=== PATIENT | female | born 1955 | race Caucasian/White ===

== ENCOUNTER → 2017-09-20 13:38 | Outpatient (CLI) | payer MEDICARE, SELFPAY ==
--- NOTE | 2017-09-20 13:09 | CDU_ITS ---
Reason For Study: TIA Rt. Velocities/BP Lt. Velocities/BP Prox CCA 88.5/16.4 cm/sec. Prox CCA 123.0/27.5 cm/sec. Mid CCA 94.4/24.0 cm/sec. Mid CCA 108.0/24.4 cm/sec. Dist CCA 80.3/19.9 cm/sec. Dist CCA 75.0/11.7 cm/sec. Prox ICA 76.2/25.2 cm/sec. Prox ICA 59.2/24.0 cm/sec. Mid ICA 94.4/36.9 cm/sec. Mid ICA 83.0/30.6 cm/sec. Dist ICA 77.1/29.0 cm/sec. Dist ICA 78.1/26.4 cm/sec. Rt. ICA/CCA = 1.0. Lt. ICA/CCA = .77. Prox ECA 97.0/16.3 cm/sec. Prox ECA 86.2/14.1 cm/sec. Rt. Vert. 53.9/15.8 cm/sec. Lt. Vert. 51.6/14.7 cm/sec. Right Extracranial There is intimal thickening but no significant atherosclerotic plaque noted in the right common carotid artery. There is intimal thickening but no significant atherosclerotic plaque noted in the right internal carotid artery. There is intimal thickening but no significant atherosclerotic plaque noted in the right external carotid artery. Antegrade flow is noted in the right vertebral artery. Left Extracranial There is intimal thickening but no significant atherosclerotic plaque noted in the left common carotid artery. There is intimal thickening but no significant atherosclerotic plaque noted in the left internal carotid artery. There is no significant atherosclerotic plaque noted in the left external carotid artery. Antegrade flow is noted in the left vertebral artery. Procedure Carotid Duplex [id number]. Exam performed in department. Interpretation Summary Mild (<50%) stenosis right extracranial internal carotid. Mild (<50%) stenosis left extracranial internal carotid. Flow within the vertebral arteries is antegrade bilaterally. Ordering Physician: Dieter Montes Referring Physician: Dieter Montes Performed By: Romy Duffy RVT
--- NOTE | 2017-09-20 14:00 | STEWCON_ITS ---
Reason For Study: DYSPNEA/SOB Stress Results Protocol: Dobutamine Maximum Predicted HR: 158 bpm Target HR: 134 bpm% Maximum Predicted HR: 88 % DurationHeart Rate Stage (mm:ss) (bpm) BPCom ment BASELINE 61 113/69 STAGE 1 3:00 87 129/6710 MCG STAGE 2 3:00 11 3 136/4320 MCG STAGE 3 3:16 13 9 136/9730 MCG RECOVERY 95 141/75 Stress Duration: 9:16 mm:ss Maximum Stress HR: 139 bpm Baseline Echocardiogram Findings The estimated ejection fraction is 65 %. Stress Echo Wall motion Data Resting WMIntermediate WMStress WM Resting Wall Motion Wall Motion Stress No regional wall motion No regional wall motion abnormalities noted. abnormalities noted. EKG Data Normal intervals are noted. The patient was titrated from 10 mcg to a maximun of 30 mcg of dobutamine during the stress. The maximum heart rate attained was 136 beats per minute. This was 86% of maximum predicted heart rate. At peak infusion, upsloping ST changes only were noted, which did not meet the criteria for ischemia. No clinical angina was noted. No arrhythmias noted. Interpretation Summary The estimated ejection fraction is 65 %. The patient was titrated from 10 mcg to a maximun of 30 mcg of dobutamine during the stress. Normal adequate dobutamine echocardiogram. Negative for ischemia by EKG and echocardiographic criteria. No anginal symptoms noted. No arrhythmias noted. Appropriate blood pressure response to dobutamine. Final LVEF of 75%. Test terminated due to the attainment of target heart rate. RVSP baseline was 40 mmHg, and increased to 46 mm Hg at peak infusion. No complications. Ordering Physician: Dieter Montes Referring Physician: Dieter Montes Performed By: Shilpi Gomez RDCS
== END ==
PROVIDERS: Family Provider Internal Medicine; PCP Internal Medicine; Visit Provider Internal Medicine Cardiovascular Disease
DX: I80.00 Phlebitis and thrombophlebitis of superficial vessels of unspecified lower extremity (principal); I27.20 Pulmonary hypertension, unspecified; R06.00 Dyspnea, unspecified; R07.9 Chest pain, unspecified; Z86.73 Personal history of transient ischemic attack (TIA), and cerebral infarction without residual deficits
CPT/HCPCS: 93017; 93350; 93880; J7030; A4216

== ENCOUNTER → 2017-10-18 11:02 | Outpatient (CLI) | payer MEDICARE, SELFPAY ==
[2017-10-18 13:13] LABS: M R Staph aureus DNA By PCR Negative (Negative); Probe Check PASS; Specimen Processing Control PASS
== END ==
PROVIDERS: Family Provider Internal Medicine; PCP Internal Medicine; Visit Provider Ophthalmology
DX: Z22.321 Carrier or suspected carrier of Methicillin susceptible Staphylococcus aureus (principal)
CPT/HCPCS: 87641

== ENCOUNTER 2017-10-30 13:30 | Outpatient (RCR) | payer MEDICARE, SELFPAY ==
--- NOTE | 2017-09-25 10:58 | HP.PTEVAL ---
Patient's Visit Information ETIENNE BERMUDEZ is a 62 year old F referred to Physical Therapy by MD ESTEFANI Maldonado with a diagnosis of CERVICAL DDD. Date of Evaluation: 09/25/17 Physical Therapist: Camilo Lopes PT, - Visit Plan Frequency: 2x /Week Duration: 4 Weeks Plan: modalities ,cervical ROM/postural ex',s,manual therapy STM ,cervical traction - Subjective Subjective: This 62 y/o female presents to physical therapy with cervical DDD. Patient has nhad cervical pain more than 25 years. Patient located cervical spine symptoms symtrical. Patient pain is decribed as ache and crepitus.Symptoms worse with lifting arms ,turning ,flexion,cold. Pain affects sleeping but has sleep apnea. Symptoms better with MEDS. Patient c/o MARIEE ,denies diziness ,nausea. Patient has no had prior treatment. Patient seen Pain managment, Patient seen facilities project manager-pulmonary HTN. SOCIAL: seperated. VOVATION: disablity - Pain Left Neck Pain Intensity (Out of 10): 3 Pain Intensity Range: 10 - Objective POSTURE: mild foward posture ,foward head. NEURO: denies parathesia/tingling,C5-6-7 1/. PALAPTION: tender UT/LEVATOR/PARASPINALS. CERVICAL ROM: flexion min loss,extension min loss,lateral flexion min loss,rotation mod loss,retraction min loss. BUE: AROM WFL. MMT: 4/5 grosssly - Special Tests C/S Radiculapathy - Left Upper limb tension test: Negative C/S Radiculapathy - Right Upper limb tension test: Negative C/S Radiculapathy - Left Spurlings: Negative C/S Radiculapathy - Right Spurlings: Negative C/S Radiculapathy - Left Cervical distraction: Negative C/S Radiculapathy - Right Cervical distraction: Negative C/S Radiculapathy - Left Relief test: Negative C/S Radiculapathy - Right Relief test: Negative Vertebral Artery Test: Negative Cervical Sitting: Protrusion - Mechanical Response: No effect Cervical Sitting: Protrusion - Symptoms During Testing: No effect Cervical Sitting: Protrusion - Symptoms After Testing: No effect Cervical Sitting: Retraction - Mechanical Response: No effect Cervical Sitting: Retraction - Symptoms During Testing: No effect Cervical Sitting: Retraction - Symptoms After Testing: No effect Cervical Sitting: Retraction-Extension - Mechanical Response: No effect Cerv Sitting: Retraction-Extension - Symptoms During Testing: No effect Cerv Sitting: Retraction-Extension - Symptoms After Testing: No effect - Goals Goal 1:: Independant with HEP Goal Time Frame: 4-6 Weeks Goal 2:: Independant with posture for ADL'S Goal Time Frame: 4-6 Weeks Goal 3:: Decrease cervical pain by 50% or greater to improve function. Goal Time Frame: 4-6 Weeks Goal 4:: Patient improve cervical ROM for function of recovery Goal Time Frame: 4-6 Weeks Goal 5:: Patient be able to perform ADLS' and job demands with min limiations Goal Time Frame: 4-6 Weeks - Rehabilitation Potential Physical Therapy Diagnosis: This patient has cervical pain with loss ROM ,strength which impairs function. and ADL'S Patient had x-rays showed DDD Rehabilitation Potential: Fair - Anticipated Interventions Patient/Client Instruction: Educate patient on: Condition, Plan of Care For the Purpose of:: To decrease pain, To increase ROM, To increase tolerance to activity/condition/position, To improve performance and independence with ADL's, To improve ability of physical actions for home/community/work/leisure, To improve health of tissue, To decrease soft tissue restriction, To increase flexibility/ROM, To assume or resume ADL's, To improve ability to perform tasks related to life management Therapeutic Exercise to Include: Strength training, Postural training, Flexibilty training Comment: cervical For the Purpose of:: To decrease pain, To increase ROM, To improve muscle performance and motor function, To improve ability to perform ADL's, To increase tolerance to activity/condition/position, To improve ability of physical actions for home/community/work/leisure, To improve health of tissue, To decrease soft tissue restriction, To increase flexibility/ROM, To prevent re-injury, To improve ability to perform tasks related to life management Manual Therapy Techniques to Include: Soft tissue mobilization Comment: cervical traction For the Purpose of:: To decrease pain, To increase ROM, To improve nutrient delivery to tissue, To increase oxygenation perfusion, To improve health of tissue, To decrease soft tissue restriction, To increase flexibility/ROM IF ES: Yes Cryotherapy (ice pack, ice massage): Yes Thermo therapy (hot pack): Yes Ultrasound (thermal/non thermal): Yes For the Purpose of:: To decrease pain, To increase ROM, To improve nutrient delivery to tissue, To increase oxygenation perfusion, To improve health of tissue, To decrease soft tissue restriction Thank you for the opportunity to evaluate your patient. For Medicare and Medicare HMO plans, please review the plan of care and approve it. It will need to be FAXED BACK to us at [phone] for Medicare purposes. Please let me know if there are questions or concerns regarding this plan of care. Physician Signature: Date:
--- NOTE | 2017-10-30 13:58 | HP.PTDCSUM ---
HP - PT D/C Summary It has been my pleasure to treat ETIENNE BERMUDEZ under orders from Rasheed Perry MD, for the diagnosis of CERVICAL DDD for a total of 7 visit(s). Discharge Date: 10/30/17 Please see the following information for a summary of their discharge status. 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 PT didnt help alot,exercise didnt. Possible planning for injections - Pain Left Neck Pain Intensity (Out of 10): 2 - Overall Improvement % Improvement: 25 - Objective Objective/Function: POSTURE: mild foward posture. PALAPTION: tender UT/levator. MMT: 4/5 grossly. CERVICAL ROM: flexion/extension/rotation/lateral flexion min loss - Goals Goal 1:: Independant with HEP Goal Progress: Progressing Goal 2:: Independant with posture for ADL'S Goal Progress: Progressing Goal 3:: Decrease cervical pain by 50% or greater to improve function. Goal Progress: Progressing Goal 4:: Patient improve cervical ROM for function of recovery Goal Progress: Progressing Goal 5:: Patient be able to perform ADLS' and job demands with min limiations Goal Progress: Progressing - Plan Plan: D/C to HEP and HW - D/C Information Discharge Comments: HEP AND RTD If there are questions or concerns regarding this patient's physical therapy, please feel free to call me at [phone]. Thank you for the referral of this patient. Sincerely, Camilo Lopes, PT,
== END 2017-10-30 19:00 | disposition home or self-care (01) ==
LOC: PT 13:30
PROVIDERS: Family Provider Internal Medicine; PCP Internal Medicine; Visit Provider Anesthesiology Pain Medicine
DX: M50.30 Other cervical disc degeneration, unspecified cervical region (principal); M47.812 Spondylosis without myelopathy or radiculopathy, cervical region
CPT/HCPCS: 97035; 97110; 97140; 97162; 97530

== ENCOUNTER → 2018-02-13 08:59 | Outpatient (CLI) | payer MEDICARE, SELFPAY | PROVIDERS: Family Provider Internal Medicine; PCP Internal Medicine; Visit Provider Internal Medicine Critical Care Medicine | DX: R00.2 Palpitations (principal); R06.00 Dyspnea, unspecified | CPT/HCPCS: 93225; 93226 ==

== ENCOUNTER → 2018-02-14 09:03 | Outpatient (CLI) | payer MEDICARE, SELFPAY ==
[2018-02-14 09:34] VITALS: PULSE 67; PULSE 87; PULSE 90; PULSE 93; PULSE 94; O2SAT 90; O2SAT 91; O2SAT 93; O2SAT 95; O2SAT 96; O2SAT 97; O2SAT 98
--- NOTE | 2018-02-14 13:48 | WT_ITS ---
PSN 6 Minute Walk Test - 6 Minute Walk Test 6 Minute Walk Test: 6 Minute Walk Test PSN:6-Minute Walk Test Start: 02/14/18 09: 33 Freq: Status: Active Protocol: RESP.6MINW Document 02/14/18 09:34 EW (Rec: 02/14/18 09:41 EW [id number]) 6 Minute Walk Test Date Performed 02/14/18 Time Performed 09:00 Height 5 ft 2 in Weight: 276 lb Weight in Pounds 276.[address]: Carlita Cortes Assistive device used: None Pre-test Oxygen Delivery Method Room Air Pulse Ox (%) 97 Pulse Rate (60-100 beats/min) 67 Dyspnea Hernando Scale (0-10) 1 Exertion Hernando Scale (6-20) 8 1st minute Oxygen Delivery Method Room Air Pulse Ox (%) 96 Pulse Rate (60-100 beats/min) 87 2nd minute Oxygen Delivery Method Room Air Pulse Ox (%) 91 Pulse Rate (60-100 beats/min) 90 3rd minute Oxygen Delivery Method Room Air Pulse Ox (%) 90 Pulse Rate (60-100 beats/min) 93 Number of Rests Taken 1 Reported Symptoms Increased Work of Breathing 4th minute Oxygen Delivery Method Room Air Pulse Ox (%) 95 Pulse Rate (60-100 beats/min) 94 Reported Symptoms Increased Work of Breathing 5th minute Oxygen Delivery Method Room Air Pulse Ox (%) 93 Pulse Rate (60-100 beats/min) 90 6th minute Oxygen Delivery Method Room Air Pulse Ox (%) 91 Pulse Rate (60-100 beats/min) 94 Post-test Oxygen Delivery Method Room Air Pulse Ox (%) 98 Pulse Rate (60-100 beats/min) 67 Dyspnea Hernando Scale (0-10) 5 Exertion Hernando Scale (6-20) 16 Full Laps Walked 13 Partial Lap, Number of Tiles Walked 0 Total Distance Walked (ft) 767 - Interpretation Interpretation: The patient ambulated 767 feet over the course of 6 minutes beginning on room air without assistive devices or breaks. Pretesting oxygen saturation was noted to be 97% on room air. With ambulation, the rae oxygen saturation was 90%. This represents a significant exertional oxygen desaturation. In addition , there was evidence of impaired walk distance. - Recommendations Recommendations: There is no indication for the use of supplemental oxygen at this time. However , close interval follow-up is recommended given the degree of oxygen desaturation noted during this study.
== END ==
PROVIDERS: Family Provider Internal Medicine; PCP Internal Medicine; Visit Provider Nurse Practitioner Acute Care
DX: J44.9 Chronic obstructive pulmonary disease, unspecified (principal)
CPT/HCPCS: 94618

== ENCOUNTER 2018-02-14 09:39 | Emergency (ER) | payer MEDICARE, SELFPAY ==
[2018-02-14 09:40] VITALS: BP 158/104; PULSE 60; RESP 12; TEMP 36.6; O2SAT 98; BMI 50.6
--- NOTE | 2018-02-14 09:44 | EKG12_ITS ---
Test Reason : CP Blood Pressure : / mmHG Vent. Rate : 061 BPM Atrial Rate : 061 BPM P-R Int : 140 ms QRS Dur : 084 ms QT Int : 442 ms P-R-T Axes : 064 -11 056 degrees QTc Int : 444 ms Normal sinus rhythm Normal ECG Confirmed by MYRNA MIRANDA, JAMIE ([id number]), publication editor JUANY ROMO ([id number]) on 02/16/2018 1:39:16 PM Referred By: ALEJANDRA Confirmed By:JAMIE NORRIS MD
[2018-02-14 09:46] VITALS: O2SAT 99
--- NOTE | 2018-02-14 09:46 | RAD_ITS ---
STUDY: X-RAY CHEST REASON FOR EXAM: Female, 62 years old. Chest pain. TECHNIQUE: Single AP portable view of the chest. COMPARISON: Comparison is made with prior study dated July 17, 2017. FINDINGS: EKG electrodes are seen. The lungs are clear and expanded. Scattered calcified granulomas. There is no demonstrated pleural abnormality. Normal size heart. Normal mediastinum and juve. Normal visualized pulmonary arteries. Normal visualized aortic arch and descending thoracic aorta. There are degenerative changes of the visualized thoracic spine. Normal visualized ribs, clavicles, and shoulders. There is no demonstrated abnormality of the visualized soft tissue structures of the upper abdomen. RAD/Chest 1 View (Portable) IMPRESSION: Normal x-ray examination of the chest. Electronically Signed: Fish Woods MD at 10:12 EDT Tel [phone], Service support ,
[2018-02-14 10:04] LABS: Absolute Lymphocyte Count 1.95 X10^3/ul (0.83-4.51); Basophil# 0.04 X10^3/uL; Basophil% 0.3 % (0-1); Eosinophil# 0.25 X10^3/uL; Eosinophils% 1.9 % (0-5); Hematocrit 43.3 % (37-47); Hemoglobin 14.5 g/dl (12.0-15.0); Lymphocyte # 1.95 X10^3/ul (4.0); Lymphocyte % 14.6 % (19-41); Mean Corp Hgb Conc 33.5 g/gl (32-36); Mean Corpuscular Hgb 33.8 pg (27.0-32.0); Mean Corpuscular Volume 100.9 fL (81-99); Mean Platelet Vol. 8.9 fl (6.2-12.0); Monocyte# 1.08 X10^3/uL; Monocyte% 8.1 % (0-10); Neutrophil # 10.03 X10^3/uL (2.7-7.7); Platelet Count 280 K/mm3 (150-450); RBC Distribution Width SD 50.7 fl (35.1-43.9); Red Blood Count 4.29 M/mm3 (4.2-5.4); White Blood Count 13.4 K/mm3 (4.4-11.0)
[2018-02-14 10:15] VITALS: BP 129/68; PULSE 61; RESP 16; O2SAT 99
[2018-02-14 10:16] LABS: Anion Gap 7 (5-15); BUN 27 mg/dL (7-18); BUN/Creat Ratio 26.7 RATIO (10-20); Calcium,Total 9.2 mg/dL (8.5-10.1); Chloride 104 mmol/L (98-107); Creatinine, Serum 1.01 mg/dL (0.55-1.02); EST Glomerular Filtration Rate 59 mL/min (>60); Est Glom Filt Rate - Afr Amer 71 mL/min (>60); Estimated Creatinine Clearance 45.68 ml/min; Glucose 102 mg/dL (74-106); POSITIVE COUNT NO; POSITIVE DIFFERENTIAL NO; POSITIVE MORPHOLOGY NO; Potassium 4.2 mmol/L (3.5-5.1); Sodium Level 140 mmol/L (136-145)
--- NOTE | 2018-02-14 10:26 | CT_ITS ---
STUDY: CTA CHEST REASON FOR EXAM: Female, 62 years old. Chest pain. RADIATION DOSAGE (If Supplied By Facility): CTDIvol = ( 15.02 ) mGy, DLP = ( 651.29 ) mGycm TECHNIQUE: The examination was performed with the intravenous administration of 100ML ml of Isovue 370 contrast material. Post-processing of the angiographic images was performed, with multiplanar reformation and 3D reconstruction. Individualized dose optimization techniques were used for this CT. COMPARISON: Comparison is made with prior radiograph done earlier in the day. FINDINGS: Normal enhancement of the main pulmonary artery and right and left pulmonary arteries. Normal enhancement of the bilateral peripheral pulmonary arteries. There is no demonstrated pulmonary embolism. Normal thoracic aorta and visualized great vessels. There is no demonstrated aortic dissection. Normal heart and pericardium. Normal mediastinum. Normal hilar regions. Normal visualized trachea and bronchi. The lungs are well expanded. Normal pulmonary parenchyma. Normal pleura. Normal chest wall structures. There are degenerative changes of thoracic spine. There is a 1.5 cm hypodense nodule in the left adrenal gland suggestive of a small adrenal adenoma. Small hiatal hernia. CT/CTA Chest W/WO Contrast IMPRESSION: Findings suggestive by 1.5 cm left adrenal adenoma. Small hiatal hernia. There is no evidence of pulmonary embolism. Electronically Signed: Fish Woods MD at 11:06 EDT Tel [phone], Service support ,
--- NOTE | 2018-02-14 10:29 | NURSING ---
NO LW OR POA
[2018-02-14 11:25] VITALS: BP 149/72; PULSE 55; RESP 18; O2SAT 99
--- NOTE | 2018-02-14 11:28 | ED.VISSUMM ---
- ER Visit Summary Date of Service: 02/14/18 Chief Complaint: Chest pain History of Present Illness: The patient is a 62 F who states that last night at approximately 2000 hours she developed a sharp knifelike pain in her right anterior midaxillary line chest underneath her breast. She states that time the pain seemed to travel up towards her right eye. She states that it is been constant since 8:00 last night. Today she presented up to the hospital to do a pulmonary test where she needed to walk for 6 minutes. She completed it and told him about the pain and they took her to the cardiology office and then she was brought here to the emergency room. Patient states that this pain is different than the pain she experienced on Monday which was left-sided and achy that came on while she was cleaning. But it went away. She states she just turned in the Holter monitor. She had a dobutamine stress test that was negative in August 2017. Patient has a history of COPD, pulmonary hypertension, obstructive sleep apnea, fibromyalgia, hypertension, TIA, and GERD. She does not take aspirin. Smoking history. Physical Examination: Afebrile vital signs are stable Gen: Well-nourished well-developed obese Head: Normocephalic atraumatic Eyes: Perrl EOMI ENT: TMs clear no rhinorrhea moist mucous membranes raspy voice Neck: Supple no lymphadenopathy no JVD nontender CVS: Regular rate rhythm no murmurs normal S1-S2 Respiratory: No distress clear to auscultation bilaterally chest nontender Abdomen: Soft nontender nondistended normal bowel sounds no masses Back: Nontender Extremity: Nontender no edema Skin: Normal color no rash Neuro: alert orientated ?3 CN II-XII intact normal strength sensation reflexes gait cerebellar Psych: Normal affect normal mood Test Results: EKG showed a normal sinus rhythm at a rate of 31 that does appear unchanged from prior which is dated 2014. CBC BMP were negative. Delta troponin negative. Chest x-ray negative. CTA negative. Emergency Department Course and Treatment: Patient's been observed on the monitor. I spoke with Dr. Montes who is comfortable with a 2 hour delta troponin. If this is negative she may follow-up in the office. Impression: 1. Chest pain This note was generated with [employer] dictation software. It may contain incorrect words, spelling, and punctuation that were not noted in review of the chart prior to signing ED Disposition - Plan for ED Patient: Disposition: Home or Assisted Living Chief Complaint: Chest Pain Instructions: ED Chest Pain NonCardiac Referrals: Refugio Dowd MD [Primary Care Provider] - Keep Vamsi appointment Jagdish Alonso MD [STAFF PHYSICIAN] - Keep Vamsi appointment Dieter Montes MD [STAFF PHYSICIAN] - Keep Vamsi appointment
[2018-02-14 12:01] VITALS: BP 156/98; PULSE 58; RESP 18; O2SAT 99
[2018-02-14 12:29] VITALS: BP 132/71; PULSE 54; RESP 18; O2SAT 99
== END 2018-02-14 12:29 | disposition home or self-care (01) ==
PROVIDERS: Emergency Provider Emergency Medicine; Family Provider Internal Medicine; PCP Internal Medicine
DX: R07.9 Chest pain, unspecified (principal); J44.9 Chronic obstructive pulmonary disease, unspecified; I27.20 Pulmonary hypertension, unspecified; G47.33 Obstructive sleep apnea (adult) (pediatric); M79.7 Fibromyalgia; I10 Essential (primary) hypertension; K21.9 Gastro-esophageal reflux disease without esophagitis; F17.200 Nicotine dependence, unspecified, uncomplicated; E66.9 Obesity, unspecified; Z68.43 Body mass index [BMI] 50.0-59.9, adult; Z79.899 Other long term (current) drug therapy; Z86.73 Personal history of transient ischemic attack (TIA), and cerebral infarction without residual deficits
CPT/HCPCS: 36415; 71045; 71275; 80048; 84484; 85025; 93005; 94618; 99284; Q9967; A4216

== ENCOUNTER → 2018-02-23 06:41 | Outpatient (CLI) | payer MEDICARE, SELFPAY ==
--- NOTE | 2018-02-23 15:29 | PFTCOMP_ITS ---
COMPLETE PULMONARY FUNCTION TEST INTERPRETATION Brief HPI: Patient is a 62 year old female, currently under the care of Carlita Cortes, who presents to [facility] for complete pulmonary function tests secondary to diagnosis of COPD. Respiratory therapist reports good effort and reproducible results. Interpretation: Forced expiration spirometry shows a moderate large airways obstructive ventilatory defect with an FEV1 of 60% predicted. There is no significant bronchodilator response by ATS criteria. Spirograms are of good quality and plateau slowly, indicating slowly emptying areas of the lungs. The respiratory flow volume loop shows decreased expiratory flow rates at all lung volumes consistent with airway obstruction. Lung volumes by body plethysmography show a normal total lung capacity at 4.58 L , 102% predicted. All other lung volumes are within normal limits. Diffusion capacity by carbon monoxide is decreased at 40% predicted. The airway resistance is normal. No previous pulmonary function tests were available for review. Impression: Irreversible moderate large airways obstructive ventilatory defect with a symmetric reduction diffusing capacity, consistent with patient's diagnosis of COPD.
== END ==
PROVIDERS: Family Provider Internal Medicine; PCP Internal Medicine; Visit Provider Nurse Practitioner Acute Care
DX: J44.9 Chronic obstructive pulmonary disease, unspecified (principal)
CPT/HCPCS: 94060; 94726; 94729

== ENCOUNTER → 2018-02-27 14:22 | Outpatient (CLI) | payer MEDICARE, SELFPAY ==
[2018-02-27 16:01] LABS: T4 Free Direct 0.95 ng/dL (0.76-1.46); Thyroid Stim Hormone (TSH) 0.55 uIU/mL (0.358-3.74)
== END ==
PROVIDERS: Family Provider Internal Medicine; PCP Internal Medicine; Visit Provider Internal Medicine
DX: E03.9 Hypothyroidism, unspecified (principal)
CPT/HCPCS: 36415; 84439; 84443

== ENCOUNTER 2018-03-07 06:28 | Day surgery (SDC) | payer MEDICARE, SELFPAY ==
[2018-03-01 15:46] LABS: Absolute Lymphocyte Count 1.79 X10^3/ul (0.83-4.51); Absolute Neutrophil Count 5.5 X10^3/uL (2.0-7.7); Basophil# 0.05 X10^3/uL; Basophil% 0.6 % (0-1); Eosinophils% 2.4 % (0-5); Hematocrit 44.1 % (37-47); Hemoglobin 14.7 g/dl (12.0-15.0); Lymphocyte # 1.79 X10^3/ul (4.0); Lymphocyte % 21.9 % (19-41); Mean Corp Hgb Conc 33.3 g/gl (32-36); Mean Corpuscular Hgb 33.6 pg (27.0-32.0); Mean Corpuscular Volume 100.7 fL (81-99); Monocyte# 0.59 X10^3/uL; Monocyte% 7.2 % (0-10); Neutrophil # 5.54 X10^3/uL (2.7-7.7); Neutrophil % 67.7 % (47-70); Platelet Count 240 K/mm3 (150-450); RBC Distribution Width CV 13.9 % (11.6-14.6); RBC Distribution Width SD 50.5 fl (35.1-43.9); Red Blood Count 4.38 M/mm3 (4.2-5.4); White Blood Count 8.2 K/mm3 (4.4-11.0)
[2018-03-01 15:48] LABS: Prothrombin Time (Protime)PT. 12.8 SECONDS (11.7-14.9)
[2018-03-01 15:49] LABS: POSITIVE COUNT NO; POSITIVE DIFFERENTIAL NO; POSITIVE MORPHOLOGY NO
[2018-03-01 16:08] LABS: Anion Gap 7 (5-15); BUN 13 mg/dL (7-18); BUN/Creat Ratio 15.7 RATIO (10-20); Calcium,Total 9.4 mg/dL (8.5-10.1); Chloride 107 mmol/L (98-107); Creatinine, Serum 0.83 mg/dL (0.55-1.02); EST Glomerular Filtration Rate 74 mL/min (>60); Est Glom Filt Rate - Afr Amer 90 mL/min (>60); Glucose 122 mg/dL (74-106); Potassium 4.2 mmol/L (3.5-5.1); Sodium Level 143 mmol/L (136-145)
[2018-03-06 08:31] VITALS: BMI 50.1
--- NOTE | 2018-03-07 08:30 | CL.D_ITS ---
Patient Name: ETIENNE BERMUDEZ Study Date: 03/07/2018 Performing: Dieter Montes MD Ht: 61.81 inches 157 cm : 1955 Wt: 273.37 lbs 124 kg Age: 62 Gender: female BSA: 2.18 PROCEDURE(S) PERFORMED [id number]/LHC/COR/LV CLINICAL PROFILE AND INDICATIONS Indications: ACS > 24 hrs, New Onset Angina <= 2 months, Suspected CAD Heart Failure: None Stress/Imaging Stress Echocardiogram: Yes Result: NegativeStress Echocardiogram: Negative Angina Classification Anginal Classification w/in 2 Weeks: CCS III CAD Presentations: Unstable angina. Comorbidities/Risk Factors: Current/Recent Smoker (< 1year) Hypertension Dyslipidemia Chronic Lung Disease CONCLUSIONS Non obstructive coronary arteries Normal LV size, wall motion,and systolic function Right heart pressures - moderately elevated The patient has pulmonary hypertension which is moderate. RECOMMENDATIONS Management as per referring Event Coordinator Marketing And Sales D/c plavix, cont pulmonary meds and pulmonary rehab. DESCRIPTION OF PROCEDURE The patient arrived to the procedure lab. The risks and benefits of the procedure as well as a full d escription of our services here and current unavailability of surgical backup were fully explained to the patient and/or their significant other prior to the catheterization. The Timeout was completed, verifying the correct patient and procedure. The patient's procedural site was prepped and draped in the usual fashion. Local anesthetic was given subcutaneously to right groin region with Lidocaine 2%. Using a modified Seldinger technique, arterial access was obtained via the right femoral artery, a 4 Fr sheath was inserted Venous access was obtained via the right femoral vein, a 7Fr sheath was insert ed. A 7Fr thermal dilution catheter was inserted and right heart pressures were recorded, it was then advanced to PA position for cardiac outputs. Thermal dilution cardiac outputs were then recorded. Th ermal dilution cardiac outputs were then recorded. O2 saturations were then obtained. Simultaneous pr essures were then recorded. Left Ventriculography was performed in BARRETT projection using a 4 Fr. [place] catheter. LV to AO pullback pressures were then recorded. The Thermal dilution catheter was then r emoved. Left Coronary Artery selective angiography was performed in multiple views using a 4 Fr. JL5 catheter. Right Coronary Artery selective angiography was then performed in multiple views using a 4 Fr. 3DRC catheter.The arterial sheath was pulled and manual compression applied until hemostasis is a chieved. CORONARY ANGIOGRAPHY DOMINANCE: Right Dominant LEFT HEART ASSESSMENT Left Ventricular Ejection Fraction: by LV Gram 65 % Normal LV wall motion Normal Left Ventricular systolic function Normal Left Ventricular End Diastolic Pressure RIGHT HEART ASSESSMENT Thermal CO: 7.67 Thermal CI: 3.52 Ty CO: 7.63 Ty CI: 3.5 PW: 14 PA: 49/20 31 RV: 53/0 13 RA: 10 PVR: 177 SVR: 668 Right Heart pressures - elevated Pulmonary Hypertension Moderate LEFT MAIN: Angiographically normal LEFT ANTERIOR DECENDING ARTERY: Angiographically normal CIRCUMFLEX ARTERY: Angiographically normal RIGHT CORONARY ARTERY: PROX RCA: 30 % Stenosis COMPLICATIONS No Complications PROCEDURE MEDICATIONS Versed 1 mg IV Oxygen: 2 L/min via nasal cannula Oxygen: 0 L/min via nasal cannula Oxygen: 2 L/min via nasal cannula SUMMARY OF HEMODYNAMIC DATA Time AIR REST ECG 07:16:50 RA (10) SV 08:03:54 RV 53/0, 13 08:04:05 RV 50/3, 13 08:04:11 PW (14) PV 08:04:36 PA 49/20 (31) PA 08:04:49 LV 114/-4, 13 08:09:00 LV 114/-4, 13 08:09:07 LV 114/-6, 12 08:09:30 PW / (15) 08:09:30 LV 116/-2, 16 08:09:54 RV 55/3, 12 08:09:54 LVp 119/-6, 16 08:11:12 AOp 117/52 (78) 08:11:17 AO 95/56 (74) SA 08:12:59 Type SV CO (l/m) CI (l/m/ HR Time AIR REST Thermal 147.50 7.67 3.52 52 07:16:50 Ty 146.70 7.63 3.50 52 07:16:50 Label % O2 Pres/Loc Time AIR REST PA 60 PA 08:16:42 AO 79 PV 08:16:47 Signed By Dieter Montes MD On 03/07/2018 08:30:07 Dieter Montes MD
[2018-03-07 09:26] LABS: Blood Gas Specimen Type VEN; VBG BASE EXCESS -1 mmol/L (-1.0-3.5); VBG Bicarbonate 24 mmol/L (22-26); VBG Oxygen Content 25 mmol/L (23-33); VBG PO2 31 mmHg (25-40); VBG SO2 59 % (50-70); VBG pH 7.38 (7.32-7.42)
[2018-03-07 09:26] LABS: Base Excess -2 mmol/L (-2 to +2); Bicarbonate 23.1 mmol/L (22-26); Blood Gas Specimen Type ART; PO2 45 mmHG (75-100); SO2 79 % (95-99); Total Carbon Dioxide 24 mmol/L; pCO2 39.5 mmHg (35-45); pH 7.37 (7.35-7.45)
[2018-03-07 09:26] LABS: Blood Gas Specimen Type VEN; VBG BASE EXCESS -1 mmol/L (-1.0-3.5); VBG Bicarbonate 25 mmol/L (22-26); VBG Oxygen Content 26 mmol/L (23-33); VBG PO2 32 mmHg (25-40); VBG SO2 61 % (50-70); VBG pCO2 41.9 mmHg (41-51); VBG pH 7.38 (7.32-7.42)
== END 2018-03-07 12:48 | disposition home or self-care (01) ==
LOC: CLSP 06:31
PROVIDERS: Family Provider Internal Medicine; PCP Internal Medicine; Visit Provider Internal Medicine Cardiovascular Disease
DX: I27.20 Pulmonary hypertension, unspecified (principal); R07.9 Chest pain, unspecified; R06.00 Dyspnea, unspecified; E03.9 Hypothyroidism, unspecified; E66.01 Morbid (severe) obesity due to excess calories; R73.03 Prediabetes; M79.7 Fibromyalgia; J44.9 Chronic obstructive pulmonary disease, unspecified; I10 Essential (primary) hypertension; G47.33 Obstructive sleep apnea (adult) (pediatric); F17.210 Nicotine dependence, cigarettes, uncomplicated; Z68.43 Body mass index [BMI] 50.0-59.9, adult; Z86.73 Personal history of transient ischemic attack (TIA), and cerebral infarction without residual deficits; Z79.82 Long term (current) use of aspirin; Z79.899 Other long term (current) drug therapy
CPT/HCPCS: 36415; 80048; 82803; 85025; 85610; 93460; 99152; 99153; J7040; C1751; C1769; C1894; Q9967

== ENCOUNTER 2018-04-07 19:24 | Observation (INO) | payer MEDICARE, SELFPAY ==
[2018-04-07 19:25] VITALS: BP 190/126; PULSE 91; RESP 28; TEMP 36.7; O2SAT 99; BMI 51.0
[2018-04-07] MEDS: Morphine 4 MG/ML Syringe IV ×2 (20:03→20:51)
[2018-04-07] MEDS: Ondansetron 4 MG/2 ML Vial IV (20:04)
[2018-04-07 20:27] LABS: White Blood Cells 0 SEEN /hpf (0-5)
[2018-04-07 20:39] LABS: Absolute Lymphocyte Count 1.05 X10^3/ul (0.83-4.51); Absolute Neutrophil Count 11.8 X10^3/uL (2.0-7.7); Basophil# 0.03 X10^3/uL; Basophil% 0.2 % (0-1); Eosinophils% 0.7 % (0-5); Hematocrit 43.3 % (37-47); Hemoglobin 14.7 g/dl (12.0-15.0); Lymphocyte # 1.05 X10^3/ul (4.0); Lymphocyte % 7.6 % (19-41); Mean Corp Hgb Conc 33.9 g/gl (32-36); Mean Corpuscular Volume 100.2 fL (81-99); Mean Platelet Vol. 9.8 fl (6.2-12.0); Monocyte# 0.75 X10^3/uL; Monocyte% 5.4 % (0-10); Neutrophil # 11.82 X10^3/uL (2.7-7.7); Neutrophil % 85.9 % (47-70); Platelet Count 272 K/mm3 (150-450); RBC Distribution Width CV 13.4 % (11.6-14.6); RBC Distribution Width SD 48.5 fl (35.1-43.9); Red Blood Count 4.32 M/mm3 (4.2-5.4); White Blood Count 13.8 K/mm3 (4.4-11.0)
[2018-04-07 20:40] LABS: POSITIVE COUNT NO; POSITIVE DIFFERENTIAL NO; POSITIVE MORPHOLOGY NO
[2018-04-07 20:40] LABS: Color, Urine Yellow (Yellow); Glucose, Dipstick Normal (Normal); Ketone-Dipstick Negative (Negative); Leukocyte Esterase-Dipstick 25 /ul (Negative); Nitrite-Dipstick Negative (Negative); Occult Blood-Urine 10 /ul (Negative); Protein-Dipstick 15 mg/dl (Negative); Specific Gravity, Urine 1.015 (1.002-1.030); Urine Bilirubin Dipstick Negative (Negative); Urine Clarity Clear (Clear); Urine Urobilinogen Normal (Normal); Urine pH 6.5 (5.0 - 8.0)
[2018-04-07 20:54] LABS: Anion Gap 9 (5-15); BUN 16 mg/dL (7-18); BUN/Creat Ratio 18.8 RATIO (10-20); Chloride 103 mmol/L (98-107); Creatinine, Serum 0.85 mg/dL (0.55-1.02); EST Glomerular Filtration Rate 72 mL/min (>60); Est Glom Filt Rate - Afr Amer 87 mL/min (>60); Estimated Creatinine Clearance 54.27 ml/min; Glucose 137 mg/dL (74-106); Potassium 4.8 mmol/L (3.5-5.1); Sodium Level 136 mmol/L (136-145)
[2018-04-07] MEDS: LORazepam 2 MG/ML Syringe 1 MG IV (20:54)
[2018-04-07 21:07] LABS: Bacteria RARE /hpf (None Seen); Mucous, Urine RARE /hpf (<or=2+); Red Blood Cells-Urine 5-10 SEEN /hpf (0-5); Squamous Epithelial Cells - UA 0-5 SEEN /hpf (5-10)
--- NOTE | 2018-04-07 21:59 | ED.VISSUMM ---
- ER Visit Summary Date of Service: 04/07/18 Chief Complaint: Back pain History of Present Illness: The patient is a 62 F who presents with severe right sided back pain. She can planes of severe pain in the right lower back which radiates around the right groin. She reports fecal incontinence although notes that she has had this previously this is not new. She denies urinary retention. She denies abdominal pain. She denies numbness tingling weakness or radiation to legs. She has had prior back pain although this seems different. She reports nausea without vomiting. No fevers or chills. Physical Examination: Blood pressure 190/126 vitals otherwise notable for respiratory rate of 28 Moist mucous membranes Heart regular rate and rhythm Lungs are clear Abdomen soft nontender nondistended Right CVA tenderness Straight leg raise negative Normal strength and sensation of the lower extremities with 5 out of 5 dorsiflexion, plantarflexion, extensor hallucis longus Test Results: Labs are notable for white blood cell count 13.8. Glucose 137. Urinalysis shows 5-10 RBCs rare bacteria 25 leukocyte esterase but no WBCs and no nitrites. CT the abdomen and pelvis shows a 2.9 mm calculus in the mid left ureter. Emergency Department Course and Treatment: Patient was very uncomfortable at the time of initial examination. She was leaning over the side of the bed repetitively shifting position. Given report flank pain radiating to the groin this raised concern for ureterolithiasis. Workup as above does show ureteral calculus however it is actually on the left. This is certainly unusual. However I did look at the left side. She also has hematuria. I discussed this with the patient. I do not see an alternative explanation of her symptoms. She is much more comfortable after treatment with IV fluids and morphine. She was initially very anxious when we attempted to take her CAT scan so she was also given Ativan once unable to lay flat to tolerate this. At this time she does feel better and is comfortable plan for discharge. She was given a home pack of [place] and a prescription for the same. She was referred to urology. Patient understands to return for worsening symptoms. She is instructed on specific signs and symptoms to monitor for and she was discharged home. Treatment Plan: [] Disposition: Discharge Impression: Ureterolithiasis This note was generated with [employer] dictation software. It may contain incorrect words, spelling, and punctuation that were not noted in review of the chart prior to signing ED Disposition - Plan for ED Patient: Chief Complaint: Back Referrals: Refugio Dowd MD [Primary Care Provider] -
--- NOTE | 2018-04-07 22:03 | ED.DEP ---
ED Disposition - Plan for ED Patient: Chief Complaint: Back Instructions: ED Stone Renal W Colic Prescriptions: Hydrocodone Bitart/Apap 5-325 [[place] 5MG-325MG] 1 tab PO Q6H PRN PRN 2 Days #8 PRN Reason: Pain Referrals: Refugio Dowd MD [Primary Care Provider] - Ignacio Pickens MD [STAFF PHYSICIAN] -
[2018-04-07] MEDS: HYDROcodone Bitartrate/Apap 5/325 Tablet PO (22:12)
--- NOTE | 2018-04-07 22:23 | ED.RN ---
PULSE OX ON R.A. 78-80% OXYGEN O22LNC APPLIED. PULSE OX INCREASED TO 83% DR. CHOPRA INFORMED OF SAME. CHARGE NURSE INCREASED OXYGEN TO 4LNC AND PULSE OX INCREASED TO 96%, THIS NURSE DECREASED OXYGEN TO 2L AND PULSE OX AT 95% WILL CONTINUE TO OBSERVE.
[2018-04-07 22:26] VITALS: BP 154/68; PULSE 76; RESP 16; O2SAT 80
--- NOTE | 2018-04-07 22:46 | ED.RN ---
OXYGEN WAS TURNED OF PULSE OX 96% O22LNC. WILL CHECK TO SEE IF PT DESATURATES AND WILL REAPPLY OXYGEN IF NECESSARY.
--- NOTE | 2018-04-07 22:54 | EKG12_ITS ---
Test Reason : ARRYHTHMIA Blood Pressure : / mmHG Vent. Rate : 074 BPM Atrial Rate : 074 BPM P-R Int : 144 ms QRS Dur : 084 ms QT Int : 414 ms P-R-T Axes : 048 -26 030 degrees QTc Int : 459 ms Normal sinus rhythm Normal ECG Confirmed by MYRNA MIRANDA, JAMIE ([id number]), image editor JUANY ROMO ([id number]) on 04/10/2018 1:10:05 PM Referred By: KEYSHA Confirmed By:JAMIE NORRIS MD
--- NOTE | 2018-04-07 22:54 | ED.RN ---
PULSE OX DESATURATED TO 83-85% DR. CHOPRA INFORMED OF SAME. OXYGEN REAPPLIED AT 2LNC AND PT UP TO BATHROOM WITH PORTABLE OXYGEN.
--- NOTE | 2018-04-07 23:00 | RAD_ITS ---
RAD/Chest 1 View IMPRESSION: No acute cardiopulmonary abnormalities. Electronically Signed: Hiwot Kerr MD at 23:46 EDT Tel Direct: [phone], Service support ,
[2018-04-07 23:01] VITALS: O2SAT 96
--- NOTE | 2018-04-07 23:44 | PCM.HP.STD ---
Problem List (1) Acute respiratory failure Status: Acute (2) Hypothyroidism Status: Chronic (3) Dermatitis Status: Chronic (4) Tobacco abuse Status: Chronic (5) Dyspnea Status: Acute (6) TIA (transient ischemic attack) Status: Chronic (7) Fibromyalgia Status: Chronic (8) Depression Status: Chronic (9) GERD (gastroesophageal reflux disease) Status: Chronic (10) Chronic low back pain Status: Chronic (11) Chronic obstructive pulmonary disease with acute exacerbation Status: Acute (12) Oral candidiasis Status: Chronic History of Present Illness Date of Admission: 04/07/18 Chief Complaint: Acute respiratory failure The patient is a 62 year old female w/ h/o HENRRY, hypothyroid, TIA, pulmonary HTN, and morbid obesity admitted for acute respiratory failure. She had sudden onset of severe right sided back pain. Pain is in the lower right abdominal and also right flank pain. Pain is constant and does not radiate. No associated dysuria or burning sensation. No fever or chill. Nothing made the pain better or worse. Pain is associated with nausea. She was given Ativan during the course of workup and she became hypoxic. She is not able to be wean off oxygen while sleeping. She has h/o HENRRY. Past Medical History Past Medical History (Chronic Problems): Chronic Problems (Last Reviewed 04/08/18 @ 04:39 by Kvng Villalpando MD) History of left heart catheterization (Chronic 03/07/18) per Dr. Montes @ [facility]: coronaries normal except 30% stenosis in RCA, EF 65%, moderate elevation in right heart pressures Hypothyroidism (Chronic) Dermatitis (Chronic) Tobacco abuse (Chronic) TIA (transient ischemic attack) (Chronic) Pulmonary hypertension (Chronic) PASP 46 mmHg Hearing loss (Chronic) Morbid obesity (Chronic) Conjunctivitis (Chronic) Monilial rash (Chronic) COPD (chronic obstructive pulmonary disease) (Chronic) Diverticulosis (Chronic) Physical deconditioning (Chronic) HENRRY (obstructive sleep apnea) (Chronic) Hiatal hernia (Chronic) Fibromyalgia (Chronic) Depression (Chronic) GERD (gastroesophageal reflux disease) (Chronic) Chronic low back pain (Chronic) Oral candidiasis (Chronic) Abnormal results of pulmonary function studies (Chronic) 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) Anxiety and depression (Chronic) Abdominal pain (Chronic) Medical History: Medical History (Last Reviewed 04/08/18 @ 04:39 by Kvng Villalpando MD) Hypothyroidism (Chronic) E03.9 Tobacco abuse (Chronic) Z72.0 Dyspnea (Acute) R06.00 Chest pain (Acute) R07.9 TIA (transient ischemic attack) (Chronic) G45.9 Pulmonary hypertension (Chronic) I27.20 PASP 46 mmHg MRSA (methicillin resistant staph aureus) culture positive (Resolved) Z22.322 Hearing loss (Chronic) H91.90 Ankle pain (Resolved) M25.579 Achilles tendinitis (Resolved) M76.60 Methicillin susceptible Staphylococcus aureus infection as the cause of diseases classified elsewhere (Resolved) B95.61 Morbid obesity (Chronic) E66.01 Conjunctivitis (Chronic) H10.9 Monilial rash (Chronic) B37.2 COPD (chronic obstructive pulmonary disease) (Chronic) J44.9 Diverticulosis (Chronic) K57.90 Physical deconditioning (Chronic) R53.81 HENRRY (obstructive sleep apnea) (Chronic) G47.33 Hiatal hernia (Chronic) K44.9 Fibromyalgia (Chronic) M79.7 Depression (Chronic) F32.9 GERD (gastroesophageal reflux disease) (Chronic) K21.9 Chronic low back pain (Chronic) M54.5, G89.29 Chronic obstructive pulmonary disease with acute exacerbation (Acute) J44.1 Oral candidiasis (Chronic) B37.0 Abnormal results of pulmonary function studies (Chronic) R94.2 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) J38.1 Anxiety and depression (Chronic) F41.8 Abdominal pain (Chronic) R10.9 Allergies fluconazole [From Diflucan] Allergy (Verified 03/01/18 11:20) Anaphylaxis nickel [Nickel] Allergy (Verified 03/01/18 11:20) Rash perfume Adverse Reaction (Unknown, Verified 03/01/18 11:20) unknown adhesive tape Adverse Reaction (Verified 03/01/18 11:20) Rash deodorant Adverse Reaction (Unknown, Uncoded 02/27/18 18:46) unknown tape Adverse Reaction (Unknown, Uncoded 02/27/18 18:46) unknown Home Medications: Ambulatory Orders Medication Instructions Recorded Vit C/E/Zn/Coppr/Lutein/Zeaxan 1 ea PO BID 03/16/17 [Preservision Areds 2 Softgel] [place]-3 Fatty Acids/Fish Oil [Fish 1 ea PO DAILY 04/28/17 Oil 1,000 mg Capsule] diclofenac sodium 50 mg 50 mg PO BID PRN #60 tab 01/11/18 tablet,delayed release gabapentin 600 mg tablet 600 mg PO BID #60 tab 01/11/18 levothyroxine 150 mcg tablet 150 mcg PO DAILY #90 tab 01/11/18 acetaminophen 500 mg tablet 1,000 mg PO TID PRN #60 tab 02/06/18 albuterol sulfate HFA 90 1 puff INHALATION Q6H #18 g 02/13/18 mcg/actuation aerosol inhaler tizanidine 4 mg PO TID PRN PRN 02/13/18 Budesonide Inhaler 180 mcg 1 puff INHALATION DAILY 02/14/18 [Pulmicort Inhaler 180 mcg] Calcium Carbonate [Calcium] 500 mg PO DAILY 02/14/18 Cholecalciferol (Vitamin D3) 2,000 unit PO DAILY 02/14/18 [Vitamin D3] bupropion HCl SR 150 mg tablet,12 150 mg PO BID #90 tab 02/27/18 hr sustained-release aspirin 81 mg tablet,delayed 81 mg PO QDAY #30 tab 03/01/18 release budesonide 0.25 mg/2 mL suspension 0.25 mg INHALATION BID #60 ea 03/19/18 for nebulization fluticasone 50 mcg/actuation nasal 2 spray INTRANASAL QDAY #15.8 g 03/19/18 spray,suspension ipratropium-albuterol 0.5 mg-3 3 ml INHALATION 4X/DAY #180 vial 03/19/18 mg(2.5 mg base)/3 mL nebulization soln betamethasone dipropionate 0.05 % 1 applic TOPICAL BID PRN #45 g 03/23/18 topical cream Surgical History: Surgical History (Last Reviewed 04/08/18 @ 04:39 by Kvng Villalpando MD) History of left heart catheterization (Chronic) Onset Date: 03/07/[address] Montes @ 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 Smoking Status: Current every day smoker Tobacco Use: Non-smoker Alcohol: None Drugs: None Review of Systems Constitutional: Denies: Chills, Fever, Weight Change HEENT: Denies: Head Aches, Sinus Congestion, Sinus Drainage Cardiovascular: Denies: Chest Pain, Palpitations Respiratory: Denies: Cough, Shortness of breath at rest, Sputum production Gastrointestinal: Denies: Abdominal Pain, Nausea, Vomiting Genitourinary: Denies: Dysuria Musculoskeletal: Denies: Joint Pain, Joint Tenderness Skin: Denies: Rash, Wounds Neurological: Denies: Numbness, Tingling, Focal weakness Psychiatric: Denies: Anxiety, Depression, Homicidal Ideations, Suicidal Ideations Hematologic/ Lymphatic: Denies: Easy Bruising, Easy Bleeding VTE Information - Inpt Only VTE Present on Admission: No VTE Mechan Device Prophylaxis: SCD's VTE Pharm Prophylaxis ordered?: Yes Patient Problems: Active and Suspected Problems (Last Reviewed 04/08/18 @ 04:39 by Kvng Villalpando MD) Acute respiratory failure (Acute) - Physical Exam General: Alert, Oriented x3, Cooperative HEENT: Atraumatic, PERRLA, EOMI, Normocephalic Neck: Supple, No JVD, Negative Carotid Bruits Lungs: Clear to auscultation, Normal air movement Cardiovascular: Regular rate, No murmurs Abdomen: Bowel Sounds Present, Soft, Non Tender Extremities: No edema, Capillary Refill Less than 3 Seconds Skin: No rashes, No breakdown Musculoskeletal: No Tenderness to Palpation of Joints or Extremities Neurological: Cranial nerves II-XII grossly intact Psych/Mental Status: Normal Affect, Appropriate Vital Signs Temp Pulse Resp BP Pulse Ox 98.1 F 76 16 154/68 H 96 04/07/18 19:25 04/07/18 22:26 04/07/18 22:26 04/07/18 22:26 04/07/18 23:01 Oxygen Flow Rate (L/min) 2 Oxygen Delivery Method Nasal Cannula Weight: 126.5 kg Body Mass Index (BMI) 51.0 Laboratory Tests Past 24 Hrs 0904/07/18 04/07/18 19:54 19:54 20:20 WBC 13.8 H RBC 4.32 Hgb 14.7 Hct 43.3 MCV 100.2 H MCH 34.0 H MCHC 33.9 RDW 13.4 RDW Differential 48.5 H Plt Count 272 MPV 9.8 Immature Gran % (Auto) 0.200 Neut % (Auto) 85.9 H Lymph % (Auto) 7.6 L [place] % (Auto) 5.4 Eos % (Auto) 0.7 Baso % (Auto) 0.2 Absolute Neuts (auto) 11.8 H Absolute Lymphs (auto) 1.05 Total Counted Not Reportable Sodium 136 Potassium 4.8 Chloride 103 Carbon Dioxide 24.0 Anion Gap 9 BUN 16 Creatinine 0.85 Estim Creat Clear Calc 54.27 Est GFR (MDRD) Af Amer 87 Est GFR (MDRD) Non-Af 72 BUN/Creatinine Ratio 18.8 Glucose 137 H Calcium 9.0 Urine Color Yellow Urine Clarity Clear Urine pH 6.5 Ur Specific [place] 1.015 Urine Protein 15 H Urine Glucose (UA) Normal Urine Ketones Negative Urine Occult Blood 10 H Urine Nitrite Negative Urine Bilirubin Negative Urine Urobilinogen Normal Ur Leukocyte Esterase 25 H Urine RBC 5-10 SEEN Urine WBC 0 SEEN Ur Squamous Epith Cells 0-5 SEEN Urine Bacteria RARE Urine Mucus RARE Assessment/Plan All Active Problems (Last Reviewed 04/08/18 @ 04:39 by Kvng Villalpando MD) Acute respiratory failure (Acute) Nummular eczematous dermatitis (Acute) Dyspnea (Acute) Chest pain (Acute) Thrombophlebitis leg superficial (Acute) Edema of left lower extremity (Acute) Status post trigger finger release (Resolved) History of tonsillectomy (Resolved) Status post surgical manipulation of ankle joint (Resolved) History of carpal tunnel release (Resolved) History of D&C (Resolved) History of tubal ligation (Resolved) History of hysterectomy (Resolved) MRSA (methicillin resistant staph aureus) culture positive (Resolved) Ankle pain (Resolved) Achilles tendinitis (Resolved) Methicillin susceptible Staphylococcus aureus infection as the cause of diseases classified elsewhere (Resolved) Chronic obstructive pulmonary disease with acute exacerbation (Acute) 62 year old female w/ h/o HENRRY, hypothyroid, TIA, pulmonary HTN, and morbid obesity admitted for acute respiratory failure. 1) Acute respiratory failure: Probably secondary to both HENRRY and ativan. Chest xray unremarkable. Will repeat xray in AM. ABG disclosed no e/o CO2 retention. 2) Left renal calculus: Probably will pass on its own. Probably referred pain. Urology outpt. 3) HENRRY: BIPAP. Monitor. 4) Prophylaxis: SCD / Lovenox.
[2018-04-07 23:50] VITALS: BP 132/79; PULSE 76; RESP 16; O2SAT 96
[2018-04-08] VITALS (16 sets, daily range): BP systolic 116–151; BP diastolic 65–88; PULSE 66–99; RESP 12–18; TEMP 37.1–37.3; O2SAT 85–99; BMI 50.5
--- NOTE | 2018-04-08 01:31 | NURSING ---
Locked up pts 4 [place] pills in drawer. Given to her by ED with assumption that she'd be d/c. Pt sent to [facility] for Observation following episode of desatting from pain med
--- NOTE | 2018-04-08 01:45 | CPS ---
Home settings per pt
[2018-04-08] MEDS: Acetaminophen 500 MG Tablet 1000 MG PO (02:02)
[2018-04-08 02:11] LABS: Allen Test POS; Base Excess 1 mmol/L (-2 to +2); Bicarbonate 26.8 mmol/L (22-26); Blood Gas Specimen Type ART; EPAP 16; FI02 35; IPAP 25; PO2 101 mmHG (75-100); RR 12; SITE L Radial; SO2 97 % (95-99); Time Given 155; Total Carbon Dioxide 28 mmol/L; pCO2 48.6 mmHg (35-45); pH 7.35 (7.35-7.45)
--- NOTE | 2018-04-08 02:35 | CPS ---
HOME BILEVEL SETTINGS VERIFIED IN SLEEP LAB CHART. BILEVEL 25/20
--- NOTE | 2018-04-08 03:43 | NURSING ---
Pts leads off, sitting on edge of bed. Wants bipap off. States machine is too loud for her to sleep. Removed and applied O2 at 2l nc. Replaced leads.
[2018-04-08] MEDS: traMADol 50 MG Tablet PO ×2 (06:07→13:07)
[2018-04-08] MEDS: Levothyroxine 150 MCG Tablet PO (06:08)
[2018-04-08 06:40] LABS: Absolute Neutrophil Count 7.5 X10^3/uL (2.0-7.7); Basophil# 0.03 X10^3/uL; Basophil% 0.3 % (0-1); Eosinophil# 0.27 X10^3/uL; Eosinophils% 2.5 % (0-5); Hemoglobin 13.9 g/dl (12.0-15.0); Lymphocyte % 18.7 % (19-41); Mean Corp Hgb Conc 33.1 g/gl (32-36); Mean Corpuscular Hgb 33.7 pg (27.0-32.0); Mean Corpuscular Volume 101.7 fL (81-99); Mean Platelet Vol. 9.3 fl (6.2-12.0); Monocyte# 0.93 X10^3/uL; Monocyte% 8.7 % (0-10); Neutrophil # 7.45 X10^3/uL (2.7-7.7); Neutrophil % 69.6 % (47-70); Platelet Count 259 K/mm3 (150-450); RBC Distribution Width CV 13.3 % (11.6-14.6); Red Blood Count 4.13 M/mm3 (4.2-5.4); White Blood Count 10.7 K/mm3 (4.4-11.0)
[2018-04-08 06:44] LABS: Anion Gap 9 (5-15); BUN 10 mg/dL (7-18); BUN/Creat Ratio 13.5 RATIO (10-20); Calcium,Total 8.8 mg/dL (8.5-10.1); Chloride 107 mmol/L (98-107); Creatinine, Serum 0.74 mg/dL (0.55-1.02); EST Glomerular Filtration Rate 84 mL/min (>60); Est Glom Filt Rate - Afr Amer 102 mL/min (>60); Estimated Creatinine Clearance 62.34 ml/min; Glucose 131 mg/dL (74-106); Potassium 4.1 mmol/L (3.5-5.1); Sodium Level 141 mmol/L (136-145)
[2018-04-08 06:56] LABS: POSITIVE COUNT NO; POSITIVE DIFFERENTIAL NO; POSITIVE MORPHOLOGY NO
[2018-04-08] MEDS: Budesonide Respules 0.5 MG/2 ML AMPUL.NEB. 0.25 MG INHALATION (07:22)
[2018-04-08] MEDS: Ipratropium/Albuterol Sulfate 3 ML AMPUL.NEB INHALATION ×3 (07:22→14:09)
--- NOTE | 2018-04-08 08:43 | PCM.PN.HOSP ---
Patient Problems: Active and Suspected Problems (Last Reviewed 04/08/18 @ 04:39 by Kvng Villalpando MD) Acute respiratory failure (Acute) Right hip pain (Acute) Ureteral calculus, left (Acute) Subjective: Breathing well, but still on oxygen. Has right hip pain, which she says is sciatica. Has been up and ambulating w/o difficulty. Vitals/I&O's: Vital Signs Temp Pulse Resp BP Pulse Ox 37.1 C 76 18 151/88 H 94 04/08/18 06:01 04/08/18 07:22 04/08/18 07:22 04/08/18 06:01 04/08/18 07:22 Oxygen Flow Rate (L/min) 2 Oxygen Delivery Method Nasal Cannula Weight: 125.248 kg Body Mass Index (BMI) 50.5 Intake and Output for Last 24 Hours 04/06/18 04/07/18 04/08/18 23:59 23:59 23:59 Intake Total 300 / 300 Balance 300 / 300 General: Alert, No apparent distress HEENT: Atraumatic, Normocephalic Neck: No Nodes, Thyroid Normal Size and Texture Lungs: Clear to auscultation, Normal air movement, No rhonchi, No wheeze Cardiovascular: Regular rate, Regular Rhythm, Normal S1, Normal S2, No murmurs Abdomen: Bowel Sounds Present, Soft, Non Tender, Non-Distended, No Hepato-splenomegaly Extremities: No edema, No Calf Tenderness Psych/Mental Status: Normal Affect, Appropriate Laboratory Results 04/08/18 02:05: Specimen Type ART, Sample Site L Radial, pH 7.35, Bicarbonate Actual 26.8 H, POC Total CO2 28, Base Excess 1, O2 Saturation 97, O2 % 35, ABG pCO2 48.6 H, ABG pO2 101 H, William Test POS, Respiration Rate 12, O2 Delivery Device Bi / C PAP, EPAP 16, IPAP 25, Blood Gas Notified Whom MO MIRANDA, Blood Gas Notified Time 155 04/08/18 05:50: WBC 10.7, RBC 4.13 L, Hgb 13.9, Hct 42.0, MCV 101.7 H, MCH 33.7 H, MCHC 33.1, RDW 13.3, RDW Differential 49.0 H, Plt Count 259, MPV 9.3, Immature Gran % (Auto) 0.200, Neut % (Auto) 69.6, Lymph % (Auto) 18.7 L, [place] % (Auto) 8.7, Eos % (Auto) 2.5, Baso % (Auto) 0.3, Absolute Neuts (auto) 7.5, Absolute Lymphs (auto) 2.00, Total Counted Not Reportable 04/08/18 05:50: Sodium 141, Potassium 4.1, Chloride 107, Carbon Dioxide 25.0, Anion Gap 9, BUN 10, Creatinine 0.74, Estim Creat Clear Calc 62.34, Est GFR (MDRD) Af Amer 102, Est GFR (MDRD) Non-Af 84, BUN/Creatinine Ratio 13.5, Glucose 131 H, Calcium 8.8 Current Medications Acetaminophen (Tylenol) 1,000 mg PO TID PRN PRN PRN Reason: PAIN Last Admin: 04/08/18 02:02 Dose: 1,000 mg Albuterol/Ipratropium (Duoneb) 3 ml INHALATION 4X/DAY [facility], [facility] Last Admin: 04/08/18 07:22 Dose: 3 ml [facility] Budesonide (Pulmicort Aerosol) 0.25 mg INHALATION BID [facility], [facility]1983 Last Admin: 04/08/18 07:22 Dose: 0.25 mg Bupropion HCl (Wellbutrin Sr (150mg Tablets)) 150 mg PO DAILY [facility]1983 Stop: 04/10/18 10:01 Bupropion HCl (Wellbutrin Sr (150mg Tablets)) 150 mg PO BID [facility] Calcium Carbonate (Os-Willem 500) [facility] Cholecalciferol (Vitamin D) 2,000 unit PO DAILY [facility]1983 Clobetasol Propionate (Temovate Cream (Bkc)) 1 applic TOPICAL BID PRN PRN PRN Reason: rash Diclofenac Sodium (Voltaren) 50 mg PO BID PRN PRN PRN Reason: pain Enoxaparin Sodium (Lovenox) 40 mg SC DAILY [facility] Gabapentin ([facility]urontin) [facility] Levothyroxine Sodium (Synthroid) 150 mcg PO DAILY@0600 [facility]1983 Last Admin: 04/08/18 06:08 Dose: 150 mcg Magnesium Hydroxide (Milk Of Magnesia) 30 ml PO DAILY PRN PRN PRN Reason: Constipation Odlhj-[id number] Ethyl Esters (Lovaza) 1 gm PO DAILY RAFY Sodium Chloride () 5 - 30 ml IV UD PRN PRN Reason: SALINE FLUSH Tizanidine HCl (Zanaflex) 4 mg PO TID PRN PRN PRN Reason: MUSCLE SPASM Tramadol HCl (Ultram) 50 mg PO Q6H PRN PRN PRN Reason: MODERATE PAIN (4-5/10) Last Admin: 04/08/18 06:07 Dose: 50 mg Medical Necessity - Tobacco Use Smoking Status: Current every day smoker Tobacco Use: Non-smoker Assessment/Plan All Active Problems (Last Reviewed 04/08/18 @ 04:39 by Kvng Villalpando MD) Acute respiratory failure (Acute) Right hip pain (Acute) Ureteral calculus, left (Acute) Nummular eczematous dermatitis (Acute) Status post trigger finger release (Resolved) History of tonsillectomy (Resolved) Status post surgical manipulation of ankle joint (Resolved) History of carpal tunnel release (Resolved) History of D&C (Resolved) History of tubal ligation (Resolved) History of hysterectomy (Resolved) MRSA (methicillin resistant staph aureus) culture positive (Resolved) Ankle pain (Resolved) Achilles tendinitis (Resolved) Methicillin susceptible Staphylococcus aureus infection as the cause of diseases classified elsewhere (Resolved) Chronic obstructive pulmonary disease with acute exacerbation (Acute) 1. Acute hypoxic respiratory failure s/p ativan complicated by COPD and HENRRY check ambulatory pulse ox. 2. Right hip pain. appears more superior than the hip check hip xray 3. Left ureteral stone asymptomatic 2.9mm and ought to pass spontaneously Anticipate dc pending xray and ambulatory pulse ox. Code Visit OBSV E&M: 79991 Subsequent observation care L2
[2018-04-08] MEDS: buPROPion (SR) 150 MG Tablet.SA PO (10:59)
[2018-04-08] MEDS: Enoxaparin 40 MG/0.4 ML Syringe SC (10:59)
[2018-04-08] MEDS: Calcium (Elemental) 500 MG Tablet PO (10:59)
[2018-04-08] MEDS: Aspirin E.C. 81 MG Tablet PO (10:59)
[2018-04-08] MEDS: Gabapentin 600 MG Tablet PO ×2 (10:59→18:26)
[2018-04-08] MEDS: Omega-3 Acid Ethyl Esters 1 GM Capsule PO (10:59)
[2018-04-08 14:48] LABS: D-Dimer Quantitative (DVT/PE) 0.39 FEU/ug/m (0.27-0.49)
--- NOTE | 2018-04-08 15:08 | PCM.DC ---
- Discharge Diagnoses Current Active Problems: Current Active and Chronic Problems (Last Reviewed 04/08/18 @ 04:39 by Kvng Villalpando MD) Ureteral calculus, left (Acute) Right hip pain (Acute) Acute respiratory failure (Acute) You will use the following diet at home:: Cardiac Your food should be the consistency of: Regular Your liquids should be the consistency of: Regular/Thin Discharge Activity: Return to Normal Activity Call your doctor if your incision/area has: Continuous Slow Oozing Call your doctor if you observe: Fever of 101 or Higher, Shortness of breath Instructions: ED Stone Renal W Colic Allergies/Adverse Reactions: Allergies fluconazole [From Diflucan] Allergy (Verified 03/01/18 11:20) Anaphylaxis nickel [Nickel] Allergy (Verified 03/01/18 11:20) Rash perfume Adverse Reaction (Unknown, Verified 03/01/18 11:20) unknown adhesive tape Adverse Reaction (Verified 03/01/18 11:20) Rash deodorant Adverse Reaction (Unknown, Uncoded 02/27/18 18:46) unknown tape Adverse Reaction (Unknown, Uncoded 02/27/18 18:46) unknown Medications to take at Discharge Vit C/E/Zn/Coppr/Lutein/Zeaxan [Preservision Areds 2 Softgel] 1 ea PO BID 03/16/17 [place]-3 Fatty Acids/Fish Oil [Fish Oil 1,000 mg Capsule] 1 ea PO DAILY 04/28/17 diclofenac sodium 50 mg tablet,delayed release 50 mg PO BID PRN #60 tab 01/11/18 gabapentin 600 mg tablet 600 mg PO BID #60 tab 01/11/18 levothyroxine 150 mcg tablet 150 mcg PO DAILY #90 tab 01/11/18 acetaminophen 500 mg tablet 1,000 mg PO TID PRN #60 tab 02/06/18 albuterol sulfate HFA 90 mcg/actuation aerosol inhaler 1 puff INHALATION Q6H #18 g 02/13/18 tizanidine 4 mg PO TID PRN PRN 02/13/18 Budesonide Inhaler 180 mcg [Pulmicort Inhaler 180 mcg] 1 puff INHALATION DAILY 02/14/18 Calcium Carbonate [Calcium] 500 mg PO DAILY 02/14/18 Cholecalciferol (Vitamin D3) [Vitamin D3] 2,000 unit PO DAILY 02/14/18 bupropion HCl SR 150 mg tablet,12 hr sustained-release 150 mg PO BID #90 tab 02/27/18 aspirin 81 mg tablet,delayed release 81 mg PO QDAY #30 tab 03/01/18 budesonide 0.25 mg/2 mL suspension for nebulization 0.25 mg INHALATION BID #60 ea 03/19/18 fluticasone 50 mcg/actuation nasal spray,suspension 2 spray INTRANASAL QDAY #15.8 g 03/19/18 ipratropium-albuterol 0.5 mg-3 mg(2.5 mg base)/3 mL nebulization soln 3 ml INHALATION 4X/DAY #180 vial 03/19/18 betamethasone dipropionate 0.05 % topical cream 1 applic TOPICAL BID PRN #45 g 03/23/18 Primary Care Physician: Ignacio Pickens MD [STAFF PHYSICIAN] - Refugio Dowd MD [Primary Care Provider] - Within 2 Weeks Test Results: Test results from this visit will be discussed in further detail at your follow-up appointment, if applicable. Please Follow Up With: Carlita Cortes NP-C When: 05/14/18 Proposed Discharge Date: 04/08/18
--- NOTE | 2018-04-08 15:13 | PCM.DC.SUM ---
Discharge Date and Diagnosis - Problem List Patient Problems: Active and Suspected Problems (Last Reviewed 04/08/18 @ 04:39 by Kvng Villalpando MD) Ureteral calculus, left (Acute) Right hip pain (Acute) Acute respiratory failure (Acute) Date of Admission: 04/07/18 Date of Discharge: 04/08/18 - Primary Discharge Diagnosis Active and Suspected Problems (Last Reviewed 04/08/18 @ 04:39 by Kvng Villalpando MD) Ureteral calculus, left (Acute) Right hip pain (Acute) Acute respiratory failure (Acute) - Secondary Discharge Diagnosis Chronic Problems (Last Reviewed 04/08/18 @ 04:39 by Kvng Villalpando MD) History of left heart catheterization (Chronic 03/07/18) per Dr. Montes @ [facility]: coronaries normal except 30% stenosis in RCA, EF 65%, moderate elevation in right heart pressures Hypothyroidism (Chronic) Dermatitis (Chronic) Tobacco abuse (Chronic) TIA (transient ischemic attack) (Chronic) Thrombophlebitis leg superficial (Chronic) Left great saphenous vein Edema of left lower extremity (Chronic) Pulmonary hypertension (Chronic) PASP 46 mmHg Hearing loss (Chronic) Morbid obesity (Chronic) Conjunctivitis (Chronic) Monilial rash (Chronic) COPD (chronic obstructive pulmonary disease) (Chronic) Diverticulosis (Chronic) Physical deconditioning (Chronic) HENRRY (obstructive sleep apnea) (Chronic) Hiatal hernia (Chronic) Fibromyalgia (Chronic) Depression (Chronic) GERD (gastroesophageal reflux disease) (Chronic) Chronic low back pain (Chronic) Oral candidiasis (Chronic) Abnormal results of pulmonary function studies (Chronic) 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 Atherosclerosis. Degenerative changes. Colonic diverticulosis. Electronically Signed: Carlita Haley MD at 21:38 EDT Tel , Service support , Chest X-Ray 04/07/18 23:00 IMPRESSION: No acute cardiopulmonary abnormalities. Electronically Signed: Hiwot Kerr MD at 23:46 EDT Tel Direct: [phone], Service support , Hip/Pelvis X-Ray 04/08/18 07:56 IMPRESSION: Normal x-ray examination of the pelvis and hip. Electronically Signed: Odin Claudia, at 13:18 EDT Tel , Service support , Operations: None Procedures: None Summary of Care Provided: The patient is a 62 year old F presents with right hip pain. Patient had a CT abdomen pelvis showed a 2.9 cm calculus on the left. Patient received Ativan for unclear reasons and then afterwards patient was hypoxic in the 70s. Patient continued to be hypoxic and then was brought into the hospital because of the hypoxia. Chest x-ray was negative, d-dimer was negative. She has numerous medical etiologies for her hypoxia, including surgery sleep apnea and pulmonary hypertension. Patient was hypoxic on room air at rest [] 86%. Patient will require oxygen to keep her sats greater than 90%. Patient will be discharged with oxygen at 3-4 L/min. Discharge Diet: Low fat/ Low Cholesterol Discharge Activity: Return to Normal Activity Call your doctor if your incision/area has: Continuous Slow Oozing Call your doctor if you observe: Fever of 101 or Higher, Shortness of breath Home Medications: Medications to take at Discharge Vit C/E/Zn/Coppr/Lutein/Zeaxan [Preservision Areds 2 Softgel] 1 ea PO BID 03/16/17 [place]-3 Fatty Acids/Fish Oil [Fish Oil 1,000 mg Capsule] 1 ea PO DAILY 04/28/17 diclofenac sodium 50 mg tablet,delayed release 50 mg PO BID PRN #60 tab 01/11/18 gabapentin 600 mg tablet 600 mg PO BID #60 tab 01/11/18 levothyroxine 150 mcg tablet 150 mcg PO DAILY #90 tab 01/11/18 acetaminophen 500 mg tablet 1,000 mg PO TID PRN #60 tab 02/06/18 albuterol sulfate HFA 90 mcg/actuation aerosol inhaler 1 puff INHALATION Q6H #18 g 02/13/18 tizanidine 4 mg PO TID PRN PRN 02/13/18 Budesonide Inhaler 180 mcg [Pulmicort Inhaler 180 mcg] 1 puff INHALATION DAILY 02/14/18 Calcium Carbonate [Calcium] 500 mg PO DAILY 02/14/18 Cholecalciferol (Vitamin D3) [Vitamin D3] 2,000 unit PO DAILY 02/14/18 bupropion HCl SR 150 mg tablet,12 hr sustained-release 150 mg PO BID #90 tab 02/27/18 aspirin 81 mg tablet,delayed release 81 mg PO QDAY #30 tab 03/01/18 budesonide 0.25 mg/2 mL suspension for nebulization 0.25 mg INHALATION BID #60 ea 03/19/18 fluticasone 50 mcg/actuation nasal spray,suspension 2 spray INTRANASAL QDAY #15.8 g 03/19/18 ipratropium-albuterol 0.5 mg-3 mg(2.5 mg base)/3 mL nebulization soln 3 ml INHALATION 4X/DAY #180 vial 03/19/18 betamethasone dipropionate 0.05 % topical cream 1 applic TOPICAL BID PRN #45 g 03/23/18 Primary Care Physician: Refugio Dowd MD [Primary Care Provider] - Within 2 Weeks Ignacio Pickens MD [STAFF PHYSICIAN] - Please Follow Up With: Carlita Cortes NP-C When: 05/14/18 Patient Instructions: ED Stone Renal W Colic Disposition: Home Minutes spent on discharge:: 28 Patient Condition:: Good Medical Necessity - Tobacco Use Smoking Status: Current every day smoker Tobacco Use: Non-smoker Meaningful Use Info Meaningful Use Diagnoses (Choose all that apply): None applicable Code Visit OBSV E&M: 56978 Observation care discharge
--- NOTE | 2018-04-09 10:30 | CASEMGMT ---
Call placed to [facility] to verify they have all necessary documents for oxygen that was setup Monday evening. [facility] states they need [id number] report still. Copy of Discharge Summary faxed to [facility] that states patient needs home oxygen and includes liter amount needed. [facility] states this is an acceptable form of [id number] documentation. No further documents needed at this time. Setup for oxygen was completed prior to discharge.
== END 2018-04-08 18:38 | disposition home or self-care (01) ==
LOC: ED 22:07 → MS3 23:55
PROVIDERS: Admitting Provider Internal Medicine; Emergency Provider Emergency Medicine; Family Provider Internal Medicine; PCP Internal Medicine
DX: N20.1 Calculus of ureter (principal); M25.551 Pain in right hip; J96.01 Acute respiratory failure with hypoxia; G47.33 Obstructive sleep apnea (adult) (pediatric); J44.9 Chronic obstructive pulmonary disease, unspecified; E03.9 Hypothyroidism, unspecified; M79.7 Fibromyalgia; K21.9 Gastro-esophageal reflux disease without esophagitis; E66.01 Morbid (severe) obesity due to excess calories; Z86.14 Personal history of Methicillin resistant Staphylococcus aureus infection; Z79.899 Other long term (current) drug therapy; Z79.82 Long term (current) use of aspirin; Z86.73 Personal history of transient ischemic attack (TIA), and cerebral infarction without residual deficits; Z79.51 Long term (current) use of inhaled steroids; Z68.43 Body mass index [BMI] 50.0-59.9, adult; Z71.3 Dietary counseling and surveillance; I27.20 Pulmonary hypertension, unspecified; F17.210 Nicotine dependence, cigarettes, uncomplicated
CPT/HCPCS: 36415; 36600; 71045; 73502; 74176; 80048; 81001; 82803; 85025; 85379; 93005; 94002; 94640; 96372; 96374; 96375; 96376; 97802; 99218; 99284; 99406; A4216; G0378; J2405

== ENCOUNTER → 2018-04-23 12:01 | Outpatient (CLI) | payer MEDICARE, SELFPAY ==
[2018-04-23 14:15] LABS: Hemoglobin A1c 6.6 % (4.2-6.3)
== END ==
PROVIDERS: Family Provider Internal Medicine; PCP Internal Medicine; Visit Provider Internal Medicine
DX: R73.9 Hyperglycemia, unspecified (principal)
CPT/HCPCS: 36415; 83036

== ENCOUNTER → 2018-05-08 09:25 | Outpatient (CLI) | payer MEDICARE, SELFPAY ==
--- NOTE | 2018-05-08 09:27 | MRI_ITS ---
STUDY: MRI LUMBAR SPINE WITHOUT CONTRAST REASON FOR EXAM: Female, 62 years old. Radiculopathy, right hip pain, low back pain. TECHNIQUE: Standardized fat and water weighted pulse sequences were obtained in the sagittal and axial planes. COMPARISON: 01/28/2013. FINDINGS: T12-L1: Normal endplates. Disc dehydration. There is a mild, noncompressive spondylotic bar. Normal bilateral facet joints. Normal central canal and bilateral lateral recesses. Normal bilateral intervertebral neural foramina. Normal lumbar lordosis. There is no substantial scoliosis. Normal conus medullaris that terminates at the T12-L1 level. L1-2: Normal endplates. Disc dehydration. Normal bilateral facet joints. Normal central canal and bilateral lateral recesses. Normal bilateral intervertebral neural foramina. L2-3: Normal endplates. Disc dehydration. Normal bilateral facet joints. Normal central canal and bilateral lateral recesses. Normal bilateral intervertebral neural foramina. L3-4: Normal endplates. Disc dehydration. Normal bilateral facet joints. Normal central canal and bilateral lateral recesses. Normal bilateral intervertebral neural foramina. L4-5: Normal endplates. Disc dehydration. There is moderate facet hypertrophy. Normal central canal and bilateral lateral recesses. Normal bilateral intervertebral neural foramina. L5-S1: Normal endplates. Disc dehydration. Mild facet hypertrophy. Normal central canal and bilateral lateral recesses. Normal bilateral intervertebral neural foramina. Normal visualized sacral ala. Normal visualized paraspinous soft tissue structures. MRI/Spine Lumbar (Routine) IMPRESSION: 1. No compressive disc disease, canal or foraminal stenosis. 2. Mild degenerative disc changes. Electronically Signed: Glenys Grace MD at 23:20 EDT Tel , Service support ,
== END ==
PROVIDERS: Family Provider Internal Medicine; PCP Internal Medicine; Referring Provider Internal Medicine; Visit Provider Internal Medicine
DX: M54.5 Low back pain (principal); G89.29 Other chronic pain; R15.9 Full incontinence of feces
CPT/HCPCS: 72148

== ENCOUNTER 2018-08-02 08:39 | Emergency (ER) | payer MEDICARE, SELFPAY ==
[2018-07-17 13:38] VITALS: BMI 50.5
[2018-08-02 08:40] VITALS: BP 205/88; PULSE 87; RESP 18; TEMP 36.9; O2SAT 94; BMI 50.5
--- NOTE | 2018-08-02 08:57 | EKG12_ITS ---
Test Reason : ABNL PAIN Blood Pressure : / mmHG Vent. Rate : 070 BPM Atrial Rate : 070 BPM P-R Int : 138 ms QRS Dur : 078 ms QT Int : 394 ms P-R-T Axes : 075 -19 040 degrees QTc Int : 425 ms Normal sinus rhythm Nonspecific ST and T wave abnormality Abnormal ECG Confirmed by JAYRO MIRANDA, MICHELLE ([id number]), advertising editor JUANY ROMO ([id number]) on 08/07/2018 10:58:42 AM Referred By: HERI Confirmed By:MICHELLE DIAL MD
--- NOTE | 2018-08-02 08:58 | CT_ITS ---
STUDY: CT ABDOMEN AND PELVIS WITHOUT CONTRAST REASON FOR EXAM: Female, 63 years old. Right flank pain and right groin pain. 8 day history of vomiting. RADIATION DOSAGE (If Supplied By Facility): CTDIvol = ( 14.8 ) mGy, DLP = ( 774.99 ) mGycm TECHNIQUE: Transaxial images were obtained from the dome of the diaphragm to the symphysis pubis without oral contrast, and without intravenous contrast. Sagittal and coronal images were reconstructed. Individualized dose optimization techniques were used for this CT. COMPARISON: Comparison is made with prior study dated April 07, 2018. FINDINGS: The visualized lung bases are unremarkable. Coronary artery calcification. Normal liver. Normal gallbladder and extrahepatic biliary system. Normal spleen. Normal pancreas. Normal bilateral adrenal glands. Normal right kidney. Normal left kidney. There is a small hiatal hernia. Normal small intestine. There are multiple colonic diverticula consistent with diverticulosis. The appendix is visualized and appears normal. There is scattered atherosclerotic calcification of the abdominal aorta, without a demonstrated aneurysm. Normal inferior vena cava. Normal retroperitoneum. Normal urinary bladder. There is absence of the uterus consistent with a prior hysterectomy. Calcified phleboliths are seen in the pelvis. Calcified phleboliths are seen in the left gonadal vein. There is a small umbilical hernia containing fat. There are mild degenerative changes of the visualized lumbar spine. CT/Abdomen/Pelvis without Cont IMPRESSION: Sigmoid diverticula. No acute abnormality is seen. Electronically Signed: Fish Woods MD at 10:50 EST Tel [phone], Service support ,
[2018-08-02 09:27] LABS: Absolute Lymphocyte Count 1.65 X10^3/ul (0.83-4.51); Absolute Neutrophil Count 7.8 X10^3/uL (2.0-7.7); Basophil# 0.03 X10^3/uL; Basophil% 0.3 % (0-1); Eosinophil# 0.11 X10^3/uL; Eosinophils% 1.1 % (0-5); Hematocrit 46.3 % (37-47); Hemoglobin 15.5 g/dl (12.0-15.0); Lymphocyte # 1.65 X10^3/ul (4.0); Lymphocyte % 16.2 % (19-41); Mean Corp Hgb Conc 33.5 g/gl (32-36); Mean Corpuscular Hgb 33.1 pg (27.0-32.0); Mean Corpuscular Volume 98.9 fL (81-99); Mean Platelet Vol. 9.8 fl (6.2-12.0); Monocyte# 0.58 X10^3/uL; Monocyte% 5.7 % (0-10); Neutrophil # 7.77 X10^3/uL (2.7-7.7); Neutrophil % 76.5 % (47-70); Platelet Count 330 K/mm3 (150-450); RBC Distribution Width CV 12.9 % (11.6-14.6); RBC Distribution Width SD 46.3 fl (35.1-43.9); Red Blood Count 4.68 M/mm3 (4.2-5.4); White Blood Count 10.2 K/mm3 (4.4-11.0)
[2018-08-02 09:28] LABS: POSITIVE COUNT NO; POSITIVE DIFFERENTIAL NO; POSITIVE MORPHOLOGY NO
[2018-08-02 09:50] LABS: AST(SGOT) 23 U/L (15-37); Alanine Aminotransfer ALT/SGPT 27 U/L (13-56); Albumin, Serum 3.8 g/dL (3.2-5.0); Alkaline Phosphatase 110 U/L (45-117); Anion Gap 8 (5-15); BUN 10 mg/dL (7-18); BUN/Creat Ratio 12.5 RATIO (10-20); Calcium,Total 9.1 mg/dL (8.5-10.1); Chloride 103 mmol/L (98-107); EST Glomerular Filtration Rate 77 mL/min (>60); Est Glom Filt Rate - Afr Amer 93 mL/min (>60); Estimated Creatinine Clearance 56.93 ml/min; Globulin 3.7 g/dL (2.2-4.2); Glucose 163 mg/dL (74-106); Lipase 89 U/L (73-393); Potassium 4.3 mmol/L (3.5-5.1); Protein, Total 7.5 g/dL (6.4-8.2); Sodium Level 136 mmol/L (136-145)
[2018-08-02] MEDS: 0.9% Normal Saline 1,000 ML 1000 ML IV (10:03)
[2018-08-02] MEDS: Ondansetron 4 MG/2 ML Vial IV (10:03)
[2018-08-02] MEDS: HYDROmorphone 1 MG/ML Syringe IV (10:03)
[2018-08-02 11:12] LABS: Color, Urine Yellow (Yellow); Glucose, Dipstick Normal (Normal); Ketone-Dipstick Negative (Negative); Leukocyte Esterase-Dipstick Negative /ul (Negative); Nitrite-Dipstick Negative (Negative); Occult Blood-Urine Negative /ul (Negative); Protein-Dipstick Negative (Negative); Specific Gravity, Urine 1.015 (1.002-1.030); Urine Bilirubin Dipstick Negative (Negative); Urine Clarity Sl. Cloudy (Clear); Urine Urobilinogen Normal (Normal); Urine pH 6.5 (5.0 - 8.0)
[2018-08-02 11:17] LABS: Bacteria 1+ /hpf (None Seen); Red Blood Cells-Urine 0-5 SEEN /hpf (0-5); Squamous Epithelial Cells - UA 0-5 SEEN /hpf (5-10); White Blood Cells 0-5 SEEN /hpf (0-5)
[2018-08-02 11:18] LABS: Mucous, Urine RARE /hpf (<or=2+)
--- NOTE | 2018-08-02 11:38 | ED.VISSUMM ---
- ER Visit Summary Date of Service: 08/02/18 Chief Complaint: Abdominal pain History of Present Illness: The patient is a 63 F with right side abdominal pain for 2 days. The pain starts in her right groin and radiates around to her right lower back. Patient felt like something broke in there. She denies any trauma. She has associated nausea, vomiting and she feels a hot sensation when she urinates. No other urinary symptoms or NEUROPHYSIOLOGY TECH symptoms. No weakness or numbness. No history of hip surgery. She does have upcoming back injection scheduled. Physical Examination: Afebrile vital signs unremarkable except for a blood pressure of 205/88. Heart regular rate and rhythm. Lungs clear. Abdomen soft and nontender. Back is nontender. Extremities show good range of motion. Negative logroll. Neurovascular intact distally. Skin appears normal. Test Results: EKG shows sinus rhythm at a rate of 70. Nonspecific ST and T wave changes were noted. No sign of acute ischemia or infarction pattern. White count normal. Hemoglobin 15.5. CMP and lipase unremarkable. Urinalysis unremarkable. Troponin normal. CT abdomen shows diverticuli but no sign of diverticulitis. She has chronic and postoperative changes. Nothing acute. Nothing to explain her pain. Emergency Department Course and Treatment: Patient received fluids, Zofran, Dilaudid while awaiting results. Repeat blood pressure as documented. Patient able to ambulate with a cane. Her workup was unremarkable. Nothing to explain her right inguinal pain. No sign of hernia. No sign of kidney stone or urinary infection. No NEUROPHYSIOLOGY TECH symptoms or complaints. No abnormal orthopedic findings. GI workup unremarkable. Patient has follow-up with her doctor on Monday. She was prescribed Motrin and Zofran. Return for any new or worsening issues. Treatment Plan: As above Disposition: Discharge Impression: 1. Right inguinal pain This note was generated with [employer] dictation software. It may contain incorrect words, spelling, and punctuation that were not noted in review of the chart prior to signing ED Disposition - Plan for ED Patient: Chief Complaint: Other, Pain/Inj Referrals: Refugio Dowd MD [Primary Care Provider] -
--- NOTE | 2018-08-02 11:43 | ED.DCSUM_ITS ---
- ER Visit Summary Date of Service: 08/02/18 Chief Complaint: Abdominal pain History of Present Illness: The patient is a 63 F with right side abdominal pain for 2 days. The pain starts in her right groin and radiates around to her right lower back. Patient felt like something broke in there. She denies any trauma. She has associated nausea, vomiting and she feels a hot sensation when she urinates. No other urinary symptoms or ADULT MINISTRIES DIRECTOR symptoms. No weakness or numbness. No history of hip surgery. She does have upcoming back injection scheduled. Physical Examination: Afebrile vital signs unremarkable except for a blood pressure of 205/88. Heart regular rate and rhythm. Lungs clear. Abdomen soft and nontender. Back is nontender. Extremities show good range of motion. Negative logroll. Neurovascular intact distally. Skin appears normal. Test Results: EKG shows sinus rhythm at a rate of 70. Nonspecific ST and T wave changes were noted. No sign of acute ischemia or infarction pattern. White count normal. Hemoglobin 15.5. CMP and lipase unremarkable. Urinalysis unremarkable. Troponin normal. CT abdomen shows diverticuli but no sign of diverticulitis. She has chronic and postoperative changes. Nothing acute. Nothing to explain her pain. Emergency Department Course and Treatment: Patient received fluids, Zofran, Dilaudid while awaiting results. Repeat blood pressure as documented. Patient able to ambulate with a cane. Her workup was unremarkable. Nothing to explain her right inguinal pain. No sign of hernia. No sign of kidney stone or urinary infection. No ADULT MINISTRIES DIRECTOR symptoms or complaints. No abnormal orthopedic findings. GI workup unremarkable. Patient has follow-up with her doctor on Monday. She was prescribed Motrin and Zofran. Return for any new or worsening issues. Treatment Plan: As above Disposition: Discharge Impression: 1. Right inguinal pain This note was generated with [employer] dictation software. It may contain incorrect words, spelling, and punctuation that were not noted in review of the chart prior to signing ED Disposition - Plan for ED Patient: Chief Complaint: Other, Pain/Inj Referrals: Refugio Dowd MD [Primary Care Provider] -
--- NOTE | 2018-08-02 11:43 | ED.DEP ---
ED Disposition - Plan for ED Patient: Chief Complaint: Other, Pain/Inj Instructions: ED Abdominal Pain Unkn Cause Prescriptions: Ondansetron [Zofran Odt] 4 mg PO Q8H PRN PRN #10 tab PRN Reason: Nausea Ibuprofen [Motrin] 800 mg PO TID PRN PRN #20 tab PRN Reason: Pain Referrals: Refugio Dowd MD [Primary Care Provider] -
[2018-08-02 11:45] VITALS: BP 115/57; PULSE 68; RESP 16; O2SAT 96
== END 2018-08-02 12:05 | disposition home or self-care (01) ==
PROVIDERS: Emergency Provider Emergency Medicine; Family Provider Internal Medicine; PCP Internal Medicine
DX: R10.31 Right lower quadrant pain (principal); R11.2 Nausea with vomiting, unspecified; I25.10 Atherosclerotic heart disease of native coronary artery without angina pectoris; I10 Essential (primary) hypertension; E11.9 Type 2 diabetes mellitus without complications; J44.9 Chronic obstructive pulmonary disease, unspecified; Z79.82 Long term (current) use of aspirin; Z79.84 Long term (current) use of oral hypoglycemic drugs; Z79.899 Other long term (current) drug therapy; Z86.73 Personal history of transient ischemic attack (TIA), and cerebral infarction without residual deficits; Z72.0 Tobacco use
CPT/HCPCS: 74176; 80053; 81001; 83690; 84484; 85025; 93005; 96361; 96374; 96375; 99285; J7030; A4216; J2405

== ENCOUNTER 2018-08-06 10:03 | Day surgery (SDC) | payer MEDICARE, SELFPAY ==
[2018-07-17 13:38] VITALS: BMI 50.5
--- NOTE | 2018-08-06 07:00 | RAD_ITS ---
PROCEDURE: Right L3-S1 lumbar facet joint block. DATE OF EXAMINATION: August 06, 2018. INDICATION: Female, 63 years old. Chronic low back pain. FLUOROSCOPY TIME (if supplied): (0:19) minutes/seconds. 4 images were obtained. Intraoperative imaging was provided for right L3-S1 facet joint block. The spinal needles are in the appropriate position. RAD/L/S Spine Min 4 Views IMPRESSION: Intraoperative imaging provided for right L3-S1 facet joint block. Electronically Signed: Fish Woods MD at 12:43 EST Tel [phone], Service support ,
[2018-08-06 10:31] VITALS: BP 138/70; PULSE 63; RESP 16; TEMP 36.6; O2SAT 97; BMI 51.2
[2018-08-06 10:46] LABS: Bedside Glucose 118 mg/dL (70-110)
--- NOTE | 2018-08-06 11:02 | PCM.OPRPT ---
Problem List (1) Degeneration of lumbar or lumbosacral intervertebral disc Status: Chronic (2) 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 myelopathy or radiculopathy Status: Chronic Report of Operation Date of Procedure: 08/06/18 Pre-Operative Diagnosis: Lumbosacral spondylosis, lumbosacral degenerative disc disease, lumbar facet arthropathy Post-Operative Diagnosis: Lumbosacral spondylosis, lumbosacral degenerative disc disease, lumbar facet arthropathy Surgery/Procedure Performed:: Right-sided lumbar facet steroid injection L3, L4, L5, S1 Description of Surgical Findings:: PROCEDURE: Right-sided lumbar facet steroid injection L3, L4, L5, S1 PREOPERATIVE DIAGNOSIS: Lumbosacral spondylosis, lumbosacral degenerative disc disease, and lumbar facet arthropathy POSTOPERATIVE DIAGNOSIS: Lumbosacral spondylosis, lumbosacral degenerative disc disease, and lumbar facet arthropathy ANESTHESIA: MAC COMPLICATIONS: None BLOOD LOSS: Minimal PROCEDURE IN DETAIL: History and physical today was reviewed. Risks and benefits of the procedure were explained. The patient understood, agreed to our procedure, and informed consent was obtained. IV inserted per routine protocol. The patient was taken to the operating room, placed in a prone position with a pillow positioned underneath the abdomen. The right side of his lower back was prepped and draped in a sterile fashion using iodine x3. Under fluoroscopy guidance, on AP view, L3 through S1 vertebral bodies were visualized. Skin and subcutaneous tissues were anesthetized with approximately 5 mL of 1% lidocaine using a 25-gauge regular needle. Under direct visualization with fluoroscopy at approximately 25-degree angle, starting on the right L3, ending on the right S1, passing through the L4-L5 using a 22-gauge 3 1/2-inch spinal needle, the needle was advanced via the skin. The tip of the needle was maneuvered and directed towards the superior and medial gutter of the transverse process at the vicinity of the medial branch. Once the tip of the needle was in contact with the bone, the needle pulled approximately 2 mm off the bone. After negative aspiration of blood with CSF and confirmation of AP as well as oblique view, a total of 8 mL of preservative-free 0.25% Marcaine with 80 mg of Depo-Medrol was injection in divided doses between those 4 levels. The needles were then removed intact. The patient experienced no signs or symptoms intrathecal, intravascular injection. The patient experienced no paraesthesia. The procedure was completed without any apparent difficult, any complication. The patient appeared to tolerate well. ASSESSMENT AND PLAN: This is a 63-year-old Female with Lumbosacral spondylosis, lumbosacral degenerative disc disease, and lumbar facet arthropathy, status post right-sided lumbar facet steroid injection L3 through S1. The patient will continue her current medications. The patient will follow in approximately 2 weeks for possible repeat of the procedure if indicated.
[2018-08-06] MEDS: Bupivacaine 0.25% 30 ML Vial (11:11)
[2018-08-06] MEDS: MethylPREDNISolone Acetate 80 MG/ML Vial (11:11)
[2018-08-06 11:19] VITALS: BP 109/44; BP 138/70; PULSE 60; RESP 16; TEMP 36.3; O2SAT 96
--- NOTE | 2018-08-06 11:23 | OP.PCM_ITS ---
Problem List (1) Degeneration of lumbar or lumbosacral intervertebral disc Status: Chronic (2) 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 myelopathy or radiculopathy Status: Chronic Report of Operation Date of Procedure: 08/06/18 Pre-Operative Diagnosis: Lumbosacral spondylosis, lumbosacral degenerative disc disease, lumbar facet arthropathy Post-Operative Diagnosis: Lumbosacral spondylosis, lumbosacral degenerative disc disease, lumbar facet arthropathy Surgery/Procedure Performed:: Right-sided lumbar facet steroid injection L3, L4, L5, S1 Description of Surgical Findings:: PROCEDURE: Right-sided lumbar facet steroid injection L3, L4, L5, S1 PREOPERATIVE DIAGNOSIS: Lumbosacral spondylosis, lumbosacral degenerative disc disease, and lumbar facet arthropathy POSTOPERATIVE DIAGNOSIS: Lumbosacral spondylosis, lumbosacral degenerative disc disease, and lumbar facet arthropathy ANESTHESIA: MAC COMPLICATIONS: None BLOOD LOSS: Minimal PROCEDURE IN DETAIL: History and physical today was reviewed. Risks and benefits of the procedure were explained. The patient understood, agreed to our procedure, and informed consent was obtained. IV inserted per routine protocol. The patient was taken to the operating room, placed in a prone position with a pillow positioned underneath the abdomen. The right side of his lower back was prepped and draped in a sterile fashion using iodine x3. Under fluoroscopy guidance, on AP view, L3 through S1 vertebral bodies were visualized. Skin and subcutaneous tissues were anesthetized with approximately 5 mL of 1% lidocaine using a 25-gauge regular needle. Under direct visualization with fluoroscopy at approximately 25-degree angle, starting on the right L3, ending on the right S1, passing throu gh the L4-L5 using a 22-gauge 3 1/2-inch spinal needle, the needle was advanced via the skin. The tip of the needle was maneuvered and directed towards the superior and medial gutter of the transverse process at the vicinity of the medial branch. Once the tip of the needle was in contact with the bone, the needle pulled approximately 2 mm off the bone. After negative aspiration of blood with CSF and confirmation of AP as well as oblique view, a total of 8 mL of preservative-free 0.25% Marcaine with 80 mg of Depo- Medrol was injection in divided doses between those 4 levels. The needles were then removed intact. The patient experienced no signs or symptoms intrathecal, intravascular injection. The patient experienced no paraesthesia. The procedure was completed without any apparent difficult, any complication. The patient appeared to tolerate well. ASSESSMENT AND PLAN: This is a 63-year-old Female with Lumbosacral spondylosis, lumbosacral degenerative disc disease, and lumbar facet arthropathy, status post right-sided lumbar facet steroid injection L3 through S1. The patient will continue her current medications. The patient will follow in approximately 2 weeks for possible repeat of the procedure if indicated.
[2018-08-06 11:25] VITALS: BP 108/60; BP 138/70; PULSE 60; RESP 16; O2SAT 95
[2018-08-06 11:30] VITALS: BP 128/72; BP 138/70; PULSE 58; RESP 16; O2SAT 97
[2018-08-06 11:35] VITALS: BP 129/75; BP 138/70; PULSE 58; RESP 16; TEMP 36.5; O2SAT 95
[2018-08-06 12:00] VITALS: BP 138/70
== END 2018-08-06 12:00 | disposition home or self-care (01) ==
LOC: SDC 10:05 → AC 10:07
PROVIDERS: Family Provider Internal Medicine; PCP Internal Medicine; Referring Provider Anesthesiology Pain Medicine; Visit Provider Anesthesiology Pain Medicine
PROC: 3E0T3BZ Introduction of Anesthetic Agent into Peripheral Nerves and Plexi, Percutaneous Approach (ICD-10-PCS; CPT 64493; principal; 2018-08-06 11:05)
DX: M47.817 Spondylosis without myelopathy or radiculopathy, lumbosacral region (principal); M51.37 Other intervertebral disc degeneration, lumbosacral region; M46.86 Other specified inflammatory spondylopathies, lumbar region; G47.33 Obstructive sleep apnea (adult) (pediatric); J44.9 Chronic obstructive pulmonary disease, unspecified; M19.90 Unspecified osteoarthritis, unspecified site; M79.7 Fibromyalgia; M06.9 Rheumatoid arthritis, unspecified; E03.9 Hypothyroidism, unspecified; F32.9 Major depressive disorder, single episode, unspecified; F41.9 Anxiety disorder, unspecified; E55.9 Vitamin D deficiency, unspecified; I27.20 Pulmonary hypertension, unspecified; E11.42 Type 2 diabetes mellitus with diabetic polyneuropathy; F17.210 Nicotine dependence, cigarettes, uncomplicated; Z79.84 Long term (current) use of oral hypoglycemic drugs; Z79.891 Long term (current) use of opiate analgesic; Z79.82 Long term (current) use of aspirin; Z79.899 Other long term (current) drug therapy; Z86.73 Personal history of transient ischemic attack (TIA), and cerebral infarction without residual deficits
CPT/HCPCS: 01922; 64493; 64494; 64495; 64483; 72110; 82962; J7120

== ENCOUNTER → 2018-10-10 11:31 | Outpatient (CLI) | payer MEDICARE, SELFPAY ==
[2018-10-10 11:09] VITALS: BMI 51.2
[2018-10-10 12:26] LABS: AST(SGOT) 11 U/L (15-37); Alanine Aminotransfer ALT/SGPT 21 U/L (13-56); Albumin, Serum 3.6 g/dL (3.2-5.0); Alkaline Phosphatase 116 U/L (45-117); Bilirubin, Direct 0.12 mg/dL (0.00-0.30); Cholesterol 185 mg/dL (200); Globulin 3.7 g/dL (2.2-4.2); High Density Lipoprotein 57 mg/dL; Protein, Total 7.3 g/dL (6.4-8.2); Triglycerides 164 mg/dL; Very Low Density Lipoprotein 33 mg/dL (5-40)
[2018-10-10 12:30] LABS: Hemoglobin A1c 6.6 % (4.2-6.3)
[2018-10-10 13:07] LABS: Creatinine, Urine (random) < 13.00 mg/dL (NO RANGE EST.); Microalbumin,Random Urine < 5.0 mg/L (NO RANGE EST.)
== END ==
PROVIDERS: Nurse Practitioner Family; Family Provider Internal Medicine; PCP Internal Medicine; Visit Provider Nurse Practitioner Family
DX: E11.9 Type 2 diabetes mellitus without complications (principal); G45.9 Transient cerebral ischemic attack, unspecified; R07.9 Chest pain, unspecified; R06.00 Dyspnea, unspecified
CPT/HCPCS: 36415; 80061; 80076; 82043; 82570; 83036

== ENCOUNTER 2018-12-11 13:00 | Outpatient (RCR) | payer MEDICARE, SELFPAY ==
[2018-10-16 13:13] VITALS: BMI 51.2
[2018-12-11 16:00] LABS: Anion Gap 7 (5-15); BUN 15 mg/dL (7-18); BUN/Creat Ratio 17.9 RATIO (10-20); Calcium,Total 9.5 mg/dL (8.5-10.1); Chloride 106 mmol/L (98-107); Creatinine, Serum 0.84 mg/dL (0.55-1.02); EST Glomerular Filtration Rate 73 mL/min (>60); Est Glom Filt Rate - Afr Amer 88 mL/min (>60); Estimated Creatinine Clearance 54.22 ml/min; Glucose 100 mg/dL (74-106); Potassium 4.4 mmol/L (3.5-5.1); Sodium Level 143 mmol/L (136-145)
== END 2018-12-11 23:59 | disposition home or self-care (01) ==
LOC: DC 13:00
PROVIDERS: Family Provider Internal Medicine; PCP Internal Medicine; Referring Provider Nurse Practitioner Family; Visit Provider Nurse Practitioner Family
DX: Z71.3 Dietary counseling and surveillance (principal); E11.9 Type 2 diabetes mellitus without complications
CPT/HCPCS: 36415; 80048; 97802; G0108

== ENCOUNTER 2019-01-05 16:32 | Emergency (ER) | payer MEDICARE, SELFPAY ==
[2018-10-16 13:13] VITALS: BMI 51.2
[2019-01-05 16:32] VITALS: BP 159/82; PULSE 71; RESP 16; TEMP 36.8; O2SAT 98; BMI 50.8
--- NOTE | 2019-01-05 17:07 | ED.VISSUMM ---
- ER Visit Summary Date of Service: 01/05/19 Chief Complaint: Facial pain History of Present Illness: The patient is a 63 F who states that for the past couple days she has had a pain in her only remaining left mandibular molar. She states that she was supposed to see an oral surgeon to have a pulled but did not. She states now she is having left-sided facial pain and she notes pain to palpation along the mandible down onto her neck as well as in the maxillary area in her ear. She states that she rubs the skin in front of her left ear it feels better. She denies any rashes. No fevers. Physical Examination: Afebrile vital signs stable Gen: Well-nourished well-developed Head: Normocephalic atraumatic Eyes: Perrl EOMI ENT: TMs clear no rhinorrhea moist mucous membranes widespread dental decay. Dental tenderness on the only remaining left lower molar. There is no significant gumline swelling. The tooth itself is severely decayed and partially present. I appreciate no rash on the face. Floor the mouth is soft. Neck: Supple no lymphadenopathy no JVD nontender CVS: Regular rate rhythm no murmurs normal S1-S2 Respiratory: No distress clear to auscultation bilaterally chest nontender Abdomen: Soft nontender nondistended normal bowel sounds no masses Back: Nontender Extremity: Nontender no edema Skin: Normal color no rash Neuro: alert orientated ?3 CN II-XII intact normal strength sensation reflexes gait cerebellar Psych: Normal affect normal mood Emergency Department Course and Treatment: Patient was started on penicillin and a few [place]. She was advised to monitor for rashes. She is advised of other possibilities of the pain if dentistry does not feel the tooth is the source. Impression: 1. Odontalgia 2. Left facial pain This note was generated with [employer] dictation software. It may contain incorrect words, spelling, and punctuation that were not noted in review of the chart prior to signing ED Disposition - Plan for ED Patient: Disposition: Home or Assisted Living Instructions: ED Abscess Tooth Prescriptions: Hydrocodone Bitart/Apap 5-325 [[place] 5MG-325MG] 1 tab PO Q6H PRN PRN 3 Days #12 tab PRN Reason: Pain Penicillin Vk [Pen-Vee K 250MG] 500 mg PO 4X/DAY #40 tab Referrals: Refugio Dowd MD [Primary Care Provider] - As Needed Additional Instructions: Monitor for rashes swelling or redness Call dentist on Monday.
--- NOTE | 2019-01-05 17:12 | ED.DCSUM_ITS ---
- ER Visit Summary Date of Service: 01/05/19 Chief Complaint: Facial pain History of Present Illness: The patient is a 63 F who states that for the past couple days she has had a pain in her only remaining left mandibular molar. She states that she was supposed to see an oral surgeon to have a pulled but did not. She states now she is having left-sided facial pain and she notes pain to palpation along the mandible down onto her neck as well as in the maxillary area in her ear. She states that she rubs the skin in front of her left ear it feels better. She denies any rashes. No fevers. Physical Examination: Afebrile vital signs stable Gen: Well-nourished well-developed Head: Normocephalic atraumatic Eyes: Perrl EOMI ENT: TMs clear no rhinorrhea moist mucous membranes widespread dental decay. Dental tenderness on the only remaining left lower molar. There is no signifi cant gumline swelling. The tooth itself is severely decayed and partially present. I appreciate no rash on the face. Floor the mouth is soft. Neck: Supple no lymphadenopathy no JVD nontender CVS: Regular rate rhythm no murmurs normal S1-S2 Respiratory: No distress clear to auscultation bilaterally chest nontender Abdomen: Soft nontender nondistended normal bowel sounds no masses Back: Nontender Extremity: Nontender no edema Skin: Normal color no rash Neuro: alert orientated ?3 CN II-XII intact normal strength sensation reflexes gait cerebellar Psych: Normal affect normal mood Emergency Department Course and Treatment: Patient was started on penicillin and a few Kempton. She was advised to monitor for rashes. She is advised of other possibilities of the pain if dentistry does not feel the tooth is the source. Impression: 1. Odontalgia 2. Left facial pain This note was generated with [employer] dictation software. It may contain incorrect words, spelling, and punctuation that were not noted in review of the chart prior to signing ED Disposition - Plan for ED Patient: Disposition: Home or Assisted Living Instructions: ED Abscess Tooth Prescriptions: Hydrocodone Bitart/Apap 5-325 [Kempton 5MG-325MG] 1 tab PO Q6H PRN PRN 3 Days #12 tab PRN Reason: Pain Penicillin Vk [Pen-Vee K 250MG] 500 mg PO 4X/DAY #40 tab Referrals: Refugio Dowd MD [Primary Care Provider] - As Needed Additional Instructions: Monitor for rashes swelling or redness Call dentist on Monday.
[2019-01-05 17:26] VITALS: BP 148/67
== END 2019-01-05 17:27 | disposition home or self-care (01) ==
PROVIDERS: Emergency Provider Emergency Medicine; Family Provider Internal Medicine; PCP Internal Medicine
DX: K02.9 Dental caries, unspecified (principal); E11.9 Type 2 diabetes mellitus without complications; J44.9 Chronic obstructive pulmonary disease, unspecified; E66.9 Obesity, unspecified; Z68.43 Body mass index [BMI] 50.0-59.9, adult; Z79.84 Long term (current) use of oral hypoglycemic drugs; Z79.899 Other long term (current) drug therapy; Z86.73 Personal history of transient ischemic attack (TIA), and cerebral infarction without residual deficits; Z72.0 Tobacco use
CPT/HCPCS: 99282

== ENCOUNTER 2019-02-04 21:14 | Emergency (ER) | payer MEDICARE, SELFPAY ==
[2019-02-04 21:17] VITALS: BP 167/79; PULSE 80; RESP 20; TEMP 36.8; O2SAT 97; BMI 50.3
--- NOTE | 2019-02-04 21:17 | ED.RN ---
CALLED FOR EKG PER RN REQUEST, PULLED OLD EKGS FOR
--- NOTE | 2019-02-04 21:21 | EKG12_ITS ---
Test Reason : CP Blood Pressure : / mmHG Vent. Rate : 085 BPM Atrial Rate : 085 BPM P-R Int : 148 ms QRS Dur : 082 ms QT Int : 390 ms P-R-T Axes : 070 -29 073 degrees QTc Int : 464 ms Normal sinus rhythm Nonspecific ST abnormality Abnormal ECG Confirmed by MYRNA MIRANDA, JAMIE ([id number]), grain blender HAYLIE CRAIG ([id number]) on 02/05/2019 1:47:41 PM Referred By: DEJA Confirmed By:JAMIE NORRIS MD
--- NOTE | 2019-02-04 21:21 | CT_ITS ---
STUDY: CTA CHEST REASON FOR EXAM: Female, 63 years old. Shortness of of breath RADIATION DOSAGE (If Supplied By Facility): CTDIvol = ( 36.1 ) mGy, DLP = ( 810.23 ) mGycm TECHNIQUE: The examination was performed with the intravenous administration of 100 IV Isovue 370. Post-processing of the angiographic images was performed, with multiplanar reformation and 3D reconstruction. Individualized dose optimization techniques were used for this CT. COMPARISON: CT angiogram chest February 14, 2018, chest x-ray February 04, 2019 FINDINGS: Normal enhancement of the main pulmonary artery and right and left pulmonary arteries. Normal enhancement of the bilateral peripheral pulmonary arteries. There is no demonstrated pulmonary embolism. Normal thoracic aorta and visualized great vessels. There is no demonstrated aortic dissection. Normal heart and pericardium. Normal mediastinum. Normal hilar regions. Normal visualized trachea and bronchi. There are areas of emphysematous change and air trapping. There is a small focus of groundglass opacity within the right lung base which was not seen on prior study. There is a minimal focus of ground glass opacity in the lingula. Normal pleura. Normal chest wall structures. There are degenerative changes of thoracic spine. The liver is enlarged especially the left hepatic lobe. There is a stable mildly thickened nodular appearance of the left adrenal gland measuring up to 1.[address]/CTA Chest W/WO Contrast IMPRESSION: No evidence of pulmonary embolism. Small focus of groundglass opacity which on the AP view appears focal on the coronal view appears more linear suggesting probable platelike atelectasis cannot exclude a small focus of developing infiltrate. Overall there is a pattern of scattered emphysematous blebs and probable chronic obstructive pulmonary disease. Hepatomegaly. Electronically Signed: Ainsley Betancourt MD at 23:03 EDT Tel , Service support ,
[2019-02-04 21:22] VITALS: O2SAT 97
--- NOTE | 2019-02-04 21:25 | RAD_ITS ---
STUDY: X-RAY CHEST REASON FOR EXAM: Female, 63 years old. Chest pain TECHNIQUE: Single AP portable view of the chest. COMPARISON: 04/07/2018 FINDINGS: There is slightly greater linear density within the right middle lobe and lingula. There is no demonstrated pleural abnormality. There is borderline cardiomegaly. Normal mediastinum and juve. Normal visualized pulmonary arteries. There is atherosclerotic calcification of the aortic arch with tortuosity. There are diffuse degenerative changes of the visualized thoracic spine. Normal visualized ribs, clavicles, and shoulders. There is no demonstrated abnormality of the visualized soft tissue structures of the upper abdomen. RAD/Chest 1 View (Portable) IMPRESSION: Middle lobe and lingular atelectasis. Otherwise stable chest. Electronically Signed: Ainsley Betancourt MD at 22:00 EDT Tel , Service support ,
[2019-02-04 21:27] VITALS: PULSE 77; RESP 19
[2019-02-04] MEDS: Ipratropium/Albuterol Sulfate 3 ML AMPUL.NEB INHALATION (21:27)
--- NOTE | 2019-02-04 21:31 | US_ITS ---
STUDY: VENOUS DOPPLER ULTRASOUND - LEFT LOWER EXTREMITY REASON FOR EXAM: Female, 63 years old. Tight feeling posterior calf TECHNIQUE: Ultrasound evaluation of the deep vein system to include hernandes-scale imaging and compression was performed. Hernandes-scale imaging and Doppler sonographic evaluation, including duplex spectral analysis and qualitative color flow sonography, was performed. COMPARISON: None. FINDINGS: Common Femoral Vein: Normal compression, spontaneity and augmentation. Normal color Doppler. Common Femoral Vein/Greater Saphenous Junction: Normal compression, Normal color Doppler. Femoral Proximal: Normal compression, Normal color Doppler. Femoral Middle: Normal compression, spontaneity and augmentation. Normal color Doppler. Femoral Distal: Normal compression, Normal color Doppler. Popliteal Vein: Normal compression, spontaneity and augmentation. Normal color Doppler. Posterior Tibial Vein: Normal compression, . Normal color Doppler. Peroneal Vein: Normal compression, . Normal color Doppler. US/Venous Duplex Imag/Limited/Uni IMPRESSION: Normal venous Doppler ultrasound of the lower extremity. Electronically Signed: Ainsley Betancourt MD at 22:54 EDT Tel , Service support ,
[2019-02-04 21:33] LABS: Absolute Lymphocyte Count 2.57 X10^3/ul (0.83-4.51); Absolute Neutrophil Count 8.3 X10^3/uL (2.0-7.7); Basophil# 0.04 X10^3/uL; Basophil% 0.3 % (0-1); Eosinophil# 0.24 X10^3/uL; Hematocrit 43.8 % (37-47); Hemoglobin 14.9 g/dl (12.0-15.0); Lymphocyte # 2.57 X10^3/ul (4.0); Lymphocyte % 21.2 % (19-41); Mean Corpuscular Hgb 33.5 pg (27.0-32.0); Mean Corpuscular Volume 98.4 fL (81-99); Mean Platelet Vol. 9.4 fl (6.2-12.0); Monocyte# 0.99 X10^3/uL; Monocyte% 8.2 % (0-10); Neutrophil # 8.27 X10^3/uL (2.7-7.7); Neutrophil % 68.1 % (47-70); Platelet Count 271 K/mm3 (150-450); RBC Distribution Width CV 13.5 % (11.6-14.6); RBC Distribution Width SD 48.2 fl (35.1-43.9); Red Blood Count 4.45 M/mm3 (4.2-5.4); White Blood Count 12.1 K/mm3 (4.4-11.0)
[2019-02-04 21:36] LABS: POSITIVE COUNT NO; POSITIVE DIFFERENTIAL NO; POSITIVE MORPHOLOGY NO
[2019-02-04] MEDS: Aspirin 81 MG TAB.CHEW 324 MG PO (21:40)
[2019-02-04 21:43] LABS: Prothrombin Time (Protime)PT. 13.1 SECONDS (11.7-14.9)
[2019-02-04 21:48] LABS: Anion Gap 5 (5-15); BUN 14 mg/dL (7-18); BUN/Creat Ratio 15.2 RATIO (10-20); Calcium,Total 9.9 mg/dL (8.5-10.1); Chloride 107 mmol/L (98-107); Creatinine, Serum 0.92 mg/dL (0.55-1.02); EST Glomerular Filtration Rate 65 mL/min (>60); Est Glom Filt Rate - Afr Amer 79 mL/min (>60); Glucose 104 mg/dL (74-106); Potassium 3.7 mmol/L (3.5-5.1); Sodium Level 138 mmol/L (136-145)
[2019-02-04] MEDS: 0.9% Normal Saline 1,000 ML 150 ML IV (22:00)
[2019-02-04] MEDS: LORazepam 2 MG/ML Syringe 1 MG IV (22:20)
[2019-02-04 22:51] VITALS: BP 107/53; PULSE 63; RESP 18; O2SAT 100
--- NOTE | 2019-02-04 23:18 | ED.VIS.GEN ---
History of Present Illness Chief Complaint: Chest Pain Informant: Patient Onset: Today Context: Gradual Onset Timing: Intermittent Current Severity: Moderate Maximum Severity: Moderate Narrative: Patient presents to the emergency department chest pain and dyspnea. Patient does have a history of COPD but is on home oxygen. She states that cough for the past 3 days. Today, she began have some pain in her central chest that went to her right arm and she also noted some pain in her left leg. She denies any history of pulmonary embolus. The patient did have a heart catheterization less than one year ago which was unremarkable for acute coronary disease. She states that she has no problems with her heart. She does feel mildly short of breath, but states this is constant for her. She denies any fevers or chills. Prior similar symptoms: Yes Recent Illness/Hospitalization: No Past Medical History - Allergies and Home Meds Allergies/Adverse Reactions: Allergies fluconazole [From Diflucan] Allergy (Verified 02/04/19 21:22) Anaphylaxis nickel [Nickel] Allergy (Verified 02/04/19 21:22) Rash perfume Adverse Reaction (Unknown, Verified 02/04/19 21:22) unknown deodorant Adverse Reaction (Unknown, Uncoded 02/04/19 21:22) unknown Primary Care Physician: Refugio Dowd MD [Primary Care Provider] - Prior records reviewed: Yes Surgical History: no surgical history Smoking Status: Current every day smoker Alcohol: None Drugs: None Review of Systems General: Denies: Chills, Fever, Sweats Eyes: Denies: Visual changes - bilaterally, Diplopia ENT: Reports: -. Denies: Rhinorrhea, Sore throat Cardiovascular: Reports: Chest pain. Denies: Palpitations Respiratory: Reports: Dyspnea. Denies: Cough, Dyspnea on exertion Gastrointestinal: Denies: Abdominal pain, Nausea, Vomiting, Diarrhea, Melena, Hematochezia Genitourinary: Denies: Dysuria, Hematuria, Frequency Musculoskeletal: Denies: Back pain, Extremity Pain Skin: Denies: Rash, Wounds Neurological: Denies: Headache, Weakness, Numbness Psych: Denies: Depression Endocrine: Denies: Polyuria Hematologic: Denies: Easy bruising Physical Exam Vital Signs/Narrative: Vital Signs Temp Pulse Resp BP Pulse Ox 02/04/19 22:51 63 18 107/53 L 100 02/04/19 21:27 77 19 H 02/04/19 21:22 97 02/04/19 21:17 98.3 F 80 20 H 167/79 H 97 Inital Vital Signs reviewed: Yes General: Well nourished, Well developed, No Acute Distress Head: Normocephalic, Atraumatic Eyes: Perrl, EOMI ENT: Moist mucous membranes, No rhinorrhea Neck: Supple, Nontender Cardiovascular: Regular rate, Regular rhythm, No murmurs Respiratory: No distress, Chest nontender, Wheezing Abdomen: Soft, Nontender, Nondistended, Normal bowel sounds Back: Nontender, Normal Inspection Extremities: Nontender, No edema Skin: Normal color, No rash Neurological: Alert, Oriented x3, Cranial nerves II-XII grossly intact, Normal Strength, Normal Sensation Psychological: Normal affect, Normal Mood Diagnostic/Tx/Re-eval Chest X-Ray - ED: 1 View, Normal, Heart, Lungs, Chronic Changes Clinical Impression(s) from Imaging Studies Chest CTA 02/04/19 21:21 IMPRESSION: No evidence of pulmonary embolism. Small focus of groundglass opacity which on the AP view appears focal on the coronal view appears more linear suggesting probable platelike atelectasis cannot exclude a small focus of developing infiltrate. Overall there is a pattern of scattered emphysematous blebs and probable chronic obstructive pulmonary disease. Hepatomegaly. Electronically Signed: Ainsley Betancourt MD at 23:03 EDT Tel , Service support , Chest X-Ray 02/04/19 21:25 IMPRESSION: Middle lobe and lingular atelectasis. Otherwise stable chest. Electronically Signed: Ainsley Betancourt MD at 22:00 EDT Tel , Service support , Venous Duplex 02/04/19 21:31 IMPRESSION: Normal venous Doppler ultrasound of the lower extremity. Electronically Signed: Ainsley Betancourt MD at 22:54 EDT Tel , Service support , Abnormal Lab Results 02/04/19 02/04/19 02/04/19 21:18 21:18 21:18 WBC 12.1 H RBC 4.45 Hgb 14.9 Hct 43.8 MCV 98.4 MCH 33.5 H MCHC 34.0 RDW 13.5 RDW Differential 48.2 H Plt Count 271 MPV 9.4 Immature Gran % (Auto) 0.200 Neut % (Auto) 68.1 Lymph % (Auto) 21.2 Carlton % (Auto) 8.2 Eos % (Auto) 2.0 Baso % (Auto) 0.3 Absolute Neuts (auto) 8.3 H Absolute Lymphs (auto) 2.57 Total Counted Not Reportable PT 13.1 INR 1.0 Sodium 138 Potassium 3.7 Chloride 107 Carbon Dioxide 26.0 Anion Gap 5 BUN 14 Creatinine 0.92 Estim Creat Clear Calc 49.50 Est GFR (MDRD) Af Amer 79 Est GFR (MDRD) Non-Af 65 BUN/Creatinine Ratio 15.2 Glucose 104 Calcium 9.9 Troponin I < 0.015 - Rhythm Strip Rhythm Strip: Sinus Rhythm Ectopy: None - EKG Initial EKG Interpretation: Sinus Rhythm, No Acute Injury Pattern Prior: Unchanged - Medical Decision Making The patient's chest pain does seem atypical. EKG was obtained which was unchanged from prior. There is no acute ischemia. Patient was given aspirin, Solu-Medrol, and a breathing treatment. She did have improvement of aeration and improvement of her pain. She is complaining of pain in her left calf and dyspnea. I did want to rule out PE and DVT. Ultrasound of the lower extremity was obtained. There is no evidence of DVT. CT of the chest shows no pulmonary embolus, pneumonia, but does demonstrate some atelectasis. At this point, as the patient has had a recent negative heart catheterization, negative CT of her chest, negative ultrasound of her leg, and unremarkable work-up I do feel that she is safe for outpatient follow-up. She will be started on prednisone. She will be on a short course of anti-inflammatories. She will be discharged home. ED Disposition - Plan for ED Patient: Diagnosis: Dyspnea Instructions: CHEST PAIN, NonCardiac Prescriptions: Prednisone [Deltasone] 60 mg PO DAILY #15 tab Prescription Printed Naproxen [Naprosyn] 500 mg PO BID #14 tab Prescription Printed Referrals: Refugio Dowd MD [Primary Care Provider] -
[2019-02-04 23:30] VITALS: BP 107/53; PULSE 62; RESP 22; O2SAT 97
== END 2019-02-04 23:31 | disposition home or self-care (01) ==
LOC: ED 21:44
PROVIDERS: Emergency Provider Emergency Medicine; Family Provider Internal Medicine; PCP Internal Medicine
DX: R06.00 Dyspnea, unspecified (principal); R07.89 Other chest pain; M79.662 Pain in left lower leg; J44.9 Chronic obstructive pulmonary disease, unspecified; F17.200 Nicotine dependence, unspecified, uncomplicated; Z99.81 Dependence on supplemental oxygen; Z79.82 Long term (current) use of aspirin; Z79.899 Other long term (current) drug therapy
CPT/HCPCS: 71045; 71275; 80048; 84484; 85025; 85610; 93005; 93971; 94640; 96361; 96374; 99285; J7030; Q9967; A4216

== ENCOUNTER → 2019-03-05 12:41 | Outpatient (CLI) | payer MEDICARE, SELFPAY ==
[2019-03-01 15:10] VITALS: BMI 50.3
--- NOTE | 2019-03-05 15:50 | PFTCOMP_ITS ---
COMPLETE PULMONARY FUNCTION TEST INTERPRETATION Brief HPI: Patient is a 63 year old female, currently under the care of myself, who presents to [facility] [place] for complete pulmonary function tests secondary to diagnosis of dyspnea. Respiratory therapist reports good effort and reproducible results. Interpretation: Forced expiration spirometry shows a moderate large airways obstructive ventilatory defect with an FEV1 of 66% predicted. There is no significant bronchodilator response by strict ATS criteria. Spirograms are of good quality and plateau slowly, indicating slowly emptying areas of the lungs. The respiratory flow volume loop shows decreased expiratory flow rates at all lung volumes consistent with airway obstruction. Lung volumes by body plethysmography show a normal total lung capacity at 4.53 L, 101% predicted. All other lung volumes are within normal limits. Diffusion capacity by carbon monoxide is decreased at 37% predicted. The airway resistance is normal. Compared to previous pulmonary function tests from 02/23/2018, there has been no significant change. Impression: Irreversible moderate large airways obstructive ventilatory defect with a reduction in diffusing capacity consistent with patient's diagnosis of COPD.
== END ==
PROVIDERS: Family Provider Internal Medicine; PCP Internal Medicine; Referring Provider Internal Medicine Critical Care Medicine; Visit Provider Internal Medicine Critical Care Medicine
DX: J44.9 Chronic obstructive pulmonary disease, unspecified (principal)
CPT/HCPCS: 94060; 94726; 94729

== ENCOUNTER → 2019-03-19 10:49 | Outpatient (CLI) | payer MEDICARE, SELFPAY ==
[2019-03-01 15:10] VITALS: BMI 50.3
[2019-03-19 11:00] VITALS: PULSE 103; PULSE 107; PULSE 62; PULSE 65; PULSE 72; PULSE 87; PULSE 91; PULSE 98; O2SAT 88; O2SAT 89; O2SAT 91; O2SAT 92; O2SAT 93; O2SAT 95; O2SAT 96
--- NOTE | 2019-03-19 14:34 | PCM.PSN.6M ---
PSN 6 Minute Walk Test - 6 Minute Walk Test 6 Minute Walk Test: 6 Minute Walk Test PSN:6-Minute Walk Test Start: 03/19/19 11:42 Freq: Status: Active Protocol: [id number].6MINW Document 03/19/19 11:00 BULL (Rec: 03/19/19 11:46 JLA [id number]) 6 Minute Walk Test Date Performed 03/19/19 Time Performed 11:00 Height 5 ft 2 in Weight: 124.738 kg Weight in Pounds 275.[address]: Jagdish Alonso Assistive device used: None Pre-test Oxygen Delivery Method Room Air Pulse Ox (%) 92 Pulse Rate (60-100 beats/min) 62 Dyspnea Hernando Scale (0-10) 0 Exertion Hernando Scale (6-20) 6 1st minute Oxygen Delivery Method Room Air Pulse Ox (%) 91 Pulse Rate (60-100 beats/min) 91 2nd minute Oxygen Delivery Method Room Air Pulse Ox (%) 88 Pulse Rate (60-100 beats/min) 103 H 3rd minute Oxygen Flow Rate (L/min) (L/min) 2 Oxygen Delivery Method Nasal Cannula Pulse Ox (%) 95 Pulse Rate (60-100 beats/min) 72 4th minute Oxygen Flow Rate (L/min) (L/min) 2 Oxygen Delivery Method Nasal Cannula Pulse Ox (%) 96 Pulse Rate (60-100 beats/min) 87 5th minute Oxygen Flow Rate (L/min) (L/min) 2 Oxygen Delivery Method Nasal Cannula Pulse Ox (%) 93 Pulse Rate (60-100 beats/min) 98 6th minute Oxygen Flow Rate (L/min) (L/min) 2 Oxygen Delivery Method Nasal Cannula Pulse Ox (%) 89 Pulse Rate (60-100 beats/min) 107 H Dyspnea Hernando Scale (0-10) 4 Exertion Hernando Scale (6-20) 16 Post-test Oxygen Flow Rate (L/min) (L/min) 2 Oxygen Delivery Method Nasal Cannula Pulse Ox (%) 96 Pulse Rate (60-100 beats/min) 65 Full Laps Walked 16 Partial Lap, Number of Tiles Walked 0 Total Distance Walked (ft) 944 - Interpretation Interpretation: The patient was noted to be 92% on room air. The patient did desaturate to 88% in the second minute. Patient was placed on 2 L nasal cannula with improvement to 95%. The patient was then able to complete ambulation. In total, patient traveled 944 feet over the course of 6 minutes with no assistive devices or breaks. These veins are consistent with a respiratory limitation exercise tolerance. - Recommendations Recommendations: The patient requires no supplemental oxygen at rest, but should be using 2 L nasal cannula with any exertion.
== END ==
PROVIDERS: Family Provider Internal Medicine; PCP Internal Medicine; Referring Provider Internal Medicine Critical Care Medicine; Visit Provider Internal Medicine Critical Care Medicine
DX: J44.9 Chronic obstructive pulmonary disease, unspecified (principal)
CPT/HCPCS: 94618

== ENCOUNTER → 2019-04-02 10:41 | Outpatient (CLI) | payer MEDICARE, SELFPAY ==
[2019-03-01 15:10] VITALS: BMI 50.3
[2019-04-02 12:40] LABS: Erythrocyte Sedimentation Rate 16 mm/hr (0-30)
[2019-04-02 12:47] LABS: Hemoglobin A1c 6.4 % (4.2-6.3)
[2019-04-02 12:53] LABS: Ferritin 33 ng/mL (8-252); Iron 90 ug/dL (50-170); Iron Binding Capacity,Total 398 ug/dL (250-450); PERCENT IRON SATURATION 22.6 % (15.0-55.0); Rheumatoid Factor < 10.0 IU/mL (<15); T3 Uptake 36 % (30-39); T4 Free Direct 1.26 ng/dL (0.76-1.46); T4 Total, Thyroxin 11.4 ug/dL (4.8-13.9); T7 / Free Thyroxin Index 4.1 (1.4-4.5); Thyroid Stim Hormone (TSH) 0.53 uIU/mL (0.358-3.74)
[2019-04-02 13:42] LABS: HIV - WCH Non-Reactive (Nonreactive); Hepatitis C Antibody Non-Reactive (Nonreactive); Vitamin B12 457 pg/mL (211-911)
[2019-04-03 20:08] LABS: Albumin 3.7 g/dL (2.9-4.4); Alpha-1-Globulins 0.2 g/dL (0.0-0.4); Alpha-2-Globulins 0.8 g/dL (0.4-1.0); Gamma Globulin 0.6 g/dL (0.4-1.8); Immunoglobulin A 89 mg/dL (87-352); Immunoglobulin G 620 mg/dL (700-1600); Immunoglobulin M 33 mg/dL (26-217); PROEL- TOTAL PROTEIN 6.4 g/dL (6.0-8.5); RNP Ab 0.8 AI (0.0-0.9); Smith Ab <0.2 AI (0.0-0.9)
[2019-04-04 13:05] LABS: IMMUNOFIXATION RESULT,S Comment: (.)
[2019-04-04 13:11] LABS: ANTINUCLEAR ANTIBODIES DIRECT Negative (Negative)
== END ==
PROVIDERS: Family Provider Internal Medicine; PCP Internal Medicine; Referring Provider Psychiatry & Neurology Neurology; Visit Provider Psychiatry & Neurology Neurology
DX: G25.81 Restless legs syndrome (principal); G62.9 Polyneuropathy, unspecified; R53.83 Other fatigue; R73.9 Hyperglycemia, unspecified
CPT/HCPCS: 36415; 82607; 82728; 82746; 82784; 83036; 83540; 83550; 84165; 84436; 84439; 84443; 84479; 85652; 86038; 86235; 86334; 86431; 86703; 86803

== ENCOUNTER → 2019-05-31 11:01 | Outpatient (CLI) | payer MEDICARE, SELFPAY ==
[2019-05-31 10:34] VITALS: BMI 48.1
[2019-05-31 13:15] LABS: ALB/GLOB Ratio 1.2 RATIO (0.9-2.4); AST(SGOT) 10 U/L (15-37); Alanine Aminotransfer ALT/SGPT 24 U/L (13-56); Alkaline Phosphatase 113 U/L (45-117); Anion Gap 10 (5-15); BUN 17 mg/dL (7-18); BUN/Creat Ratio 18.3 RATIO (10-20); Calcium,Total 9.4 mg/dL (8.5-10.1); Chloride 104 mmol/L (98-107); Creatinine, Serum 0.93 mg/dL (0.55-1.02); EST Glomerular Filtration Rate 65 mL/min (>60); Est Glom Filt Rate - Afr Amer 78 mL/min (>60); Globulin 3.3 g/dL (2.2-4.2); Glucose 147 mg/dL (74-106); Potassium 4.1 mmol/L (3.5-5.1); Protein, Total 7.3 g/dL (6.4-8.2); Sodium Level 139 mmol/L (136-145)
== END ==
PROVIDERS: Family Provider Internal Medicine; PCP Internal Medicine; Visit Provider Internal Medicine
DX: I10 Essential (primary) hypertension (principal)
CPT/HCPCS: 36415; 80053

== ENCOUNTER → 2019-06-04 21:23 | Outpatient (CLI) | payer MEDICARE, SELFPAY ==
[2019-03-01 15:10] VITALS: BMI 50.3
[2019-06-04 11:26] VITALS: BMI 48.6
== END ==
PROVIDERS: Family Provider Internal Medicine; PCP Internal Medicine; Referring Provider Psychiatry & Neurology Neurology; Visit Provider Psychiatry & Neurology Neurology
DX: G47.33 Obstructive sleep apnea (adult) (pediatric) (principal)
CPT/HCPCS: 95811

== ENCOUNTER 2019-07-05 13:32 | Observation (INO) | payer MEDICARE, SELFPAY ==
[2019-06-14 10:35] VITALS: BMI 48.6
[2019-07-05 13:33] VITALS: BP 158/70; PULSE 70; RESP 18; TEMP 36.6; O2SAT 95; BMI 49.4
[2019-07-05] MEDS: Ondansetron 4 MG/2 ML Vial IV (14:35)
[2019-07-05] MEDS: Morphine 4 MG/ML Syringe IV (14:35)
[2019-07-05 14:46] LABS: Absolute Lymphocyte Count 1.48 X10^3/uL (0.83-4.51); Absolute Neutrophil Count 6.3 X10^3/uL (2.0-7.7); Basophil# 0.05 X10^3/uL; Basophil% 0.6 % (0-1); Eosinophil# 0.25 X10^3/uL; Eosinophils% 2.9 % (0-5); Hematocrit 41.3 % (37-47); Hemoglobin 13.8 g/dL (12.0-15.0); Lymphocyte # 1.48 X10^3/ul (4.0); Lymphocyte % 17.1 % (19-41); Mean Corp Hgb Conc 33.4 g/dL (32-36); Mean Corpuscular Hgb 33.6 pg (27.0-32.0); Mean Corpuscular Volume 100.5 fL (81-99); Mean Platelet Vol. 8.9 fl (6.2-12.0); Monocyte# 0.56 X10^3/uL; Monocyte% 6.5 % (0-10); NRBC Flagged by Analyzer 0 % (0-5); Neutrophil # 6.31 X10^3/uL (2.7-7.7); Neutrophil % 72.7 % (47-70); Platelet Count 256 K/mm3 (150-450); RBC Distribution Width CV 13.4 % (11.6-14.6); RBC Distribution Width SD 49.6 fl (35.1-43.9); Red Blood Count 4.11 M/mm3 (4.2-5.4); White Blood Count 8.7 K/mm3 (4.4-11.0)
[2019-07-05 14:56] LABS: Anion Gap 5 (5-15); BUN 16 mg/dL (7-18); BUN/Creat Ratio 18.3 RATIO (10-20); Calcium,Total 9.7 mg/dL (8.5-10.1); Chloride 108 mmol/L (98-107); Creatinine, Serum 0.88 mg/dL (0.55-1.02); EST Glomerular Filtration Rate 69 mL/min (>60); Est Glom Filt Rate - Afr Amer 84 mL/min (>60); Estimated Creatinine Clearance 51.08 ml/min; Glucose 111 mg/dL (74-106); Potassium 4.2 mmol/L (3.5-5.1); Sodium Level 141 mmol/L (136-145)
--- NOTE | 2019-07-05 15:35 | HP.PCM_ITS ---
History of Present Illness Date of Admission: 07/05/19 Chief Complaint: back pain and RLE pain The patient is a 64 year old F with a PMH as listed includes osteoarthritis and degenerative disc disease.. She was admitted with a complaint of low back pain which radiated around to the front and down of her left lower extremity. Patient states that she has a history of peripheral neuropathy in her PCP sent her to a neurologist who requested for nerve conduction studies. She states that she had the nerve conduction studies, patient states she has been experiencing lower back pain which radiates around the front of her left lower extremity and downwards. SHe denies any numbness or tingling and denies any u rinary or fecal incontinence. She has been able to undertake her usual activities of daily living though she states pain gets worse when she bends backwards or moves around. Review of stems otherwise negative. In the ED, vitals were significant for blood pressure of 158/70. Chemistry was unremarkable and CBC essentially unremarkable. She had lumbar spine MRI in the ED which was normal. She has been admitted to be managed for intractable pain likely due to osteoarthritis. [] Past Medical History Past Medical History (Chronic Problems): Chronic Problems (Last Reviewed 05/31/19 @ 10:33 by Charleen Montez) Degeneration of lumbar or lumbosacral intervertebral disc (Chronic) 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 myelopathy or radiculopathy (Chronic) Stage 3 severe COPD by GOLD classification (Chronic) Type 2 diabetes mellitus (Chronic) Hypertension (Chronic) History of left heart catheterization (Chronic 03/07/18) per Dr. Montes @ [facility]: coronaries normal except 30% stenosis in RCA, EF 65%, moderate elevation in right heart pressures Hypothyroidism (Chronic) Dermatitis (Chronic) Tobacco abuse (Chronic) Dyspnea (Chronic) TIA (transient ischemic attack) (Chronic) Thrombophlebitis leg superficial (Chronic) Left great saphenous vein Edema of left lower extremity (Chronic) Pulmonary hypertension (Chronic) PASP 46 mmHg Hearing loss (Chronic) Morbid obesity (Chronic) Conjunctivitis (Chronic) Monilial rash (Chronic) COPD (chronic obstructive pulmonary disease) (Chronic) Diverticulosis (Chronic) Physical deconditioning (Chronic) HENRRY (obstructive sleep apnea) (Chronic) Hiatal hernia (Chronic) Fibromyalgia (Chronic) Depression (Chronic) GERD (gastroesophageal reflux disease) (Chronic) Chronic low back pain (Chronic) Oral candidiasis (Chronic) Abnormal results of pulmonary function studies (Chronic) 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) Anxiety and depression (Chronic) Abdominal pain (Chronic) Medical History: Medical History (Last Reviewed 05/31/19 @ 10:33 by Charleen Montez) Hypertension (Chronic) I10 Ureteral calculus, left (Acute) N20.1 Right hip pain (Acute) M25.551 Acute respiratory failure (Acute) J96.00 Nummular eczematous dermatitis (Acute) L30.0 Hypothyroidism (Chronic) E03.9 Dermatitis (Chronic) L30.9 Tobacco abuse (Chronic) Z72.0 Dyspnea (Chronic) R06.00 Chest pain (Inactive) R07.9 TIA (transient ischemic attack) (Chronic) G45.9 Thrombophlebitis leg superficial (Chronic) I80.00 Left great saphenous vein Edema of left lower extremity (Chronic) R60.0 Pulmonary hypertension (Chronic) I27.20 PASP 46 mmHg History of hysterectomy (Resolved) Z98.890, Z90.710 MRSA (methicillin resistant staph aureus) culture positive (Resolved) Z22.322 Hearing loss (Chronic) H91.90 Ankle pain (Resolved) M25.579 Achilles tendinitis (Resolved) M76.60 Methicillin susceptible Staphylococcus aureus infection as the cause of diseases classified elsewhere (Resolved) B95.61 Morbid obesity (Chronic) E66.01 Conjunctivitis (Chronic) H10.9 Monilial rash (Chronic) B37.2 COPD (chronic obstructive pulmonary disease) (Chronic) J44.9 Diverticulosis (Chronic) K57.90 Physical deconditioning (Chronic) R53.81 HENRRY (obstructive sleep apnea) (Chronic) G47.33 Hiatal hernia (Chronic) K44.9 Fibromyalgia (Chronic) M79.7 Depression (Chronic) F32.9 GERD (gastroesophageal reflux disease) (Chronic) K21.9 Chronic low back pain (Chronic) M54.5, G89.29 Chronic obstructive pulmonary disease with acute exacerbation (Acute) J44.1 Oral candidiasis (Chronic) B37.0 Abnormal results of pulmonary function studies (Chronic) R94.2 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) J38.1 Anxiety and depression (Chronic) F41.8 Abdominal pain (Chronic) R10.9 Allergies fluconazole [From Diflucan] Allergy (Verified 07/05/19 13:35) Anaphylaxis nickel [Nickel] Allergy (Verified 07/05/19 13:35) Rash perfume Adverse Reaction (Unknown, Verified 07/05/19 13:35) unknown deodorant Adverse Reaction (Unknown, Uncoded 07/05/19 13:35) unknown Home Medications: Ambulatory Orders Medication Instructions Recorded Vit C/E/Zn/Coppr/Lutein/Zeaxan 1 cap PO BID 03/16/17 [Preservision Areds 2 Softgel] [place]-3 Fatty Acids/Fish Oil [Fish 1 ea PO DAILY 04/28/17 Oil 1,000 mg Capsule] Calcium Carbonate [Calcium] 500 mg PO DAILY 02/14/18 acetaminophen 500 mg tablet 1,000 mg PO TID PRN #60 tab 06/26/18 lisinopril 2.5 mg tablet 2.5 mg PO DAILY #90 tab 10/16/18 levothyroxine 150 mcg tablet 150 mcg PO DAILY #90 tab 11/22/18 metformin ER 500 mg 500 mg PO QPM #90 tab 12/18/18 tablet,extended release 24 hr pantoprazole 40 mg tablet,delayed 40 mg PO DAILY #90 tab 02/19/19 release tiotropium bromide 2.5 2 puff INHALATION DAILY #4 g 03/04/19 mcg/actuation mist for inhalation gabapentin 600 mg tablet 600 mg PO BID #60 tab 04/18/19 duloxetine 30 mg capsule,delayed 30 mg PO BID #180 cap 05/08/19 release diclofenac sodium 50 mg 50 mg PO BID PRN #60 tab 05/31/19 tablet,delayed release guaifenesin ER 1,200 mg tablet, 1,200 mg PO BID #60 tab 05/31/19 extended release 12 hr ropinirole 1 mg tablet 1 mg PO QHS 05/31/19 B-complex with vitamin C capsule 1 cap PO DAILY 06/14/19 lactobacillus combination no.8 3 3,000 mmu cells PO DAILY 06/14/19 billion cell capsule montelukast 10 mg tablet 10 mg PO QPM #30 tab 06/14/19 psyllium husk 0.4 gram capsule 0.4 g PO DAILY 06/14/19 Aspirin [Low Dose Aspirin EC] 81 mg PO DAILY 07/05/19 Budesonide/Formoterol 160/4.5 2 puff INHALATION BID 07/05/19 [Symbicort 160/4.5 Mcg Inhaler (SP)] Cholecalciferol (Vitamin D3) 2,000 unit PO DAILY 07/05/19 [Vitamin D3] Fluticasone 0.05% [Flonase Nasal 2 spray INTRANASAL DAILY 07/05/19 [place]] Surgical History: Surgical History (Last Reviewed 05/31/19 @ 10:33 by Charleen Montez) History of left heart catheterization (Chronic) Onset Date: 03/07/[address] 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 Lives: Alone Smoking Status: Current every day smoker Tobacco Use: Cigarettes Alcohol: Occasional Drugs: None - *Family History Maternal Family History: Family History (Last Reviewed 05/31/19 @ 10:33 by Charleen Montez) Mother Cancer Father Diabetes Alcoholism Brother Cancer Review of Systems Constitutional: Denies: Chills, Fever, Malaise, Weakness, Weight Change Eyes: Denies: Blurred vision HEENT: Denies: Head Aches, Sinus Congestion, Sinus Drainage Cardiovascular: Denies: Chest Pain, Palpitations Respiratory: Denies: Cough, Shortness of breath at rest, Sputum production Gastrointestinal: Denies: Abdominal Pain, Nausea, Vomiting Genitourinary: Denies: Dysuria Musculoskeletal: Reports: Muscle pain. Denies: Foot Pain, Hand Pain, Joint Pain, Joint Tenderness, Neck Pain, Shoulder Pain Skin: Denies: Rash, Wounds Neurological: Denies: Numbness, Tingling, Focal weakness Psychiatric: Denies: Anxiety, Depression, Homicidal Ideations, Suicidal Ideations Hematologic/ Lymphatic: Denies: Easy Bruising, Easy Bleeding VTE Information - Inpt Only VTE Present on Admission: No VTE Pharm Prophylaxis ordered?: Yes - Physical Exam Vitals/I&O's: Vital Signs Temp Pulse Resp BP Pulse Ox 97.9 F 70 18 158/70 H 95 07/05/19 13:33 07/05/19 13:33 07/05/19 13:33 07/05/19 13:33 07/05/19 13:33 Oxygen Delivery Method Room Air Weight: 270 lb 0.01 oz Body Mass Index (BMI) 49.4 General: Alert, Oriented x3, Cooperative, No apparent distress HEENT: Atraumatic, PERRLA, EOMI, Normocephalic Oral: Moist Mucosa Neck: Supple, No JVD, Negative Carotid Bruits Lungs: Clear to auscultation, Normal air movement, No rhonchi, No wheeze Cardiovascular: Regular rate, Regular Rhythm, Normal S1, Normal S2, No murmurs Abdomen: Bowel Sounds Present, Soft, Non Tender, Non-Distended, No Hepato- splenomegaly Extremities: No clubbing, No cyanosis, No edema, Capillary Refill Less than 3 Se conds Skin: No rashes, No breakdown Musculoskeletal: - - minimal tenderness on palpation of lower back. Lymphatic: No Cervical, Supraclavicular, or Inguinal Adenopathy Neurological: Cranial nerves II-XII grossly intact, Neuro grossly intact, Motor Exam 5/5 strength throughout, - - gait not assessed Psych/Mental Status: Normal Affect, Appropriate, Alert and oriented to time, place, person, mood and affect Laboratory Results 07/05/19 14:39: WBC 8.7, RBC 4.11 L, Hgb 13.8, Hct 41.3, MCV 100.5 H, MCH 33.6 H , MCHC 33.4, RDW Std Deviation 49.6 H, RDW Coeff of Rafi 13.4, Plt Count 256, MPV 8.9, Immature Gran % (Auto) 0.200, Neut % (Auto) 72.7 H, Lymph % (Auto) 17.1 L, [place] % (Auto) 6.5, Eos % (Auto) 2.9, Baso % (Auto) 0.6, Absolute Neuts (auto) 6.3, Absolute Lymphs (auto) 1.48, Nucleated RBC % 0 07/05/19 14:39: Sodium 141, Potassium 4.2, Chloride 108 H, Carbon Dioxide 28.0, Anion Gap 5, BUN 16, Creatinine 0.88, Estim Creat Clear Calc 51.08, Est GFR (MDRD) Af Amer 84, Est GFR (MDRD) Non-Af 69, BUN/Creatinine Ratio 18.3, Glucose 111 H, Calcium 9.7 Diagnostic Data Lumbar Spine MRI 07/05/19 15:44 IMPRESSION: Normal unenhanced MR examination of the lumbar spine. Electronically Signed: Jimmy Gonzales MD at 17:05 EST , Service support , Assessment/Plan All Active Problems (Last Reviewed 05/31/19 @ 10:33 by Charleen Montez) Acute suppur left otitis media w/spontan rupture of tympanic membrane (Acute) Ureteral calculus, left (Acute) Right hip pain (Acute) Acute respiratory failure (Acute) Nummular eczematous dermatitis (Acute) Status post trigger finger release (Resolved) History of tonsillectomy (Resolved) Status post surgical manipulation of ankle joint (Resolved) History of carpal tunnel release (Resolved) History of D&C (Resolved) History of tubal ligation (Resolved) History of hysterectomy (Resolved) MRSA (methicillin resistant staph aureus) culture positive (Resolved) Ankle pain (Resolved) Achilles tendinitis (Resolved) Methicillin susceptible Staphylococcus aureus infection as the cause of diseases classified elsewhere (Resolved) Chronic obstructive pulmonary disease with acute exacerbation (Acute) 64 y/o female admitted with a complaint of lower back pain 1. Lower back pain likely due to osteoarthritis and DJD * admit to Med surg * fall precautions * area where she says she had needles inserted during EMG by her neurologist Dr Araujo doesnt look infected nor is it tender to palpation * tylenol and oxycodone prn for pain * consult PT/OT * 2. History of peripheral neuropathy: * Has had EMG studies done on outpatient basis. * Will request records. Currently asymptomatic. * If symptoms present and persists, to consider neurology consult. On gabapentin. 3. CAD: On aspirin and lisinopril 4. Hypothyroidism: On Synthroid. 5. Hypertension on lisinopril. 6. Type 2 diabetes mellitus: On metformin. Insulin sliding scale. Checks AC at bedtime. 7. Anxiety and depression: On duloxetine 8.DVT prophylaxis: Lovenox Code Visit OBSV E&M: [id number] Initial observation care L2
--- NOTE | 2019-07-05 15:44 | MRI_ITS ---
STUDY: MRI LUMBAR SPINE WITHOUT CONTRAST REASON FOR EXAM: Female, 64 years old. Low back pain TECHNIQUE: Standardized fat and water weighted pulse sequences were obtained in the sagittal and axial planes. COMPARISON: MRI lumbar spine May 08, 2018 FINDINGS: T12-L1: Normal endplates. Normal disc height, hydration and morphology. Normal bilateral facet joints. Normal central canal and bilateral lateral recesses. Normal bilateral intervertebral neural foramina. Normal lumbar lordosis. There is no substantial scoliosis. Normal conus medullaris that terminates at the L1 level. L1-2: Normal endplates. Normal disc height, hydration and morphology. Normal bilateral facet joints. Normal central canal and bilateral lateral recesses. Normal bilateral intervertebral neural foramina. L2-3: Normal endplates. Normal disc height, hydration and morphology. Normal bilateral facet joints. Normal central canal and bilateral lateral recesses. Normal bilateral intervertebral neural foramina. L3-4: Normal endplates. Normal disc height, hydration and morphology. Normal bilateral facet joints. Normal central canal and bilateral lateral recesses. Normal bilateral intervertebral neural foramina. L4-5: Normal endplates. Normal disc height, hydration and morphology. Vertebral bilateral facet joints. Normal central canal and bilateral lateral recesses. Normal bilateral intervertebral neural foramina. L5-S1: Normal endplates. Normal disc height, hydration and morphology. Normal bilateral facet joints. Normal central canal and bilateral lateral recesses. Normal bilateral intervertebral neural foramina. Normal visualized sacral ala. Normal visualized paraspinous soft tissue structures. MRI/Spine Lumbar (Routine) IMPRESSION: Normal unenhanced MR examination of the lumbar spine. Electronically Signed: Jimmy Gonzales MD at 17:05 EST , Service support ,
--- NOTE | 2019-07-05 15:47 | ED.VISSUMM ---
- ER Visit Summary Date of Service: 07/05/19 Chief Complaint: [Left leg pain] History of Present Illness: The patient is a 64 F [presents to the emergency department pain in her left leg for about a week. Patient states that she had pain to the right leg for several months and was seeing who is a neurologist out of [place]. Patient had what sounds like EMG studies. Patient states eventually the pain in her right leg resolved but now she has pain in her left leg to start about a week ago. Patient complains of severe burning type pain in her low back on the left side as well. She denies weakness in any extremity. She denies any change in bowel bladder function. She denies paresthesias. Patient states this morning she could not get out of bed because of the pain. Patient has history of degenerative disc disease as well as osteoarthritis and rheumatoid arthritis. Patient is not in pain management currently.] Patient states the pain is very positional and oftentimes in order for her to bend over she actually has to pick her left leg up off the ground and bend it. Physical Examination: [HEENT-PERRLA, EOMI. Cranial nerves II through XII grossly intact. TMs clear. Mucous membranes moist. No adenopathy. Cardiovascular-regular rate and rhythm without murmur or ectopy Lungs-clear to auscultation, chest wall stable without crepitus or subcu emphysema Abdomen-normoactive bowel sounds, soft, nontender, no rebound or rigidity, no peritoneal signs. Back exam-patient has tenderness palpation over the left lumbar paraspinal musculature that seems to reproduce her pain. She has negative straight leg raises. Deep tendon reflexes are plus 2 out of 4 bilaterally at the patella and Achilles. Patient has normal 5 extension bilaterally. Extremities-intact ?4, normal range of motion, normal pulses, atraumatic] Test Results: [CBC with differential was unremarkable. Chemistries unremarkable.] Emergency Department Course and Treatment: [She was medicated morphine and Zofran and she continues to complain of pain.] Treatment Plan: [Admit for further work-up and evaluation. Patient case was discussed with hospitalist who asked that I order an MRI of the patient's back which was ordered. Patient also would be premedicated with Ativan given that she is claustrophobic.] Disposition: [Admit] Impression: [Intractable back and left leg pain Lumbar radiculopathy] This note was generated with Plain Vanilla dictation software. It may contain incorrect words, spelling, and punctuation that were not noted in review of the chart prior to signing ED Disposition - Plan for ED Patient: Referrals: Refugio Dowd MD [Primary Care Provider] -
[2019-07-05] MEDS: LORazepam 2 MG/ML Syringe 1 MG IV (16:10)
[2019-07-05 19:16] VITALS: BMI 47.2
[2019-07-05 19:20] VITALS: BMI 47.3
[2019-07-05 19:25] VITALS: BP 130/62; PULSE 64; RESP 18; TEMP 36.8; O2SAT 93
[2019-07-05] MEDS: DULoxetine Hcl 30 MG Capsule PO (21:13)
[2019-07-05] MEDS: guaiFENesin 1,200 MG Tablet 1200 MG PO (21:13)
[2019-07-05] MEDS: Montelukast 10 MG Tablet PO (21:13)
[2019-07-05] MEDS: Gabapentin 600 MG Tablet PO (21:13)
[2019-07-05] MEDS: oxyCODONE 5 MG Tablet PO (21:13)
[2019-07-05] MEDS: Acetaminophen 500 MG Tablet 1000 MG PO (21:14)
[2019-07-05] MEDS: metFORMIN (XR) 500 MG Tablet PO (21:16)
[2019-07-05 21:30] LABS: Bedside Glucose 114 mg/dL (70-110)
[2019-07-05 22:05] VITALS: PULSE 64; RESP 12; RESP 14; O2SAT 94
[2019-07-06 00:48] VITALS: PULSE 67; RESP 12; RESP 16; O2SAT 95
[2019-07-06 02:13] VITALS: BP 122/60; PULSE 64; RESP 16; TEMP 37.1; O2SAT 94
[2019-07-06 04:03] VITALS: PULSE 71; RESP 12; RESP 16; O2SAT 92
[2019-07-06] MEDS: Levothyroxine 150 MCG Tablet PO (06:24)
[2019-07-06 06:55] LABS: Bedside Glucose 137 mg/dL (70-110)
[2019-07-06 07:36] VITALS: BP 122/69; PULSE 60; RESP 18; TEMP 36.6; O2SAT 92
[2019-07-06] MEDS: DULoxetine Hcl 30 MG Capsule PO (07:44)
[2019-07-06] MEDS: Gabapentin 600 MG Tablet PO (07:44)
[2019-07-06] MEDS: Psyllium 1 PACKET PO (07:44)
[2019-07-06] MEDS: Aspirin E.C. 81 MG Tablet PO (07:44)
[2019-07-06] MEDS: Calcium (Elemental) 500 MG Tablet PO (07:44)
[2019-07-06] MEDS: Enoxaparin 40 MG/0.4 ML Syringe SC (07:44)
[2019-07-06] MEDS: Pantoprazole Sodium 40 MG Tablet PO (07:44)
[2019-07-06] MEDS: Multivitamin (Healthy Eyes) Capsule 1 CAP PO (07:44)
[2019-07-06] MEDS: guaiFENesin 1,200 MG Tablet 1200 MG PO (07:45)
[2019-07-06] MEDS: Lisinopril 2.5 MG Tablet PO (07:50)
[2019-07-06] MEDS: Fluticasone 0.05% 1 SPRAY NASAL.SRY 2 SPRAY NASAL (07:50)
--- NOTE | 2019-07-06 07:52 | PCM.PN.HOSP ---
Vitals/I&O's: Vital Signs Temp Pulse Resp BP Pulse Ox 97.8 F 60 18 122/69 H 92 07/06/19 07:36 07/06/19 07:36 07/06/19 07:36 07/06/19 07:36 07/06/19 07:36 Oxygen Delivery Method Room Air Weight: 117.299 kg Body Mass Index (BMI) 47.2 Intake and Output for Last 24 Hours 07/04/19 07/05/19 07/06/19 23:59 23:59 23:59 Intake Total 1440 / 1440 Balance 1440 / 1440 Laboratory Results 07/05/19 14:39: WBC 8.7, RBC 4.11 L, Hgb 13.8, Hct 41.3, MCV 100.5 H, MCH 33.6 H, MCHC 33.4, RDW Std Deviation 49.6 H, RDW Coeff of Rafi 13.4, Plt Count 256, MPV 8.9, Immature Gran % (Auto) 0.200, Neut % (Auto) 72.7 H, Lymph % (Auto) 17.1 L, [place] % (Auto) 6.5, Eos % (Auto) 2.9, Baso % (Auto) 0.6, Absolute Neuts (auto) 6.3, Absolute Lymphs (auto) 1.48, Nucleated RBC % 0 07/05/19 14:39: Sodium 141, Potassium 4.2, Chloride 108 H, Carbon Dioxide 28.0, Anion Gap 5, BUN 16, Creatinine 0.88, Estim Creat Clear Calc 51.08, Est GFR (MDRD) Af Amer 84, Est GFR (MDRD) Non-Af 69, BUN/Creatinine Ratio 18.3, Glucose 111 H, Calcium 9.7 07/05/19 21:20: POC Glucose 114 H 07/06/19 06:50: POC Glucose 137 H Current Medications Acetaminophen (Tylenol) 1,000 mg PO TID PRN PRN Reason: Pain Score 1-10/10 Last Admin: 07/05/19 21:14 Dose: 1,000 mg Documented by: [facility]) [facility] Admin: 07/06/19 07:44 Dose: 81 mg Documented by: Calcium Carbonate (Os-Willem 500) [facility] Last Admin: 07/06/19 07:44 Dose: 500 mg Documented by: Dextrose (D50w Syringe) 0 gm IV X1 PRN; Protocol PRN Reason: Hypoglycemia Diclofenac Sodium (Voltaren) 50 mg PO BID PRN PRN Reason: pain Duloxetine HCl (Cymbalta) 30 mg PO BID [facility] Last Admin: 07/06/19 07:44 Dose: 30 mg Documented by: Enoxaparin Sodium (Lovenox) 40 mg SC DAILY [facility] Last Admin: 07/06/19 07:44 Dose: 40 mg Documented by: Fluticasone Propionate (Flonase Nasal [place]) 2 spray NASAL DAILY [facility] Last Admin: 07/06/19 07:50 Dose: 2 spray Documented by: Gabapentin (Neurontin) 600 mg PO BID [facility] Last Admin: 07/06/19 07:44 Dose: 600 mg Documented by: Glucagon () 1 mg IM .X1 PRN PRN Reason: Hypoglycemia Guaifenesin (Mucinex) 1,200 mg PO BID [facility] Last Admin: 07/06/19 07:45 Dose: 1,200 mg Documented by: Insulin Human Lispro (Humalog Kwikpen (Bkc)) 0 unit [facility]; Protocol Last Admin: 07/06/19 07:21 Dose: Not Given Documented by: Levothyroxine Sodium (Synthroid) 150 mcg PO DAILY@0600 [facility] Last Admin: 07/06/19 06:24 Dose: 150 mcg Documented by: Lisinopril (Zestril) 2.5 mg PO DAILY [facility] Last Admin: 07/06/19 07:50 Dose: 2.5 mg Documented by: Metformin HCl (Glucophage Xr) 500 mg PO QPM [facility] Last Admin: 07/05/19 21:16 Dose: 500 mg Documented by: Montelukast Sodium (Singulair) 10 mg PO QPM [facility] Last Admin: 07/05/19 21:13 Dose: 10 mg Documented by: Multivitamins/Minerals (Healthy Eyes) [facility] Last Admin: 07/06/19 07:44 Dose: 1 capsule Documented by: Ondansetron HCl (Zofran) 4 mg IV Q8H PRN PRN PRN Reason: NAUSEA/VOMITING Oxycodone HCl (Oxyir) 5 mg PO Q4H PRN PRN PRN Reason: Pain Score 4-5/10 Last Admin: 07/05/19 21:13 Dose: 5 mg Documented by: Pantoprazole Sodium (Protonix) 40 mg PO DAILY [facility] Last Admin: 07/06/19 07:44 Dose: 40 mg Documented by: Psyllium Hydrophilic Mucilloid (Metamucil) 1 packet PO DAILYCM [facility] Last Admin: 07/06/19 07:44 Dose: 1 packet Documented by: Ropinirole HCl (Requip) 1 mg PO QHS [facility] Last Admin: 07/05/19 21:13 Dose: 1 mg Documented by: Sodium Chloride () 10 - 40 ml IV UD PRN PRN Reason: SALINE FLUSH STROKE Vital Signs/Narrative: Vital Signs Temp Pulse Resp BP Pulse Ox 07/06/19 07:36 97.8 F 60 18 122/69 H 92 07/06/19 04:03 71 16 92 Medical Necessity - Tobacco Use Smoking Status: Current every day smoker Tobacco Use: Cigarettes Assessment/Plan All Active Problems (Last Reviewed 05/31/19 @ 10:33 by Charleen Montez) Acute suppur left otitis media w/spontan rupture of tympanic membrane (Acute) Ureteral calculus, left (Acute) Right hip pain (Acute) Acute respiratory failure (Acute) Nummular eczematous dermatitis (Acute) Status post trigger finger release (Resolved) History of tonsillectomy (Resolved) Status post surgical manipulation of ankle joint (Resolved) History of carpal tunnel release (Resolved) History of D&C (Resolved) History of tubal ligation (Resolved) History of hysterectomy (Resolved) MRSA (methicillin resistant staph aureus) culture positive (Resolved) Ankle pain (Resolved) Achilles tendinitis (Resolved) Methicillin susceptible Staphylococcus aureus infection as the cause of diseases classified elsewhere (Resolved) Chronic obstructive pulmonary disease with acute exacerbation (Acute) 64-year-old female presented with low back pain Low back pain secondary to degenerative joint disease History of peripheral neuropathy CAD Hypothyroidism Hypertension Diabetes mellitus type 2 Depression with anxiety
--- NOTE | 2019-07-06 07:57 | NURSING ---
am meds given at this time per pt request as she takes at home
[2019-07-06 08:13] LABS: Absolute Lymphocyte Count 1.38 X10^3/uL (0.83-4.51); Absolute Neutrophil Count 4.4 X10^3/uL (2.0-7.7); Basophil# 0.05 X10^3/uL; Basophil% 0.7 % (0-1); Eosinophil# 0.45 X10^3/uL; Eosinophils% 6.5 % (0-5); Hematocrit 40.9 % (37-47); Hemoglobin 13.4 g/dL (12.0-15.0); Lymphocyte # 1.38 X10^3/ul (4.0); Lymphocyte % 19.9 % (19-41); Mean Corp Hgb Conc 32.8 g/dL (32-36); Mean Corpuscular Hgb 33.3 pg (27.0-32.0); Mean Corpuscular Volume 101.7 fL (81-99); Mean Platelet Vol. 9.1 fl (6.2-12.0); Monocyte# 0.66 X10^3/uL; Monocyte% 9.5 % (0-10); NRBC Flagged by Analyzer 0 % (0-5); Neutrophil # 4.38 X10^3/uL (2.7-7.7); Neutrophil % 63.1 % (47-70); Platelet Count 239 K/mm3 (150-450); RBC Distribution Width CV 13.7 % (11.6-14.6); RBC Distribution Width SD 51.2 fl (35.1-43.9); Red Blood Count 4.02 M/mm3 (4.2-5.4); White Blood Count 6.9 K/mm3 (4.4-11.0)
[2019-07-06 08:42] LABS: Anion Gap 3 (5-15); BUN 15 mg/dL (7-18); BUN/Creat Ratio 17.7 RATIO (10-20); Calcium,Total 8.8 mg/dL (8.5-10.1); Chloride 104 mmol/L (98-107); Creatinine, Serum 0.85 mg/dL (0.55-1.02); EST Glomerular Filtration Rate 72 mL/min (>60); Est Glom Filt Rate - Afr Amer 87 mL/min (>60); Estimated Creatinine Clearance 52.88 ml/min; Glucose 131 mg/dL (74-106); Potassium 4.3 mmol/L (3.5-5.1); Sodium Level 136 mmol/L (136-145)
--- NOTE | 2019-07-06 10:10 | DCINST_ITS ---
You will use the following diet at home:: Calorie/Carbohydrate Controlled (specify 1200, 1400, etc) - 1800 Your food should be the consistency of: Regular Discharge Activity: May not drive while taking narcotic pain medications. Allergies/Adverse Reactions: Allergies fluconazole [From Diflucan] Allergy (Verified 07/05/19 13:35) Anaphylaxis nickel [Nickel] Allergy (Verified 07/05/19 13:35) Rash perfume Allergy (Verified 07/05/19 15:48) Rash deodorant Allergy (Uncoded 07/05/19 15:48) Rash Medications to take at Discharge Vit C/E/Zn/Coppr/Lutein/Zeaxan [Preservision Areds 2 Softgel] 1 cap PO BID 03/16/17 [place]-3 Fatty Acids/Fish Oil [Fish Oil 1,000 mg Capsule] 1 ea PO DAILY 04/28/17 Calcium Carbonate [Calcium] 500 mg PO DAILY 02/14/18 acetaminophen 500 mg tablet 1,000 mg PO TID PRN #60 tab 06/26/18 lisinopril 2.5 mg tablet 2.5 mg PO DAILY #90 tab 10/16/18 levothyroxine 150 mcg tablet 150 mcg PO DAILY #90 tab 11/22/18 metformin ER 500 mg tablet,extended release 24 hr 500 mg PO QPM #90 tab 12/18/18 pantoprazole 40 mg tablet,delayed release 40 mg PO DAILY #90 tab 02/19/19 tiotropium bromide 2.5 mcg/actuation mist for inhalation 2 puff INHALATION DAILY #4 g 03/04/19 gabapentin 600 mg tablet 600 mg PO BID #60 tab 04/18/19 duloxetine 30 mg capsule,delayed release 30 mg PO BID #180 cap 05/08/19 diclofenac sodium 50 mg tablet,delayed release 50 mg PO BID PRN #60 tab 05/31/19 guaifenesin ER 1,200 mg tablet, extended release 12 hr 1,200 mg PO BID #60 tab 05/31/19 ropinirole 1 mg tablet 1 mg PO QHS 05/31/19 B-complex with vitamin C capsule 1 cap PO DAILY 06/14/19 lactobacillus combination no.8 3 billion cell capsule 3,000 mmu cells PO DAILY 06/14/19 montelukast 10 mg tablet 10 mg PO QPM #30 tab 06/14/19 psyllium husk 0.4 gram capsule 0.4 g PO DAILY 06/14/19 Aspirin [Low Dose Aspirin EC] 81 mg PO DAILY 07/05/19 Budesonide/Formoterol 160/4.5 [Symbicort 160/4.5 Mcg Inhaler (SP)] 2 puff INHALATION BID 07/05/19 Cholecalciferol (Vitamin D3) [Vitamin D3] 2,000 unit PO DAILY 07/05/19 Fluticasone 0.05% [Flonase Nasal [place]] 2 spray INTRANASAL DAILY 07/05/19 Oxycodone [Oxyir] 5 mg PO Q4H PRN PRN 3 Days #12 tablet 07/06/19 The following prescriptions were given: Oxycodone [Oxyir] 5 mg PO Q4H PRN PRN 3 Days #12 tablet PRN Reason: Pain Score 4-5/10 Transmission Status: Sent to [facility] Primary Care Physician: Refugio Dowd MD [Primary Care Provider] - Please follow up with your Primary Care Physician in: in 5- 7 days Test Results: Test results from this visit will be discussed in further detail at your follow- up appointment, if applicable. Proposed Discharge Date: 07/06/19
--- NOTE | 2019-07-06 10:16 | PCM.DC.SUM ---
Discharge Date and Diagnosis - Problem List Patient Problems: Active and Suspected Problems (Last Updated 07/06/19 @ 10:11 by Jeyson Lyon MD) Acute back pain (Acute) Date of Admission: 07/05/19 Date of Discharge: 07/06/19 - Primary Discharge Diagnosis Active and Suspected Problems (Last Updated 07/06/19 @ 10:11 by Jeyson Lyon MD) Acute back pain (Acute) - Secondary Discharge Diagnosis Chronic Problems (Last Updated 07/06/19 @ 10:11 by Jeyson Lyon MD) Degeneration of lumbar or lumbosacral intervertebral disc (Chronic) 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 myelopathy or radiculopathy (Chronic) Stage 3 severe COPD by GOLD classification (Chronic) Type 2 diabetes mellitus (Chronic) Hypertension (Chronic) Right hip pain (Chronic) Nummular eczematous dermatitis (Chronic) History of left heart catheterization (Chronic 03/07/18) per Dr. Montes @ [facility]: coronaries normal except 30% stenosis in RCA, EF 65%, moderate elevation in right heart pressures Hypothyroidism (Chronic) Dermatitis (Chronic) Tobacco abuse (Chronic) Dyspnea (Chronic) TIA (transient ischemic attack) (Chronic) Thrombophlebitis leg superficial (Chronic) Left great saphenous vein Edema of left lower extremity (Chronic) Pulmonary hypertension (Chronic) PASP 46 mmHg Hearing loss (Chronic) Morbid obesity (Chronic) Conjunctivitis (Chronic) Monilial rash (Chronic) COPD (chronic obstructive pulmonary disease) (Chronic) Diverticulosis (Chronic) Physical deconditioning (Chronic) HENRRY (obstructive sleep apnea) (Chronic) Hiatal hernia (Chronic) Fibromyalgia (Chronic) Depression (Chronic) GERD (gastroesophageal reflux disease) (Chronic) Chronic low back pain (Chronic) Chronic obstructive pulmonary disease with acute exacerbation (Chronic) Oral candidiasis (Chronic) Abnormal results of pulmonary function studies (Chronic) 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) Anxiety and depression (Chronic) Abdominal pain (Chronic) Hospital Course and Treatment Imaging Results: Clinical Impression(s) from Imaging Studies Lumbar Spine MRI 07/05/19 15:44 IMPRESSION: Normal unenhanced MR examination of the lumbar spine. Electronically Signed: Jimmy Gonzales MD at 17:05 EST , Service support , Operations: None Summary of Care Provided: 64-year-old female presented with low back pain 1. Acute low back pain secondary to degenerative joint disease patient was admitted to regular nursing floor for symptomatic management. Symptoms did improve was discharged a day after his admission Request 2. History of peripheral neuropathy 3. Hypothyroidism 4. Coronary artery disease 5. Essential hypertension 6. Diabetes mellitus type 2 7. Depression with anxiety Patient Problems: Active and Suspected Problems (Last Updated 07/06/19 @ 10:11 by Jeyson Lyon MD) Acute back pain (Acute) - Physical Exam Vitals/I&O's: Vital Signs Temp Pulse Resp BP Pulse Ox 97.8 F 60 18 122/69 H 92 07/06/19 07:36 07/06/19 07:36 07/06/19 07:36 07/06/19 07:36 07/06/19 07:36 Oxygen Delivery Method Room Air Weight: 117.299 kg Body Mass Index (BMI) 47.2 Intake and Output for Last 24 Hours 07/04/19 07/05/19 07/06/19 23:59 23:59 23:59 Intake Total 1440 / 1440 Balance 1440 / 1440 General: Alert HEENT: Atraumatic Neck: No JVD Lungs: Diminished Neurological: Neuro grossly intact Psych/Mental Status: Normal Affect Laboratory Results 07/05/19 14:39: WBC 8.7, RBC 4.11 L, Hgb 13.8, Hct 41.3, MCV 100.5 H, MCH 33.6 H, MCHC 33.4, RDW Std Deviation 49.6 H, RDW Coeff of Rafi 13.4, Plt Count 256, MPV 8.9, Immature Gran % (Auto) 0.200, Neut % (Auto) 72.7 H, Lymph % (Auto) 17.1 L, [place] % (Auto) 6.5, Eos % (Auto) 2.9, Baso % (Auto) 0.6, Absolute Neuts (auto) 6.3, Absolute Lymphs (auto) 1.48, Nucleated RBC % 0 07/05/19 14:39: Sodium 141, Potassium 4.2, Chloride 108 H, Carbon Dioxide 28.0, Anion Gap 5, BUN 16, Creatinine 0.88, Estim Creat Clear Calc 51.08, Est GFR (MDRD) Af Amer 84, Est GFR (MDRD) Non-Af 69, BUN/Creatinine Ratio 18.3, Glucose 111 H, Calcium 9.7 07/05/19 21:20: POC Glucose 114 H 07/06/19 06:50: POC Glucose 137 H 07/06/19 07:40: WBC 6.9, RBC 4.02 L, Hgb 13.4, Hct 40.9, MCV 101.7 H, MCH 33.3 H, MCHC 32.8, RDW Std Deviation 51.2 H, RDW Coeff of Rafi 13.7, Plt Count 239, MPV 9.1, Immature Gran % (Auto) 0.300, Neut % (Auto) 63.1, Lymph % (Auto) 19.9, [place] % (Auto) 9.5, Eos % (Auto) 6.5 H, Baso % (Auto) 0.7, Absolute Neuts (auto) 4.4, Absolute Lymphs (auto) 1.38, Nucleated RBC % 0 07/06/19 07:40: Sodium 136, Potassium 4.3, Chloride 104, Carbon Dioxide 29.0, Anion Gap 3 L, BUN 15, Creatinine 0.85, Estim Creat Clear Calc 52.88, Est GFR (MDRD) Af Amer 87, Est GFR (MDRD) Non-Af 72, BUN/Creatinine Ratio 17.7, Glucose 131 H, Calcium 8.8 Current Medications Acetaminophen (Tylenol) 1,000 mg PO TID PRN PRN Reason: Pain Score 1-10/10 Last Admin: 07/05/19 21:14 Dose: 1,000 mg Documented by: [facility] Last Admin: 07/06/19 07:44 Dose: 81 mg Documented by: Calcium Carbonate (Os-Willem 500) [facility] Last Admin: 07/06/19 07:44 Dose: 500 mg Documented by: Dextrose (D50w Syringe) 0 gm IV X1 PRN; Protocol PRN Reason: Hypoglycemia Diclofenac Sodium (Voltaren) 50 mg PO BID PRN PRN Reason: pain Duloxetine HCl (Cymbalta) 30 mg PO BID [facility] Last Admin: 07/06/19 07:44 Dose: 30 mg Documented by: Enoxaparin Sodium (Lovenox) 40 mg SC DAILY [facility] Last Admin: 07/06/19 07:44 Dose: 40 mg Documented by: Fluticasone Propionate (Flonase Nasal [place]) 2 spray NASAL DAILY [facility] Last Admin: 07/06/19 07:50 Dose: 2 spray Documented by: Gabapentin (Neurontin) 600 mg PO BID [facility] Last Admin: 07/06/19 07:44 Dose: 600 mg Documented by: Glucagon () 1 mg IM .X1 PRN PRN Reason: Hypoglycemia Guaifenesin (Mucinex) 1,200 mg PO BID [facility] Last Admin: 07/06/19 07:45 Dose: 1,200 mg Documented by: Insulin Human Lispro (Humalog Kwikpen (Bkc)) 0 unit SC [facility]; Protocol Last Admin: 07/06/19 07:21 Dose: Not Given Documented by: Levothyroxine Sodium (Synthroid) 150 mcg PO DAILY@0600 [facility] Last Admin: 07/06/19 06:24 Dose: 150 mcg Documented by: Lisinopril (Zestril) 2.5 mg PO DAILY [facility] Last Admin: 07/06/19 07:50 Dose: 2.5 mg Documented by: Metformin HCl (Glucophage Xr) 500 mg PO QPM [facility] Last Admin: 07/05/19 21:16 Dose: 500 mg Documented by: Montelukast Sodium (Singulair) 10 mg PO QPM [facility] Last Admin: 07/05/19 21:13 Dose: 10 mg Documented by: Multivitamins/Minerals (Healthy Eyes) [facility] Last Admin: 07/06/19 07:44 Dose: 1 capsule Documented by: Ondansetron HCl (Zofran) 4 mg IV Q8H PRN PRN PRN Reason: NAUSEA/VOMITING Oxycodone HCl (Oxyir) 5 mg PO Q4H PRN PRN PRN Reason: Pain Score 4-5/10 Last Admin: 07/05/19 21:13 Dose: 5 mg Documented by: Pantoprazole Sodium (Protonix) 40 mg PO DAILY [facility] Last Admin: 07/06/19 07:44 Dose: 40 mg Documented by: Psyllium Hydrophilic Mucilloid (Metamucil) [facility] packet [facility] Last Admin: 07/06/19 07:44 Dose: 1 packet Documented by: Ropinirole HCl (Requip) 1 mg PO QHS [facility] Last Admin: 07/05/19 21:13 Dose: 1 mg Documented by: Sodium Chloride () 10 - 40 ml IV UD PRN PRN Reason: SALINE FLUSH Discharge Diet: 1800 Calorie Control Diet Discharge Activity: May not drive while taking narcotic pain medications. Home Medications: Medications to take at Discharge Vit C/E/Zn/Coppr/Lutein/Zeaxan [Preservision Areds 2 Softgel] 1 cap PO BID 03/16/17 [place]-3 Fatty Acids/Fish Oil [Fish Oil 1,000 mg Capsule] 1 ea PO DAILY 04/28/17 Calcium Carbonate [Calcium] 500 mg PO DAILY 02/14/18 acetaminophen 500 mg tablet 1,000 mg PO TID PRN #60 tab 06/26/18 lisinopril 2.5 mg tablet 2.5 mg PO DAILY #90 tab 10/16/18 levothyroxine 150 mcg tablet 150 mcg PO DAILY #90 tab 11/22/18 metformin ER 500 mg tablet,extended release 24 hr 500 mg PO QPM #90 tab 12/18/18 pantoprazole 40 mg tablet,delayed release 40 mg PO DAILY #90 tab 02/19/19 tiotropium bromide 2.5 mcg/actuation mist for inhalation 2 puff INHALATION DAILY #4 g 03/04/19 gabapentin 600 mg tablet 600 mg PO BID #60 tab 04/18/19 duloxetine 30 mg capsule,delayed release 30 mg PO BID #180 cap 05/08/19 diclofenac sodium 50 mg tablet,delayed release 50 mg PO BID PRN #60 tab 05/31/19 guaifenesin ER 1,200 mg tablet, extended release 12 hr 1,200 mg PO BID #60 tab 05/31/19 ropinirole 1 mg tablet 1 mg PO QHS 05/31/19 B-complex with vitamin C capsule 1 cap PO DAILY 06/14/19 lactobacillus combination no.8 3 billion cell capsule 3,000 mmu cells PO DAILY 06/14/19 montelukast 10 mg tablet 10 mg PO QPM #30 tab 06/14/19 psyllium husk 0.4 gram capsule 0.4 g PO DAILY 06/14/19 Aspirin [Low Dose Aspirin EC] 81 mg PO DAILY 07/05/19 Budesonide/Formoterol 160/4.5 [Symbicort 160/4.5 Mcg Inhaler (SP)] 2 puff INHALATION BID 07/05/19 Cholecalciferol (Vitamin D3) [Vitamin D3] 2,000 unit PO DAILY 07/05/19 Fluticasone 0.05% [Flonase Nasal Coolin] 2 spray INTRANASAL DAILY 07/05/19 Oxycodone [Oxyir] 5 mg PO Q4H PRN PRN 3 Days #12 tab 07/06/19 Following Prescrptions Were Given to Patient: Oxycodone [Oxyir] 5 mg PO Q4H PRN PRN 3 Days #12 tab PRN Reason: Pain Score 4-5/10 Transmission Status: Received by [facility] #30 Primary Care Physician: Refugio Dowd MD [Primary Care Provider] - Please follow up with your Primary Care Physician in: in 5- 7 days Disposition: Home Minutes spent on discharge:: 35 Patient Condition:: Stable Medical Necessity - Tobacco Use Smoking Status: Current every day smoker Tobacco Use: Cigarettes Meaningful Use Info Meaningful Use Diagnoses (Choose all that apply): None applicable Code Visit OBSV E&M: 05799 Observation care discharge
== END 2019-07-06 11:51 | disposition home or self-care (01) ==
LOC: ED 14:52 → MS3 17:14
PROVIDERS: Admitting Provider Student in an Organized Health Care Education/Training Program; Emergency Provider Emergency Medicine; Family Provider Internal Medicine; PCP Internal Medicine; Visit Provider Internal Medicine
DX: M47.817 Spondylosis without myelopathy or radiculopathy, lumbosacral region (principal); M19.90 Unspecified osteoarthritis, unspecified site; E11.42 Type 2 diabetes mellitus with diabetic polyneuropathy; J44.9 Chronic obstructive pulmonary disease, unspecified; E03.9 Hypothyroidism, unspecified; I10 Essential (primary) hypertension; G47.33 Obstructive sleep apnea (adult) (pediatric); E66.01 Morbid (severe) obesity due to excess calories; F41.9 Anxiety disorder, unspecified; F32.9 Major depressive disorder, single episode, unspecified; G89.29 Other chronic pain; K21.9 Gastro-esophageal reflux disease without esophagitis; M79.7 Fibromyalgia; I27.20 Pulmonary hypertension, unspecified; F17.210 Nicotine dependence, cigarettes, uncomplicated; Z68.42 Body mass index [BMI] 45.0-49.9, adult; Z71.3 Dietary counseling and surveillance; Z79.899 Other long term (current) drug therapy; Z79.82 Long term (current) use of aspirin; Z79.84 Long term (current) use of oral hypoglycemic drugs; Z79.51 Long term (current) use of inhaled steroids; M06.9 Rheumatoid arthritis, unspecified
CPT/HCPCS: 36415; 72148; 80048; 82962; 85025; 94002; 94003; 96372; 96374; 96375; 99218; 99284; G0378; J2405

== ENCOUNTER 2019-07-15 11:41 | Emergency (ER) | payer MEDICARE, SELFPAY ==
[2019-07-15 11:43] VITALS: BP 99/77; PULSE 57; PULSE 90; RESP 19; RESP 20; TEMP 35.7; O2SAT 96; O2SAT 99; BMI 49.1
--- NOTE | 2019-07-15 11:47 | EKG12_ITS ---
Test Reason : SOB Blood Pressure : / mmHG Vent. Rate : 079 BPM Atrial Rate : 079 BPM P-R Int : 156 ms QRS Dur : 086 ms QT Int : 402 ms P-R-T Axes : 074 003 103 degrees QTc Int : 460 ms Sinus rhythm with marked sinus arrhythmia Nonspecific ST and T wave abnormality Abnormal ECG Confirmed by JAYRO MIRANDA, MICHELLE ([id number]), acquisition editor ZHANNA DICKERSON ([id number]) on 07/17/2019 11:58:06 AM Referred By: JESUS Confirmed By:MICHELLE DIAL MD
[2019-07-15 11:51] VITALS: O2SAT 96
[2019-07-15] MEDS: Ipratropium/Albuterol Sulfate 3 ML AMPUL.NEB INHALATION (11:59)
[2019-07-15 12:00] VITALS: PULSE 89; RESP 20
[2019-07-15 12:01] LABS: Absolute Lymphocyte Count 3.26 X10^3/uL (0.83-4.51); Absolute Neutrophil Count 5.9 X10^3/uL (2.0-7.7); Basophil# 0.04 X10^3/uL; Basophil% 0.4 % (0-1); Eosinophil# 0.18 X10^3/uL; Eosinophils% 1.8 % (0-5); Hematocrit 42.4 % (37-47); Hemoglobin 14.2 g/dL (12.0-15.0); Lymphocyte # 3.26 X10^3/ul (4.0); Lymphocyte % 32.4 % (19-41); Mean Corp Hgb Conc 33.5 g/dL (32-36); Mean Corpuscular Volume 101.4 fL (81-99); Mean Platelet Vol. 9.2 fl (6.2-12.0); Monocyte# 0.62 X10^3/uL; Monocyte% 6.2 % (0-10); NRBC Flagged by Analyzer 0 % (0-5); Neutrophil # 5.91 X10^3/uL (2.7-7.7); Neutrophil % 58.7 % (47-70); Platelet Count 278 K/mm3 (150-450); RBC Distribution Width CV 13.5 % (11.6-14.6); RBC Distribution Width SD 51.2 fl (35.1-43.9); Red Blood Count 4.18 M/mm3 (4.2-5.4); White Blood Count 10.1 K/mm3 (4.4-11.0)
[2019-07-15 12:18] LABS: Anion Gap 5 (5-15); BUN 24 mg/dL (7-18); BUN/Creat Ratio 20.9 RATIO (10-20); Calcium,Total 9.3 mg/dL (8.5-10.1); Chloride 105 mmol/L (98-107); Creatinine, Serum 1.15 mg/dL (0.55-1.02); EST Glomerular Filtration Rate 51 mL/min (>60); Est Glom Filt Rate - Afr Amer 61 mL/min (>60); Estimated Creatinine Clearance 39.09 ml/min; Glucose 179 mg/dL (74-106); Potassium 3.7 mmol/L (3.5-5.1); Sodium Level 135 mmol/L (136-145)
--- NOTE | 2019-07-15 12:40 | RAD_ITS ---
STUDY: X-RAY CHEST REASON FOR EXAM: Female, 64 years old. Shortness of breath. Sore throat. TECHNIQUE: PA and lateral views of the chest. COMPARISON: Comparison is made with prior study dated February 04, 2019. FINDINGS: EKG electrodes are seen. Increased markings are seen in the lingular segment of the left upper lobe as well as in the left lung base. This may represent either atelectasis and/or early infiltrate. Follow-up is recommended. There is no demonstrated pleural abnormality. Normal size heart. Normal mediastinum and juve. Normal visualized pulmonary arteries. Normal visualized aortic arch and descending thoracic aorta. There are degenerative changes of the visualized thoracic spine. Normal visualized ribs, clavicles, and shoulders. There is no demonstrated abnormality of the visualized soft tissue structures of the upper abdomen. RAD/Chest PA and Lateral IMPRESSION: Mild increased linear markings at the left lung base as described. Electronically Signed: [place], at 13:19 EST , Service support ,
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
[2019-07-15 14:39] VITALS: BP 122/70
== END 2019-07-15 14:40 | disposition home or self-care (01) ==
PROVIDERS: Emergency Medicine; Emergency Provider Emergency Medicine; Family Provider Internal Medicine; PCP Internal Medicine
DX: Z77.098 Contact with and (suspected) exposure to other hazardous, chiefly nonmedicinal, chemicals (principal); R06.02 Shortness of breath; J43.9 Emphysema, unspecified; I10 Essential (primary) hypertension; I27.20 Pulmonary hypertension, unspecified; E11.9 Type 2 diabetes mellitus without complications; E03.9 Hypothyroidism, unspecified; M79.7 Fibromyalgia; K21.9 Gastro-esophageal reflux disease without esophagitis; G47.33 Obstructive sleep apnea (adult) (pediatric); F32.9 Major depressive disorder, single episode, unspecified; F41.9 Anxiety disorder, unspecified; F17.200 Nicotine dependence, unspecified, uncomplicated; Z79.82 Long term (current) use of aspirin; Z79.84 Long term (current) use of oral hypoglycemic drugs; Z79.899 Other long term (current) drug therapy
CPT/HCPCS: 71046; 80048; 83880; 84484; 85025; 93005; 94640; 99285; A4216

== ENCOUNTER → 2019-07-29 10:04 | Outpatient (CLI) | payer MEDICARE, SELFPAY ==
[2019-07-29 08:01] VITALS: BMI 48.1
--- NOTE | 2019-07-29 10:11 | RAD_ITS ---
HISTORY: F/U on possible infiltrate, sob ADDITIONAL HISTORY: None provided. COMPARISON: 07/15/2019 TECHNIQUE: Frontal and lateral chest radiographs. Number of images including paperwork: 2 FINDINGS: LUNGS AND PLEURA: Minimal residual linear basilar opacities are noted, similar to previous and likely scarring. No focal consolidation or sizable pleural effusion. CARDIAC SILHOUETTE: Stable. MEDIASTINUM AND JUDY: Stable. UPPER ABDOMEN: Unremarkable. SKELETON AND SOFT TISSUES: No acute findings. Degenerative changes. OTHER DEVICES AND HARDWARE: None. RAD/Chest PA and Lateral IMPRESSION: No acute cardiopulmonary abnormality. at 0005 Reported and signed by: Bibi Dominguez MD Electronically Signed: Bibi Dominguez MD at 0:05 EST Tel , Service support ,
== END ==
PROVIDERS: Family Provider Internal Medicine; PCP Internal Medicine; Referring Provider Nurse Practitioner Acute Care; Visit Provider Nurse Practitioner Acute Care
DX: J44.9 Chronic obstructive pulmonary disease, unspecified (principal)
CPT/HCPCS: 71046

== ENCOUNTER 2019-08-04 15:53 | Emergency (ER) | payer MEDICARE, SELFPAY ==
[2019-07-29 08:01] VITALS: BMI 48.1
[2019-08-04 15:55] VITALS: BP 162/72; PULSE 79; RESP 16; TEMP 36.7; O2SAT 96; BMI 49.4
--- NOTE | 2019-08-04 16:28 | ED.DCSUM_ITS ---
- ER Visit Summary Date of Service: 08/04/19 Chief Complaint: Left lower paraspinal back pain History of Present Illness: The patient is a 64 F history of COPD, reflux, diabetes, chronic back pain, osteoarthritis and rheumatoid arthritis. Known degenerative disc disease and fibromyalgia. She is never had a back surgery. Patient states she has had paraspinal lower thoracic upper lumbar back pain now for some time. It is gradual. It is constant. She has hurt ever since she had a nerve conduction test done and needles placed in an area 2 months ago. She denies any falls or trauma. No bowel or bladder incontinence. She has had a spinal MRI showing degenerative disc disease and arthritis. She describes the pain is burning. She is on gabapentin without significant relief. Laceration on her left thenar eminence that she glued herself closed at home. Clinically is not bleeding. Is not gaping. There is no signs of infection. Her hand is neurovascularly intact. Physical Examination: Older female no acute distress vital signs are stable afebrile. H EENT exam unremarkable. Neck nontender. Lungs clear to auscultation. Heart regular rhythm no murmur. Abdomen obese but soft nontender normal bowel sounds no peritoneal signs. Patient moving all 4 extremities. Normal motor strength. Dorsi plantarflexion intact. 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 Back there is no spinal tenderness. No signs of trauma. No redness or warmth. No bruising. She does have tenderness to the paraspinal soft tissue left lateral to her proximal lumbar spine. Neurologically she is awake and alert with normal motor strength all 4 extremities. Test Results: None Emergency Department Course and Treatment: Explained the patient we did not do intravertebral or intrathecal injections in emergency department. She said that her diclofenac it is not helping with the pain and ibuprofens helped her more in the past. She wants to stop her diclofenac and she was a prescription for ibuprofen. She knows this, be limited due to her age and diabetes. I did look at old labs and she has normal kidney function. She also be placed on a muscle relaxant for para spinal muscle spasm. Treatment Plan: Ibuprofen and muscle relaxant. Follow-up with your doctor if not improving. Return if incontinence or weakness to her lower extremities. Disposition: Discharge Impression: Acute paraspinal lower back pain This note was generated with [employer] software. It may contain incorrect words, spelling, and punctuation that were not noted in review of the chart prior to signing ED Disposition - Plan for ED Patient: Referrals: Refugio Dowd MD [Primary Care Provider] -
--- NOTE | 2019-08-04 16:32 | ED.DEP ---
ED Disposition - Plan for ED Patient: Disposition: Home or Assisted Living Instructions: BACK PAIN (Acute or Chronic) Prescriptions: cycloBENZAPRine HCl [Flexeril] 10 mg PO TID PRN PRN #20 tab PRN Reason: Muscle Spasm Prescription Printed Ibuprofen 600 mg PO 4X/DAY #20 tab Prescription Printed Referrals: Refugio Dowd MD [Primary Care Provider] - 1 Week if not improving Additional Instructions: Stop your diclofenac. Follow-up with your doctor if not improving.
== END 2019-08-04 16:41 | disposition home or self-care (01) ==
PROVIDERS: Emergency Provider Emergency Medicine; Family Provider Internal Medicine; PCP Internal Medicine
DX: M54.5 Low back pain (principal); G89.29 Other chronic pain; J44.9 Chronic obstructive pulmonary disease, unspecified; E11.9 Type 2 diabetes mellitus without complications; M06.9 Rheumatoid arthritis, unspecified; M79.7 Fibromyalgia; Z72.0 Tobacco use; Z79.82 Long term (current) use of aspirin; Z79.84 Long term (current) use of oral hypoglycemic drugs; Z79.899 Other long term (current) drug therapy
CPT/HCPCS: 99282

== ENCOUNTER → 2019-08-19 20:04 | Outpatient (CLI) | payer MEDICARE, MEDICAID, SELFPAY ==
[2019-08-04 15:55] VITALS: BMI 49.4
== END ==
PROVIDERS: Family Provider Internal Medicine; PCP Internal Medicine; Referring Provider Psychiatry & Neurology Neurology; Visit Provider Psychiatry & Neurology Neurology
DX: G47.33 Obstructive sleep apnea (adult) (pediatric) (principal)
CPT/HCPCS: 95811

== ENCOUNTER 2019-09-29 19:36 | Emergency (ER) | payer MEDICARE, SELFPAY ==
[2019-09-19 16:06] VITALS: BMI 47.0
[2019-09-29 19:37] VITALS: BP 158/77; PULSE 76; RESP 15; TEMP 36.7; O2SAT 95; BMI 47.0
--- NOTE | 2019-09-29 20:00 | RAD_ITS ---
STUDY: X-RAY - RIGHT FOOT CLINICAL: Female, 64 years old. PAIN and amp; REDNESS OF RT 1ST DIGIT STARTED 3 DAYS AGO, NO KNOWN INJURY TECHNIQUE: 3 view(s) of the foot. COMPARISON: None. FINDINGS: There is a plantar aspect calcaneal spur. There is orthopedic hardware of the distal fibula and tibia. Normal visualized subtalar, talonavicular, calcaneocuboid, tarsal and tarsometatarsal articulations. Normal metatarsi. Normal metatarsophalangeal joint of the great toe. Normal tibial and fibular sesamoid bones. Normal interphalangeal joint of the great toe. Normal phalanges of the great toe. Normal second through fifth metatarsophalangeal joints. Normal interphalangeal joints and phalanges of the lesser toes. The soft tissue structures are unremarkable. RAD/Foot min 3 Views IMPRESSION: Plantar aspect calcaneal spur. The remaining osseous structures and articular surfaces of the right foot appear within normal limits. Soft tissues are unremarkable. Electronically Signed: Bret Acosta MD at 21:00 EST , Service support ,
--- NOTE | 2019-09-29 20:00 | RAD_ITS ---
STUDY: X-RAY CHEST REASON FOR EXAM: Female, 64 years old. COUGH, HX OF EMPHYSEMA TECHNIQUE: Cough COMPARISON: 07/29/2019 FINDINGS: There is stable mild bibasilar scarring. There is no demonstrated pleural abnormality. Normal size heart. Normal mediastinum and juve. Normal visualized pulmonary arteries. Normal visualized aortic arch and descending thoracic aorta. Normal visualized thoracic spine. Normal visualized ribs, clavicles, and shoulders. There is no demonstrated abnormality of the visualized soft tissue structures of the upper abdomen. RAD/Chest PA and Lateral IMPRESSION: Stable mild bibasilar scarring Electronically Signed: Ousmane Bell, at 21:14 EST Tel , Service support ,
[2019-09-29 20:13] LABS: Absolute Lymphocyte Count 3.21 X10^3/uL (0.83-4.51); Absolute Neutrophil Count 7.6 X10^3/uL (2.0-7.7); Basophil# 0.06 X10^3/uL; Basophil% 0.5 % (0-1); Eosinophil# 0.33 X10^3/uL; Eosinophils% 2.7 % (0-5); Hematocrit 42.7 % (37-47); Hemoglobin 14.3 g/dL (12.0-15.0); Lymphocyte # 3.21 X10^3/ul (4.0); Lymphocyte % 26.4 % (19-41); Mean Corp Hgb Conc 33.5 g/dL (32-36); Mean Corpuscular Hgb 33.8 pg (27.0-32.0); Mean Corpuscular Volume 100.9 fL (81-99); Mean Platelet Vol. 8.6 fl (6.2-12.0); Monocyte# 0.91 X10^3/uL; Monocyte% 7.5 % (0-10); NRBC Flagged by Analyzer 0 % (0-5); Neutrophil % 62.6 % (47-70); Platelet Count 271 K/mm3 (150-450); RBC Distribution Width CV 13.6 % (11.6-14.6); RBC Distribution Width SD 50.4 fl (35.1-43.9); Red Blood Count 4.23 M/mm3 (4.2-5.4); White Blood Count 12.2 K/mm3 (4.4-11.0)
[2019-09-29 20:20] LABS: Erythrocyte Sedimentation Rate 11 mm/hr (0-30)
[2019-09-29 20:35] LABS: Anion Gap 9 (5-15); BUN 12 mg/dL (7-18); BUN/Creat Ratio 14.7 RATIO (10-20); CRP < 2.90 mg/L (0.0-3.0); Calcium,Total 9.4 mg/dL (8.5-10.1); Chloride 105 mmol/L (98-107); Creatinine, Serum 0.82 mg/dL (0.55-1.02); EST Glomerular Filtration Rate 75 mL/min (>60); Est Glom Filt Rate - Afr Amer 91 mL/min (>60); Estimated Creatinine Clearance 54.82 ml/min; Glucose 110 mg/dL (74-106); Potassium 3.8 mmol/L (3.5-5.1); Sodium Level 140 mmol/L (136-145)
--- NOTE | 2019-09-29 21:38 | ED.DCSUM_ITS ---
- ER Visit Summary Date of Service: 09/29/19 Chief Complaint: Right great toe swollen History of Present Illness: The patient is a [address] Dowd. She reports that 3 days ago she had pain in her right great toe that lasted a few hours. She soaked her foot elevated and the pain resolved. However, she states that this morning the toe looked black. It now appears red to her. She denies any pain. She denies any constitutional symptoms. No fever, nausea, or vomiting. Patient reports she has been on doxycycline for 6 days for a sinus infection. She was on Augmentin prior to that. Physical Examination: Vitals: Stable. Afebrile. General: Well-nourished and well-developed. Head: Normocephalic atraumatic. Neck: Supple, no lymphadenopathy. No JVD. Nontender. Cardiovascular: Regular rate and rhythm. No murmurs. Respiratory: No respiratory distress. Clear to auscultation bilaterally. Abdominal: Soft, nontender, nondistended, normal bowel sounds. No guarding, rebound, or peritoneal signs. Back: Nontender. Extremities: The distal phalanx of her right great toe is swollen and discolored. It appears dark red. Not the typical color of cellulitis. It is not bruised at this point. It is not tender to palpation. She does have a 2+ dorsalis pedis pulse bilaterally. Skin: Normal color, no rash. Neurologic: Alert and oriented ?3. Cranial nerves II through XII are intact. Normal strength and sensation. Psych: Normal affect. Test Results: CBC shows a white count of 12.2. Chem-7 shows a glucose of 110. ESR is 11. CRP is less than 2.9. Clinical Impression(s) from Imaging Studies Chest X-Ray 09/29/19 20:00 IMPRESSION: Stable mild bibasilar scarring Electronically Signed: Ousmane Bell, at 21:14 EST Tel , Service support , Foot X-Ray 09/29/19 20:00 IMPRESSION: Plantar aspect calcaneal spur. The remaining osseous structures and articular surfaces of the right foot appear within normal limits. Soft tissues are unremarkable. Electronically Signed: Bret Acosta MD at 21:00 EST , Service support , Emergency Department Course and Treatment: Patient rested comfortably without complaint. Treatment Plan: Clinically this does not appear infected at this point. However, she was discussed with Dr. Melton will be discharged with instructions for a repeat evaluation in 2 days. Return to the emergency department for any worsening symptoms. Disposition: To home in improved and stable condition. Impression: 1. Right great toe swelling. This note was generated with [employer] dictation software. It may contain incorrect words, spelling, and punctuation that were not noted in review of the chart prior to signing ED Disposition - Plan for ED Patient: Disposition: Home or Assisted Living Instructions: CONTUSION, Foot Referrals: Rasheed Melton DPM [STAFF PHYSICIAN] - 2 Days
[2019-09-29 21:43] VITALS: RESP 18
== END 2019-09-29 21:44 | disposition home or self-care (01) ==
PROVIDERS: Emergency Provider Emergency Medicine; PCP Internal Medicine
DX: R22.41 Localized swelling, mass and lump, right lower limb (principal); E11.9 Type 2 diabetes mellitus without complications; J44.9 Chronic obstructive pulmonary disease, unspecified; M79.7 Fibromyalgia; Z79.82 Long term (current) use of aspirin; Z79.84 Long term (current) use of oral hypoglycemic drugs; Z72.0 Tobacco use; Z86.73 Personal history of transient ischemic attack (TIA), and cerebral infarction without residual deficits
CPT/HCPCS: 71046; 73630; 80048; 85025; 85652; 86140; 99283

== ENCOUNTER 2019-12-02 15:40 | Observation (INO) | payer MEDICARE, MEDICAID, SELFPAY ==
[2019-12-02] VITALS (10 sets, daily range): BP systolic 127–166; BP diastolic 60–81; PULSE 63–112; RESP 15–22; TEMP 36.3–37.1; O2SAT 96–98; BMI 48.9; BMI 49.0
--- NOTE | 2019-12-02 15:59 | EKG12_ITS ---
Test Reason : Blood Pressure : / mmHG Vent. Rate : 095 BPM Atrial Rate : 095 BPM P-R Int : 132 ms QRS Dur : 080 ms QT Int : 376 ms P-R-T Axes : -04 079 016 degrees QTc Int : 472 ms Sinus rhythm with marked sinus arrhythmia Nonspecific ST abnormality Abnormal ECG When compared with ECG of 15-JUL-2019 11:57, Questionable change in QRS axis Nonspecific T wave abnormality no longer evident in Lateral leads Confirmed by DANN CHAPMAN ([id number]), editor book JUANY ROMO ([id number]) on 12/16/2019 1:59:26 PM Referred By: KARLO Confirmed By:DANN CHAPMAN
--- NOTE | 2019-12-02 16:11 | CT_ITS ---
STUDY: CT BRAIN WITHOUT CONTRAST REASON FOR EXAM: Female, 64 years old. Dizziness and headache, chest pain and amp; SOB RADIATION DOSAGE (If Supplied By Facility): CTDIvol = ( 60.81 ) mGy, DLP = ( 1067.08 ) mGycm TECHNIQUE: Transaxial CT imaging of the brain was performed without administration of intravenous contrast material. Individualized dose optimization techniques were used for this CT. COMPARISON: Previous study of 09/16/2014 FINDINGS: Normal soft tissue structures. Normal calvarium. Normal size ventricles and extra-axial spaces for the patient''s age. Normal white matter tracts of the cerebral hemispheres. Normal basal ganglia and thalami. Normal brainstem. Normal cerebellum. There is no intracranial hemorrhage. There are no findings of an acute ischemic infarction. There is a polypoid filling defect of the left maxillary sinus. CT/Brain/Head without Contrast IMPRESSION: Polypoid filling defect of the left maxillary sinus consistent with a mucoid retention cyst. There is no evidence of intracranial hemorrhage, infarct, or mass effect midline shift. Findings are stable in the interval. Electronically Signed: Bret Acosta MD at 18:07 EDT , Service support ,
--- NOTE | 2019-12-02 16:11 | EKG12_ITS ---
Test Reason : Blood Pressure : / mmHG Vent. Rate : 090 BPM Atrial Rate : 090 BPM P-R Int : 140 ms QRS Dur : 088 ms QT Int : 378 ms P-R-T Axes : 066 -14 059 degrees QTc Int : 462 ms Sinus rhythm with marked sinus arrhythmia Otherwise normal ECG Confirmed by DANN CHAPMAN ([id number]), editorial writer HAYLIE CRAIG ([id number]) on 12/05/2019 3:07:06 PM Referred By: KARLO Confirmed By:DANN CHAPMAN
[2019-12-02 16:37] LABS: Absolute Lymphocyte Count 0.79 X10^3/uL (0.83-4.51); Absolute Neutrophil Count 9.3 X10^3/uL (2.0-7.7); Basophil# 0.03 X10^3/uL; Basophil% 0.3 % (0-1); Hematocrit 40.2 % (37-47); Hemoglobin 13.7 g/dL (12.0-15.0); Lymphocyte # 0.79 X10^3/ul (4.0); Lymphocyte % 7.5 % (19-41); Mean Corp Hgb Conc 34.1 g/dL (32-36); Mean Corpuscular Hgb 35.2 pg (27.0-32.0); Mean Corpuscular Volume 103.3 fL (81-99); Monocyte# 0.28 X10^3/uL; Monocyte% 2.7 % (0-10); NRBC Flagged by Analyzer 0 % (0-5); Neutrophil % 88.7 % (47-70); Platelet Count 257 K/mm3 (150-450); RBC Distribution Width CV 13.7 % (11.6-14.6); RBC Distribution Width SD 51.9 fl (35.1-43.9); Red Blood Count 3.89 M/mm3 (4.2-5.4); White Blood Count 10.5 K/mm3 (4.4-11.0)
[2019-12-02 16:48] LABS: Prothrombin Time (Protime)PT. 12.9 SECONDS (11.7-14.9)
[2019-12-02 16:55] LABS: Anion Gap 6 (5-15); BUN 21 mg/dL (7-18); BUN/Creat Ratio 20.8 RATIO (10-20); Calcium,Total 9.2 mg/dL (8.5-10.1); Chloride 109 mmol/L (98-107); Creatinine, Serum 1.01 mg/dL (0.55-1.02); EST Glomerular Filtration Rate 59 mL/min (>60); Est Glom Filt Rate - Afr Amer 71 mL/min (>60); Estimated Creatinine Clearance 44.51 ml/min; Glucose 295 mg/dL (74-106); Potassium 4.7 mmol/L (3.5-5.1); Sodium Level 139 mmol/L (136-145)
[2019-12-02] MEDS: MethylPREDNISolone 125 MG/2 ML Vial IV (16:57)
[2019-12-02] MEDS: Aspirin 81 MG TAB.CHEW 324 MG PO (16:57)
--- NOTE | 2019-12-02 17:30 | RAD_ITS ---
STUDY: X-RAY CHEST REASON FOR EXAM: Female, 64 years old. CHEST PAIN TECHNIQUE: Single AP portable view of the chest. COMPARISON: Prior study of September 29, 2019 FINDINGS: ekg monitor tech leads are present. There is minimal left basilar fibrosis. There is no demonstrated pleural abnormality. Normal size heart. Normal mediastinum and juve. Normal visualized pulmonary arteries. Normal visualized aortic arch and descending thoracic aorta. Normal visualized thoracic spine. Normal visualized ribs, clavicles, and shoulders. There is no demonstrated abnormality of the visualized soft tissue structures of the upper abdomen. RAD/Chest 1 View (Portable) IMPRESSION: Minimal left basilar fibrosis. No acute cardiopulmonary disease process is seen. Chest findings are stable in the interval. Electronically Signed: Bret Acosta MD at 18:19 EDT , Service support ,
[2019-12-02 17:42] LABS: BNP,B-Type NATRIURETIC PEPTIDE 99.3 pg/mL (0-100)
--- NOTE | 2019-12-02 18:19 | ED.VISSUMM ---
- ER Visit Summary Date of Service: 12/02/19 Chief Complaint: Shortness of breath History of Present Illness: The patient is a 64 F who presents with 1 week of shortness of breath. Symptoms have been getting worse. Her director hr communications prescribed antibiotics and steroids, and she is still doing worse. She has shortness of breath with any exertion. She feels dizzy at times from it, and 3 days ago, she fell and hit her head. She continues to have left frontal head pain. No other injuries. She denies fevers, but is having some chest pain going down into her left arm. She has a history of Physical Examination: Hypertensive. 97% on 2 L. Patient no acute distress. Alert and oriented. Lungs diminished. No edema. Skin appears normal. Test Results: EKG shows sinus rhythm at a rate of 90. No sign of acute ischemia or infarction pattern. Chest x-ray shows stable and chronic changes, atelectasis. CT brain stable. CBC shows lymphopenia but otherwise unremarkable. Metabolic panel shows elevated glucose. Troponin normal. BNP normal. COVID testing is pending. Emergency Department Course and Treatment: Patient was maintained in COVID precautions. She does have risk factors for disease, and I suspect she will be admitted. I spoke to the [facility] and they approved testing. Patient has a history of COPD. She is requiring more oxygen than normal. She is having more severe symptoms than usual. She was on steroids and antibiotics as an outpatient, and she continues to do worse. She is also having dizziness and chest pain. Because of her failed outpatient, and continued symptoms, I contacted the hospitalist. Treatment Plan: Patient was treated with nasal cannula oxygen, Solu-Medrol, and DuoNeb here. Disposition: Admission Impression: COPD Chest pain Closed head injury This note was generated with [employer] dictation software. It may contain incorrect words, spelling, and punctuation that were not noted in review of the chart prior to signing ED Disposition - Plan for ED Patient: Referrals: Refugio Dowd MD [Primary Care Provider] -
--- NOTE | 2019-12-02 18:46 | PCM.HP.STD ---
Problem List (1) Stage 3 severe COPD by GOLD classification Status: Chronic (2) Type 2 diabetes mellitus Status: Chronic (3) Hypertension Status: Chronic (4) Hypothyroidism Status: Chronic (5) Tobacco abuse Status: Chronic (6) TIA (transient ischemic attack) Status: Chronic (7) Pulmonary hypertension Status: Chronic Comment: PASP 46 mmHg (8) HENRRY (obstructive sleep apnea) Status: Chronic (9) GERD (gastroesophageal reflux disease) Status: Chronic (10) Anxiety and depression Status: Chronic History of Present Illness Date of Admission: 12/02/19 Chief Complaint: Shortness of breath. The patient is a 64 year old F with past medical history as mentioned above presented to the emergency room because of shortness of breath. Headedness started around 5 to 6 days ago with shortness of breath, with moderate exertion, progressive, aggravated by more activity, relieved with rest, associated with dry cough, needed to go up on her oxygen up to 3 L and she has been on 2 L only with activity and at night but in the last several days, she has been using oxygen all the time and she went up on it. She denied fever or chills. She denied sore throat, sinus nasal congestion. She mentioned that there is no one sick around her at home and she had no recent travel. She complained of intermittent chest pain which seemed to be pleuritic, comes on with coughing, radiates to the right arm and without other associated symptoms. This past Monday, she called her city wellness coordinator office who prescribed doxycycline and prednisone. She took both for 3 days with no improvement. In the emergency department, she was dyspneic and tachypneic, afebrile, heart rate has been around 100, blood pressure slightly elevated, pulse ox was 97% on 2 L. Routine blood work was unremarkable except for blood glucose of 295. Chest x-ray showed no acute infiltrate or consolidation. EKG revealed normal sinus rhythm without evidence of acute segment changes. Troponin was negative as well as BNP. Testing for COVID-19 was sent by the ER physician. She is being admitted for probable COPD exacerbation with hypoxia and low suspicion for COVID-19. Past Medical History Past Medical History (Chronic Problems): Chronic Problems (Last Updated 12/02/19 @ 18:[address] Leslie Lopez MD) Degeneration of lumbar or lumbosacral intervertebral disc (Chronic) 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 myelopathy or radiculopathy (Chronic) Stage 3 severe COPD by GOLD classification (Chronic) Type 2 diabetes mellitus (Chronic) Hypertension (Chronic) Ureteral calculus, left (Chronic) Nummular eczematous dermatitis (Chronic) Hypothyroidism (Chronic) Dermatitis (Chronic) Tobacco abuse (Chronic) TIA (transient ischemic attack) (Chronic) Thrombophlebitis leg superficial (Chronic) Left great saphenous vein Pulmonary hypertension (Chronic) PASP 46 mmHg Hearing loss (Chronic) Morbid obesity (Chronic) Diverticulosis (Chronic) HENRRY (obstructive sleep apnea) (Chronic) Hiatal hernia (Chronic) Fibromyalgia (Chronic) GERD (gastroesophageal reflux disease) (Chronic) Chronic low back pain (Chronic) Chronic obstructive pulmonary disease with acute exacerbation (Chronic) Oral candidiasis (Chronic) Abnormal results of pulmonary function studies (Chronic) 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 Leslie Lopez MD) Hypertension (Chronic) I10 Ureteral calculus, left (Chronic) N20.1 Nummular eczematous dermatitis (Chronic) L30.0 Hypothyroidism (Chronic) E03.9 Dermatitis (Chronic) L30.9 Tobacco abuse (Chronic) Z72.0 TIA (transient ischemic attack) (Chronic) G45.9 Thrombophlebitis leg superficial (Chronic) I80.00 Left great saphenous vein Pulmonary hypertension (Chronic) I27.20 PASP 46 mmHg Hearing loss (Chronic) H91.90 Morbid obesity (Chronic) E66.01 Diverticulosis (Chronic) K57.90 HENRRY (obstructive sleep apnea) (Chronic) G47.33 Hiatal hernia (Chronic) K44.9 Fibromyalgia (Chronic) M79.7 GERD (gastroesophageal reflux disease) (Chronic) K21.9 Chronic low back pain (Chronic) M54.5, G89.29 Chronic obstructive pulmonary disease with acute exacerbation (Chronic) J44.1 Oral candidiasis (Chronic) B37.0 Abnormal results of pulmonary function studies (Chronic) R94.2 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) J38.1 Anxiety and depression (Chronic) F41.8 MRSA (methicillin resistant staph aureus) culture positive (Inactive) Z22.322 Allergies fluconazole [From Diflucan] Allergy (Verified 12/02/19 15:42) Anaphylaxis nickel [Nickel] Allergy (Verified 12/02/19 15:42) Rash perfume Allergy (Verified 12/02/19 15:42) Rash deodorant Allergy (Uncoded 12/02/19 15:42) Rash Home Medications: Ambulatory Orders Medication Instructions Recorded Vit C/E/Zn/Coppr/Lutein/Zeaxan 1 cap PO BID 03/16/17 [Preservision Areds 2 Softgel] [place]-3 Fatty Acids/Fish Oil [Fish 1 ea PO DAILY 04/28/17 Oil 1,000 mg Capsule] Calcium Carbonate [Calcium] 500 mg PO DAILY 02/14/18 tiotropium bromide 2.5 2 puff INHALATION DAILY #4 g 03/04/19 mcg/actuation mist for inhalation duloxetine 30 mg capsule,delayed 30 mg PO BID #180 cap 05/08/19 release diclofenac sodium 50 mg 50 mg PO BID PRN #60 tab 05/31/19 tablet,delayed release B-complex with vitamin C 1 cap PO DAILY 06/14/19 Aspirin [Low Dose Aspirin EC] 81 mg PO DAILY 07/05/19 Cholecalciferol (Vitamin D3) 2,000 unit PO DAILY 07/05/19 [Vitamin D3] Fluticasone 0.05% [Flonase Nasal 2 spray INTRANASAL DAILY 07/05/19 Kersey] montelukast 10 mg tablet 10 mg PO QPM #90 tab 07/19/19 pantoprazole 40 mg tablet,delayed 40 mg PO DAILY #90 tab 07/19/19 release azelastine 0.15 % (205.5 mcg) 1 spray INTRANASAL BID #30 ml 07/29/19 nasal spray Ibuprofen 600 mg PO 4X/DAY #20 tab 08/04/19 levothyroxine 150 mcg tablet 150 mcg PO DAILY #90 tab 08/15/19 metformin 500 mg tablet,extended 500 mg PO QPM #90 tab 09/06/19 release 24 hr albuterol sulfate 90 mcg/actuation 2 puff INHALATION Q4H PRN #18 g 09/18/19 aerosol inhaler ropinirole 1 mg tablet 2 mg PO QHS tab 09/18/19 tizanidine 4 mg capsule 4 mg PO QHS 09/18/19 Albuterol Aerosols [Ventolin 2.5 mg INHALATION Q4HWA.RT 09/29/19 Aerosols] Gabapentin 600 mg PO BID 09/29/19 Lisinopril 2.5 mg PO DAILY 09/29/19 cetirizine 10 mg capsule 10 mg PO HS #30 cap 10/10/19 guaifenesin 1,200 mg tablet, 1,200 mg PO BID #60 tab 11/15/19 extended release 12 hr doxycycline hyclate 100 mg tablet 100 mg PO BID #20 tab 11/29/19 prednisone 10 mg tablet 10 mg PO QDAY #30 tab 11/29/19 Surgical History: Surgical History (Last Reviewed 12/02/19 @ 18:[address] Leslie Lopez MD) History of D&C (Inactive) Z98.890 History of hysterectomy (Inactive) Z98.890, Z90.710 History of tonsillectomy (Inactive) Z98.890, Z90.89 History of tubal ligation (Inactive) Z98.51 Status post surgical manipulation of ankle joint (Inactive) Z98.890 Surgical History: - - D&C, carpal tunnel release, tubal ligation, hysterectomy, heart catheterization Psychiatric History: No pertinent psych hx [employer] History: No pertinent [employer] history Lives: With Family Tobacco Use: Non-smoker Alcohol: None Drugs: None - *Family History Maternal Family History: Family History (Last Reviewed 09/18/19 @ 11:03 by GOLDIE Buck) Mother Cancer Father Diabetes Alcoholism Brother Cancer History Items: No pertinent history Paternal Family History: Family History (Last Reviewed 09/18/19 @ 11:03 by GOLDIE Buck) Mother Cancer Father Diabetes Alcoholism Brother Cancer History Items: No pertinent history Review of Systems Constitutional: Reports: Weakness. Denies: Anorexia, Chills, Fever Eyes: Denies: Blurred vision, Double vision, Drainage, Redness HEENT: Denies: Difficulty Hearing, Ear Pain, Eye Pain, Nasal Congestion, Sore Throat Cardiovascular: Reports: Chest Pain. Denies: Chest Pressure, Chest Tightness, Heaviness, Light Headedness, Orthopnea, Paroxysmal Noc. Dyspnea, Syncope Respiratory: Reports: Cough, Shortness of Breath, Shortness of breath at rest, Shortness of breath upon exertion. Denies: Sputum production, Wheezing Gastrointestinal: Denies: Abdominal Pain, Constipation, Diarrhea, Nausea, Vomiting Genitourinary: Denies: Dysuria, Frequency, Hematuria Musculoskeletal: Denies: Arm Pain, Back Pain, Foot Pain Skin: Denies: Dryness, Rash Neurological: Denies: Balance problems, Double vision, Change in Speech, Slurred speech, Confusion, Focal weakness, Headaches, Incoordination, Numbness Psychiatric: Reports: Depression. Denies: Anxiety Endocrine: Denies: Change in Body Habitus, Polydipsia, Polyuria VTE Information - Inpt Only VTE Present on Admission: No VTE Mechan Device Prophylaxis: None VTE Pharm Prophylaxis ordered?: Yes - Physical Exam Vitals/I&O's: Vital Signs Temp Pulse Resp BP Pulse Ox 98.7 F 70 19 H 144/61 H 97 12/02/19 16:57 12/02/19 18:00 12/02/19 18:00 12/02/19 18:00 12/02/19 18:00 Oxygen Flow Rate (L/min) 4 Oxygen Delivery Method Nasal Cannula Weight: 267 lb 13.786 oz Body Mass Index (BMI) 48.9 General: Alert, Oriented x3, Cooperative, - - Mildly short of breath. HEENT: Atraumatic, PERRLA, EOMI, Normocephalic Oral: Moist Mucosa, No Gingival or Mucosal Lesions/ Ulcerations Neck: Supple, No JVD, Negative Carotid Bruits, Trachea Midline, Thyroid Normal Size and Texture Lungs: Clear to auscultation, Normal air movement, No rhonchi, No wheeze, No rales, Diminished Cardiovascular: Regular rate, Regular Rhythm, Normal S1, Normal S2, PMI Normal, Tachycardic Abdomen: Bowel Sounds Present, Soft, Non Tender, Non-Distended, No Hepato-splenomegaly, Obese Extremities: No clubbing, No cyanosis, No edema Skin: No rashes, No breakdown Lymphatic: No Cervical, Supraclavicular, or Inguinal Adenopathy Neurological: Cranial nerves II-XII grossly intact, Motor Exam 5/5 strength throughout Psych/Mental Status: Normal Affect, Appropriate, Alert and oriented to time, place, person, mood and affect Laboratory Results 12/02/19 16:25: COVID-19 (IZABELA) Pending 12/02/19 16:30: WBC 10.5, RBC 3.89 L, Hgb 13.7, Hct 40.2, MCV 103.3 H, MCH 35.2 H, MCHC 34.1, RDW Std Deviation 51.9 H, RDW Coeff of Rafi 13.7, Plt Count 257, MPV 9.0, Immature Gran % (Auto) 0.800, Neut % (Auto) 88.7 H, Lymph % (Auto) 7.5 L, Carlton % (Auto) 2.7, Eos % (Auto) 0.0, Baso % (Auto) 0.3, Absolute Neuts (auto) 9.3 H, Absolute Lymphs (auto) 0.79 L, Nucleated RBC % 0 12/02/19 16:30: Sodium 139, Potassium 4.7, Chloride 109 H, Carbon Dioxide 24.0, Anion Gap 6, BUN 21 H, Creatinine 1.01, Estim Creat Clear Calc 44.51, Est GFR (MDRD) Af Amer 71, Est GFR (MDRD) Non-Af 59 L, BUN/Creatinine Ratio 20.8 H, Glucose 295 H, Calcium 9.2, Troponin I < 0.015 12/02/19 16:30: B-Natriuretic Peptide 99.3 12/02/19 16:30: PT 12.9, INR 1.0, APTT 25.0 Clinical Impression(s) from Imaging Studies Brain CT 12/02/19 16:11 IMPRESSION: Polypoid filling defect of the left maxillary sinus consistent with a mucoid retention cyst. There is no evidence of intracranial hemorrhage, infarct, or mass effect midline shift. Findings are stable in the interval. Electronically Signed: Bret Acosta MD at 18:07 EDT , Service support , Chest X-Ray 12/02/19 17:30 IMPRESSION: Minimal left basilar fibrosis. No acute cardiopulmonary disease process is seen. Chest findings are stable in the interval. Electronically Signed: Bret Acosta MD at 18:19 EDT , Service support , Assessment/Plan This is a 64 years old female patient presented to the emergency room because of progressively increasing shortness of breath with dry cough and she is being admitted for probable COPD exacerbation with hypoxia and testing for COVID-19 was sent from ER although she has no suspicion for it. #1 probable mild COPD exacerbation/hypoxia: Chest x-ray showed no acute findings. She has no leukocytosis. Denied recent travel or sick contacts. COVID 19 testing was sent from ER although she is a low risk patient. She does use oxygen at home mainly with exertion and at night but over the last few days, she has been using oxygen continuously. She received 1 dose of IV Solu-Medrol in the ED. Plan[facility], cardiac monitoring, DuoNeb every 6 hours, albuterol PRN, Mucinex twice daily, start IV Levaquin, sputum culture, incentive spirometer, respiratory panel for viruses, repeat CBC and BMP tomorrow morning, PT OT evaluation and treatment. I will avoid giving her more IV Solu-Medrol because of suspicion of COVID-19. #2 atypical pleuritic chest pain: Seemed to be pleuritic chest pain. EKG showed no acute segment changes. Troponin is negative. BNP is normal. Plan: Cardiac monitoring, serial cardiac enzymes, repeat EKG tomorrow morning. At this time, I do not think patient will need any further testing. #3 type 2 diabetes mellitus: ADA diet, Accu-Cheks, insulin sliding scale, continue home medications when home medications updated. #4 hypertension: Blood pressure stable, continue home medications when home medications updated, start IV allergy PRN. #5 stage III COPD/chronic respiratory failure: On home oxygen at 2 L only with activity and at night. Now, she is needing more oxygen continuously. Plan as above. #6 GERD: Continue PPI. #7 anxiety and depression: Continue home medications when home medication is updated. #8 obstructive sleep apnea: Not sure if she is on CPAP at home. #9 DVT prophylaxis: Subcu Lovenox. This note was generated with [employer] dictation software. It may contain incorrect words, spelling, and punctuation that were not noted in checking the note before signing. OBSV E&M: 55502 Initial observation care L3
--- NOTE | 2019-12-02 19:30 | NURSING ---
lab notified that pt 2nd troponin due @ 193
[2019-12-02] MEDS: Ipratropium/Albuterol Sulfate 3 ML AMPUL.NEB INHALATION (20:01)
--- NOTE | 2019-12-02 20:13 | NURSING ---
called lab 2nd notice for troponin draw due @ 193
[2019-12-02] MEDS: levoFLOXacin IV 750 MG/150 ML BAG 100 MG IV (20:45)
[2019-12-02] MEDS: guaiFENesin 1,200 MG Tablet 1200 MG PO (20:46)
[2019-12-02] MEDS: Insulin Lispro 100 UNIT/ML INSULN.PEN SC (20:48)
[2019-12-02 22:06] LABS: Bedside Glucose 225 mg/dL (70-110)
[2019-12-02] MEDS: metFORMIN (XR) 500 MG Tablet PO (23:16)
[2019-12-02] MEDS: Pramipexole Di-HCl 0.5 MG Tablet 1.5 MG PO (23:16)
[2019-12-02] MEDS: DULoxetine Hcl 30 MG Capsule PO (23:16)
[2019-12-02] MEDS: Gabapentin 600 MG Tablet PO (23:17)
[2019-12-03] VITALS (14 sets, daily range): BP systolic 122–150; BP diastolic 56–76; PULSE 57–84; RESP 16–22; TEMP 36.1–37.1; O2SAT 92–98
--- NOTE | 2019-12-03 05:55 | EKG12_ITS ---
Test Reason : AM EKG Blood Pressure : / mmHG Vent. Rate : 054 BPM Atrial Rate : 054 BPM P-R Int : 128 ms QRS Dur : 082 ms QT Int : 444 ms P-R-T Axes : 104 044 062 degrees QTc Int : 421 ms Sinus bradycardia Otherwise normal ECG When compared with ECG of 02-DEC-2019 16:00, MANUAL COMPARISON REQUIRED, DATA IS UNCONFIRMED Confirmed by DANN CHAPMAN ([id number]), editor managing director HAYLIE CRAIG ([id number]) on 12/05/2019 3:20:54 PM Referred By: ERA Confirmed By:DANN CHAPMAN
[2019-12-03] MEDS: Insulin Lispro 100 UNIT/ML INSULN.PEN SC ×2 (06:22→12:48)
[2019-12-03 06:36] LABS: Bedside Glucose 203 mg/dL (70-110)
[2019-12-03] MEDS: Ipratropium/Albuterol Sulfate 3 ML AMPUL.NEB INHALATION ×4 (06:58→19:55)
[2019-12-03 07:39] LABS: Absolute Lymphocyte Count 1.17 X10^3/uL (0.83-4.51); Basophil# 0.01 X10^3/uL; Basophil% 0.1 % (0-1); Hematocrit 41.6 % (37-47); Hemoglobin 13.8 g/dL (12.0-15.0); Lymphocyte # 1.17 X10^3/ul (4.0); Lymphocyte % 12.1 % (19-41); Mean Corp Hgb Conc 33.2 g/dL (32-36); Mean Corpuscular Volume 99.5 fL (81-99); Mean Platelet Vol. 9.2 fl (6.2-12.0); Monocyte# 0.43 X10^3/uL; Monocyte% 4.4 % (0-10); NRBC Flagged by Analyzer 0 % (0-5); Neutrophil # 8.03 X10^3/uL (2.7-7.7); Neutrophil % 82.8 % (47-70); Platelet Count 283 K/mm3 (150-450); RBC Distribution Width CV 13.2 % (11.6-14.6); RBC Distribution Width SD 48.6 fl (35.1-43.9); Red Blood Count 4.18 M/mm3 (4.2-5.4); White Blood Count 9.7 K/mm3 (4.4-11.0)
[2019-12-03 08:03] LABS: Anion Gap 6 (5-15); BUN 20 mg/dL (7-18); BUN/Creat Ratio 25.7 RATIO (10-20); Calcium,Total 9.4 mg/dL (8.5-10.1); Chloride 107 mmol/L (98-107); Creatinine, Serum 0.78 mg/dL (0.55-1.02); EST Glomerular Filtration Rate 79 mL/min (>60); Est Glom Filt Rate - Afr Amer 96 mL/min (>60); Estimated Creatinine Clearance 57.63 ml/min; Glucose 205 mg/dL (74-106); Potassium 4.5 mmol/L (3.5-5.1); Sodium Level 137 mmol/L (136-145)
[2019-12-03] MEDS: Aspirin E.C. 81 MG Tablet PO (09:05)
[2019-12-03] MEDS: levoFLOXacin IV 750 MG/150 ML BAG 100 MG IV (09:05)
[2019-12-03] MEDS: Montelukast 10 MG Tablet PO (09:06)
[2019-12-03] MEDS: Levothyroxine 150 MCG Tablet PO (09:06)
[2019-12-03] MEDS: Enoxaparin 40 MG/0.4 ML Syringe SC ×2 (09:06→20:50)
[2019-12-03] MEDS: Gabapentin 600 MG Tablet PO ×2 (09:06→20:50)
[2019-12-03] MEDS: guaiFENesin 1,200 MG Tablet 1200 MG PO ×2 (09:06→20:50)
[2019-12-03] MEDS: DULoxetine Hcl 30 MG Capsule PO ×2 (09:06→20:50)
[2019-12-03] MEDS: Pantoprazole Sodium 40 MG Tablet PO (09:06)
[2019-12-03] MEDS: Lisinopril 2.5 MG Tablet PO (09:06)
[2019-12-03] MEDS: 0.9% Saline Lock 10 ML Syringe IV (09:07)
--- NOTE | 2019-12-03 12:19 | CASEMGMT ---
RN CM Note- attempted x 2 to contact pt to review MIRELES form. Pt does not answer phone. Nurse took form in to pt room, and pt can contact CM if needed for further explanation. Radha CUMMINGSN RN ACM
[2019-12-03 13:01] LABS: Bedside Glucose 166 mg/dL (70-110)
--- NOTE | 2019-12-03 13:28 | PN_ITS ---
Reason for Visit: Shortness of breath and cough. Patient has history of COPD, asthma and uses oxygen on exertion at home. She also has BiPAP machine at home for stage III COPD. Vitals/I&O's: Vital Signs Temp Pulse Resp BP Pulse Ox 98.3 F 70 18 150/56 H 94 12/03/19 08:59 12/03/19 10:40 12/03/19 10:40 12/03/19 08:59 12/03/19 09:20 Oxygen Flow Rate (L/min) 3 Oxygen Delivery Method Room Air Weight: 267 lb 11.2 oz Body Mass Index (BMI) 48.9 Intake and Output for Last 24 Hours 12/01/19 12/02/19 12/03/19 23:59 23:59 23:59 Intake Total 565 / 565 1350 / 1350 Balance 565 / 565 1350 / 1350 General: Alert, Oriented x3, Cooperative HEENT: Atraumatic, PERRLA, EOMI, Normocephalic Neck: Supple, No JVD, Negative Carotid Bruits Lungs: Clear to auscultation, Diminished, Rhonchi Cardiovascular: Regular rate, Regular Rhythm, Normal S1, Normal S2, No murmurs Abdomen: Bowel Sounds Present, Soft, Non Tender, Non-Distended Extremities: No edema, Capillary Refill Less than 3 Seconds Skin: No rashes, No breakdown Musculoskeletal: No Tenderness to Palpation of Joints or Extremities, Arthritic Changes Neurological: Cranial nerves II-XII grossly intact Psych/Mental Status: Normal Affect, Appropriate Microbiology Past 72 Hours 12/02/19 20:12 Mucosa - Nasopharyngeal Respiratory Panel (PCR) - Final Laboratory Results 12/02/19 16:25: COVID-19 (IZABELA) Pending 12/02/19 16:30: WBC 10.5, RBC 3.89 L, Hgb 13.7, Hct 40.2, MCV 103.3 H, MCH 35.2 H, MCHC 34.1, RDW Std Deviation 51.9 H, RDW Coeff of Rafi 13.7, Plt Count 257, MPV 9.0, Immature Gran % (Auto) 0.800, Neut % (Auto) 88.7 H, Lymph % (Auto) 7.5 L, [place] % (Auto) 2.7, Eos % (Auto) 0.0, Baso % (Auto) 0.3, Absolute Neuts (auto) 9.3 H, Absolute Lymphs (auto) 0.79 L, Nucleated RBC % 0 12/02/19 16:30: Sodium 139, Potassium 4.7, Chloride 109 H, Carbon Dioxide 24.0, Anion Gap 6, BUN 21 H, Creatinine 1.01, Estim Creat Clear Calc 44.51, Est GFR (MDRD) Af Amer 71, Est GFR (MDRD) Non-Af 59 L, BUN/Creatinine Ratio 20.8 H, Glucose 295 H, Calcium 9.2, Troponin I < 0.015 12/02/19 16:30: B-Natriuretic Peptide 99.3 12/02/19 16:30: PT 12.9, INR 1.0, APTT 25.0 12/02/19 20:30: Troponin I < 0.015 12/02/19 20:43: POC Glucose 225 H 12/02/19 22:50: Troponin I < 0.015 12/03/19 06:21: POC Glucose 203 H 12/03/19 07:04: Sodium 137, Potassium 4.5, Chloride 107, Carbon Dioxide 24.0, Anion Gap 6, BUN 20 H, Creatinine 0.78, Estim Creat Clear Calc 57.63, Est GFR (MDRD) Af Amer 96, Est GFR (MDRD) Non-Af 79, BUN/Creatinine Ratio 25.7 H, Glucose 205 H, Calcium 9.4 12/03/19 07:04: WBC 9.7, RBC 4.18 L, Hgb 13.8, Hct 41.6, MCV 99.5 H, MCH 33.0 H, MCHC 33.2, RDW Std Deviation 48.6 H, RDW Coeff of Rafi 13.2, Plt Count 283, MPV 9.2, Immature Gran % (Auto) 0.600, Neut % (Auto) 82.8 H, Lymph % (Auto) 12.1 L, [place] % (Auto) 4.4, Eos % (Auto) 0.0, Baso % (Auto) 0.1, Absolute Neuts (auto) 8.0 H, Absolute Lymphs (auto) 1.17, Nucleated RBC % 0 12/03/19 12:46: POC Glucose 166 H Current Medications Acetaminophen (Tylenol) 650 mg PO Q6H PRN PRN PRN Reason: Pain Score 1-10/Temp > 100.7 F Albuterol Sulfate (Ventolin Aerosols) 2.5 mg INHALATION Q2H PRN PRN PRN Reason: Shortness of Breath/Wheezing Albuterol/Ipratropium (Duoneb) 3 ml INHALATION Q4HWA.RT [facility], [facility]1983 Last Admin: 12/03/19 10:39 Dose: 3 ml Documented by: Aspirin (Ecotrin) 81 mg PO DAILY [facility], [facility] Last Admin: 12/03/19 09:05 Dose: 81 mg Documented by: Dextrose (D50w Syringe) 0 gm IV X1 PRN; Protocol PRN Reason: Hypoglycemia Duloxetine HCl (Cymbalta) 30 mg PO BID [facility], [facility]1983 Last Admin: 12/03/19 09:06 Dose: 30 mg Documented by: Enoxaparin Sodium (Lovenox) 40 mg SC DAILY [facility], [facility]1983 Last Admin: 12/03/19 09:06 Dose: 40 mg Documented by: Gabapentin (Neurontin) 600 mg PO BID [facility], [facility] Last Admin: 12/03/19 09:06 Dose: 600 mg Documented by: Glucagon () 1 mg IM .X1 PRN PRN Reason: Hypoglycemia Guaifenesin (Mucinex) 1,200 mg PO BID [facility], [facility] Last Admin: 12/03/19 09:06 Dose: 1,200 mg Documented by: Hydralazine HCl (Apresoline Iv) 10 mg IV Q8H PRN PRN PRN Reason: for SBP>160 Levofloxacin (Levaquin Iv) 750 mg in 150 mls @ 100 mls/hr IV Q24 [facility], [facility] Last Infusion: 12/03/19 10:35 Dose: Infused Documented by: Sodium Chloride () 250 mls @ 15 mls/hr IV .[id number] PRN PRN Reason: Saline Flush Last Infusion: 12/03/19 10:35 Dose: 15 mls/hr Documented by: Insulin Human Lispro (Humalog Kwikpen (Bkc)) 0 unit SC ACHS [facility], [facility]; Protocol Last Admin: 12/03/19 12:48 Dose: 1 units Documented by: Levothyroxine Sodium (Synthroid) 150 mcg PO DAILY [facility] Last Admin: 12/03/19 09:06 Dose: 150 mcg Documented by: Lisinopril (Zestril) 2.5 mg PO DAILY [facility] Last Admin: 12/03/19 09:06 Dose: 2.5 mg Documented by: Metformin HCl (Glucophage Xr) 500 mg PO QHS [facility] Last Admin: 12/02/19 23:16 Dose: 500 mg Documented by: Montelukast Sodium (Singulair) 10 mg PO DAILY [facility] Last Admin: 12/03/19 09:06 Dose: 10 mg Documented by: Ondansetron HCl (Zofran) 4 mg IV Q8H PRN PRN PRN Reason: NAUSEA/VOMITING Pantoprazole Sodium (Protonix) 40 mg PO DAILY [facility] Last Admin: 12/03/19 09:06 Dose: 40 mg Documented by: Pramipexole Dihydrochloride (Mirapex) 1.5 mg PO QHS [facility], [facility] Last Admin: 12/02/19 23:16 Dose: 1.5 mg Documented by: Senna/Docusate Sodium (Senokot-S, Kecia-Colace) 2 tablet PO BID PRN PRN PRN Reason: Constipation Sodium Chloride () 10 - 40 ml IV UD PRN PRN Reason: SALINE FLUSH Last Admin: 12/03/19 09:07 Dose: 10 ml Documented by: STROKE Vital Signs/Narrative: Vital Signs Pulse Resp 12/03/19 10:40 70 18 Medical Necessity - Tobacco Use Smoking Status: Current every day smoker Tobacco Use: Non-smoker Assessment/Plan This is a 64 years old female patient presented to the emergency room because of progressively increasing shortness of breath with dry cough and she is being admitted for probable COPD exacerbation with hypoxia and testing for COVID-19 and admitted to [facility] floor. #1 probable mild COPD exacerbation/hypoxia with chronic hypoxic respiratory failure, on 2 to 3 L of oxygen on exertion at home: Chest x-ray showed no acute findings. She has no leukocytosis. On conservative management with bronchodilator, incentive spirometry bronchopulmonary hygiene. COVID-19 test pending. On Mucinex. IV Levaquin. Respiratory panel negative. 12/02: Patient does not have wheezing or respiratory distress. It seems even if patient has mild COPD exacerbation which is resolved now. #2 atypical pleuritic chest pain seems more pleuritic chest pain: EKG showed no acute segment changes. Troponin is negative. BNP is normal. #3 type 2 diabetes mellitus: ADA diet, Accu-Cheks, insulin sliding scale, continue home medications. #4 hypertension: Blood pressure stable, continue home medications when home medications updated, IV hydralazine PRN #5 stage III COPD/chronic respiratory failure: On home oxygen at 2 L only with activity and at night. Patient has BiPAP machine at home. Follows Dr. Alonso. #6 GERD: Continue PPI. #7 anxiety and depression: Continue home medications #8 obstructive sleep apnea: #9 DVT prophylaxis: Subcu Lovenox. Clinical Impression(s) from Imaging Studies Brain CT 12/02/19 16:11 IMPRESSION: Polypoid filling defect of the left maxillary sinus consistent with a mucoid retention cyst. There is no evidence of intracranial hemorrhage, infarct, or mass effect midline shift. Findings are stable in the interval. Chest X-Ray 12/02/19 17:30 IMPRESSION: Minimal left basilar fibrosis. No acute cardiopulmonary disease process is seen. Chest findings are stable in the interval. Microbiology Past 72 Hours 12/02/19 20:12 Mucosa - Nasopharyngeal Respiratory Panel (PCR) - Final Laboratory Results 12/02/19 16:25: COVID-19 (IZABELA) Pending 12/02/19 16:30: WBC 10.5, RBC 3.89 L, Hgb 13.7, Hct 40.2, MCV 103.3 H, MCH 35.2 H, MCHC 34.1, RDW Std Deviation 51.9 H, RDW Coeff of Rafi 13.7, Plt Count 257, MPV 9.0, Immature Gran % (Auto) 0.800, Neut % (Auto) 88.7 H, Lymph % (Auto) 7.5 L, [place] % (Auto) 2.7, Eos % (Auto) 0.0, Baso % (Auto) 0.3, Absolute Neuts (auto) 9.3 H, Absolute Lymphs (auto) 0.79 L, Nucleated RBC % 0 12/02/19 16:30: Sodium 139, Potassium 4.7, Chloride 109 H, Carbon Dioxide 24.0, Anion Gap 6, BUN 21 H, Creatinine 1.01, Estim Creat Clear Calc 44.51, Est GFR (MDRD) Af Amer 71, Est GFR (MDRD) Non-Af 59 L, BUN/Creatinine Ratio 20.8 H, Glucose 295 H, Calcium 9.2, Troponin I < 0.015 12/02/19 16:30: B-Natriuretic Peptide 99.3 12/02/19 16:30: PT 12.9, INR 1.0, APTT 25.0 12/02/19 20:30: Troponin I < 0.015 12/02/19 20:43: POC Glucose 225 H 12/02/19 22:50: Troponin I < 0.015 12/03/19 06:21: POC Glucose 203 H 12/03/19 07:04: Sodium 137, Potassium 4.5, Chloride 107, Carbon Dioxide 24.0, Anion Gap 6, BUN 20 H, Creatinine 0.78, Estim Creat Clear Calc 57.63, Est GFR (MDRD) Af Amer 96, Est GFR (MDRD) Non-Af 79, BUN/Creatinine Ratio 25.7 H, Glucose 205 H, Calcium 9.4 12/03/19 07:04: WBC 9.7, RBC 4.18 L, Hgb 13.8, Hct 41.6, MCV 99.5 H, MCH 33.0 H, MCHC 33.2, RDW Std Deviation 48.6 H, RDW Coeff of Rafi 13.2, Plt Count 283, MPV 9.2, Immature Gran % (Auto) 0.600, Neut % (Auto) 82.8 H, Lymph % (Auto) 12.1 L, [place] % (Auto) 4.4, Eos % (Auto) 0.0, Baso % (Auto) 0.1, Absolute Neuts (auto) 8.0 H, Absolute Lymphs (auto) 1.17, Nucleated RBC % 0 12/03/19 12:46: POC Glucose 166 H Inpatient E&M: 24693 Subs Hosp L2
[2019-12-03] MEDS: Acetaminophen 325 MG Tablet 650 MG PO (14:51)
[2019-12-03 17:17] LABS: Procalcitonin < 0.01 ng/mL (0.00-0.09)
[2019-12-03 17:30] LABS: Bedside Glucose 129 mg/dL (70-110)
[2019-12-03] MEDS: Pramipexole Di-HCl 0.5 MG Tablet 1.5 MG PO (20:49)
[2019-12-03] MEDS: metFORMIN (XR) 500 MG Tablet PO (20:50)
[2019-12-03 21:06] LABS: Bedside Glucose 142 mg/dL (70-110)
[2019-12-04] VITALS (9 sets, daily range): BP systolic 137–156; BP diastolic 76–83; PULSE 73–83; RESP 16–18; TEMP 36.4–37.7; O2SAT 92–96
[2019-12-04 06:08] LABS: Absolute Lymphocyte Count 2.02 X10^3/uL (0.83-4.51); Basophil# 0.09 X10^3/uL; Basophil% 0.5 % (0-1); Eosinophil# 0.38 X10^3/uL; Eosinophils% 2.2 % (0-5); Hematocrit 41.2 % (37-47); Hemoglobin 13.7 g/dL (12.0-15.0); Lymphocyte # 2.02 X10^3/ul (4.0); Lymphocyte % 11.5 % (19-41); Mean Corp Hgb Conc 33.3 g/dL (32-36); Mean Corpuscular Hgb 33.3 pg (27.0-32.0); Monocyte# 1.13 X10^3/uL; Monocyte% 6.4 % (0-10); NRBC Flagged by Analyzer 0 % (0-5); Neutrophil # 13.95 X10^3/uL (2.7-7.7); Platelet Count 277 K/mm3 (150-450); RBC Distribution Width CV 13.5 % (11.6-14.6); RBC Distribution Width SD 50.1 fl (35.1-43.9); Red Blood Count 4.12 M/mm3 (4.2-5.4); White Blood Count 17.6 K/mm3 (4.4-11.0)
[2019-12-04] MEDS: Insulin Lispro 100 UNIT/ML INSULN.PEN SC (06:15)
[2019-12-04 06:36] LABS: Bedside Glucose 163 mg/dL (70-110)
[2019-12-04 06:48] LABS: AST(SGOT) 9 U/L (15-37); Alanine Aminotransfer ALT/SGPT 24 U/L (13-56); Albumin, Serum 3.3 g/dL (3.2-5.0); Alkaline Phosphatase 102 U/L (45-117); Anion Gap 8 (5-15); BUN 22 mg/dL (7-18); BUN/Creat Ratio 25.8 RATIO (10-20); CRP < 2.90 mg/L (0.0-3.0); Chloride 103 mmol/L (98-107); Creatinine, Serum 0.85 mg/dL (0.55-1.02); EST Glomerular Filtration Rate 71 mL/min (>60); Est Glom Filt Rate - Afr Amer 86 mL/min (>60); Estimated Creatinine Clearance 52.88 ml/min; Ferritin 34 ng/mL (8-252); Globulin 3.2 g/dL (2.2-4.2); Glucose 151 mg/dL (74-106); LDH 207 U/L (84-246); Potassium 4.2 mmol/L (3.5-5.1); Protein, Total 6.5 g/dL (6.4-8.2); Sodium Level 136 mmol/L (136-145)
[2019-12-04 06:51] LABS: D-Dimer Quantitative (DVT/PE) 0.52 FEU/ug/m (0.27-0.49)
[2019-12-04] MEDS: Ipratropium/Albuterol Sulfate 3 ML AMPUL.NEB INHALATION ×2 (06:53→10:37)
[2019-12-04] MEDS: DULoxetine Hcl 30 MG Capsule PO (10:13)
[2019-12-04] MEDS: Montelukast 10 MG Tablet PO (10:13)
[2019-12-04] MEDS: guaiFENesin 1,200 MG Tablet 1200 MG PO (10:13)
[2019-12-04] MEDS: Lisinopril 2.5 MG Tablet PO (10:13)
[2019-12-04] MEDS: Gabapentin 600 MG Tablet PO (10:13)
[2019-12-04] MEDS: Levothyroxine 150 MCG Tablet PO (10:13)
[2019-12-04] MEDS: Pantoprazole Sodium 40 MG Tablet PO (10:13)
[2019-12-04] MEDS: Aspirin E.C. 81 MG Tablet PO (10:13)
--- NOTE | 2019-12-04 10:41 | CASEMGMT ---
DUANE FLORES NOTE: COVID results negative. Per Dr Chu, anticipate pt will discharge today. DUANE FLORES placed called to pt's room at this time. Pt denies having any discharge needs. She states she has Home Oxygen from [employer] @ 2 L/M w/exertion, has concentrator and portability. States she has a portable tank in her room her to go home on. She wears BIPAP @ HS @ home, w/no O2 bleed-in. She also has a nebulizer. Pt states her grandchildren live with her and are able to assist as needed. She denies need for HHC or other needs. She states prefers for pharmacy to be changed to [facility] if she would need to go home on any new meds. DUANE FLORES changed this in [employer] at this time. Liliana CUMMINGSN DUANE FLORES
--- NOTE | 2019-12-04 11:41 | PCM.DC ---
You will use the following diet at home:: Calorie/Carbohydrate Controlled (specify 1200, 1400, etc), Cardiac Discharge Activity: May Not Drive Call your doctor if you observe: Fever of 101 or Higher, Numbness or Tingling, Change in Color, Inability to urinate, Shortness of breath, Dizziness, Fainting spells, Swelling in the ankles, Chest pain, Prolonged hiccoughing, Increased palpitations (irregular heartbeat), Uncontrolled pain Additional Instructions: Advised not to go work because of high risk of getting COVID in view of COPD, asthma, chronic hypoxic respiratory failure. COVID-19 test is negative Allergies/Adverse Reactions: Allergies fluconazole [From Diflucan] Allergy (Verified 12/02/19 15:42) Anaphylaxis nickel [Nickel] Allergy (Verified 12/02/19 15:42) Rash perfume Allergy (Verified 12/02/19 15:42) Rash deodorant Allergy (Uncoded 12/02/19 15:42) Rash Medications to take at Discharge Vit C/E/Zn/Coppr/Lutein/Zeaxan [Preservision Areds 2 Softgel] 1 cap PO BID 03/16/17 tiotropium bromide 2.5 mcg/actuation mist for inhalation 2 puff INHALATION DAILY #4 g 03/04/19 duloxetine 30 mg capsule,delayed release 30 mg PO BID #180 cap 05/08/19 Aspirin [Low Dose Aspirin EC] 81 mg PO DAILY 07/05/19 montelukast 10 mg tablet 10 mg PO QPM #90 tab 07/19/19 pantoprazole 40 mg tablet,delayed release 40 mg PO DAILY #90 tab 07/19/19 levothyroxine 150 mcg tablet 150 mcg PO DAILY #90 tab 08/15/19 metformin 500 mg tablet,extended release 24 hr 500 mg PO QPM #90 tab 09/06/19 albuterol sulfate 90 mcg/actuation aerosol inhaler 2 puff INHALATION Q4H PRN #18 g 09/18/19 Gabapentin 600 mg PO BID 09/29/19 Lisinopril 2.5 mg PO DAILY 09/29/19 Cetirizine HCl [Zyrtec] 10 mg PO QHS 12/02/19 Ropinirole HCl 2 - 4 mg PO QHS 12/02/19 Azithromycin [Zithromax] 500 mg PO DAILY #3 tab 12/04/19 Guaifenesin [Mucinex] 1,200 mg PO BID #14 tab 12/04/19 Prednisone See Taper PO DAILY #30 tab 12/04/19 The following prescriptions were given: Guaifenesin [Mucinex] 1,200 mg PO BID #14 tab Transmission Status: Pending to [facility] Prednisone See Taper PO DAILY #30 tab Transmission Status: Pending to [facility] Azithromycin [Zithromax] 500 mg PO DAILY #3 tab Transmission Status: Pending to [facility] Primary Care Physician: Refugio Dowd MD [Primary Care Provider] - Please follow up with your Primary Care Physician in: in 2 weeks Test Results: Test results from this visit will be discussed in further detail at your follow-up appointment, if applicable. Please Follow Up With: Jagdish Alonso MD When: in 3-4 weeks
[2019-12-04] MEDS: levoFLOXacin 750 MG Tablet PO (11:42)
--- NOTE | 2019-12-04 11:43 | DS.PCM_ITS ---
Discharge Date and Diagnosis Date of Admission: 12/02/19 Date of Discharge: 12/04/19 - Secondary Discharge Diagnosis Chronic Problems (Last Updated 12/02/19 @ 18:[address] Leslie Lopez MD) Degeneration of lumbar or lumbosacral intervertebral disc (Chronic) 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 myelopathy or radiculopathy (Chronic) Stage 3 severe COPD by GOLD classification (Chronic) Type 2 diabetes mellitus (Chronic) Hypertension (Chronic) Ureteral calculus, left (Chronic) Nummular eczematous dermatitis (Chronic) Hypothyroidism (Chronic) Dermatitis (Chronic) Tobacco abuse (Chronic) TIA (transient ischemic attack) (Chronic) Thrombophlebitis leg superficial (Chronic) Left great saphenous vein Pulmonary hypertension (Chronic) PASP 46 mmHg Hearing loss (Chronic) Morbid obesity (Chronic) Diverticulosis (Chronic) HENRRY (obstructive sleep apnea) (Chronic) Hiatal hernia (Chronic) Fibromyalgia (Chronic) GERD (gastroesophageal reflux disease) (Chronic) Chronic low back pain (Chronic) Chronic obstructive pulmonary disease with acute exacerbation (Chronic) Oral candidiasis (Chronic) Abnormal results of pulmonary function studies (Chronic) 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 floor. #1. Mild COPD exacerbation/hypoxia with chronic hypoxic respiratory failure, on 2 to 3 L of oxygen on exertion at home: Chest x-ray showed no acute findings. She has no leukocytosis. On conservative management with bronchodilator, incentive spirometry bronchopulmonary hygiene. COVID-19 test pending. On Mucinex. IV Levaquin. Respiratory panel negative. 12/02: Patient does not have wheezing or respiratory distress. It seems even if patient has mild COPD exacerbation which is resolved now. 12/03: Hypoxia resolved. Patient pulse ox 93% on room air. COVID-19 PCR negative. Patient is discharged on tapering dose of prednisone, Mucinex and Zithromax 500 mg for 3 more days for COPD exacerbation. Follow-up with Dr. Alonso. Patient had Levaquin in the past. #2 atypical pleuritic chest pain seems more pleuritic chest pain: EKG showed no acute segment changes. Troponin is negative. BNP is normal. Pleuritic chest pain resolved. #3 type 2 diabetes mellitus: ADA diet, Accu-Cheks, insulin sliding scale, continue home medications. #4 hypertension: Blood pressure stable, continue home medications when home medications updated, IV hydralazine PRN #5 stage III COPD/chronic respiratory failure: On home oxygen at 2 L only with activity and at night. Patient has BiPAP machine at home. Follows Dr. Alonso. #6 GERD: Continue PPI. #7 anxiety and depression: Continue home medications #8 obstructive sleep apnea: #9 DVT prophylaxis: Subcu Lovenox. Discharge medication reconciliation done. Discharge follow-up instructions completed. Discharge process discussed with the patient and all questions were answered to patient's satisfaction. Total time spent, exact 35 minutes on discharge meds reconciliation, examination, coordination of care with nurses and ancillary staff, review of im aging and blood test and discussion with the patient on follow-up instructions Clinical Impression(s) from Imaging Studies Brain CT 12/02/19 16:11 IMPRESSION: Polypoid filling defect of the left maxillary sinus consistent with a mucoid retention cyst. There is no evidence of intracranial hemorrhage, infarct, or mass effect midline shift. Findings are stable in the interval. Chest X-Ray 12/02/19 17:30 IMPRESSION: Minimal left basilar fibrosis. No acute cardiopulmonary disease process is seen. Chest findings are stable in the interval. Subjective: No fever or chills. Dynamically stable. No hypoxia or tachypnea. Objective: General: Alert, Oriented x3, Cooperative HEENT: Atraumatic, PERRLA, EOMI, Normocephalic Neck: Supple, No JVD, Negative Carotid Bruits Lungs: Clear to auscultation, air entry bilaterally diminished in lung bases, mild expiratory rhonchi Cardiovascular: Regular rate, Regular Rhythm, Normal S1, Normal S2, No murmurs Abdomen: Bowel Sounds Present, Soft, Non Tender, Non-Distended Extremities: No edema, Capillary Refill Less than 3 Seconds Skin: No rashes, No breakdown Musculoskeletal: No Tenderness to Palpation of Joints or Extremities, Arthritic Changes Neurological: Cranial nerves II-XII grossly intact Psych/Mental Status: Normal Affect, Appropriate - Physical Exam Vitals/I&O's: Vital Signs Temp Pulse Resp BP Pulse Ox 99.9 F H 78 18 156/76 H 93 12/04/19 08:29 12/04/19 10:38 12/04/19 10:38 12/04/19 08:29 12/04/19 08:29 Oxygen Flow Rate (L/min) 3 Oxygen Delivery Method Room Air Weight: 267 lb 11.2 oz Body Mass Index (BMI) 48.9 Intake and Output for Last 24 Hours 12/02/19 12/03/19 12/04/19 23:59 23:59 23:59 Intake Total 565 / 565 2276.25 / 2276.25 Balance 565 / 565 2276.25 / 2276.25 Microbiology Past 72 Hours 12/03/19 17:15 Sputum, Expectorated/Coughed Gram Stain - Final 12/03/19 17:15 Sputum, Expectorated/Coughed Respiratory Culture - Preliminary Appears to be normal respiratory leon. Further studies to follow. 12/02/19 20:12 Mucosa - Nasopharyngeal Respiratory Panel (PCR) - Final Laboratory Results 12/02/19 16:25: COVID-19 (IZABELA) Not Detected 12/03/19 12:46: POC Glucose 166 H 12/03/19 15:38: Procalcitonin < 0.01 12/03/19 17:13: POC Glucose 129 H 12/03/19 20:46: POC Glucose 142 H 12/04/19 05:50: WBC 17.6 H, RBC 4.12 L, Hgb 13.7, Hct 41.2, MCV 100.0 H, MCH 33.3 H, MCHC 33.3, RDW Std Deviation 50.1 H, RDW Coeff of Rafi 13.5, Plt Count 277, MPV 9.0, Immature Gran % (Auto) 0.400, Neut % (Auto) 79.0 H, Lymph % (Auto) 11.5 L, [place] % (Auto) 6.4, Eos % (Auto) 2.2, Baso % (Auto) 0.5, Absolute Neuts (auto) 14.0 H, Absolute Lymphs (auto) 2.02, Nucleated RBC % 0 12/04/19 05:50: D-Dimer Quant (PE/DVT) 0.52 H* 12/04/19 05:50: Sodium 136, Potassium 4.2, Chloride 103, Carbon Dioxide 25.0, Anion Gap 8, BUN 22 H, Creatinine 0.85, Estim Creat Clear Calc 52.88, Est GFR (MDRD) Af Amer 86, Est GFR (MDRD) Non-Af 71, BUN/Creatinine Ratio 25.8 H, Glucose 151 H, Calcium 9.0, Ferritin 34, Total Bilirubin 0.90, AST 9 L, ALT 24, Alkaline Phosphatase 102, Lactate Dehydrogenase 207, C-React Prot Ext Range < 2.90, Total Protein 6.5, Albumin 3.3, Globulin 3.2, Albumin/Globulin Ratio 1.0 12/04/19 06:12: POC Glucose 163 H Current Medications Acetaminophen (Tylenol) 650 mg PO Q6H PRN PRN PRN Reason: Pain Score 1-10/Temp > 100.7 F Last Admin: 12/03/19 14:51 Dose: 650 mg Documented by: Albuterol Sulfate (Ventolin Aerosols) 2.5 mg INHALATION Q2H PRN PRN PRN Reason: Shortness of Breath/Wheezing Albuterol/Ipratropium (Duoneb) 3 ml INHALATION Q4HWA.RT [facility] Last Admin: 12/04/19 10:37 Dose: 3 ml Documented by: Aspirin (Ecotrin) 81 mg PO DAILY [facility] Last Admin: 12/04/19 10:13 Dose: 81 mg Documented by: Dextrose (D50w Syringe) 0 gm IV X1 PRN; Protocol PRN Reason: Hypoglycemia Duloxetine HCl (Cymbalta) 30 mg PO BID [facility] Last Admin: 12/04/19 10:13 Dose: 30 mg Documented by: Enoxaparin Sodium (Lovenox) 40 mg SC BID [facility] Last Admin: 12/04/19 10:14 Dose: Not Given Documented by: Gabapentin (Neurontin) 600 mg PO BID [facility] Last Admin: 12/04/19 10:13 Dose: 600 mg Documented by: Glucagon () 1 mg IM .X1 PRN PRN Reason: Hypoglycemia Guaifenesin (Mucinex) 1,200 mg PO BID [facility] Last Admin: 12/04/19 10:13 Dose: 1,200 mg Documented by: Hydralazine HCl (Apresoline Iv) 10 mg IV Q8H PRN PRN PRN Reason: for SBP>160 Sodium Chloride () 250 mls @ 15 mls/hr IV .[id number] PRN PRN Reason: Saline Flush Last Infusion: 12/03/19 19:00 Dose: 0 mls/hr Documented by: Insulin Human Lispro (Humalog Kwikpen (Bkc)) 0 unit SC ACHS [facility]; Protocol Last Admin: 12/04/19 11:37 Dose: Not Given Documented by: Levothyroxine Sodium (Synthroid) 150 mcg PO DAILY [facility] Last Admin: 12/04/19 10:13 Dose: 150 mcg Documented by: Lisinopril (Zestril) 2.5 mg PO DAILY [facility] Last Admin: 12/04/19 10:13 Dose: 2.5 mg Documented by: Metformin HCl (Glucophage Xr) 500 mg PO QHS [facility] Last Admin: 12/03/19 20:50 Dose: 500 mg Documented by: Montelukast Sodium (Singulair) 10 mg PO DAILY [facility] Last Admin: 12/04/19 10:13 Dose: 10 mg Documented by: Ondansetron HCl (Zofran) 4 mg IV Q8H PRN PRN PRN Reason: NAUSEA/VOMITING Pantoprazole Sodium (Protonix) 40 mg PO DAILY [facility] Last Admin: 12/04/19 10:13 Dose: 40 mg Documented by: Pramipexole Dihydrochloride (Mirapex) 1.5 mg PO QHS [facility] Last Admin: 12/03/19 20:49 Dose: 1.5 mg Documented by: Senna/Docusate Sodium (Senokot-S, Kecia-Colace) 2 tablet PO BID PRN PRN PRN Reason: Constipation Sodium Chloride () 10 - 40 ml IV UD PRN PRN Reason: SALINE FLUSH Last Admin: 12/03/19 09:07 Dose: 10 ml Documented by: Discharge Activity: May Not Drive Call your doctor if you observe: Fever of 101 or Higher, Numbness or Tingling, Change in Color, Inability to urinate, Shortness of breath, Dizziness, Fainting spells, Swelling in the ankles, Chest pain, Prolonged hiccoughing, Increased palpitations (irregular heartbeat), Uncontrolled pain Home Medications: Medications to take at Discharge Vit C/E/Zn/Coppr/Lutein/Zeaxan [Preservision Areds 2 Softgel] 1 cap PO BID 03/16/17 tiotropium bromide 2.5 mcg/actuation mist for inhalation 2 puff INHALATION DAILY #4 g 03/04/19 duloxetine 30 mg capsule,delayed release 30 mg PO BID #180 cap 05/08/19 Aspirin [Low Dose Aspirin EC] 81 mg PO DAILY 07/05/19 montelukast 10 mg tablet 10 mg PO QPM #90 tab 07/19/19 pantoprazole 40 mg tablet,delayed release 40 mg PO DAILY #90 tab 07/19/19 levothyroxine 150 mcg tablet 150 mcg PO DAILY #90 tab 08/15/19 metformin 500 mg tablet,extended release 24 hr 500 mg PO QPM #90 tab 09/06/19 albuterol sulfate 90 mcg/actuation aerosol inhaler 2 puff INHALATION Q4H PRN #18 g 09/18/19 Gabapentin 600 mg PO BID 09/29/19 Lisinopril 2.5 mg PO DAILY 09/29/19 Cetirizine HCl [Zyrtec] 10 mg PO QHS 12/02/19 Ropinirole HCl 2 - 4 mg PO QHS 12/02/19 Azithromycin [Zithromax] 500 mg PO DAILY #3 tab 12/04/19 Guaifenesin [Mucinex] 1,200 mg PO BID #14 tab 12/04/19 Prednisone See Taper PO DAILY #30 tab 12/04/19 Following Prescrptions Were Given to Patient: Guaifenesin [Mucinex] 1,200 mg PO BID #14 tab Transmission Status: Received by [facility] Prednisone See Taper PO DAILY #30 tab Transmission Status: Received by [facility] Azithromycin [Zithromax] 500 mg PO DAILY #3 tab Transmission Status: Received by [facility] Primary Care Physician: Refugio Dowd MD [Primary Care Provider] - Please follow up with your Primary Care Physician in: in 2 weeks Please Follow Up With: Jagdish Alonso MD When: in 3-4 weeks Medical Necessity - Tobacco Use Smoking Status: Current every day smoker Tobacco Use: Non-smoker Meaningful Use Info Meaningful Use Diagnoses (Choose all that apply): None applicable Inpatient E&M: [id number] [facility]
[2019-12-04 11:46] LABS: Bedside Glucose 166 mg/dL (70-110)
--- NOTE | 2019-12-04 12:17 | NURSING ---
Pt. asked if prednisone prescribed prior to stay should be resumed. Dr. Chu notified this RN that pt. should take remaining prednisone but atb should now be levaquin. Dr. Chu also requested a work excuse be written for patient for 4 weeks from today. Same completed.
--- NOTE | 2019-12-04 13:09 | NURSING ---
home prescriptions picked up from pharmacy by this RN- per pt request. Pt taken to front entrance to daughter's car. Pt assisted into car by this RN and belongings placed in the trunk. Pt thankful and denies questions for further needs.
== END 2019-12-04 13:00 | disposition home or self-care (01) ==
LOC: ED 18:30 → MS2 18:55
PROVIDERS: Admitting Provider Hospitalist; Emergency Provider Emergency Medicine; PCP Internal Medicine; Visit Provider Internal Medicine
DX: J44.1 Chronic obstructive pulmonary disease with (acute) exacerbation (principal); J96.11 Chronic respiratory failure with hypoxia; E11.9 Type 2 diabetes mellitus without complications; I10 Essential (primary) hypertension; E03.9 Hypothyroidism, unspecified; G47.33 Obstructive sleep apnea (adult) (pediatric); F41.9 Anxiety disorder, unspecified; F32.9 Major depressive disorder, single episode, unspecified; K21.9 Gastro-esophageal reflux disease without esophagitis; E66.01 Morbid (severe) obesity due to excess calories; M79.7 Fibromyalgia; G89.29 Other chronic pain; I27.20 Pulmonary hypertension, unspecified; Z99.81 Dependence on supplemental oxygen; Z79.899 Other long term (current) drug therapy; Z79.84 Long term (current) use of oral hypoglycemic drugs; Z79.82 Long term (current) use of aspirin; Z68.42 Body mass index [BMI] 45.0-49.9, adult
CPT/HCPCS: 36415; 70450; 71045; 80048; 80053; 82728; 82962; 83615; 83880; 84145; 84484; 85025; 85379; 85610; 85730; 86140; 87070; 87205; 87633; 87635; 87880; 93005; 94640; 96365; 96366; 96372; 99218; 99251; 99285; G2023; J7030; J7050; A4216; G0378; G0463; U0004

== ENCOUNTER → 2019-12-18 16:26 | Outpatient (CLI) | payer MEDICARE, MEDICAID, SELFPAY ==
[2019-12-18 14:22] VITALS: BMI 48.9
[2019-12-18 17:12] LABS: Absolute Lymphocyte Count 3.14 X10^3/uL (0.83-4.51); Absolute Neutrophil Count 5.9 X10^3/uL (2.0-7.7); Eosinophils% 6.7 % (0-5); Hematocrit 46.6 % (37-47); Hemoglobin 15.1 g/dL (12.0-15.0); Lymphocyte # 3.14 X10^3/ul (4.0); Lymphocyte % 29.9 % (19-41); Mean Corp Hgb Conc 32.4 g/dL (32-36); Mean Platelet Vol. 9.6 fl (6.2-12.0); Monocyte# 0.64 X10^3/uL; Monocyte% 6.1 % (0-10); NRBC Flagged by Analyzer 0 % (0-5); Neutrophil # 5.88 X10^3/uL (2.7-7.7); Neutrophil % 55.9 % (47-70); Platelet Count 314 K/mm3 (150-450); RBC Distribution Width CV 13.2 % (11.6-14.6); RBC Distribution Width SD 50.3 fl (35.1-43.9); Red Blood Count 4.57 M/mm3 (4.2-5.4); White Blood Count 10.5 K/mm3 (4.4-11.0)
[2019-12-18 17:29] LABS: Magnesium 2.1 mg/dL (1.6-2.6); T4 Free Direct 0.93 ng/dL (0.76-1.46); Thyroid Stim Hormone (TSH) 2.53 uIU/mL (0.358-3.74)
== END ==
PROVIDERS: PCP Internal Medicine; Referring Provider Nurse Practitioner Family; Visit Provider Nurse Practitioner Family
DX: R00.2 Palpitations (principal)
CPT/HCPCS: 83735; 84439; 84443; 85025

== ENCOUNTER → 2019-12-24 13:49 | Outpatient (CLI) | payer MEDICARE, MEDICAID, SELFPAY ==
[2019-12-18 14:22] VITALS: BMI 48.9
[2019-12-20 07:42] VITALS: BMI 48.4
== END ==
PROVIDERS: PCP Internal Medicine; Referring Provider Nurse Practitioner Family; Visit Provider Nurse Practitioner Family
DX: R00.2 Palpitations (principal)
CPT/HCPCS: 93225; 93226

== ENCOUNTER 2020-01-17 07:48 | Emergency (ER) | payer MEDICARE, MEDICAID, SELFPAY ==
[2019-12-20 07:42] VITALS: BMI 48.4
[2020-01-17 07:48] VITALS: BP 162/86; PULSE 67; RESP 24; TEMP 36.6; O2SAT 95; BMI 50.5
--- NOTE | 2020-01-17 08:04 | EKG12_ITS ---
Test Reason : DYSRHYTHMIA Blood Pressure : / mmHG Vent. Rate : 060 BPM Atrial Rate : 060 BPM P-R Int : 140 ms QRS Dur : 084 ms QT Int : 460 ms P-R-T Axes : 063 -04 046 degrees QTc Int : 460 ms Normal sinus rhythm Normal ECG Confirmed by MYRNA MIRANDA, JAMIE ([id number]), rewrite editor ZHANNA DICKERSON ([id number]) on 01/21/2020 10:49:23 AM Referred By: LEONCIO Confirmed By:JAMIE NORRIS MD
--- NOTE | 2020-01-17 08:08 | ED.VISSUMM ---
- ER Visit Summary Date of Service: 01/17/20 Chief Complaint: Shortness of breath History of Present Illness: The patient is a 64 F history of COPD, [id number] diabetes and the patient is on 2 L of oxygen daily. States she was feeling fine. She is having a new drop ceiling installed at home that caused a lot of dust and debris and caused her shortness of breath to flareup in the last 24 hours. She denies any chest pain. Says she is a chronic productive cough with no change in sputum. No hemoptysis. No leg swelling. No fever or chills. Physical Examination: Older female no acute distress vital signs are stable and afebrile. H EENT exam is unremarkable. Neck is nontender. Lungs just a few scattered expiratory wheezes. No rales or rhonchi. No distress. Equal symmetrical. Heart regular rhythm rate about 70. No murmur. Abdomen soft nontender normal bowel sounds no peritoneal signs. Extremities moves all 4. Calves are nontender without edema or cords. Neurologically she is awake and alert with no focal motor deficits. Test Results: Since work-up including EKG, chest x-ray and labs are unremarkable. Chest x-ray portable 1 view read by myself the radiologist shows no acute abnormality. No infiltrate. EKG normal sinus rhythm rate of 60. CBC normal white count 9. Hemoglobin 13. Chemistries unremarkable. Troponin normal. Emergency Department Course and Treatment: Historically and by exam this is consistent with a COPD flare most likely exacerbated by the construction at home. She will be treated with aerosols and p.o. steroids. Screening labs and chest x-ray to be obtained. She is not complaining of any infectious symptoms. I do not think this is related to either pneumonia or COVID at this time. She was feeling fine up until the point of the construction at her home. Treatment Plan: Repeat exam patient is doing well at 10 AM. She is feeling better. Her breathing is better after aerosols and steroids. Prednisone 40 mg a day for 1 week may stop early if feeling better. Albuterol aerosol treatments. Follow-up with her doctor as needed. Disposition: Discharge Impression: Acute exacerbation of COPD History of diabetes This note was generated with [employer] software. It may contain incorrect words, spelling, and punctuation that were not noted in review of the chart prior to signing ED Disposition - Plan for ED Patient: Referrals: Refugio Dowd MD [Primary Care Provider] -
[2020-01-17 08:10] VITALS: BP 145/37; PULSE 65; RESP 13; O2SAT 99
[2020-01-17 08:14] LABS: Absolute Lymphocyte Count 2.15 X10^3/uL (0.83-4.51); Absolute Neutrophil Count 6.2 X10^3/uL (2.0-7.7); Basophil# 0.08 X10^3/uL; Basophil% 0.8 % (0-1); Eosinophil# 0.38 X10^3/uL; Hematocrit 42.9 % (37-47); Hemoglobin 13.9 g/dL (12.0-15.0); Lymphocyte # 2.15 X10^3/ul (4.0); Lymphocyte % 22.7 % (19-41); Mean Corp Hgb Conc 32.4 g/dL (32-36); Mean Corpuscular Hgb 33.5 pg (27.0-32.0); Mean Corpuscular Volume 103.4 fL (81-99); Monocyte# 0.66 X10^3/uL; NRBC Flagged by Analyzer 0 % (0-5); Neutrophil # 6.18 X10^3/uL (2.7-7.7); Neutrophil % 65.2 % (47-70); Platelet Count 272 K/mm3 (150-450); RBC Distribution Width CV 13.6 % (11.6-14.6); RBC Distribution Width SD 52.1 fl (35.1-43.9); Red Blood Count 4.15 M/mm3 (4.2-5.4); White Blood Count 9.5 K/mm3 (4.4-11.0)
[2020-01-17 08:17] VITALS: PULSE 63; RESP 18; O2SAT 97
[2020-01-17] MEDS: Albuterol 2.5 MG/3 ML VIAL.NEB. INHALATION ×3 (08:17)
[2020-01-17] MEDS: predniSONE 20 MG Tablet 60 MG PO (08:17)
[2020-01-17] MEDS: Ipratropium/Albuterol Sulfate 3 ML AMPUL.NEB INHALATION (08:17)
[2020-01-17 08:35] LABS: Anion Gap 6 (5-15); BUN 18 mg/dL (7-18); BUN/Creat Ratio 23.2 RATIO (10-20); Calcium,Total 9.4 mg/dL (8.5-10.1); Chloride 108 mmol/L (98-107); Creatinine, Serum 0.78 mg/dL (0.55-1.02); EST Glomerular Filtration Rate 80 mL/min (>60); Est Glom Filt Rate - Afr Amer 96 mL/min (>60); Estimated Creatinine Clearance 57.63 ml/min; Glucose 169 mg/dL (74-106); Potassium 4.1 mmol/L (3.5-5.1); Sodium Level 141 mmol/L (136-145)
--- NOTE | 2020-01-17 09:08 | RAD_ITS ---
STUDY: X-RAY CHEST REASON FOR EXAM: Female, 64 years old. Increased sob. Hx of copd. Had new ceiling installed yesterday. has been around continued dust from installation. wears o2 at 2. increased to 3 last night TECHNIQUE: Single AP portable view of the chest. COMPARISON: Comparison is made with prior study dated December 02, 2019. FINDINGS: EKG electrodes are seen. The lungs are clear and expanded. There is no demonstrated pleural abnormality. Normal size heart. Normal mediastinum and juve. Normal visualized pulmonary arteries. There is atherosclerotic tortuosity of the aortic arch and descending thoracic aorta. There are degenerative changes of the visualized thoracic spine. Normal visualized ribs, clavicles, and shoulders. There is no demonstrated abnormality of the visualized soft tissue structures of the upper abdomen. RAD/Chest 1 View (Portable) IMPRESSION: No acute abnormality is seen. Electronically Signed: [place], at 9:31 EDT , Service support ,
--- NOTE | 2020-01-17 09:12 | CPS ---
x3 Albuterol given to pt. while in ED as well
--- NOTE | 2020-01-17 10:08 | ED.DEP ---
ED Disposition - Plan for ED Patient: Disposition: Home or Assisted Living Instructions: ED COPD Flare Prescriptions: Prednisone [Deltasone] 40 mg PO DAILY 7 Days tab Prescription Printed Albuterol Aerosols [Ventolin Aerosols] 2.5 mg INHALATION Q4H PRN #25 vial Prescription Printed Referrals: Refugio Dowd MD [Primary Care Provider] - 3-5 Days if not improving Additional Instructions: Prednisone 40 mg a day for 1 week. Start tomorrow. If you are feeling a lot better you may stop early. Albuterol aerosols as needed at home. Follow-up with your doctor if not improving or return if worse.
[2020-01-17 10:26] VITALS: PULSE 68; RESP 18; O2SAT 97
== END 2020-01-17 10:29 | disposition home or self-care (01) ==
PROVIDERS: Emergency Provider Emergency Medicine; PCP Internal Medicine
DX: J44.1 Chronic obstructive pulmonary disease with (acute) exacerbation (principal); E11.9 Type 2 diabetes mellitus without complications; Z99.81 Dependence on supplemental oxygen; Z79.899 Other long term (current) drug therapy; Z79.84 Long term (current) use of oral hypoglycemic drugs; Z72.0 Tobacco use
CPT/HCPCS: 71045; 80048; 84484; 85025; 93005; 94640; 99251; 99285; A4216; G0463

== ENCOUNTER 2020-02-04 20:16 | Emergency (ER) | payer MEDICARE, MEDICAID, SELFPAY ==
[2020-01-22 14:20] VITALS: BMI 50.5
[2020-02-04 20:17] VITALS: BP 103/50; PULSE 103; RESP 24; TEMP 36.3; O2SAT 96; BMI 51.2
[2020-02-04 20:47] VITALS: BP 122/74; PULSE 86; RESP 120; O2SAT 97
--- NOTE | 2020-02-04 21:00 | US_ITS ---
STUDY: ABDOMINAL ULTRASOUND - RIGHT UPPER QUADRANT REASON FOR VISIT: Female, 64 years old RT SIDE PAIN X 1 DAY right sided pain. TECHNIQUE: Ultrasound evaluation of the right upper quadrant was performed with real-time and static mcdonald-scale imaging. COMPARISON: CT abdomen pelvis 08/02/2018. FINDINGS: Liver: The liver measures 17.2 cm. There is increased echogenicity consistent with fatty infiltration. The bile ducts are within normal limits. There is hepatic color flow. There is no demonstrated mass lesion. Gallbladder: Normal distended gallbladder. The gallbladder wall measures 2 mm. There is a negative sonographic Thompson''s sign. There is no pericholecystic fluid. There are no gallstones. Common Bile Duct (C.B.D.): The common bile duct measures 4 mm. Pancreas: Normal size of the head, body and tail of the pancreas. There is normal echogenicity of the pancreas. There is no demonstrated pancreatic mass or cyst. Right Kidney: Normal size of the right kidney. The right kidney measures 11.3 x 4.2 x 3.8 cm. Normal renal cortex. The right cortex measures 1.1 cm. There is no demonstrated renal mass or cyst. There is no right hydronephrosis. US/Gallbladder IMPRESSION: Normal right upper quadrant ultrasound examination. Electronically Signed: Bret Dixon, at 22:20 EDT Tel , Service support ,
--- NOTE | 2020-02-04 21:00 | EKG12_ITS ---
Test Reason : GEN ILL Blood Pressure : / mmHG Vent. Rate : 081 BPM Atrial Rate : 081 BPM P-R Int : 132 ms QRS Dur : 082 ms QT Int : 392 ms P-R-T Axes : 055 -21 058 degrees QTc Int : 455 ms Sinus rhythm with Premature atrial complexes Otherwise normal ECG Confirmed by DANN CHAPMAN ([id number]), editor trade journal ZHANNA DICKERSON ([id number]) on 02/10/2020 8:30:09 AM Referred By: Refugio Dowd Confirmed By:DANN CHAPMAN
--- NOTE | 2020-02-04 21:02 | ED.DCSUM_ITS ---
- ER Visit Summary Date of Service: 02/04/20 Chief Complaint: Abdominal pain with heartburn and elevated blood sugar and blood pressures. History of Present Illness: The patient is a 64 F 3 of prior stroke, non-insulin diabetes, hypertension, COPD and kidney stones. Patient states for last 3 days has had intermittent elevated blood sugars. Intermittent elevated blood pressure. Nausea. And right upper quadrant abdominal pain. Janette states she is been having heartburn. Denies exertional symptoms. Says even the smell of food makes her nauseated. She is not been vomiting. She has had loose stools. No melena. No fever. Physical Examination: Older female no acute distress vital signs stable afebrile her current blood pressure is 122/74. On oxygen her pulse ox 97%. No hypoxia. HEENT exam unremarkable. Neck nontender no JVD no lymphadenopathy. Lungs coarse breath sounds bilaterally. Equal symmetrical. Heart regular rhythm rate about 80 no murmur. Chest were nontender. Abdomen obese. Very mild right upper quadrant soft tissue tenderness. No Thompson sign. No peritoneal signs. Left upper and both lower quadrants are nontender. No signs of obstruction. No hernia or mass no pulsatile mass. Moving all 4 extremities. Calves are nontender without edema or cords. Neurologically she is awake and alert. Back nontender. Test Results: Chest x-ray portable 1 view of the base of the radiologist showed no acute on my read. Right upper quadrant ultrasound read as normal by the radiologist. EKG normal sinus rhythm rate 81 with no acute change from prior EKG. CBC white count 13. Hemoglobin 14. No bands. Chemistries unremarkable glucose 162 normal creatinine gap. Liver enzymes and lipase normal troponin normal. Emergency Department Course and Treatment: Patient with some symptoms that could be atypical cardiac this could also be possibly gallbladder disease versus viral illness or other etiologies. Show a cardiac work-up including a lipase, hepatic panel and ultrasound of the right upper quadrant. Repeat exam patient is resting comfortably. At 11:24 PM. She and I went over all of her test. She is comfortable being discharged home. She is outpatient follow-up with her primary care physician tomorrow. She requested to be started on something for reflux and something for nausea. Treatment Plan: Tonics for reflux. Zofran for nausea. Keep her appointment with her primary care physician on Monday. Disposition: Discharge Impression: Acute reflux Nausea History of prior stroke, history of diabetes, history of hypertension, history of COPD This note was generated with [email or web address] dictation software. It may contain incorrect words, spelling, and punctuation that were not noted in review of the chart prior to signing ED Disposition - Plan for ED Patient: Referrals: Refugio Dowd MD [Primary Care Provider] -
[2020-02-04] MEDS: Mag Hydrox/Al Hydrox/Simeth 30 ML UDC PO (21:21)
[2020-02-04 21:26] LABS: Basophil# 0.06 X10^3/uL; Basophil% 0.5 % (0-1); Eosinophil# 0.29 X10^3/uL; Eosinophils% 2.2 % (0-5); Hematocrit 43.2 % (37-47); Hemoglobin 14.4 g/dL (12.0-15.0); Lymphocyte % 20.8 % (19-41); Mean Corp Hgb Conc 33.3 g/dL (32-36); Mean Corpuscular Hgb 33.6 pg (27.0-32.0); Mean Corpuscular Volume 100.7 fL (81-99); Mean Platelet Vol. 9.2 fl (6.2-12.0); Monocyte# 0.92 X10^3/uL; Monocyte% 7.1 % (0-10); NRBC Flagged by Analyzer 0 % (0-5); Neutrophil # 8.97 X10^3/uL (2.7-7.7); Neutrophil % 69.1 % (47-70); Platelet Count 287 K/mm3 (150-450); RBC Distribution Width SD 48.5 fl (35.1-43.9); Red Blood Count 4.29 M/mm3 (4.2-5.4)
[2020-02-04 21:47] LABS: Anion Gap 5 (5-15); BUN 14 mg/dL (7-18); BUN/Creat Ratio 16.9 RATIO (10-20); Calcium,Total 9.6 mg/dL (8.5-10.1); Chloride 104 mmol/L (98-107); Creatinine, Serum 0.83 mg/dL (0.55-1.02); EST Glomerular Filtration Rate 74 mL/min (>60); Est Glom Filt Rate - Afr Amer 89 mL/min (>60); Estimated Creatinine Clearance 54.16 ml/min; Glucose 162 mg/dL (74-106); Lipase 73 U/L (73-393); Potassium 3.7 mmol/L (3.5-5.1); Sodium Level 138 mmol/L (136-145)
[2020-02-04 21:52] LABS: AST(SGOT) 14 U/L (15-37); Alanine Aminotransfer ALT/SGPT 20 U/L (13-56); Albumin, Serum 4.4 g/dL (3.2-5.0); Alkaline Phosphatase 85 U/L (45-117); Bilirubin, Direct 0.22 mg/dL (0.00-0.30); Globulin 3.7 g/dL (2.2-4.2); Protein, Total 8.1 g/dL (6.4-8.2)
[2020-02-04] MEDS: Famotidine 20 MG Tablet 40 MG PO (21:54)
--- NOTE | 2020-02-04 22:04 | RAD_ITS ---
STUDY: X-RAY CHEST REASON FOR EXAM: Female, 64 years old. Elevated blood pressure and palpitations. TECHNIQUE: AP portable upright AP COMPARISON: 01/17/2020 CXR FINDINGS: No apparent pneumothorax, pneumonia, pleural effusion, or edema. Cardiac silhouette, juve and mediastinal contours are within normal limits. No acute osseous abnormality. No evidence of free air under the diaphragm. RAD/Chest 1 View (Portable) IMPRESSION: Negative chest radiograph. Electronically Signed: Bret Dixon, at 22:23 EDT Tel , Service support ,
[2020-02-04 23:05] VITALS: BP 119/73; PULSE 60; RESP 16; O2SAT 100
--- NOTE | 2020-02-04 23:33 | ED.DEP ---
ED Disposition - Plan for ED Patient: Disposition: Home or Assisted Living Diagnosis: GERD (gastroesophageal reflux disease) Prescriptions: Pantoprazole Sodium [Protonix] 40 mg PO DAILY #30 tab Prescription Printed Ondansetron [Zofran Odt] 4 mg PO Q8H PRN PRN #10 tab PRN Reason: Nausea Prescription Printed Referrals: Refugio Dowd MD [Primary Care Provider] - Keep Vamsi appointment Additional Instructions: Zofran as needed for nausea. Protonix daily for reflux. Follow-up with your scheduled doctor's appointment tomorrow.
[2020-02-04 23:55] VITALS: BP 121/89; PULSE 72; RESP 18; O2SAT 98
== END 2020-02-04 23:57 | disposition home or self-care (01) ==
PROVIDERS: Emergency Provider Emergency Medicine; PCP Internal Medicine
DX: K21.9 Gastro-esophageal reflux disease without esophagitis (principal); I10 Essential (primary) hypertension; E11.65 Type 2 diabetes mellitus with hyperglycemia; J44.9 Chronic obstructive pulmonary disease, unspecified; Z72.0 Tobacco use; Z79.84 Long term (current) use of oral hypoglycemic drugs; Z79.899 Other long term (current) drug therapy; Z86.73 Personal history of transient ischemic attack (TIA), and cerebral infarction without residual deficits
CPT/HCPCS: 71045; 76705; 80048; 80076; 83690; 84484; 85025; 93005; 99284; A4216

== ENCOUNTER → 2020-02-07 | Outpatient (CLI) | payer MEDICARE, MEDICAID, SELFPAY ==
[2020-02-07 13:19] VITALS: BMI 51.2
[2020-02-07 14:17] LABS: Bacteria 0 SEEN /hpf (None Seen); Mucous, Urine 0 SEEN /hpf (<or=2+); Red Blood Cells-Urine 0 SEEN /hpf (0-5); White Blood Cells 0 SEEN /hpf (0-5)
[2020-02-07 15:17] LABS: Color, Urine Yellow (Yellow); Glucose, Dipstick Normal (Normal); Ketone-Dipstick Negative (Negative); Leukocyte Esterase-Dipstick Negative /ul (Negative); Nitrite-Dipstick Negative (Negative); Occult Blood-Urine Negative /ul (Negative); Protein-Dipstick Negative (Negative); Specific Gravity, Urine 1.015 (1.002-1.030); Urine Bilirubin Dipstick Negative (Negative); Urine Clarity Sl. Cloudy (Clear); Urine Urobilinogen Normal (Normal)
[2020-02-07 15:30] LABS: Amorphous Sediment 1+ URATE; Squamous Epithelial Cells - UA 0-5 SEEN /hpf (5-10)
== END | disposition home or self-care (01) ==
LOC: LABSPEC 14:16
PROVIDERS: PCP Internal Medicine; Referring Provider Internal Medicine; Visit Provider Internal Medicine
DX: R10.9 Unspecified abdominal pain (principal)
CPT/HCPCS: 81001

== ENCOUNTER → 2020-02-11 | Outpatient (CLI) | payer MEDICARE, MEDICAID, SELFPAY ==
[2020-02-07 13:19] VITALS: BMI 51.2
== END | disposition home or self-care (01) ==
LOC: LABSPEC 11:09
PROVIDERS: PCP Internal Medicine; Referring Provider Internal Medicine; Visit Provider Internal Medicine
DX: K21.9 Gastro-esophageal reflux disease without esophagitis (principal); R10.9 Unspecified abdominal pain
CPT/HCPCS: 82274

== ENCOUNTER → 2020-02-18 10:23 | Outpatient (CLI) | payer MEDICARE, MEDICAID, SELFPAY ==
[2020-02-07 13:19] VITALS: BMI 51.2
--- NOTE | 2020-02-18 10:24 | NM_ITS ---
CLINICAL: 64-year-old female with reported history of right upper quadrant abdominal pain. RADIONUCLIDE HEPATOBILIARY SCINTIGRAPHY COMPARISON: Abdominal ultrasound report 02/04/2020 FINDINGS: Following the intravenous administration of 5.7 mCi of 99m Tc Mebrofenin, hepatobiliary images reveal: 1. Relatively prompt and homogeneous radiopharmaceutical concentration is noted by the liver parenchyma. The left lobe of the liver is prominent in size. No parenchymal defects are identified. 2. Gallbladder activity is identified at 10 minutes post radiopharmaceutical administration. 3. Small intestinal tract is observed at 60 minutes following tracer injection. 4. Washout of the radiopharmaceutical by the hepatic parenchyma appears qualitatively normal. Cholecystokinin (0.02 ug/kg) was administered intravenously over a 30-minute period. The post CCK gallbladder ejection fraction calculated at 20 minutes following Cholecystokinin administration was noted to be 86.0 % (normal greater than 35%). During 30 minutes of post CCK imaging, there is no scintigraphic evidence of reflux of the radiotracer into the common hepatic duct or refilling of the gallbladder. There is scintigraphic evidence of post CCK duodenal gastric reflux. OR/Hepatobilliary Img w/Pharm Int IMPRESSION: 1. A gallbladder ejection fraction calculated to be greater than 35% following the administration of Cholecystokinin makes the probability of functional hepatobiliary disease (gallbladder and/or sphincter of Oddi dyskinesia) and/or organic hepatobiliary disease (chronic acalculous cholecystitis and/or cystic duct syndrome) to be low. (Chad Lee et al, Journal of Nuclear Medicine 32:1695, 1990). 2. There is scintigraphic evidence of post CCK duodenal-gastric reflux as defined above. (Deejay et al, Nucl Med Amanda Edel Press pg. 35, 1980). Electronically Signed: Odin Garcia DO at 22:25 EDT Tel , Service support ,
== END ==
PROVIDERS: PCP Internal Medicine; Referring Provider Internal Medicine; Visit Provider Internal Medicine
DX: R10.11 Right upper quadrant pain (principal)
CPT/HCPCS: 78227; A9537; J2805

== ENCOUNTER → 2020-03-11 10:04 | Outpatient (CLI) | payer MEDICARE, MEDICAID, SELFPAY ==
[2019-12-20 07:42] VITALS: BMI 48.4
[2020-02-20 17:07] VITALS: BMI 51.2
[2020-03-11 10:43] VITALS: PULSE 102; PULSE 103; PULSE 104; PULSE 106; PULSE 70; PULSE 76; PULSE 84; PULSE 90; O2SAT 88; O2SAT 91; O2SAT 93; O2SAT 94; O2SAT 96; O2SAT 98
--- NOTE | 2020-03-11 10:45 | CPS ---
Patient wears 2 lpm O2 at home and came in on own tank. Room Air SpO2, 10 minutes after taking off O2 was 96%. Started testing on room air.
--- NOTE | 2020-03-12 09:10 | PCM.PSN.6M ---
PSN 6 Minute Walk Test - 6 Minute Walk Test 6 Minute Walk Test: 6 Minute Walk Test PSN:6-Minute Walk Test Start: 03/11/20 10:43 Freq: Status: Active Protocol: [id number] Document 03/11/20 10:43 DOUGIE (Rec: 03/11/20 10:46 BITAMARILYN [id number]) 6 Minute Walk Test Date Performed 03/11/20 Time Performed 10:00 Height 5 ft 2 in Weight: 272 lb Weight in Pounds 272.[address]: Jagdish Alonso Assistive device used: None Pre-test Oxygen Delivery Method Room Air Pulse Ox (%) 96 Pulse Rate (60-100 beats/min) 70 Dyspnea Hernando Scale (0-10) 0.5 Exertion Hernando Scale (6-20) 6 1st minute Oxygen Delivery Method Room Air Pulse Ox (%) 93 Pulse Rate (60-100 beats/min) 84 2nd minute Oxygen Delivery Method Room Air Pulse Ox (%) 88 Pulse Rate (60-100 beats/min) 103 H 3rd minute Oxygen Flow Rate (L/min) (L/min) 2 Oxygen Delivery Method Nasal Cannula Pulse Ox (%) 94 Pulse Rate (60-100 beats/min) 90 4th minute Oxygen Flow Rate (L/min) (L/min) 2 Oxygen Delivery Method Nasal Cannula Pulse Ox (%) 91 Pulse Rate (60-100 beats/min) 104 H 5th minute Oxygen Flow Rate (L/min) (L/min) 2 Oxygen Delivery Method Nasal Cannula Pulse Ox (%) 88 Pulse Rate (60-100 beats/min) 106 H 6th minute Oxygen Flow Rate (L/min) (L/min) 3 Oxygen Delivery Method Nasal Cannula Pulse Ox (%) 93 Pulse Rate (60-100 beats/min) 102 H Dyspnea Hernando Scale (0-10) 4 Exertion Hernando Scale (6-20) 13 Post-test Oxygen Flow Rate (L/min) (L/min) 3 Oxygen Delivery Method Nasal Cannula Pulse Ox (%) 98 Pulse Rate (60-100 beats/min) 76 Full Laps Walked 13 Partial Lap, Number of Tiles Walked 49 Total Distance Walked (ft) 816 03/11/20 10:45 Cardiopulmonary Services by Raquel Metzger Patient wears 2 lpm O2 at home and came in on own tank. Room Air SpO2, 10 minutes after taking off O2 was 96%. Started testing on room air. Initialized on 03/11/20 10:45 - END OF NOTE - Interpretation Interpretation: The patient ambulated 816 feet over the course of 6 minutes beginning on room air without assistive devices or breaks. Pretesting oxygen saturation was noted to be 96% on room air. With ambulation, the patient desaturated on several occasions, requiring the initiation and subsequent escalation of supplemental oxygen flow rate to 3 L/min with exertion. - Recommendations Recommendations: 3 L/min of supplemental oxygen should be utilized with exertion.
== END ==
PROVIDERS: PCP Internal Medicine; Referring Provider Internal Medicine Critical Care Medicine; Visit Provider Internal Medicine Critical Care Medicine
DX: J44.9 Chronic obstructive pulmonary disease, unspecified (principal)
CPT/HCPCS: 94618

== ENCOUNTER → 2020-03-16 | Outpatient (CLI) | payer MEDICARE, MEDICAID, SELFPAY ==
[2020-03-16 07:40] VITALS: BMI 50.6
[2020-03-16 11:45] LABS: Anion Gap 7 (5-15); BUN 12 mg/dL (7-18); BUN/Creat Ratio 15.1 RATIO (10-20); Calcium,Total 9.5 mg/dL (8.5-10.1); Chloride 108 mmol/L (98-107); EST Glomerular Filtration Rate 77 mL/min (>60); Est Glom Filt Rate - Afr Amer 93 mL/min (>60); Glucose 168 mg/dL (74-106); Potassium 4.6 mmol/L (3.5-5.1); Sodium Level 139 mmol/L (136-145)
[2020-03-16 11:46] LABS: BNP,B-Type NATRIURETIC PEPTIDE 55.3 pg/mL (0-100)
== END | disposition home or self-care (01) ==
PROVIDERS: PCP Internal Medicine; Referring Provider Nurse Practitioner Acute Care; Visit Provider Nurse Practitioner Acute Care
DX: I27.21 Secondary pulmonary arterial hypertension (principal)
CPT/HCPCS: 36415; 80048; 83880

== ENCOUNTER → 2020-03-20 10:48 | Outpatient (CLI) | payer MEDICARE, MEDICAID, SELFPAY ==
[2020-03-17 09:30] VITALS: BMI 50.5
[2020-03-20 12:45] LABS: AST(SGOT) 13 U/L (15-37); Alanine Aminotransfer ALT/SGPT 25 U/L (13-56); Albumin, Serum 3.5 g/dL (3.2-5.0); Alkaline Phosphatase 107 U/L (45-117); Cholesterol 201 mg/dL (200); Globulin 3.4 g/dL (2.2-4.2); High Density Lipoprotein 61 mg/dL; Protein, Total 6.9 g/dL (6.4-8.2); Triglycerides 129 mg/dL; Very Low Density Lipoprotein 26 mg/dL (5-40)
== END ==
PROVIDERS: PCP Internal Medicine; Referring Provider Internal Medicine Cardiovascular Disease; Visit Provider Internal Medicine Cardiovascular Disease
DX: E78.5 Hyperlipidemia, unspecified (principal)
CPT/HCPCS: 36415; 80061; 80076

== ENCOUNTER → 2020-03-31 12:51 | Outpatient (CLI) | payer MEDICARE, MEDICAID, SELFPAY ==
[2020-03-17 09:30] VITALS: BMI 50.5
--- NOTE | 2020-03-31 12:52 | ECHOD_ITS ---
Reason For Study: PHTN Procedure This was a 2D Doppler, Color Flow transthoracic echocardiogram. Exam performed in department. Left Ventricle Normal LV size. Left ventricular systolic function is normal. The estimated ejection fraction is 60 %. Stage 1 diastolic dysfunction. No regional wall motion abnormalities noted. Right Ventricle Normal RV size. Normal systolic function. Atria The left atrium is mildly enlarged. Normal right atrium. Mitral Valve Normal mitral valve. Tricuspid Valve Normal tricuspid valve. Mild to moderate (1-2+) tricuspid valve insufficiency. Pulmonary artery systolic pressure is 45 mmHg. Aortic Valve The aortic valve is not well visualized. Pulmonic Valve Normal pulmonic valve. Great Vessels Normal aortic root. The pulmonary artery is normal size. Normal inferior vena cava. Pericardium/Pleural No pericardial effusion. MMode/2D Measurements & Calculations LVIDd: 4.5 cm IVSd: 1.2 cm Ao root diam: 3.2 cm LVIDs: 2.7 cm LVPWd: 1.0 cm RVDd: 3.6 cm FS: 40.4 % LAV(MOD-bp): 72.3 ml LA A4 area: 22.2 cm2 LA dimension(2D): 4.8 cm LAV(MOD-bp) Indexed: 33.0 ml/m2 LAV(MOD-sp2): 73.5 ml LAV(MOD-sp4): 69.4 ml RA A4 area: 15.9 cm2 Time Measurements MV dec time: 0.19 sec Doppler Measurements & Calculations MV E max stephen: 91.2 cm/sec Lat Peak E' Stephen: 7.6 cm/sec Med Peak E' Stephen: 4.9 cm/sec MV A max stephen: 115.5 cm/sec E/E' lat: 12.1 E/E' med: 18.6 MV E/A: 0.79 Ao V2 max: 160.3 cm/sec LV V1 max: 122.8 cm/sec PA V2 max: 118.7 cm/sec Ao max P.3 mmHg LV V1 max P.0 mmHg PI end-d stephen: 106.2 cm/sec TR max stephen: 323.3 cm/sec TR max P.9 mmHg Interpretation Summary Normal LV size. Left ventricular systolic function is normal. The estimated ejection fraction is 60 %. Stage 1 diastolic dysfunction. Mild to moderate (1-2+) tricuspid valve insufficiency. The left atrium is mildly enlarged. Ordering Physician: Dieter Montes Referring Physician: Refugio Dowd Performed By: Lindsey Nelson, RDCS, RVT
== END ==
PROVIDERS: PCP Internal Medicine; Referring Provider Internal Medicine Cardiovascular Disease; Visit Provider Internal Medicine Cardiovascular Disease
DX: I27.21 Secondary pulmonary arterial hypertension (principal); R06.02 Shortness of breath
CPT/HCPCS: 93306

== ENCOUNTER → 2020-04-17 09:21 | Outpatient (CLI) | payer MEDICARE, MEDICAID, SELFPAY ==
[2019-12-20 07:42] VITALS: BMI 48.4
[2020-03-17 09:30] VITALS: BMI 50.5
--- NOTE | 2020-04-17 14:24 | PFTCOMP ---
COMPLETE PULMONARY FUNCTION TEST INTERPRETATION Brief HPI: Patient is a 63 year old Black female, currently under the care of myself, who presents to [facility] for complete pulmonary function tests secondary to diagnosis of COPD. Respiratory therapist reports good effort and reproducible results. Interpretation: Forced expiration spirometry shows a mild large airways obstructive ventilatory defect with an FEV1 of 88% predicted. There is no significant bronchodilator response by strict ATS criteria. Spirograms are of good quality and plateau slowly, indicating slowly emptying areas of the lungs. The respiratory flow volume loop shows decreased expiratory flow rates at all lung volumes consistent with airway obstruction. Lung volumes by body plethysmography show a normal total lung capacity at 4.41 L, 99% predicted. All other lung volumes are within normal limits. Diffusion capacity by carbon monoxide is severely decreased at 33% predicted. The airway resistance is normal. Compared to previous pulmonary function tests from 03/05/2019, there has been no significant change. Impression: Irreversible mild large airways obstructive ventilatory defect with a disproportionate reduction in diffusion capacity, but no significant change compared to previous.
== END ==
PROVIDERS: PCP Internal Medicine; Referring Provider Internal Medicine Critical Care Medicine; Visit Provider Internal Medicine Critical Care Medicine
DX: J44.9 Chronic obstructive pulmonary disease, unspecified (principal)
CPT/HCPCS: 94060; 94726; 94729

== ENCOUNTER → 2020-04-30 13:42 | Outpatient (CLI) | payer MEDICARE, MEDICAID, SELFPAY ==
[2020-04-22 13:34] VITALS: BMI 51.5
[2020-04-30 13:17] VITALS: BMI 50.8
[2020-04-30 13:58] LABS: Absolute Lymphocyte Count 2.01 X10^3/uL (0.83-4.51); Absolute Neutrophil Count 6.9 X10^3/uL (2.0-7.7); Basophil# 0.05 X10^3/uL; Basophil% 0.5 % (0-1); Eosinophil# 0.25 X10^3/uL; Eosinophils% 2.5 % (0-5); Hematocrit 44.3 % (37-47); Hemoglobin 14.6 g/dL (12.0-15.0); Lymphocyte # 2.01 X10^3/ul (4.0); Lymphocyte % 20.4 % (19-41); Mean Corpuscular Volume 100.2 fL (81-99); Mean Platelet Vol. 8.7 fl (6.2-12.0); Monocyte# 0.61 X10^3/uL; Monocyte% 6.2 % (0-10); NRBC Flagged by Analyzer 0 % (0-5); Neutrophil % 70.1 % (47-70); Platelet Count 318 K/mm3 (150-450); RBC Distribution Width CV 12.9 % (11.6-14.6); RBC Distribution Width SD 47.8 fl (35.1-43.9); Red Blood Count 4.42 M/mm3 (4.2-5.4); White Blood Count 9.9 K/mm3 (4.4-11.0)
[2020-04-30 14:09] LABS: Anion Gap 5 (5-15); BUN 15 mg/dL (7-18); BUN/Creat Ratio 19.3 RATIO (10-20); Calcium,Total 9.5 mg/dL (8.5-10.1); Chloride 106 mmol/L (98-107); Creatinine, Serum 0.78 mg/dL (0.55-1.02); EST Glomerular Filtration Rate 79 mL/min (>60); Est Glom Filt Rate - Afr Amer 96 mL/min (>60); Glucose 131 mg/dL (74-106); Sodium Level 139 mmol/L (136-145)
--- NOTE | 2020-04-30 14:56 | CT_ITS ---
STUDY: LOW DOSE CT LUNG CANCER SCREENING REASON FOR EXAM: Female, 64 years old. LUNG SCREEN, 1/2 PPD X 50+ YRS RADIATION DOSAGE (If Supplied By Facility): CTDIvol = ( 3.40 ) mGy, DLP = ( 110.61 ) mGycm TECHNIQUE: No contrast was administered. Low dose technique was utilized (average mAS-38 and kVp 120). 1.25 mm axial source images with a slice interval of 1.25-mm were reconstructed in lung windows. 2.5 mm axial source images with a slice interval of 2.5-mm were reconstructed in lung windows. 5.0 mm axial source images with a slice interval of 5.0-mm were reconstructed in soft tissue windows. Nodule measured using lung windows on PACS and/or independent workstation with automated measurement of minimum and maximum diameter. Nodule measurement reported as average diameter rounded to the nearest whole number. Growth is defined as an increase ins size of greater than 1.5 mm. COMPARISON: Comparison is made with prior study dated 05/24/2017. NODULES: No suspicious nodule is seen. Emphysema: Minimal increased markings in the lateral inferior aspect of the lingular segment of the left upper lobe. Mild emphysematous changes. Stable. Aorta: Mild atherosclerotic plaque of the aortic arch. Coronary arteries: Coronary artery calcification. Heart: Unremarkable. Pulmonary artery: Unremarkable. Mediastinal nodes: Small benign appearing mediastinal lymph nodes. Other chest and abdominal findings: Degenerative changes of the thoracic spine. CT/Low Dose CT Lung Screening IMPRESSION: Lung-RADS category 2 - Continue annual screening with LDCT in 12 months. IMPORTANT NOTES FOR USE: ACR Lung-RADS Version 1.0 Assessment Categories Release Date: November 25, 2013 Category: Coded 0-4 bases on nodule(s) with highest degree of suspicion. Negative screen is defined as categories 1 and 2; a positive screen is defined as categories 3 and 4. Category 3 and 4A nodules that are unchanged on interval CT should be coded as category 2, and individuals returned to screening in 12 months. Category 4X: Category 3 or 4 nodules with additional imaging findings that increase the suspicion of lung cancer, such as spiculation, GGN that doubles in size in 1 year, enlarged lymph notes, etc. Category Modifiers: S (significant finding unrelated to lung cancer) and C (prior history of treated lung cancer) may be added to the 0-4 Lung-RADS Electronically Signed: [place], at 12:46 EDT , Service support ,
== END ==
PROVIDERS: Physician Assistant Medical; PCP Internal Medicine; Referring Provider Nurse Practitioner Acute Care; Visit Provider Nurse Practitioner Acute Care
DX: I10 Essential (primary) hypertension (principal); J96.10 Chronic respiratory failure, unspecified whether with hypoxia or hypercapnia; R06.02 Shortness of breath; I27.21 Secondary pulmonary arterial hypertension; F17.210 Nicotine dependence, cigarettes, uncomplicated
CPT/HCPCS: 36415; 80048; 85025; G0297

== ENCOUNTER 2020-05-04 07:00 | Day surgery (SDC) | payer MEDICARE, MEDICAID, SELFPAY ==
[2020-04-24 11:22] VITALS: BMI 50.8
[2020-04-30 13:17] VITALS: BMI 50.8
[2020-05-01 07:49] VITALS: BMI 50.8
[2020-05-04 08:10] LABS: Base Excess -1 mmol/L (-2 to +2); Bicarbonate 24.9 mmol/L (22-26); Blood Gas Specimen Type ART; PO2 37 mmHG (75-100); SO2 68 % (95-99); Total Carbon Dioxide 26 mmol/L; pCO2 44.4 mmHg (35-45); pH 7.36 (7.35-7.45)
[2020-05-04 08:21] LABS: Blood Gas Specimen Type VEN; VBG BASE EXCESS 1 mmol/L (-1.0-3.5); VBG Bicarbonate 26 mmol/L (22-26); VBG Oxygen Content 28 mmol/L (23-33); VBG PO2 35 mmHg (25-40); VBG SO2 63 % (50-70); VBG pCO2 47.6 mmHg (41-51); VBG pH 7.35 (7.32-7.42)
--- NOTE | 2020-05-04 08:26 | CL.D_ITS ---
Patient Name: ETIENNE BERMUDEZ Study Date: 05/04/2020 Performing: Dilip Lawson MD Ht: 61.81 inches 157 cm : 1955 Wt: 277.78 lbs 126 kg Age: 64 Gender: female BSA: 2.19 PROCEDURE(S) PERFORMED RE35-AKS ONLY CLINICAL PROFILE AND INDICATIONS Indications: Other Heart Failure: None Stress/Imaging Stress/Image Study Performed: No CAD Presentations: Symptom unlikely to be ischemic. CONCLUSIONS Moderate pulmonary hypertension. The above findings do not appear to be significantly different from the pulmonary pressures recorded 2 years ago. In 2018. RECOMMENDATIONS Medical therapy Medical therapy DESCRIPTION OF PROCEDURE The patient arrived to the procedure lab. The risks and benefits of the procedure as well as a full d escription of our services here and current unavailability of surgical backup were fully explained to the patient and/or their significant other prior to the catheterization. The Timeout was completed, verifying the correct patient and procedure. The patient's procedural site was prepped and draped in the usual fashion. Local anesthetic was given subcutaneously to right groin region with Lidocaine 2%. Using a modified Seldinger technique, Venous access was obtained via the right femoral vein, a 7Fr sheath was inserted. A 7Fr thermal dilution catheter was inserted and right heart pressures were satinder rded, it was then advanced to PA position for cardiac outputs. Thermal dilution cardiac outputs were then recorded. O2 saturations were then obtained. The Thermal dilution catheter was then removed.The venous sheath was then pulled and manual compression applied until hemostasis achieved CORONARY ANGIOGRAPHY RIGHT HEART ASSESSMENT Thermal CO: 5.46 Thermal CI: 2.49 PW: 12 PA: 42/ 25 RV: 41/-2 7 RA: 01/11 4 PVR: 190 Right Heart pressures - elevated COMPLICATIONS PROCEDURE MEDICATIONS Versed 1 mg IV Versed 1 mg IV SUMMARY OF HEMODYNAMIC DATA Time AIR REST ECG 07:23:55 RV 41/-2, 7 08:06:00 RA 01/11 (4) SV 08:06:15 PA 42/13 (25) PA 08:08:30 PW 19/13 (12) PV 08:08:46 PA 43/11 (25) 08:09:06 PW 14/8 (8) 08:13:35 PA 49/15 (29) 08:13:53 RV 53/0, 11 08:15:14 RA 05/06 (5) 08:15:54 Type SV CO (l/m) CI (l/m/ HR Time AIR REST Thermal 82.70 5.46 2.49 66 07:23:55 Signed By Dilip Lawson MD On 05/04/2020 8:25:39 AM Dilip Lawson MD
--- NOTE | 2020-05-04 08:30 | HP_ITS ---
HPI HPI History of Present Illness Surgical H&P: Yes Details: Chief Complaint: Pulmonary HTN Details: ETIENNE BERMUDEZ, is a 64 morbidly obese prediabetic female with a history of reactive airway disease, fibromyalgia, tobacco abuse, smoking 2-3 packs per day for the past 51 years, COPD, hypertension, obstructive sleep apnea compliant with BiPAP, pulmonary hypertension apparently with multiple TIAs in the past with a visit to the emergency room several years ago. At that time the patient had new onset severe knifelike chest pain radiating up into her right jaw and ear, slept on a heating pad all evening to relieve her ear pain, woke up the next morning with what appeared to be right facial droop, and slurred speech. Due to her frequent nature of these events she did not seek medical attention in the emergency room however mention it to her primary care physician Dr. Abraham. This triggered a order for an MRI/MRA however the patient was unable to tolerate the confined space due to her severe claustrophobia and this was not completed. No carotid ultrasound was performed. In addition the patient complained of left lower extremity swelling, an ultrasound demonstrated superficial phlebitis. Patient underwent pulmonary function test with Dr. Alonso which suggested pulmonary vascular disease, due to significant decrease in DLCO. She had partially reversible moderate large airway obstructive disease and is compliant with her medications. This triggered an echocardiogram dated 05/24/17 which demonstrated normal LV size and function with an EF of 65%, mild tricuspid regurgitation and RVSP of at least 46 mmHg. No bubble study was done at that time. Dobutamine echocardiogram dated 09/20/17 was negative for inducible ischemia. Pulmonary performed a Holter monitor on the patient which showed rare PACs and PVCs. Patient's only activity is chasing around her grandchildren and does not exercise formally. She does complain of dyspnea on exertion but this is been relatively stable for some time. She denies any exertional chest pain walking up and down stairs. It is unclear whether the patient was prescribed baby aspirin or other anticoagulant, but she is not on a baby aspirin. Unfortunately, the patient continues to smoke. On 02/14/18, the patient presented in the emergency room with atypical right anterior mid axillary line chest pain which described as knifelike. Her troponins were negative, the patient was treated and released. Her EKG at that time showed normal sinus rhythm, no acute changes. She was subsequently sent home, and had an additional episode of right-sided jaw pain and neck pain while she was sleeping. This actually woke her up from a sound sleep. She reports 2 previous episodes of nocturnal pain and neck pain, 1 of which woke her up from a sound sleep. She has noted decreased exercise capacity over the last several months, as well as increasing fatigue. In order to better evaluate her ongoing and repeated chest pain symptoms she underwent a diagnostic cardiac catheterization on 03/07/2018 with the following results: Non obstructive coronary arteries Normal LV size, wall motion,and systolic function Right heart pressures - moderately elevated The patient has pulmonary hypertension which is moderate. Since her last visit, the patient has had several episodes of palpitations, dyspnea on exertion, orthopnea, and recently sought medical attention with pulmonary. She was placed on short acting Cardizem for her palpitations, and underwent a BNP which was 55.3. In addition she underwent a Holter monitor which demonstrated PACs but no true atrial fibrillation. Since that time she is complained of lower extremity edema, but her palpitations have improved. In our office today her blood pressure is 140/60 pulse is 72 and regular. Her physical exam demonstrates a very raspy voice, distant breath sounds bilaterally, regular rate and rhythm, normal S1/S2, no S3-S4 murmurs are noted. She has 1+ bilateral lower extremity edema. Lipids as of 08/23/17 show an LDL of 120 and an HDL of 59. Repeat lipids dated 10/10/2018 show an LDL of 95 and HDL of 57. Repeat lipids are pending. Pt sts that overall she feels that her breathing is improving. She is not needing to use her O2 20/02. She finds that she needs to prop her self up on pillows. She finds that overall the past few weeks she has been able to decrease her amount of pillows. She does note that she has palpitations when she lays down. She does not have any lightheadedness/dizziness. She does not have any edema.- this improved with her medication changes at last OV. Intake Vital Signs 04/24/20 Height 5 ft 2 in 04/24/20 Weight: 278 lb 04/24/20 BMI 50.8 04/24/20 BP 129/75 H 04/24/20 Blood Pressure Location Lt brachial 04/24/20 Position Sitting 04/24/20 Respiration 20 H 04/24/20 Pulse 69 04/24/20 Pulse Source Monitor 04/24/20 Pulse Oximetry (%) 96 Intake Visit Reasons: EVALUATE FOR C Log Chipper Required: No Accompanied by: None Is patient in pain?: No Allergies fluconazole [From Diflucan] Allergy (Verified 04/24/20 11:22) Anaphylaxis nickel [Nickel] Allergy (Verified 04/24/20 11:22) Rash perfume Allergy (Verified 04/24/20 11:22) Rash deodorant Allergy (Uncoded 04/22/20 11:11) Rash Medications Vit C/E/Zn/Coppr/Lutein/Zeaxan [Preservision Areds 2 Softgel] 1 cap PO BID 03/16/17 [History Confirmed 04/22/20] montelukast 10 mg tablet 10 mg PO QPM #90 tab 07/19/19 [Rx Confirmed 04/22/20] Gabapentin 600 mg PO BID 09/29/19 [History Confirmed 04/22/20] Lisinopril 2.5 mg PO DAILY 09/29/19 [History Confirmed 04/22/20] Ropinirole HCl 2 - 4 mg PO QHS 12/02/19 [History Confirmed 04/22/20] aspirin 81 mg tablet,delayed release 81 mg PO DAILY #90 tab 01/06/20 [Rx Confirmed 04/22/20] cetirizine 10 mg tablet 10 mg PO QHS #90 tab 01/06/20 [Rx Confirmed 04/22/20] Albuterol Aerosols [Ventolin Aerosols] 2.5 mg INHALATION Q4H PRN #25 vial 01/17/20 [Rx Confirmed 04/22/20] guaifenesin 1,200 mg tablet, extended release 12 hr 1,200 mg PO Q12H #180 tab 01/22/20 [Rx Confirmed 04/22/20] potassium chloride 20 mEq tablet,extended release 20 meq PO DAILY #20 tab 02/07/20 [Rx Confirmed 04/22/20] azelastine 0.15 % (205.5 mcg) nasal spray 1 spray INTRANASAL BID #3 ea 03/16/20 [Rx Confirmed 04/22/20] fluticasone propionate 50 mcg/actuation nasal spray,suspension 2 spray INTRANASAL DAILY #54.6 ml 03/16/20 [Rx Confirmed 04/22/20] tiotropium bromide 2.5 mcg/actuation mist for inhalation 2 puff INHALATION DAILY #3 device 03/16/20 [Rx Confirmed 04/22/20] diltiazem HCl 120 mg capsule,extended release 24 hr 120 mg PO DAILY #90 cap 03/17/20 [Rx Confirmed 04/22/20] furosemide 20 mg tablet 20 mg PO DAILY #90 tab 03/17/20 [Rx Confirmed 04/22/20] pantoprazole 40 mg tablet,delayed release 40 mg PO DAILY #90 tab 03/17/20 [Rx Confirmed 04/22/20] levothyroxine 150 mcg tablet 150 mcg PO DAILY #90 tab 04/14/20 [Rx Confirmed 04/22/20] albuterol sulfate 90 mcg/actuation aerosol inhaler 2 puff INHALATION Q4H PRN #18 g 04/22/20 [Rx Confirmed 04/22/20] budesonide-formoterol HFA 160 mcg-4.5 mcg/actuation aerosol inhaler 2 puff INHALATION BID #10.2 g 04/22/20 [Rx Confirmed 04/22/20] metformin 500 mg tablet,extended release 24 hr 1,000 mg PO QPM 90 Days #180 tab 04/22/20 [Rx Confirmed 04/22/20] duloxetine 30 mg capsule,delayed release 30 mg PO BID #180 cap 04/24/20 [Rx] [facility] Medical History Essential (primary) hypertension (Chronic) Secondary pulmonary arterial hypertension (Chronic) TIA (transient ischemic attack) (Chronic) Type 2 diabetes mellitus (Chronic) Hypothyroidism (Chronic) GERD (gastroesophageal reflux disease) (Chronic) Stage 3 severe COPD by GOLD classification (Chronic) HENRRY (obstructive sleep apnea) (Chronic) Anxiety and depression (Chronic) Chronic low back pain (Chronic) Degeneration of lumbar or lumbosacral intervertebral disc (Chronic) Dermatitis (Chronic) Diverticulosis (Chronic) Fibromyalgia (Chronic) Hearing loss (Chronic) Hiatal hernia (Chronic) Morbid obesity (Chronic) Nummular eczematous dermatitis (Chronic) Oral candidiasis (Chronic) 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) 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 myelopathy or radiculopathy (Chronic) Thrombophlebitis leg superficial (Chronic) Ureteral calculus, left (Chronic) Chronic obstructive pulmonary disease with acute exacerbation (Resolved) Tobacco abuse (Resolved) Abnormal results of pulmonary function studies (Inactive) MRSA (methicillin resistant staph aureus) culture positive (Inactive) Surgical History History of right and left heart catheterization (Resolved 03/07/18) History of D&C (Inactive) History of hysterectomy (Inactive) History of tonsillectomy (Inactive) History of tubal ligation (Inactive) Status post surgical manipulation of ankle joint (Inactive) Family History Mother Cancer Father Diabetes Alcoholism Brother Cancer Lung cancer Social History (Updated 04/24/20 @ 12:49 by Harper LOPEZ, PA) Smoking Status: Former smoker second hand exposure: Yes alcohol intake: never substance use type: does not use caffeine: Yes (4) what type of physical activity do you participate in: none ROS Const Const: Positive for fatigue; negative for weakness, fever(s) or headache(s) Eyes Eyes: Negative for blind spots, loss of peripheral vision or transient loss of vision ENT ENT: Negative for headache(s), dizziness, tinnitus or Nosebleed/epistaxis Cardio Chest Pain: No Palpitations: Yes Edema: None Muscle aches with walking: None Resp Respiratory: Positive for SOB with activity and SOB orthopnea\SOB lying down; negative for SOB at rest or Cough GI GI: Negative nausea, vomiting, heartburn or vomiting blood/hematemesis : Negative for hematuria Musc Musc: Negative for muscle aches/ myalgia Neuro Neuro: Negative for dizziness, lightheadedness, near syncope, syncope, orthostatic symptoms, headache(s) or weakness Gaurav Hematologic/Lymphatic: Negative for easy bleeding Endo Endo: Positive for fatigue Cardiology Exam Const Appearance: cooperative, no acute distress and well developed Nutritional Appearance: obese Orientation: alert, awake and oriented x3 Head Head: normocephalic and atraumatic Mouth: moist mucous membranes Eyes General: appearance normal, both eyes and all related structures Conjunctivae: conjunctivae normal Pupils: PERRL EOM: EOM intact bilaterally Neck Neck: normal visual inspection, no lymphadenopathy and no JVD Carotids: Negative bruit Neck Mass: Negative Neck mass Chest Chest inspection: normal inspection of the chest and symmetric chest movement Auscultation: Bilateral: Clear to Auscultation Cardio Palpation: normal PMI Rate: regular rate Rhythm: regular rhythm Heart sounds: S1 normal and S2 normal; negative rub, gallop or murmur GI GI: normal to inspection, soft, no hepatosplenomegaly, bowel sounds present and obese; negative tender Neuro General: alert, awake, oriented x3, CN's II-XI intact bilaterally and moves all extremities Extremities Pulses: Normal: Right Posterior Tibial Pulse, Left Posterior Tibial Pulse, Right Radial Pulse, Left Radial Pulse Lower Extremity Edema: None: Bilateral Psych Psychological: normal affect Assessment & Plan 1. Secondary pulmonary arterial hypertension I27.21 Plan Pulmonary is requesting a RHC to evaluate for medical therapy. This will be scheduled for in the near future. 2. Essential hypertension I10 Plan Blood pressure is well controlled on current medications, we do not recommend any changes at this time. Orders Orders: 12 Lead EKG performed by [facility] Today Plan Detail Other Orders Orders: 12 Lead EKG performed by [facility] Today R06.02 Follow Up 04/24/20 (keep as is) Coding Level of Care Code Off vis,est,level 3 Diagnoses Secondary pulmonary arterial hypertension I27.21 Essential hypertension I10 Coding Level of Care Code Off vis,est,level 3 Diagnoses Secondary pulmonary arterial hypertension I27.21 Essential hypertension I10 Supplemental Info Supplemental Information Echocardiogram 03/2020: Left Ventricle Normal LV size. Left ventricular systolic function is normal. The estimated ejection fraction is 60 %. Stage 1 diastolic dysfunction. No regional wall motion abnormalities noted. Right Ventricle Normal RV size. Normal systolic function. Atria The left atrium is mildly enlarged. Normal right atrium. Mitral Valve Normal mitral valve. Tricuspid Valve Normal tricuspid valve. Mild to moderate (1-2+) tricuspid valve insufficiency. Pulmonary artery systolic pressure is 45 mmHg. Aortic Valve The aortic valve is not well visualized. Pulmonic Valve Normal pulmonic valve. Great Vessels Normal aortic root. The pulmonary artery is normal size. Normal inferior vena cava. Pericardium/Pleural No pericardial effusion. MMode/2D Measurements & Calculations LVIDd: 4.5 cm IVSd: 1.2 cm Ao root diam: 3.2 cm LVIDs: 2.7 cm LVPWd: 1.0 cm RVDd: 3.6 cm FS: 40.4 % _ LAV(MOD-bp): 72.3 ml LA A4 area: 22.2 cm2 LA dimension(2D): 4.8 cm LAV(MOD-bp) Indexed: 33.0 ml/m2 LAV(MOD-sp2): 73.5 ml LAV(MOD-sp4): 69.4 ml _ RA A4 area: 15.9 cm2 Time Measurements MV dec time: 0.19 sec Doppler Measurements & Calculations MV E max stephen: 91.2 cm/sec Lat Peak E' Stephen: 7.6 cm/sec Med Peak E' Stephen: 4.9 cm/sec MV A max stephen: 115.5 cm/sec E/E' lat: 12.1 E/E' med: 18.6 MV E/A: 0.79 _ Ao V2 max: 160.3 cm/sec LV V1 max: 122.8 cm/sec PA V2 max: 118.7 cm/sec Ao max P.3 mmHg LV V1 max P.0 mmHg _ PI end-d stephen: 106.2 cm/sec TR max stephen: 323.3 cm/sec TR max P.9 mmHg Interpretation Summary Normal LV size. Left ventricular systolic function is normal. The estimated ejection fraction is 60 %. Stage 1 diastolic dysfunction. Mild to moderate (1-2+) tricuspid valve insufficiency. The left atrium is mildly enlarged. Labs LDL Cholesterol 114 mg/dL (0-130) 03/20/20 HDL Cholesterol 61 mg/dL (40-) 03/20/20 Triglycerides 129 mg/dL (-199) 03/20/20 VLDL Cholesterol 26 mg/dL (5-40) 03/20/20 Diagnostics Electrocardiogram 04/24/20 Echocardiogram 03/31/20 Pulmonary Pulmonary Function Test 04/17/20 Pulmonary Exercise Test 03/12/20 COVID (Procedure Consent) Procedure Criteria Procedure Criteria: Yes Elective The surgeon/proceduralist and patient have discussed in detail the risk of exposure to and/or potential harm posed by the COVID-19 virus with having a surgery/procedure at this time versus the risk of? delaying the surgery/procedure. It is not possible to know either the risk of delaying the surgery or procedure or chance of getting an infection with perfect accuracy, but a joint decision was made between the patient and the surgeon/proceduralist ?to proceed at this time with the scheduled surgery/procedure as indicated on the consent form.
== END 2020-05-04 10:45 | disposition home or self-care (01) ==
LOC: CLSP 07:01
PROVIDERS: PCP Internal Medicine; Referring Provider Internal Medicine Cardiovascular Disease; Visit Provider Internal Medicine Cardiovascular Disease
DX: I27.21 Secondary pulmonary arterial hypertension (principal); J44.9 Chronic obstructive pulmonary disease, unspecified; E11.9 Type 2 diabetes mellitus without complications; I10 Essential (primary) hypertension; E03.9 Hypothyroidism, unspecified; M79.7 Fibromyalgia; E66.01 Morbid (severe) obesity due to excess calories; G47.33 Obstructive sleep apnea (adult) (pediatric); K21.9 Gastro-esophageal reflux disease without esophagitis; F32.9 Major depressive disorder, single episode, unspecified; F41.9 Anxiety disorder, unspecified; F17.200 Nicotine dependence, unspecified, uncomplicated; Z79.84 Long term (current) use of oral hypoglycemic drugs; Z79.82 Long term (current) use of aspirin; Z79.899 Other long term (current) drug therapy; Z86.73 Personal history of transient ischemic attack (TIA), and cerebral infarction without residual deficits
CPT/HCPCS: 82803; 93451; 99152; 99153; J7040; C1751; C1894

== ENCOUNTER 2020-06-10 10:51 | Day surgery (SDC) | payer MEDICARE, MEDICAID, SELFPAY ==
[2020-05-01 07:49] VITALS: BMI 50.8
[2020-05-25 11:01] VITALS: BMI 50.3
--- NOTE | 2020-06-09 06:00 | HP_ITS ---
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 Is patient in pain?: No Allergies fluconazole [From Diflucan] Allergy (Verified 04/30/20 13:17) Anaphylaxis nickel [Nickel] Allergy (Verified 04/30/20 13:17) Rash perfume Allergy (Verified 04/30/20 13:17) Rash deodorant Allergy (Uncoded 04/22/20 11:11) Rash Medications Vit C/E/Zn/Coppr/Lutein/Zeaxan [Preservision Areds 2 Softgel] 1 cap PO BID 03/16/17 [History Confirmed 04/30/20] montelukast 10 mg tablet 10 mg PO QPM #90 tab 07/19/19 [Rx Confirmed 04/30/20] Gabapentin 600 mg PO BID 09/29/19 [History Confirmed 04/30/20] Lisinopril 2.5 mg PO DAILY 09/29/19 [History Confirmed 04/30/20] Ropinirole HCl 2 - 4 mg PO QHS 12/02/19 [History Confirmed 04/30/20] aspirin 81 mg tablet,delayed release 81 mg PO DAILY #90 tab 01/06/20 [Rx Confirmed 04/30/20] cetirizine 10 mg tablet 10 mg PO QHS #90 tab 01/06/20 [Rx Confirmed 04/30/20] Albuterol Aerosols [Ventolin Aerosols] 2.5 mg INHALATION Q4H PRN #25 vial 01/17/20 [Rx Confirmed 04/30/20] guaifenesin 1,200 mg tablet, extended release 12 hr 1,200 mg PO Q12H #180 tab 01/22/20 [Rx Confirmed 04/30/20] potassium chloride 20 mEq tablet,extended release 20 meq PO DAILY #20 tab 02/07/20 [Rx Confirmed 04/30/20] azelastine 0.15 % (205.5 mcg) nasal spray 1 spray INTRANASAL BID #3 ea 03/16/20 [Rx Confirmed 04/30/20] fluticasone propionate 50 mcg/actuation nasal spray,suspension 2 spray INTRANASAL DAILY #54.6 ml 03/16/20 [Rx Confirmed 04/30/20] tiotropium bromide 2.5 mcg/actuation mist for inhalation 2 puff INHALATION DAILY #3 device 03/16/20 [Rx Confirmed 04/30/20] diltiazem HCl 120 mg capsule,extended release 24 hr 120 mg PO DAILY #90 cap 03/17/20 [Rx Confirmed 04/30/20] furosemide 20 mg tablet 20 mg PO DAILY #90 tab 03/17/20 [Rx Confirmed 04/30/20] pantoprazole 40 mg tablet,delayed release 40 mg PO DAILY #90 tab 03/17/20 [Rx Confirmed 04/30/20] levothyroxine 150 mcg tablet 150 mcg PO DAILY #90 tab 04/14/20 [Rx Confirmed 04/30/20] albuterol sulfate 90 mcg/actuation aerosol inhaler 2 puff INHALATION Q4H PRN #18 g 04/22/20 [Rx Confirmed 04/30/20] budesonide-formoterol HFA 160 mcg-4.5 mcg/actuation aerosol inhaler 2 puff INHALATION BID #10.2 g 04/22/20 [Rx Confirmed 04/30/20] metformin 500 mg tablet,extended release 24 hr 1,000 mg PO QPM 90 Days #180 tab 04/22/20 [Rx Confirmed 04/30/20] duloxetine 30 mg capsule,delayed release 30 mg PO BID #180 cap 04/24/20 [Rx Confirmed 04/30/20] lorazepam 1 mg tablet 1 mg PO BID PRN #4 tab 04/29/20 [Rx Confirmed 04/30/20] Is last menstrual period known: No Post menopausal: Yes Patient : No PFSH Medical History Essential (primary) hypertension (Chronic) Secondary pulmonary arterial hypertension (Chronic) TIA (transient ischemic attack) (Chronic) Type 2 diabetes mellitus (Chronic) Hypothyroidism (Chronic) GERD (gastroesophageal reflux disease) (Chronic) Stage 3 severe COPD by GOLD classification (Chronic) HENRRY (obstructive sleep apnea) (Chronic) Anxiety and depression (Chronic) Chronic low back pain (Chronic) Degeneration of lumbar or lumbosacral intervertebral disc (Chronic) Dermatitis (Chronic) Diverticulosis (Chronic) Fibromyalgia (Chronic) Hearing loss (Chronic) Hiatal hernia (Chronic) Morbid obesity (Chronic) Nummular eczematous dermatitis (Chronic) Oral candidiasis (Chronic) 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) 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 myelopathy or radiculopathy (Chronic) Thrombophlebitis leg superficial (Chronic) Ureteral calculus, left (Chronic) Chronic obstructive pulmonary disease with acute exacerbation (Resolved) Tobacco abuse (Resolved) Abnormal results of pulmonary function studies (Inactive) MRSA (methicillin resistant staph aureus) culture positive (Inactive) Surgical History History of right and left heart catheterization (Resolved 03/07/18) History of D&C (Inactive) History of hysterectomy (Inactive) History of tonsillectomy (Inactive) History of tubal ligation (Inactive) Status post surgical manipulation of ankle joint (Inactive) Family History Mother Cancer Father Diabetes Alcoholism Brother Cancer Lung cancer Social History (Updated 04/30/20 @ 14:[address] Ismael Babcock MD) Smoking Status: Former smoker second hand exposure: Yes alcohol intake: never substance use type: does not use caffeine: Yes (4) what type of physical activity do you participate in: none HPI HPI HPI: ETIENNE BERMUDEZ, is a 64 F who presents to the office today for HPI HPI HPI: ETIENNE BERMUDEZ, is a 64 F who presents to the office today for endoscopy. The patient was originally sent needing colonoscopy and EGD. The patient reports that she had a colonoscopy 5 years ago but does not remember the exact date and she does not know if anything was found. She does not remember her recommendation for when to repeat colonoscopy. She had intermittent left lower quadrant pain this resolved once her constipation resolved. Patient denies any blood in her stool. She says she is having lot of belching. She said she had an EGD during her last colonoscopy and it showed a hiatal hernia. ROS General General: No weight change, appetite, fatigue, colon cancer, breast cancer or weakness HEENT HEENT: Yes difficulty swallowing and eye surgery; no eye injury, swollen glands or hoarseness Endo Endocrine: Yes thyroid disease and diabetes mellitus; no thyroid cancer, Hair loss, heat intolerance or cold intolerance Musc Musculoskeletal: Yes back problems, arthritis and rheumatoid arthritis; no gout or joint pain Cardio Cardiovascular: No murmur, pacemaker, heart disease, atrial fibrillation, high blood pressure, heart attack, heart stent, palpitations, shortness of breat with exertion or chest pain Psych Psychiatric: Yes anxiety; no depression or hearing voices Resp Respiratory: Yes shortness of breath, Yes sleep apnea, Yes cough, No COPD, Yes asthma, Yes emphysema, No wheezing Gastro Gastrointestinal: Yes abdominal pain, No nausea or vomiting, Yes diarrhea, Yes constipation, No blood in stool, Yes acid reflux, No hemorrhoids, No ulcers, No gallbladder problem, No black,tarry stools Gaurav Hematologic: No blood thinners, No blood disorders, No bleeding, No anemia, No blood clots Neuro Neurologic: No weakness Exam Const General: cooperative Orientation: alert, oriented x3 Resp Effort & Inspection: normal respiratory effort Auscultation: clear to auscultation bilaterally Cardio Rate: regular rate Rhythm: regular rhythm Heart Sounds: no murmurs GI Inspection: non-distended Palpation: soft, nontender Assessment & Plan Problems 1. Gastroesophageal reflux disease, unspecified whether esophagitis present K21.9 Plan The patient reports that she is having a lot of belching and GERD. She has known hiatal hernia. She is getting a CT scan of the chest today and having a heart catheterization next week. The patient does not know when her last colonoscopy was and I am trying to obtain her records. She does not remember if anything was found during her last colonoscopy. She says it was about 5 years ago. If there were no polyps found she would not be due for repeat colonoscopy yet. I also explained that if she does have a hiatal hernia she would require gastric bypass with hiatal hernia repair from a bariatric surgeon which is not performed at this location. Apple fundoplication with hiatal hernia repair be contraindicated due to her BMI. I will call her back after her CT is done and after I find the records for her last colonoscopy to see when she is actually due for repeat colonoscopy. Ismael Babcock MD Pager: [facility] [address] [place] [address], [address] [place] [address] Office: Orders Orders: Colonoscopy Today EGD Today R14.2 Coding Level of Care Code Off vis,new,level 3 Diagnoses Gastroesophageal reflux disease, unspecified whether esophagitis present K21.9 ??Esophagitis presence: esophagitis presence not specified I have re-examined the patient. There are no clinical changes since date of exam.
[2020-06-10 11:33] VITALS: BP 126/72; PULSE 68; RESP 16; TEMP 37.1; O2SAT 93; BMI 50.8
[2020-06-10] MEDS: Lactated Ringers 1,000 ML 100 ML IV (11:38)
[2020-06-10 11:45] LABS: Bedside Glucose 156 mg/dL (70-110)
--- NOTE | 2020-06-10 12:00 | EGD_PTH ---
PATIENT: ETIENNE BERMUDEZ LOC: [facility] U#:[id number] AGE/SX: 64/F ROOM: RE06/10/[address]: Dr. Ismael Babcock MD : 1955 BED: DIS: 06/10/2020 SPEC #: [id number] RECD: 06/10/20 15:06 STATUS: BERNY KENNETH #: [id number] LENA: 06/10/20 12:[address]: Ismael Babcock DEPT: SURGICAL PATHOLOGY RECD BY: Pollo Sampson ENTERED: 06/11/20 08:47 SP TYPE: EGD BIOPSY OT DR: Dr. Refugio Dowd MD Tissues: Gastric mucous membrane Procedures: Special Stain Group II Surgery Specimen Level IV Alcian Blue/PAS (control) HEADER OPERATION: [place], [place] PRE[place] DIAGNOSIS: GERD, esophagitis, screening TISSUE SUBMITTED: Antrum biopsy for histo and H. pylori MICROSCOPIC DIAGNOSIS Antrum biopsy: Mild gastritis. Focal intestinal metaplasia. See microscopic description and comment. AGA:nilam 06/12/20 COMMENT The results of immunohistochemistry for Helicobacter pylori will be reported separately ([id number]). Alcian blue/PAS stain with matched control is used in the evaluation of the specimen. MICROSCOPIC DESCRIPTION Slides are reviewed. The specimen shows fragments of gastric mucosa with chronic inflammatory cell infiltrates in the lamina propria consisting of lymphocytes and plasma cells, consistent with mild chronic gastritis. Focal intestinal metaplasia is also noted. GROSS DESCRIPTION Received in fixative is one container labeled with the patient's name and designated antrum biopsy. The specimen consists of two irregular fragments of light siegel soft tissue that in aggregate measure 0.5 x 0.3 x 0.1 cm. The specimen is totally submitted in one cassette. / AGA:nilam 06/11/20 TC:3 CPT: 60680, 33693
--- NOTE | 2020-06-10 12:00 | IMM_PTH ---
PATIENT: ETIENNE BERMUDEZ LOC: [facility] U#:[id number] AGE/SX: 64/F ROOM: RE06/10/[address]: Dr. Ismael Babcock MD : 1955 BED: DIS: 06/10/2020 SPEC #: [id number] RECD: 06/11/20 10:02 STATUS: BERNY REEduardo #: [id number] LENA: 06/10/20 12:[address]: Ismael Babcock DEPT: IMMUNOHISTOCHEMISTRY RECD BY: Gregoria Ruvalcaba ENTERED: 06/11/20 10:03 SP TYPE: IMMUNO OTHR DR: Dr. Refugio Dowd MD Tissues: Stomach, NOS Procedures: H Pylori (initial) PHYSICIAN & INSTITUTION [place] [id number] SPECIMEN INFORMATION: Tissue Source: Antrum biopsy Clinical Info: GERD, esophagitis, screening Specimen Number: [id number] CPT code: 10410 METHODOLOGY: Deparaffinized sections of prefer/formalin-fixed tissue or PAP/DQ stained slides are incubated with monoclonal/polyclonal antibodies/oligonucleotide probes. Localization is made via biotin free immunoperoxidase method. Appropriate controls are performed and reacted as expected. Results on target cell population are indicated in the following table: RESULTS: ANTIBODY / CLONE RESULT H Pylori (polyclonal) negative These tests were developed and their performance characteristics determined by [facility]. They may not have been cleared or approved by the U.S. Food and Drug Administration. The FDA has determined that such clearance or approval is not necessary. INTERPRETATION: Antrum biopsy: Negative for Helicobacter pylori organisms. SJ:nilam 06/12/20
--- NOTE | 2020-06-10 12:33 | OP.EGD_ITS ---
Patient Name: Kimber Carter Procedure Date: 06/10/2020 11:24 AM Date of : 1955 Age: 64 Procedure: Upper GI endoscopy Indications: Suspected gastro-esophageal reflux disease Providers: Ismael Babcock MD Referring MD: Refugio Dowd MD Medicines: Monitored Anesthesia Care Patient Profile: This is a 64 year old female. Refer to note in patient chart for documentation of history and physical. Complications: No immediate complications. Procedure: Pre-Anesthesia Assessment: - Prior to the procedure, a History and Physical was performed, and patient medications and allergies were reviewed. The patient's tolerance of previous anesthesia was also reviewed. The risks and benefits of the procedure and the sedation options and risks were discussed with the patient. All questions were answered, and informed consent was obtained. Prior Anticoagulants: The patient has taken no previous anticoagulant or antiplatelet agents. After reviewing the risks and benefits, the patient was deemed in satisfactory condition to undergo the procedure. After obtaining informed consent, the endoscope was passed under direct vision. Throughout the procedure, the patient's blood pressure, pulse, and oxygen saturations were monitored continuously. The gastroscope was introduced through the mouth, and advanced to the third part of duodenum. The upper GI endoscopy was accomplished without difficulty. The patient tolerated the procedure well. Scope In: 12:05:02 PM Scope Out: 12:08:52 PM Total Procedure Duration Time 0 hours 3 minutes 50 seconds Findings: The esophagus was normal. The stomach was normal. The examined duodenum was normal. Biopsies were taken with a cold forceps in the gastric antrum for Helicobacter pylori testing. Impression: - Normal esophagus. - Normal stomach. - Normal examined duodenum. - Biopsies were taken with a cold forceps for Helicobacter pylori testing. Recommendation: - Discharge patient to home. - Resume previous diet. - Continue present medications. Procedure Code(s): --- Professional --- 61003, Esophagogastroduodenoscopy, flexible, transoral; with biopsy, single or multiple CPT copyright 2017 [employer]. All rights reserved. The codes documented in this report are preliminary and upon dealer sales rep review may be revised to meet current compliance requirements. Ismael Babcock MD 06/10/2020 12:33:35 PM This report has been signed electronically. Number of Addenda: 0 Note Initiated On: 06/10/2020 11:24 AM
--- NOTE | 2020-06-10 12:34 | OP.CCLET_ITS ---
06/10/2020 Refugio Dowd MD [address] [place] [address] [place] [address] Re : Upper GI endoscopy procedure for Kimber Carter Dear Dr. Dowd This procedure was performed on Wednesday, June 10, 2020. My impressions and recommendations are as follows: Impressions : - Normal esophagus. - Normal stomach. - Normal examined duodenum. - Biopsies were taken with a cold forceps for Helicobacter pylori testing. Recommendations : - Discharge patient to home. - Resume previous diet. - Continue present medications. My findings are described in the full procedure note, which is enclosed. If I can be of further assistance, please feel free to contact me at Doctor phone number(s): , Work: . Sincerely, Ismael Babcock MD 06/10/2020 12:33:35 PM This report has been signed electronically.
--- NOTE | 2020-06-10 12:35 | OP.COLON_ITS ---
Patient Name: Kimber Carter Procedure Date: 06/10/2020 12:09 PM Date of : 1955 Age: 64 Procedure: Colonoscopy Indications: High risk colon cancer surveillance: Personal history of adenoma (10 mm or greater in size) Providers: Ismael Babcock MD Referring MD: Refugio Dowd MD Medicines: Monitored Anesthesia Care Patient Profile: This is a 64 year old female. Refer to note in patient chart for documentation of history and physical. Last Colonoscopy: 5 years ago. Complications: No immediate complications. Estimated blood loss: Minimal. Procedure: Pre-Anesthesia Assessment: - Prior to the procedure, a History and Physical was performed, and patient medications and allergies were reviewed. The patient's tolerance of previous anesthesia was also reviewed. The risks and benefits of the procedure and the sedation options and risks were discussed with the patient. All questions were answered, and informed consent was obtained. Prior Anticoagulants: The patient has taken no previous anticoagulant or antiplatelet agents. After reviewing the risks and benefits, the patient was deemed in satisfactory condition to undergo the procedure. After I obtained informed consent, the scope was passed under direct vision. Throughout the procedure, the patient's blood pressure, pulse, and oxygen saturations were monitored continuously. The pediatric colonoscope was introduced through the anus and advanced to the cecum, identified by appendiceal orifice and ileocecal valve. The colonoscopy was performed without difficulty. The patient tolerated the procedure well. The quality of the bowel preparation was adequate. Scope In: 12:10:55 PM Scope Withdrawal Time 0 hours 5 minutes 8 seconds Scope Out: 12:31:32 PM Total Procedure Duration Time 0 hours 20 minutes 37 seconds Findings: The entire examined colon appeared normal on direct and retroflexion views. Multiple small-mouthed diverticula were found in the sigmoid colon and descending colon. Impression: - The entire examined colon is normal on direct and retroflexion views. - Diverticulosis in the sigmoid colon and in the descending colon. - No specimens collected. Recommendation: - Discharge patient to home. - Resume previous diet. - Continue present medications. - Repeat colonoscopy in 10 years for screening purposes. Procedure Code(s): --- Professional --- 87877, Colonoscopy, flexible; diagnostic, including collection of specimen(s) by brushing or washing, when performed (separate procedure) Diagnosis Code(s): --- Professional --- Z86.010, Personal history of colonic polyps K57.30, Diverticulosis of large intestine without perforation or abscess without bleeding CPT copyright 2017 [employer]. All rights reserved. The codes documented in this report are preliminary and upon revolving inventory clerk review may be revised to meet current compliance requirements. Ismael Babcock MD 06/10/2020 12:35:17 PM This report has been signed electronically. Number of Addenda: 0 Note Initiated On: 06/10/2020 12:09 PM
--- NOTE | 2020-06-10 12:35 | OP.CCLET_ITS ---
06/10/2020 Refugio Dowd MD [address] [place] [address] [place] [address] Re : Colonoscopy procedure for Kimber Carter Dear Dr. Dowd This procedure was performed on Wednesday, June 10, 2020. My impressions and recommendations are as follows: Impressions : - The entire examined colon is normal on direct and retroflexion views. - Diverticulosis in the sigmoid colon and in the descending colon. - No specimens collected. Recommendations : - Discharge patient to home. - Resume previous diet. - Continue present medications. - Repeat colonoscopy in 10 years for screening purposes. My findings are described in the full procedure note, which is enclosed. If I can be of further assistance, please feel free to contact me at Doctor phone number(s): , Work: . Sincerely, Ismael Babcock MD 06/10/2020 12:35:17 PM This report has been signed electronically.
[2020-06-10 12:40] VITALS: BP 113/103; BP 126/72; BP 136/68; PULSE 75; PULSE 77; RESP 18; TEMP 36.1; O2SAT 96
[2020-06-10 12:45] VITALS: BP 117/99; BP 126/72; PULSE 78; RESP 16; O2SAT 97
[2020-06-10 12:50] VITALS: BP 125/66; BP 126/72; PULSE 73; RESP 18; O2SAT 98
[2020-06-10 12:55] VITALS: BP 126/72; BP 128/68; PULSE 74; RESP 16; O2SAT 95
[2020-06-10 13:20] VITALS: BP 126/72
== END 2020-06-10 13:20 | disposition home or self-care (01) ==
LOC: EN 10:51 → AC 10:53
PROVIDERS: PCP Internal Medicine; Referring Provider Internal Medicine; Visit Provider Surgery
PROC: 0DJD8ZZ Inspection of Lower Intestinal Tract, Via Natural or Artificial Opening Endoscopic (ICD-10-PCS; CPT 45378; principal; 2020-06-10 11:55)
DX: Z12.11 Encounter for screening for malignant neoplasm of colon (principal); K57.30 Diverticulosis of large intestine without perforation or abscess without bleeding; K21.9 Gastro-esophageal reflux disease without esophagitis; K29.70 Gastritis, unspecified, without bleeding; K44.9 Diaphragmatic hernia without obstruction or gangrene; Z87.19 Personal history of other diseases of the digestive system; Z20.828 Contact with and (suspected) exposure to other viral communicable diseases; I10 Essential (primary) hypertension; J43.9 Emphysema, unspecified; I27.21 Secondary pulmonary arterial hypertension; E11.9 Type 2 diabetes mellitus without complications; E03.9 Hypothyroidism, unspecified; G47.33 Obstructive sleep apnea (adult) (pediatric); M79.7 Fibromyalgia; F17.200 Nicotine dependence, unspecified, uncomplicated; E66.01 Morbid (severe) obesity due to excess calories; Z68.43 Body mass index [BMI] 50.0-59.9, adult; Z79.82 Long term (current) use of aspirin; Z79.84 Long term (current) use of oral hypoglycemic drugs; Z99.81 Dependence on supplemental oxygen; Z79.899 Other long term (current) drug therapy; Z86.73 Personal history of transient ischemic attack (TIA), and cerebral infarction without residual deficits
CPT/HCPCS: 43239; G0105; 82962; 87426; 88305; 88313; 88342; C9803; J7120

== ENCOUNTER → 2020-08-20 08:35 | Outpatient (CLI) | payer MEDICARE, MEDICAID, SELFPAY ==
[2020-07-22 13:38] VITALS: BMI 51.5
[2020-08-13 08:48] VITALS: BMI 50.5
--- NOTE | 2020-08-20 08:37 | BI_ITS ---
MAMMOGRAPHY - BILATERAL SCREENING REASON FOR EXAM: Female, 65 years old. Routine annual screening examination. PERTINENT HISTORY: Non-contributory. TECHNIQUE: Digital bilateral breast annie (3D mammographic acquisition) in the CC and MLO projections. 2-D mediolateral oblique (MLO) and craniocaudad (CC) views of both breasts were obtained. CAD: Full Field Digital Mammography with Computer Added Detection was performed. COMPARISON: Comparison is made with prior outside examination dated 06/27/2016. FINDINGS: Breast Composition: There are scattered areas of fibroglandular density. There are no dominant masses or suspicious calcifications. Stable benign-appearing bilateral axillary lymph nodes. No other significant abnormalities are identified. There has been no significant change since the prior study. BI/SCRN MAMM (CAD)W/ANNIE BILAT IMPRESSION: Stable bilateral screening mammogram. Yearly follow-up mammogram recommended. (A) ASSESSMENT CATEGORY: BIRADS Category 2: Benign. A letter regarding these results will be sent to the patient by the facility within 30 days. Approximately 10% of breast cancers are not detected by mammography. A normal mammogram should not delay biopsy of a clinically suspicious abnormality. [id number] Electronically Signed: Fish Woods MD at 9:36 EST , Service support ,
--- NOTE | 2020-08-20 09:05 | BD_ITS ---
STUDY: DUAL ENERGY X-RAY ABSORPTIOMETRY / DXA REASON FOR EXAM: Female, 65 years old. Age of erika 37 after they eradicated her thyroid per patient. Pat is 277.4# and 61.5 and quot; a loss of 2 and quot; per pat. Past use of a bone building med for 3 years. Patient has been a smoker for 53 yrs. She is on 2 types of inhalers daily. She takes levithyroxin and lasix. She is a type II diabetic and takes metformin and januvia. Takes 1000 mg of calcium and a multi-vit. Hx of an ankle and a hand fracture. Does not exercise. TECHNIQUE: Bone Mineral Density (BMD) measurements of lumbar spine and bilateral hips were obtained. COMPARISON: Comparison is made with prior study dated 01/23/2007. FINDINGS: Lumbar Spine (L1-L4): g/cm2 (0.979) / T-score (-1.7) / Z-score (-0.1) Findings are suggestive of osteopenia with a moderate fracture risk. Left Femur Total: g/cm2 (0.946) / T-score (-0.5) / Z-score (0.7) Left Femoral Neck: g/cm2 (0.829) / T-score (-1.5) / Z-score (0.0) Right Femur Total: g/cm2 (0.898) / T-score (-0.9) / Z-score (0.3) Right Femoral Neck: g/cm2 (0.755) / T-score (-2.0) / Z-score (-0.6) The T-Scores on the most recent prior examination were: Lumbar Spine (L1-L4): There has been worsening of bone density since the previous examination. Left Femur Total: which represents a worsening of 6.8%. BD/Dexa Bone Density Study IMPRESSION: The patient is considered osteopenic as outlined below according to World [employer] Organization (WHO) criteria with a moderate fracture risk. There has been worsening of bone density since the previous examination. Reference Information: The T-score is the number of standard deviations above or below the standard which is normal for young adults at their peak bone mineral density. The World Health Organization (WHO) interprets the T-scores as follows: Above -1 Normal bone density Between -1 and -2.5 Osteopenia Equal to / or below -2.5 Osteoporosis As a practical clinical guideline, osteopenia may be graded as follows: Mild -1 through -1.5 Moderate -1.6 through -2.0 Severe -2.1 through -2.4 The Z-score is the number of standard deviations above or below age-matched controls. A Z-score of less than -1.5 would be considered abnormal. References: 1. NIH Osteoporosis and Related Bone Diseases www osteo.org 2. International Society for Clinical Densitometry www iscd.org 3. National Osteoporosis Foundation www nof.org Electronically Signed: Fish Woods MD at 12:18 EST , Service support ,
--- NOTE | 2020-08-20 09:32 | US_ITS ---
STUDY: SUPERFICIAL ULTRASOUND - LEFT WRIST REASON FOR EXAM: Female, 65 years old. Lt wrist cyst TECHNIQUE: A superficial ultrasound was performed with real-time and static mcdonald-scale imaging. COMPARISON: None. FINDINGS: No sonographic abnormality is seen. US/Ext Non Vasc Limited/Soft Tiss IMPRESSION: No sonographic abnormalities seen. Electronically Signed: Fish Woods MD at 11:02 EST , Service support ,
== END ==
PROVIDERS: PCP Internal Medicine; Referring Provider Internal Medicine; Visit Provider Internal Medicine
DX: Z78.0 Asymptomatic menopausal state (principal); Z12.31 Encounter for screening mammogram for malignant neoplasm of breast; M67.439 Ganglion, unspecified wrist
CPT/HCPCS: 76882; 77063; 77067; 77080

== ENCOUNTER → 2020-10-21 13:42 | Outpatient (CLI) | payer MEDICARE, MEDICAID, SELFPAY ==
[2020-10-21 13:42] VITALS: BMI 51.5
[2020-10-21 13:44] LABS: Bacteria 0 SEEN /hpf (None Seen); Mucous, Urine 0 SEEN /hpf (<or=2+); Red Blood Cells-Urine 0 SEEN /hpf (0-5); White Blood Cells 0 SEEN /hpf (0-5)
[2020-10-21 15:17] LABS: Color, Urine Yellow (Yellow); Glucose, Dipstick Normal (Normal); Ketone-Dipstick Negative (Negative); Leukocyte Esterase-Dipstick Negative /ul (Negative); Nitrite-Dipstick Negative (Negative); Occult Blood-Urine Negative /ul (Negative); Protein-Dipstick Negative (Negative); Specific Gravity, Urine 1.005 (1.002-1.030); Urine Bilirubin Dipstick Negative (Negative); Urine Clarity Clear (Clear); Urine Urobilinogen Normal (Normal)
[2020-10-21 15:26] LABS: Squamous Epithelial Cells - UA 0-5 SEEN /hpf (5-10)
[2020-10-21 15:41] LABS: AST(SGOT) 14 U/L (15-37); Alanine Aminotransfer ALT/SGPT 30 U/L (13-56); Albumin, Serum 3.7 g/dL (3.2-5.0); Alkaline Phosphatase 111 U/L (45-117); Anion Gap 6 (5-15); BUN 15 mg/dL (7-18); BUN/Creat Ratio 17.3 RATIO (10-20); Chloride 103 mmol/L (98-107); Creatinine, Serum 0.86 mg/dL (0.55-1.02); EST Glomerular Filtration Rate 70 mL/min (>60); Est Glom Filt Rate - Afr Amer 85 mL/min (>60); Globulin 3.6 g/dL (2.2-4.2); Glucose 144 mg/dL (74-106); Protein, Total 7.3 g/dL (6.4-8.2); Sodium Level 138 mmol/L (136-145)
[2020-10-21 16:01] LABS: Microalbumin,Random Urine < 5.0 mg/L (NO RANGE EST.)
== END ==
PROVIDERS: PCP Internal Medicine; Referring Provider Internal Medicine; Visit Provider Internal Medicine
DX: E11.9 Type 2 diabetes mellitus without complications (principal)
CPT/HCPCS: 36415; 80053; 81001; 82043; 82570

== ENCOUNTER 2020-11-11 12:54 | Emergency (ER) | payer MEDICARE, MEDICAID, SELFPAY ==
[2020-10-21 13:42] VITALS: BMI 51.5
[2020-11-11 12:55] VITALS: BP 135/80; PULSE 82; RESP 15; TEMP 36.9; O2SAT 97; BMI 49.2
--- NOTE | 2020-11-11 13:26 | RAD_ITS ---
STUDY: X-RAY - RIGHT WRIST REASON FOR EXAM: Female, 65 years old. Injury TECHNIQUE: 3 view(s) of the wrist were obtained. COMPARISON: None. FINDINGS: Normal visualized distal radius and ulna. Normal radiocarpal articulation. Normal distal radioulnar articulation. Normal carpal bones. Normal carpal articulations. There is degenerative arthrosis of the carpometacarpal articulation of the thumb. Normal second through fifth carpometacarpal articulations. Normal visualized metacarpal bones. Soft tissue swelling. RAD/Wrist min 3 Views IMPRESSION: Soft tissue swelling. Electronically Signed: Fish Woods MD at 13:51 EDT , Service support ,
--- NOTE | 2020-11-11 13:26 | ED.VISSUMM ---
- ER Visit Summary Date of Service: 11/11/20 Chief Complaint: [Right wrist injury] History of Present Illness: The patient is a 65 F [presents to the emergency department after injuring her right wrist yesterday. Patient states that she lifted a case of water at the grocery store when she felt sudden onset of pain. Patient having pain at times radiating up the forearm to the upper arm along the ulnar aspect. Patient tried Tylenol for pain and which did not help her. Patient is right-hand dominant. Patient has history of diabetes, COPD, osteoarthritis, and rheumatoid arthritis.] Physical Examination: [HEENT-PERRLA, EOMI. Cranial nerves II through XII grossly intact. TMs clear. Mucous membranes moist. No adenopathy. Cardiovascular-regular rate and rhythm without murmur or ectopy Lungs-clear to auscultation, chest wall stable without crepitus or subcu emphysema Abdomen-normoactive bowel sounds, soft, nontender, no rebound or rigidity, no peritoneal signs. Extremities-intact ?4, normal range of motion, normal pulses. Right wrist-patient has tenderness palpation over the ulnar aspect of the wrist. There is no obvious deformity. She is got good range of motion flexion extension of the wrist. She is neurovascular intact distally. No pain noted at the elbow.] Test Results: [X-rays of the right wrist obtained 3 views interpreted by myself as no acute fractures or dislocations. Radiology in agreement and did note some soft tissue swelling.] Emergency Department Course and Treatment: Patient will be given a wrist splint [] Treatment Plan: [To follow-up with primary care physician in 5 to 7 days.] Disposition: [Discharged home in stable condition] Impression: [Right wrist sprain] This note was generated with [employer] dictation software. It may contain incorrect words, spelling, and punctuation that were not noted in review of the chart prior to signing ED Disposition - Plan for ED Patient: Referrals: Refugio Dowd MD [Primary Care Provider] -
--- NOTE | 2020-11-11 14:11 | DCINST.ED_ITS ---
ED Disposition - Plan for ED Patient: Instructions: ED Wrist Sprain Prescriptions: Hydrocodone Bitart/Apap 5-325 [Harbinger 5MG-325MG] 1 tablet PO Q4H PRN PRN 2 Days #10 tablet PRN Reason: Pain Transmission Status: Sent to [facility] #30 Referrals: Refugio Dowd MD [Primary Care Provider] - 5-7 Days
--- NOTE | 2020-11-11 14:11 | ED.DEP ---
ED Disposition - Plan for ED Patient: Instructions: ED Wrist Sprain Prescriptions: Hydrocodone Bitart/Apap 5-325 [Walland 5MG-325MG] 1 tablet PO Q4H PRN PRN 2 Days #10 tablet PRN Reason: Pain Transmission Status: Sent to [facility] #30 Referrals: Refugio Dowd MD [Primary Care Provider] - 5-7 Days
[2020-11-11 14:26] VITALS: BP 144/63; PULSE 78; RESP 18
== END 2020-11-11 14:28 | disposition home or self-care (01) ==
LOC: ED 13:38
PROVIDERS: Emergency Provider Emergency Medicine; PCP Internal Medicine
DX: S63.501A Unspecified sprain of right wrist, initial encounter (principal); X50.0XXA Overexertion from strenuous movement or load, initial encounter; Y93.89 Activity, other specified; Y92.512 Supermarket, store or market as the place of occurrence of the external cause; Y99.8 Other external cause status; E11.9 Type 2 diabetes mellitus without complications; J44.9 Chronic obstructive pulmonary disease, unspecified; M06.9 Rheumatoid arthritis, unspecified; Z72.0 Tobacco use; Z79.82 Long term (current) use of aspirin; Z79.84 Long term (current) use of oral hypoglycemic drugs; Z79.899 Other long term (current) drug therapy
CPT/HCPCS: 73110; 99283

== ENCOUNTER → 2021-03-22 | Outpatient (CLI) | payer MEDICARE, SELFPAY | END | disposition home or self-care (01) | LOC: LABSPEC 15:47 | PROVIDERS: PCP Internal Medicine; Visit Provider Physician Assistant | DX: R05 Cough (principal) | CPT/HCPCS: 87635; U0005; U0003 ==

== ENCOUNTER → 2021-04-28 13:59 | Outpatient (CLI) | payer MEDICARE, MEDICAID, SELFPAY ==
[2021-04-28 15:16] LABS: Absolute Lymphocyte Count 2.97 X10^3/uL (0.83-4.51); Absolute Neutrophil Count 6.6 X10^3/uL (2.0-7.7); Basophil# 0.12 X10^3/uL; Basophil% 1.1 % (0-1); Eosinophil# 0.21 X10^3/uL; Hematocrit 43.7 % (37-47); Hemoglobin 14.5 g/dL (12.0-15.0); Lymphocyte # 2.97 X10^3/ul (0.83-4.51); Lymphocyte % 27.7 % (19-41); Mean Corp Hgb Conc 33.2 g/dL (32-36); Mean Corpuscular Hgb 33.1 pg (27.0-32.0); Mean Corpuscular Volume 99.8 fL (81-99); Mean Platelet Vol. 9.6 fl (6.2-12.0); Monocyte# 0.75 X10^3/uL; NRBC Flagged by Analyzer 0 % (0-5); Neutrophil # 6.63 X10^3/uL (2.7-7.7); Neutrophil % 61.8 % (47-70); Platelet Count 293 K/mm3 (150-450); RBC Distribution Width CV 14.2 % (11.6-14.6); RBC Distribution Width SD 52.2 fl (35.1-43.9); Red Blood Count 4.38 M/mm3 (4.2-5.4); White Blood Count 10.7 K/mm3 (4.4-11.0)
[2021-04-28 15:26] LABS: ALB/GLOB Ratio 0.9 RATIO (0.9-2.4); AST(SGOT) 12 U/L (15-37); Alanine Aminotransfer ALT/SGPT 27 U/L (13-56); Albumin, Serum 3.6 g/dL (3.2-5.0); Alkaline Phosphatase 101 U/L (45-117); Anion Gap 9 (5-15); BUN 15 mg/dL (7-18); Calcium,Total 9.4 mg/dL (8.5-10.1); Chloride 103 mmol/L (98-107); Cholesterol 203 mg/dL (200); Creatinine, Serum 0.79 mg/dL (0.55-1.02); EST Glomerular Filtration Rate 78 mL/min (>60); Est Glom Filt Rate - Afr Amer 94 mL/min (>60); Globulin 3.9 g/dL (2.2-4.2); Glucose 108 mg/dL (74-106); High Density Lipoprotein 64 mg/dL; Potassium 3.9 mmol/L (3.5-5.1); Protein, Total 7.5 g/dL (6.4-8.2); Sodium Level 140 mmol/L (136-145); Triglycerides 132 mg/dL; Very Low Density Lipoprotein 26 mg/dL (5-40)
== END ==
PROVIDERS: PCP Internal Medicine; Referring Provider Internal Medicine; Visit Provider Internal Medicine
DX: E11.9 Type 2 diabetes mellitus without complications (principal); K21.9 Gastro-esophageal reflux disease without esophagitis
CPT/HCPCS: 36415; 80053; 80061; 85025

== ENCOUNTER 2021-06-04 12:24 | Emergency (ER) | payer MEDICARE, MEDICAID, SELFPAY ==
[2021-06-04 12:26] VITALS: BP 179/89; PULSE 74; RESP 19; TEMP 36.2; O2SAT 96; BMI 50.8
--- NOTE | 2021-06-04 12:47 | EKG12_ITS ---
Test Reason : WORK UP Blood Pressure : / mmHG Vent. Rate : 060 BPM Atrial Rate : 060 BPM P-R Int : 158 ms QRS Dur : 084 ms QT Int : 452 ms P-R-T Axes : 073 -04 040 degrees QTc Int : 452 ms Normal sinus rhythm Nonspecific T wave abnormality Confirmed by JAYRO MIRANDA, MICHELLE ([id number]), continuity editor ZHANNA DICKERSON ([id number]) on 06/07/2021 11:10:37 AM Referred By: CHANDANA Confirmed By:MICHELLE DIAL MD
--- NOTE | 2021-06-04 12:56 | EX.ED.DYSGE1 ---
HPI History of Present Illness Chief Complaint: General Illness Narrative Narrative: Patient presents with 2 to 3-day history of cough congestion and some shortness of breath. She has a history of COPD. She has no fevers or chills. She does have some dysuria also. No abdominal pain or flank pain [facility] Medical History (Updated 06/04/21 @ 14:[address] Jacinto Victor MD) Abnormal results of pulmonary function studies Anxiety and depression Chronic low back pain Chronic obstructive pulmonary disease with acute exacerbation Degeneration of lumbar or lumbosacral intervertebral disc Dermatitis Diverticulosis Encounter for screening for COVID-19 Essential (primary) hypertension Fibromyalgia GERD (gastroesophageal reflux disease) Health care maintenance Hearing loss Hiatal hernia Hypothyroidism Morbid obesity MRSA (methicillin resistant staph aureus) culture positive Nummular eczematous dermatitis Oral candidiasis HENRRY (obstructive sleep apnea) Polyp of vocal cord and larynx Secondary pulmonary arterial hypertension 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 myelopathy or radiculopathy Stage 3 severe COPD by GOLD classification Thrombophlebitis leg superficial TIA (transient ischemic attack) Tobacco abuse Type 2 diabetes mellitus Ureteral calculus, left Home Medications vit C,N-Sp-xbqik-lutein-zeaxan 1 cap PO BID 03/16/17 [History Last Taken 07/04/19] cetirizine 10 mg tablet 10 mg PO QHS #90 tab 01/06/20 [Rx Last Taken Unknown] azelastine 205.5 mcg (0.15 %) nasal spray 1 spray INTRANASAL BID #3 ea 03/16/20 [Rx Last Taken Unknown] fluticasone propionate 50 mcg/actuation nasal spray,suspension 2 spray INTRANASAL DAILY #54.6 ml 03/16/20 [Rx Last Taken Unknown] albuterol sulfate 90 mcg/actuation aerosol inhaler 2 puff INHALATION Q4H PRN #18 g 04/22/20 [Rx Last Taken 05/04/20] albuterol sulfate 2.5 mg INHALATION Q4H PRN PRN 06/05/20 [History Last Taken Unknown] montelukast 10 mg tablet 10 mg PO QPM #90 tab 07/07/20 [Rx Last Taken Unknown] metformin 500 mg tablet,extended release 24 hr 1,500 mg PO QPM 90 Days #270 tab 07/22/20 [Rx Last Taken Unknown] tiotropium bromide 2.5 mcg/actuation mist for inhalation 2 puff INHALATION DAILY #3 device 07/22/20 [Rx Last Taken Unknown] ascorbate calcium (vitamin C) 500 mg tablet 500 mg PO DAILY 08/13/20 [History Last Taken Unknown] elderberry fruit 200 mg capsule mg PO 08/13/20 [History Last Taken Unknown] omega-3 fatty acids 1,000 mg capsule 1,000 mg PO DAILY 08/13/20 [History Last Taken Unknown] lisinopril 2.5 mg tablet See Rx Instructions .ROUTE .COMPLEX #90 tablet 09/15/20 [Rx Last Taken Unknown] pantoprazole 40 mg tablet,delayed release 40 mg PO DAILY #90 tab 10/21/20 [Rx Last Taken Unknown] triamcinolone acetonide 0.025 % topical ointment 1 applic TOPICAL BID PRN #454 gm 10/21/20 [Rx Last Taken Unknown] sitagliptin 100 mg tablet 100 mg PO DAILY #90 tab 12/07/20 [Rx Last Taken Unknown] Disability Placard #1 ea 12/10/20 [Rx Last Taken Unknown] guaifenesin 1,200 mg tablet, extended release 12 hr 1,200 mg PO Q12H #180 tablet 12/10/20 [Rx Last Taken Unknown] aspirin 81 mg tablet,delayed release 81 mg PO DAILY #90 tab 04/06/21 [Rx Last Taken Unknown] budesonide-formoterol HFA 160 mcg-4.5 mcg/actuation aerosol inhaler 2 puff INHALATION BID #10.2 g 04/06/21 [Rx Last Taken Unknown] diltiazem HCl 120 mg capsule,extended release 24 hr 120 mg PO DAILY #90 cap 04/06/21 [Rx Last Taken Unknown] duloxetine 30 mg capsule,delayed release 30 mg PO BID #180 cap 04/06/21 [Rx Last Taken Unknown] furosemide 20 mg tablet 20 mg PO DAILY #90 tab 04/06/21 [Rx Last Taken Unknown] gabapentin 600 mg tablet 600 mg PO BID #60 tab 04/06/21 [Rx Last Taken Unknown] levothyroxine 150 mcg tablet 150 mcg PO DAILY #90 tab 04/06/21 [Rx Last Taken Unknown] azithromycin See Rx Instructions .ROUTE .COMPLEX #6 tab 06/04/21 [Rx Last Taken Unknown] prednisone 40 mg PO DAILY #10 tab 06/04/21 [Rx Last Taken Unknown] Allergy/AdvReac Type Severity Reaction Status Date / Time fluconazole [From Diflucan] Allergy Anaphylaxis Verified 06/04/21 12:30 nickel [Nickel] Allergy Rash Verified 06/04/21 12:30 perfume Allergy Rash Verified 06/04/21 12:30 deodorant Allergy Rash Uncoded 06/04/21 12:30 Family History Mother Cancer Father Diabetes Alcoholism Brother Cancer Lung cancer Surgical History History of D&C History of hysterectomy History of right and left heart catheterization (03/07/18) History of right heart catheterization (05/04/20) History of tonsillectomy History of tubal ligation Status post surgical manipulation of ankle joint Social History Smoking Status: Current every day smoker tobacco type: cigarettes second hand exposure: Yes alcohol intake: never substance use type: does not use caffeine: Yes (4) what type of physical activity do you participate in: none ROS ROS ED ROS Narrative Past medical history: Reviewed, includes COPD, she continues to smoke, hypertension, diabetes, hypothyroidism, GERD, sleep apnea Medications: Reviewed Social history: Noncontributory Review of systems: All systems negative except as indicated General: No fever Eyes: No visual changes. She did notice swelling in the left infraorbital region ENT: No upper airway congestion, normal voice Neck: No neck pain Cardiovascular: No chest pain Respiratory: Cough and dyspnea as in HPI. Gastrointestinal: No abdominal pain, nausea vomiting or diarrhea Genitourinary: Some dysuria. Musculoskeletal: Denies myalgias no difficulty with ambulation Skin: No rash Neurological: No memory loss, confusion or any focal weakness Psych: No recent behavioral changes Hematologic: No easy bleeding or easy bruising EXAM Physical Exam Narrative Exam Narrative: Physical exam General: Patient appears chronically ill but she does not appear in any distress today. Head: Normocephalic, Atraumatic Eyes: Conjunctiva not pale. There is slight edema in the infraorbital region stemming from a very small pustule medially. No tear duct involvement. ENT: Moist mucous membranes, some upper airway congestion. Neck: Supple, Nontender, No lymphadenopathy Cardiovascular: Regular rate, Regular rhythm Respiratory: Coarse bilateral breath sounds with some end expiratory wheezing. She is speaking in full sentences. Abdomen: Soft, Nontender, Nondistended Back: Nontender, Normal Inspection. Negative for: CVA tenderness Extremities: Nontender, No edema Skin: Normal color, No rash Neurological: Alert, Normal Strength, Normal Sensation Psychological: Normal affect Const Vital Signs: 06/04/21 12:26 06/04/21 12:52 06/04/21 13:55 Temperature 97.1 F L 98.7 F Temperature Source Temporal Oral Pulse Rate 74 55 L Respiratory Rate 19 H 17 Respiratory Effort Normal Blood Pressure 179/89 H 120/70 Blood Pressure Mean 119 86 Pulse Ox 96 97 Oxygen Delivery Method Room Air Room Air MDM MDM MDM Narrative Medical decision making narrative: Patient appears well she has an unremarkable work-up. I will treat her with steroids for COPD, she seems to have changed her sputum production does have that antibiotics. Lab Data Labs: Laboratory Results - last 24 hr 06/04/21 06/04/21 06/04/21 12:05 13:10 13:10 WBC 8.4 RBC 3.98 L Hgb 13.2 Hct 40.4 MCV 101.5 H MCH 33.2 H MCHC 32.7 RDW Std Deviation 53.3 H RDW Coeff of Rafi 14.2 Plt Count 246 MPV 8.9 Immature Gran % (Auto) 0.400 Neut % (Auto) 59.8 Lymph % (Auto) 26.0 [place] % (Auto) 9.2 Eos % (Auto) 3.9 Baso % (Auto) 0.7 Absolute Neuts (auto) 5.0 Absolute Lymphs (auto) 2.17 Nucleated RBC % 0 PT 12.9 INR 1.0 Sodium Potassium Chloride Carbon Dioxide Anion Gap BUN Creatinine Estim Creat Clear Calc Est GFR (MDRD) Af Amer Est GFR (MDRD) Non-Af BUN/Creatinine Ratio Glucose Calcium Total Bilirubin AST ALT Alkaline Phosphatase B-Natriuretic Peptide Total Protein Albumin Globulin Albumin/Globulin Ratio Urine Color Straw Urine Clarity Clear Urine pH 6.5 Ur Specific [place] 1.010 Urine Protein Negative Urine Glucose (UA) Normal Urine Ketones Negative Urine Occult Blood Negative Urine Nitrite Negative Urine Bilirubin Negative Urine Urobilinogen Normal Ur Leukocyte Esterase Negative Urine RBC 0 SEEN Urine WBC 0 SEEN Ur Squamous Epith Cells 0 SEEN Urine Bacteria 0 SEEN Urine Mucus 0 SEEN 06/04/21 06/04/21 13:10 13:10 WBC RBC Hgb Hct MCV MCH MCHC RDW Std Deviation RDW Coeff of Rafi Plt Count MPV Immature Gran % (Auto) Neut % (Auto) Lymph % (Auto) [place] % (Auto) Eos % (Auto) Baso % (Auto) Absolute Neuts (auto) Absolute Lymphs (auto) Nucleated RBC % PT INR Sodium 139 Potassium 4.3 Chloride 109 H Carbon Dioxide 26.0 Anion Gap 4 L BUN 16 Creatinine 0.86 Estim Creat Clear Calc 51.58 Est GFR (MDRD) Af Amer 85 Est GFR (MDRD) Non-Af 70 BUN/Creatinine Ratio 18.6 Glucose 139 H Calcium 9.0 Total Bilirubin 0.60 AST 17 ALT 24 Alkaline Phosphatase 97 B-Natriuretic Peptide 89.7 Total Protein 6.8 Albumin 3.3 Globulin 3.5 Albumin/Globulin Ratio 0.9 Urine Color Urine Clarity Urine pH Ur Specific [place] Urine Protein Urine Glucose (UA) Urine Ketones Urine Occult Blood Urine Nitrite Urine Bilirubin Urine Urobilinogen Ur Leukocyte Esterase Urine RBC Urine WBC Ur Squamous Epith Cells Urine Bacteria Urine Mucus Radiography Diagnostic Testing: Clinical Impression(s) from Imaging Studies Chest X-Ray 06/04/21 13:15 IMPRESSION: Hyperinflation. The lungs are clear. Electronically Signed: Fish Woods MD at 13:36 EDT , Service support , Discharge Plan Triage Chief Complaint: General Illness ED Provider: Jacinto Victor Dx/Rx/DC Orders Clinical Impression: COPD exacerbation Instructions: COPD: Chronic Coughing Prescriptions: New prednisone 20 mg tablet 40 mg PO DAILY Qty: 10 RF: 0 azithromycin 250 mg tablet See Rx Instructions .ROUTE .COMPLEX Qty: 6 RF: 0 No Action fluticasone propionate 50 mcg/actuation spray,suspension 2 spray INTRANASAL DAILY Qty: 54.6 RF: 3 azelastine 0.15 % (205.5 mcg) spray,non-aerosol 1 spray INTRANASAL BID Qty: 3 RF: 3 albuterol sulfate [Ventolin HFA] 90 mcg/actuation HFA aerosol inhaler 2 puff INHALATION Q4H PRN (Reason: shortness of breath or wheezing) Qty: 18 RF: 6 metformin [Glucophage XR] 500 mg tablet extended release 24 hr 1,500 mg PO QPM 90 Days Qty: 270 RF: 3 Mucinex 1,200 mg tablet extended release 12hr 1,200 mg PO Q12H Qty: 180 RF: 3 (DME) Disability Placard See Rx Instructions .ROUTE .MEDSUPPLY Qty: 1 RF: 0 pantoprazole [Protonix] 40 mg tablet,delayed release (DR/EC) 40 mg PO DAILY Qty: 90 RF: 3 triamcinolone acetonide 0.025 % ointment 1 applic TOPICAL BID PRN (Reason: rash) Qty: 454 RF: 2 omega-3 fatty acids [Fish Oil Concentrate] 1,000 mg capsule 1,000 mg PO DAILY RF: 0 elderberry fruit 200 mg capsule 200 mg capsule PO RF: 0 ascorbate calcium (vitamin C) 500 mg tablet 500 mg PO DAILY RF: 0 vit C,I-Bm-ncopx-lutein-zeaxan 1 EACH capsule 1 cap PO BID RF: 0 albuterol sulfate 2.5 MG/3 ML solution for nebulization 2.5 mg INHALATION Q4H PRN PRN (Reason: Sob &/Or Wheezing) RF: 0 cetirizine 10 mg tablet 10 mg PO QHS Qty: 90 RF: 3 montelukast 10 mg tablet 10 mg PO QPM Qty: 90 RF: 3 Spiriva Respimat 2.5 mcg/actuation mist 2 puff INHALATION DAILY Qty: 3 RF: 3 lisinopril 2.5 mg tablet See Rx Instructions .ROUTE .COMPLEX Qty: 90 RF: 5 sitagliptin 100 mg tablet 100 mg PO DAILY Qty: 90 RF: 1 duloxetine 30 mg capsule,delayed release(DR/EC) 30 mg PO BID Qty: 180 RF: 1 levothyroxine 150 mcg tablet 150 mcg PO DAILY Qty: 90 RF: 1 gabapentin 600 mg tablet 600 mg PO BID Qty: 60 RF: 2 aspirin 81 mg tablet,delayed release (DR/EC) 81 mg PO DAILY Qty: 90 RF: 3 diltiazem HCl 120 mg capsule,extended release 24hr 120 mg PO DAILY Qty: 90 RF: 3 furosemide 20 mg tablet 20 mg PO DAILY Qty: 90 RF: 3 budesonide-formoterol [Symbicort] 160-4.5 mcg/actuation HFA aerosol inhaler 2 puff INHALATION BID Qty: 10.2 RF: 6 Primary Care Provider: Refugio Dowd Referrals: Refugio Dowd MD [Primary Care Provider] - 2 Days Disposition Disposition: Home, Self Care
[2021-06-04 13:04] LABS: Bacteria 0 SEEN /hpf (None Seen); Mucous, Urine 0 SEEN /hpf (<or=2+); Red Blood Cells-Urine 0 SEEN /hpf (0-5); Squamous Epithelial Cells - UA 0 SEEN /hpf (5-10); White Blood Cells 0 SEEN /hpf (0-5)
[2021-06-04 13:10] LABS: Color, Urine Straw (Yellow); Glucose, Dipstick Normal (Normal); Ketone-Dipstick Negative (Negative); Leukocyte Esterase-Dipstick Negative /ul (Negative); Nitrite-Dipstick Negative (Negative); Occult Blood-Urine Negative /ul (Negative); Protein-Dipstick Negative (Negative); Urine Bilirubin Dipstick Negative (Negative); Urine Clarity Clear (Clear); Urine Urobilinogen Normal (Normal); Urine pH 6.5 (5.0 - 8.0)
--- NOTE | 2021-06-04 13:15 | RAD_ITS ---
STUDY: X-RAY CHEST REASON FOR EXAM: Female, 65 years old. Sob TECHNIQUE: Single AP portable view of the chest. COMPARISON: Comparison is made with prior study dated 02/04/2020. FINDINGS: EKG electrodes are seen. Hyperinflation. The lungs are clear. There is no demonstrated pleural abnormality. Normal size heart. Normal mediastinum and juve. Normal visualized pulmonary arteries. Normal visualized aortic arch and descending thoracic aorta. Normal visualized thoracic spine. Normal visualized ribs, clavicles, and shoulders. There is no demonstrated abnormality of the visualized soft tissue structures of the upper abdomen. RAD/Chest 1 View (Portable) IMPRESSION: Hyperinflation. The lungs are clear. Electronically Signed: Fish Woods MD at 13:36 EDT , Service support ,
[2021-06-04 13:21] LABS: Absolute Lymphocyte Count 2.17 X10^3/uL (0.83-4.51); Basophil# 0.06 X10^3/uL; Basophil% 0.7 % (0-1); Eosinophil# 0.33 X10^3/uL; Eosinophils% 3.9 % (0-5); Hematocrit 40.4 % (37-47); Hemoglobin 13.2 g/dL (12.0-15.0); Lymphocyte # 2.17 X10^3/ul (0.83-4.51); Mean Corp Hgb Conc 32.7 g/dL (32-36); Mean Corpuscular Hgb 33.2 pg (27.0-32.0); Mean Corpuscular Volume 101.5 fL (81-99); Mean Platelet Vol. 8.9 fl (6.2-12.0); Monocyte# 0.77 X10^3/uL; Monocyte% 9.2 % (0-10); NRBC Flagged by Analyzer 0 % (0-5); Neutrophil % 59.8 % (47-70); Platelet Count 246 K/mm3 (150-450); RBC Distribution Width CV 14.2 % (11.6-14.6); RBC Distribution Width SD 53.3 fl (35.1-43.9); Red Blood Count 3.98 M/mm3 (4.2-5.4); White Blood Count 8.4 K/mm3 (4.4-11.0)
[2021-06-04 13:35] LABS: Prothrombin Time (Protime)PT. 12.9 SECONDS (11.7-14.9)
[2021-06-04 13:37] LABS: ALB/GLOB Ratio 0.9 RATIO (0.9-2.4); AST(SGOT) 17 U/L (15-37); Alanine Aminotransfer ALT/SGPT 24 U/L (13-56); Albumin, Serum 3.3 g/dL (3.2-5.0); Alkaline Phosphatase 97 U/L (45-117); Anion Gap 4 (5-15); BUN 16 mg/dL (7-18); BUN/Creat Ratio 18.6 RATIO (10-20); Chloride 109 mmol/L (98-107); Creatinine, Serum 0.86 mg/dL (0.55-1.02); EST Glomerular Filtration Rate 70 mL/min (>60); Est Glom Filt Rate - Afr Amer 85 mL/min (>60); Estimated Creatinine Clearance 51.58 ml/min; Globulin 3.5 g/dL (2.2-4.2); Glucose 139 mg/dL (74-106); Potassium 4.3 mmol/L (3.5-5.1); Protein, Total 6.8 g/dL (6.4-8.2); Sodium Level 139 mmol/L (136-145)
[2021-06-04 13:44] LABS: BNP,B-Type NATRIURETIC PEPTIDE 89.7 pg/mL (0-100)
[2021-06-04 13:55] VITALS: BP 120/70; PULSE 55; RESP 17; TEMP 37.1; O2SAT 97
== END 2021-06-04 15:08 | disposition home or self-care (01) ==
PROVIDERS: Emergency Provider Emergency Medicine; PCP Internal Medicine
DX: J44.1 Chronic obstructive pulmonary disease with (acute) exacerbation (principal); I10 Essential (primary) hypertension; I27.21 Secondary pulmonary arterial hypertension; E11.9 Type 2 diabetes mellitus without complications; E03.9 Hypothyroidism, unspecified; K21.9 Gastro-esophageal reflux disease without esophagitis; F17.210 Nicotine dependence, cigarettes, uncomplicated; M79.7 Fibromyalgia; G47.33 Obstructive sleep apnea (adult) (pediatric); E66.01 Morbid (severe) obesity due to excess calories; Z68.43 Body mass index [BMI] 50.0-59.9, adult; Z79.82 Long term (current) use of aspirin; Z79.84 Long term (current) use of oral hypoglycemic drugs; Z79.899 Other long term (current) drug therapy; Z86.73 Personal history of transient ischemic attack (TIA), and cerebral infarction without residual deficits
CPT/HCPCS: 71045; 80053; 81001; 83880; 85025; 85610; 87426; 93005; 99283; A4216

== ENCOUNTER → 2021-07-05 | Outpatient (CLI) | payer MEDICARE, MEDICAID, SELFPAY | END | disposition home or self-care (01) | LOC: LABSPEC 13:25 | PROVIDERS: PCP Internal Medicine; Referring Provider Physician Assistant; Visit Provider Physician Assistant | DX: Z11.52 Encounter for screening for COVID-19 (principal) | CPT/HCPCS: 87635; U0005; U0003 ==

== ENCOUNTER 2021-10-07 10:19 | Outpatient (CLI) | payer MEDICARE, MEDICAID, SELFPAY ==
--- NOTE | 2021-10-08 07:52 | EKG12_ITS ---
Test Reason : AFIB Blood Pressure : / mmHG Vent. Rate : 071 BPM Atrial Rate : 071 BPM P-R Int : 156 ms QRS Dur : 088 ms QT Int : 400 ms P-R-T Axes : 066 -12 077 degrees QTc Int : 434 ms Normal sinus rhythm Normal ECG Confirmed by MYRNA MIRANDA, JAMIE ([id number]), website/blog editor ZHANNA DICKERSON ([id number]) on 10/08/2021 7:53:46 AM Referred By: Refugio Dowd Confirmed By:JAMIE NORRIS MD
== END 2021-10-07 23:59 | disposition home or self-care (01) ==
LOC: PSN 10:24
PROVIDERS: PCP Internal Medicine; Referring Provider Internal Medicine; Visit Provider Internal Medicine
DX: I10 Essential (primary) hypertension (principal)
CPT/HCPCS: 93005

== ENCOUNTER 2021-10-12 12:41 | Outpatient (CLI) | payer MEDICARE, MEDICAID, SELFPAY ==
--- NOTE | 2021-10-12 12:43 | BI_ITS ---
MAMMOGRAPHY - BILATERAL SCREENING 3-D TOMOSYNTHESIS REASON FOR EXAM: Female, 66 years old. screening PERTINENT HISTORY: No significant family history. TECHNIQUE: 2-D mammograms and 3-D Tomosynthesis of the breast (s) were performed. CAD was performed. COMPARISON: 08/20/2020 FINDINGS: The breast composition is composed of scattered fibroglandular density. Scattered benign calcifications are seen. No dense spiculated masses or suspicious microcalcifications are identified. No architectural distortion is identified. There is no skin thickening or retraction. There has been no significant change since the prior study. BI/SCRN MAMM (CAD)W/ANNIE BILAT IMPRESSION: No mammographic signs of malignancy. Routine yearly mammograms recommended. ASSESSMENT CATEGORY: BIRADS Category 1: Negative. A letter regarding these results will be sent to the patient by the facility within 30 days. FOLLOW UP RECOMMENDATION: Yearly follow up mammogram recommended. (A) Approximately 10% of breast cancers are not detected by mammography. A normal mammogram should not delay biopsy of a clinically suspicious abnormality. Electronically Signed: Odin Baker MD at 17:52 EDT ,
== END 2021-10-12 23:59 | disposition home or self-care (01) ==
LOC: OPBI 12:41
PROVIDERS: PCP Internal Medicine; Referring Provider Physician Assistant; Visit Provider Physician Assistant
DX: Z12.31 Encounter for screening mammogram for malignant neoplasm of breast (principal)
CPT/HCPCS: 77063; 77067

== ENCOUNTER 2021-10-12 17:21 | Emergency (ER) | payer MEDICARE, MEDICAID, SELFPAY ==
[2021-10-12 17:23] VITALS: BP 189/93; PULSE 109; RESP 18; TEMP 36.4; O2SAT 90; BMI 50.5
--- NOTE | 2021-10-12 17:36 | EDS_ITS ---
HPI HPI - Fall History of Present Illness Chief Complaint: Fall Informant: patient Occured/Mechanism Occurred: Today Mechanism/Context: Yes same level fall Narrative Narrative: Patient presents secondary to pain after a fall this morning. She states she was taking the trash out this morning when her foot caught and she fell landing on her left side. She complains of pain to her left arm and left lower back that goes down her left leg. No problems with bowel or bladder control. She states she twisted today and now has pain in her left ribs as well. She believes she may have pneumonia as she has had cough since June with yellow-colored sputum. She denies fever. She does have a history of COPD. [facility] Medical History (Updated 10/12/21 @ 19:[address] Hiwot López MD) Abnormal results of pulmonary function studies Anxiety and depression Chronic low back pain COPD (chronic obstructive pulmonary disease) Degeneration of lumbar or lumbosacral intervertebral disc Dermatitis Diverticulosis Essential (primary) hypertension Fibromyalgia GERD (gastroesophageal reflux disease) Health care maintenance Hearing loss Hiatal hernia Hypothyroidism Morbid obesity MRSA (methicillin resistant staph aureus) culture positive Nummular eczematous dermatitis Oral candidiasis HENRRY (obstructive sleep apnea) Polyp of vocal cord and larynx Secondary pulmonary arterial hypertension Sinusitis 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 myelopathy or radiculopathy Thrombophlebitis leg superficial TIA (transient ischemic attack) Tobacco abuse Type 2 diabetes mellitus Ureteral calculus, left Home Medications vit C,L-Ce-oefum-lutein-zeaxan 1 cap PO BID 03/16/17 [History Last Taken 07/04/19] cetirizine 10 mg tablet 10 mg PO QHS #90 tab 01/06/20 [Rx Last Taken Unknown] azelastine 205.5 mcg (0.15 %) nasal spray 1 spray INTRANASAL BID #3 ea 03/16/20 [Rx Last Taken Unknown] fluticasone propionate 50 mcg/actuation nasal spray,suspension 2 spray INTRANASAL DAILY #54.6 ml 03/16/20 [Rx Last Taken Unknown] albuterol sulfate 90 mcg/actuation aerosol inhaler 2 puff INHALATION Q4H PRN #18 g 04/22/20 [Rx Last Taken 05/04/20] albuterol sulfate 2.5 mg INHALATION Q4H PRN PRN 06/05/20 [History Last Taken Unknown] metformin 500 mg tablet,extended release 24 hr 1,500 mg PO QPM 90 Days #270 tab 07/22/20 [Rx Last Taken Unknown] tiotropium bromide 2.5 mcg/actuation mist for inhalation 2 puff INHALATION DAILY #3 device 07/22/20 [Rx Last Taken Unknown] ascorbate calcium (vitamin C) 500 mg tablet 500 mg PO DAILY 08/13/20 [History Last Taken Unknown] elderberry fruit 200 mg capsule mg PO 08/13/20 [History Last Taken Unknown] omega-3 fatty acids 1,000 mg capsule 1,000 mg PO DAILY 08/13/20 [History Last Taken Unknown] lisinopril 2.5 mg tablet See Rx Instructions .ROUTE .COMPLEX #90 tablet 09/15/20 [Rx Last Taken Unknown] pantoprazole 40 mg tablet,delayed release 40 mg PO DAILY #90 tab 10/21/20 [Rx Last Taken Unknown] triamcinolone acetonide 0.025 % topical ointment 1 applic TOPICAL BID PRN #454 gm 10/21/20 [Rx Last Taken Unknown] sitagliptin 100 mg tablet 100 mg PO DAILY #90 tab 12/07/20 [Rx Last Taken Unknown] Disability Placard #1 ea 12/10/20 [Rx Last Taken Unknown] guaifenesin 1,200 mg tablet, extended release 12 hr 1,200 mg PO Q12H #180 tablet 12/10/20 [Rx Last Taken Unknown] aspirin 81 mg tablet,delayed release 81 mg PO DAILY #90 tab 04/06/21 [Rx Last Taken Unknown] budesonide-formoterol HFA 160 mcg-4.5 mcg/actuation aerosol inhaler 2 puff INHALATION BID #10.2 g 04/06/21 [Rx Last Taken Unknown] diltiazem HCl 120 mg capsule,extended release 24 hr 120 mg PO DAILY #90 cap 04/06/21 [Rx Last Taken Unknown] duloxetine 30 mg capsule,delayed release 30 mg PO BID #180 cap 04/06/21 [Rx Last Taken Unknown] furosemide 20 mg tablet 20 mg PO DAILY #90 tab 04/06/21 [Rx Last Taken Unknown] gabapentin 600 mg tablet 600 mg PO BID #60 tab 04/06/21 [Rx Last Taken Unknown] levothyroxine 150 mcg tablet 150 mcg PO DAILY #90 tab 04/06/21 [Rx Last Taken Unknown] benzonatate 200 mg capsule 200 mg PO TID PRN #90 cap 06/09/21 [Rx Last Taken Unknown] ipratropium 0.5 mg-albuterol 3 mg (2.5 mg base)/3 mL nebulization soln 3 ml INHALATION Q4H PRN PRN #180 ml 06/09/21 [Rx Last Taken Unknown] montelukast 10 mg tablet 10 mg PO QPM #90 tab 07/05/21 [Rx Last Taken Unknown] amoxicillin 875 mg-potassium clavulanate 125 mg tablet 1 tab PO BID #20 tab 07/28/21 [Rx Last Taken Unknown] prednisone 20 mg tablet 40 mg PO DAILY #10 tab 07/28/21 [Rx Last Taken Unknown] azithromycin [Zithromax] 250 mg PO DAILY 4 Days #4 tab 10/12/21 [Rx Last Taken Unknown] Allergy/AdvReac Type Severity Reaction Status Date / Time fluconazole [From Diflucan] Allergy Anaphylaxis Verified 10/12/21 17:23 nickel [Nickel] Allergy Rash Verified 10/12/21 17:23 perfume Allergy Rash Verified 10/12/21 17:23 deodorant Allergy Rash Uncoded 10/12/21 17:23 Family History Mother Cancer Father Diabetes Alcoholism Brother Cancer Lung cancer Surgical History History of D&C History of hysterectomy History of right and left heart catheterization (03/07/18) History of right heart catheterization (05/04/20) History of tonsillectomy History of tubal ligation Status post surgical manipulation of ankle joint Social History Smoking Status: Current every day smoker tobacco type: cigarettes second hand exposure: Yes alcohol intake: never substance use type: does not use caffeine: Yes (4) what type of physical activity do you participate in: none ROS ROS ED Constitutional Constitutional ED: Denies chills or fever(s) Eyes Eyes: Denies change in vision ENT ENT ED: Denies sore throat Cardiovascular Cardiovascular: Reports other Details: Left rib pain Respiratory/Chest Respiratory/Chest: Reports cough and sputum; Denies dyspnea Gastrointestinal Gastrointestinal: Denies abdominal pain, nausea or vomiting Genitourinary Genitourinary ED: Denies dysuria Musculoskeletal Musculoskeletal: Reports arthralgias and back pain Integumentary Denies rash Neurologic Neurologic: Denies headache(s), paresthesias or weakness Allergic/Immunologic Allergic/Immunologic ED: Denies urticaria EXAM Physical Exam Const Vital Signs: 10/12/21 17:23 10/12/21 17:41 Temperature 97.5 F L Temperature Source Temporal Pulse Rate 109 H Respiratory Rate 18 Respiratory Effort Normal Respiratory Depth Normal Respiratory Pattern Normal Blood Pressure 189/93 H Blood Pressure Mean 125 Pulse Ox 90 Oxygen Delivery Method Room Air Positive obese Nutritional Appearance: obese Eyes PERRL and EOMs intact bilaterally Neck no lymphadenopathy Chest Wall inspection of chest normal and palpation of chest normal Resp normal respiratory effort and clear to auscultation bilaterally Cardio regular rate and regular rhythm GI non-tender Palpation: soft Back/Spine Back/Spine Narrative: No reproducible tenderness of the thoracic or lumbar spine. Mild tenderness over the posterior pelvis. No abrasions or ecchymoses noted. Extremity normal to inspection Extremity Narrative: Mild muscular tenderness over the left humeral region. Full range of motion. Strong distal pulses and normal sensation. Good strength noted on examination of the lower extremities. Patient was observed ambulating to the room without difficulty. Neuro oriented x3 Sensorium / Orientation: alert Psych mental status grossly normal Skin Lesions: no lesions Rashes: no rashes MDM MDM MDM Narrative Medical decision making narrative: Chest x-ray obtained along with x-ray of the left humerus and pelvis. Radiography Diagnostic Testing: Clinical Impression(s) from Imaging Studies Chest X-Ray 10/12/21 17:36 IMPRESSION: There are no acute findings. Electronically Signed: Con Hernandez MD at 18:39 EDT , Humerus X-Ray 10/12/21 17:36 IMPRESSION: Negative left humerus x-rays. Electronically Signed: Con Hernandez MD at 18:18 EDT , Pelvis X-Ray 10/12/21 17:36 IMPRESSION: No acute findings. Electronically Signed: Con Hernandez MD at 18:41 EDT , Treatment and Re-Evaluation Narrative: Chest x-ray per mitral rotation was no focal infiltrate. No obvious rib injury. Pelvis x-ray reveals no fracture. Left humerus x-ray reveals no fracture. Radiology interpretation is reviewed on all images and agrees. Test results discussed with the patient. She will stick with Tylenol to help control pain at home. With her having evidence of bronchitis, colored sputum, baseline COPD she will be covered with azithromycin. Patient encouraged to monitor her vital signs 2 or 3 times a day and keep a journal to take to her next doctor's appointment. Discharge Plan Triage Chief Complaint: Fall ED Provider: Hiwot López Dx/Rx/DC Orders Clinical Impression: Fall, Back contusion, Bronchitis Instructions: ED Upper Resp Infec Abx Tx, ED Back Contusion, ED Mechanical Fall Prescriptions: New azithromycin [Zithromax] 250 mg tablet 250 mg PO DAILY 4 Days Qty: 4 RF: 0 No Action fluticasone propionate 50 mcg/actuation spray,suspension 2 spray INTRANASAL DAILY Qty: 54.6 RF: 3 azelastine 0.15 % (205.5 mcg) spray,non-aerosol 1 spray INTRANASAL BID Qty: 3 RF: 3 albuterol sulfate [Ventolin HFA] 90 mcg/actuation HFA aerosol inhaler 2 puff INHALATION Q4H PRN (Reason: shortness of breath or wheezing) Qty: 18 RF: 6 metformin [Glucophage XR] 500 mg tablet extended release 24 hr 1,500 mg PO QPM 90 Days Qty: 270 RF: 3 Mucinex 1,200 mg tablet extended release 12hr 1,200 mg PO Q12H Qty: 180 RF: 3 (DME) Disability Placard See Rx Instructions .ROUTE .MEDSUPPLY Qty: 1 RF: 0 pantoprazole [Protonix] 40 mg tablet,delayed release (DR/EC) 40 mg PO DAILY Qty: 90 RF: 3 triamcinolone acetonide 0.025 % ointment 1 applic TOPICAL BID PRN (Reason: rash) Qty: 454 RF: 2 omega-3 fatty acids [Fish Oil Concentrate] 1,000 mg capsule 1,000 mg PO DAILY RF: 0 elderberry fruit 200 mg capsule 200 mg capsule PO RF: 0 ascorbate calcium (vitamin C) 500 mg tablet 500 mg PO DAILY RF: 0 benzonatate 200 mg capsule 200 mg PO TID PRN (Reason: cough) Qty: 90 RF: 0 ipratropium-albuterol 0.5 mg-3 mg(2.5 mg base)/3 mL solution for nebulization 3 ml inhalation Q4H PRN PRN (Reason: SOB &/OR WHEEZING) Qty: 180 RF: 6 prednisone 20 mg tablet 40 mg PO DAILY Qty: 10 RF: 0 amoxicillin-pot clavulanate 875-125 mg tablet 1 tab PO BID Qty: 20 RF: 0 vit C,E-Kp-twluy-lutein-zeaxan 1 EACH capsule 1 cap PO BID RF: 0 albuterol sulfate 2.5 MG/3 ML solution for nebulization 2.5 mg INHALATION Q4H PRN PRN (Reason: Sob &/Or Wheezing) RF: 0 cetirizine 10 mg tablet 10 mg PO QHS Qty: 90 RF: 3 Spiriva Respimat 2.5 mcg/actuation mist 2 puff INHALATION DAILY Qty: 3 RF: 3 lisinopril 2.5 mg tablet See Rx Instructions .ROUTE .COMPLEX Qty: 90 RF: 5 sitagliptin 100 mg tablet 100 mg PO DAILY Qty: 90 RF: 1 duloxetine 30 mg capsule,delayed release(DR/EC) 30 mg PO BID Qty: 180 RF: 1 levothyroxine 150 mcg tablet 150 mcg PO DAILY Qty: 90 RF: 1 gabapentin 600 mg tablet 600 mg PO BID Qty: 60 RF: 2 aspirin 81 mg tablet,delayed release (DR/EC) 81 mg PO DAILY Qty: 90 RF: 3 diltiazem HCl 120 mg capsule,extended release 24hr 120 mg PO DAILY Qty: 90 RF: 3 furosemide 20 mg tablet 20 mg PO DAILY Qty: 90 RF: 3 budesonide-formoterol [Symbicort] 160-4.5 mcg/actuation HFA aerosol inhaler 2 puff INHALATION BID Qty: 10.2 RF: 6 montelukast 10 mg tablet 10 mg PO QPM Qty: 90 RF: 3 Primary Care Provider: Refugio Dowd Referrals: Dilip Lawson MD [STAFF PHYSICIAN] - Refugio Dowd MD [Primary Care Provider] - Disposition Disposition: Home, Self Care
--- NOTE | 2021-10-12 17:36 | RAD_ITS ---
STUDY: X-RAY CHEST REASON FOR EXAM: Female, 66 years old. CHEST PAIN injury TECHNIQUE: XR Chest 2 Views COMPARISON: 06.04.21 FINDINGS: There is no demonstrated pleural abnormality. Normal size heart. Normal mediastinum and juve. Normal visualized pulmonary arteries. There is atherosclerotic calcification of the aortic arch with tortuosity. There are diffuse degenerative changes of the visualized thoracic spine. There is degenerative osteoarthritis of the bilateral shoulders. There is no demonstrated abnormality of the visualized soft tissue structures of the upper abdomen. RAD/Chest PA and Lateral IMPRESSION: There are no acute findings. Electronically Signed: Con Hernandez MD at 18:39 EDT ,
--- NOTE | 2021-10-12 17:36 | RAD_ITS ---
EXAM: XR LEFT HUMERUS, 2 OR MORE VIEWS CLINICAL INDICATION: injury pain TECHNIQUE: Frontal and lateral views of the left humerus. This report was created using [employer] report generation technology. COMPARISON: None. FINDINGS: BONES/JOINTS: Unremarkable. No acute fracture. No subluxation. Normal alignment. Preservation of the joint space. No sclerotic or destructive changes observed. SOFT TISSUES: Unremarkable. No soft tissue swelling or gas. No radiopaque foreign body. RAD/Humerus min 2 Views IMPRESSION: Negative left humerus x-rays. Electronically Signed: Con Hernandez MD at 18:18 EDT Reading Location ID and State: [facility] / [place] , Service support ,
--- NOTE | 2021-10-12 17:36 | RAD_ITS ---
STUDY: XR Pelvis 1 or 2 Views 10/12/2021 6:04 PM REASON FOR EXAM: Female, 66 years old. PAIN To left side TECHNIQUE: XR Pelvis 1 or 2 Views COMPARISON: None FINDINGS: There is a non-specific bowel gas pattern. There are multiple calcified phleboliths. There are degenerative changes of the lumbar spine. Normal bilateral iliac wings, sacroiliac joints and visualized sacrum. Normal visualized bilateral superior and inferior pubic rami. Normal pubic symphysis. Normal ischial tuberosities. Normal visualized right femoral head. Normal right acetabulum. Normal right hip joint. Normal visualized left femoral head. Normal left acetabulum. Normal left hip joint. RAD/Pelvis 1 or 2 Views IMPRESSION: No acute findings. Electronically Signed: Con Hernandez MD at 18:41 EDT ,
[2021-10-12] MEDS: Azithromycin 250 MG Tablet 500 MG PO (19:14)
== END 2021-10-12 19:15 | disposition home or self-care (01) ==
PROVIDERS: Emergency Provider Emergency Medicine; PCP Internal Medicine; Visit Provider Emergency Medicine
DX: S30.0XXA Contusion of lower back and pelvis, initial encounter (principal); J44.9 Chronic obstructive pulmonary disease, unspecified; E66.01 Morbid (severe) obesity due to excess calories; Z68.43 Body mass index [BMI] 50.0-59.9, adult; E11.9 Type 2 diabetes mellitus without complications; I10 Essential (primary) hypertension; F17.210 Nicotine dependence, cigarettes, uncomplicated; W01.0XXA Fall on same level from slipping, tripping and stumbling without subsequent striking against object, initial encounter; Y93.89 Activity, other specified; Y99.8 Other external cause status; M79.7 Fibromyalgia; K21.9 Gastro-esophageal reflux disease without esophagitis; E03.9 Hypothyroidism, unspecified; Z79.82 Long term (current) use of aspirin; Z79.899 Other long term (current) drug therapy; Z86.73 Personal history of transient ischemic attack (TIA), and cerebral infarction without residual deficits; Z12.31 Encounter for screening mammogram for malignant neoplasm of breast
CPT/HCPCS: 71046; 72170; 73060; 77063; 77067; 99283

== ENCOUNTER 2022-02-04 16:48 | Emergency (ER) | payer MEDICARE, SELFPAY ==
[2022-02-04 16:49] VITALS: BP 161/81; PULSE 94; RESP 18; TEMP 37.1; O2SAT 96; BMI 51.2
--- NOTE | 2022-02-04 18:50 | CT_ITS ---
EXAM: CT LUMBAR SPINE WITHOUT INTRAVENOUS CONTRAST CLINICAL INDICATION: Pain TECHNIQUE: Helically acquired images were obtained of the lumbar spine without intravenous contrast. 2D reformats were reviewed. This CT exam was performed using one or more of the following dose reduction techniques: automated exposure control, adjustment of the mA and/or kV according to patient size, and/or use of iterative reconstruction technique. This report was created using [employer] report generation technology. RADIATION DOSE: CTDIvol = 44.97 mGy, DLP = 1284.22 mGy-cm COMPARISON: MRI 07/05/2019 FINDINGS: VERTEBRAE: Unremarkable. No fracture. No traumatic subluxation. No discrete lytic or blastic abnormality. Normal alignment. DISCS/SPINAL CANAL/NEURAL FORAMINA: Unremarkable. Disc heights are preserved. No critical stenosis. VASCULATURE: There are calcifications of the abdominal aorta. This is consistent for atherosclerotic disease. There is NO abdominal aortic aneurysm. Vascular workup can be obtained based on clinical correlation. LYMPH NODES: Unremarkable. No retroperitoneal adenopathy. STOMACH AND BOWEL: There are multiple diverticuli of the colon. There is diverticulosis but no radiographic signs for diverticulitis. CT/Spine Lumbar without Contrast IMPRESSION: No acute findings in the lumbar spine. Electronically Signed: Con Hernandez MD at 20:00 EDT ,
--- NOTE | 2022-02-04 18:52 | EDS_ITS ---
HPI History of Present Illness Chief Complaint: Back Narrative Narrative: Patient with past medical history of diabetes, hypertension, COPD, emphysema, smoker, presents with low back pain and left leg pain and swelling. She states that she is had problems with arthritis of her back, but not this severe. She has pain in her right low back, that radiates towards the left and forward towards her hip. She states that she is having pain in her left lower extremity since Monday, 2 days ago. She denies any chest pain or any new shortness of breath. She states that she is always short of breath secondary to her COPD/emphysema. However, she feels as if her left lower extremity is rockhard. It is painful. No exacerbating or alleviating factors. She denies any recent immobility. No problems with bowel or bladder. No red flag signs such as saddle anesthesia. [facility] Medical History Abnormal results of pulmonary function studies Anxiety and depression Chronic low back pain COPD (chronic obstructive pulmonary disease) Degeneration of lumbar or lumbosacral intervertebral disc Dermatitis Diverticulosis Essential (primary) hypertension Fibromyalgia GERD (gastroesophageal reflux disease) Health care maintenance Hearing loss Hiatal hernia Hypothyroidism Morbid obesity MRSA (methicillin resistant staph aureus) culture positive Nummular eczematous dermatitis Oral candidiasis HENRRY (obstructive sleep apnea) Polyp of vocal cord and larynx Secondary pulmonary arterial hypertension Sinusitis 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 myelopathy or radiculopathy Thrombophlebitis leg superficial TIA (transient ischemic attack) Tobacco abuse Type 2 diabetes mellitus Ureteral calculus, left Home Medications vit C 250 mg-vit E 90 mg-zinc 40 mg-copper 1 rd-[id number]-[id number] capsule 1 cap PO BID supplement 03/16/17 [History Last Taken 07/04/19] cetirizine 10 mg tablet 10 mg PO QHS ALLERGIES #90 tabs 01/06/20 [Rx Last Taken Unknown] azelastine 205.5 mcg (0.15 %) nasal spray 1 spray intranasal BID #3 ea 03/16/20 [Rx Last Taken Unknown] fluticasone propionate 50 mcg/actuation nasal spray,suspension 2 spray intranasal DAILY #54.6 mL 03/16/20 [Rx Last Taken Unknown] albuterol sulfate 90 mcg/actuation aerosol inhaler (Ventolin HFA) 2 puff inhalation Q4H PRN shortness of breath or wheezing #18 grams 04/22/20 [Rx Last Taken 05/04/20] albuterol sulfate 2.5 mg inhalation Q4H PRN PRN Sob &/Or Wheezing 06/05/20 [History Last Taken Unknown] metformin 500 mg tablet,extended release 24 hr (Glucophage XR) 1,500 mg PO QPM 3 months #270 tabs 07/22/20 [Rx Last Taken Unknown] tiotropium bromide 2.5 mcg/actuation mist for inhalation (Spiriva Respimat) 2 puff inhalation DAILY #3 device 07/22/20 [Rx Last Taken Unknown] ascorbate calcium (vitamin C) 500 mg tablet 500 mg PO DAILY 08/13/20 [History Last Taken Unknown] elderberry fruit 200 mg capsule 200 mg PO DAILY 08/13/20 [History Last Taken Unknown] omega-3 fatty acids 1,000 mg capsule (Fish Oil Concentrate) 1,000 mg PO DAILY 08/13/20 [History Last Taken Unknown] lisinopril 2.5 mg tablet See Rx Instructions .Route .COMPLEX #90 tabs 09/15/20 [Rx Last Taken Unknown] pantoprazole 40 mg tablet,delayed release (Protonix) 40 mg PO DAILY #90 tabs 10/21/20 [Rx Last Taken Unknown] triamcinolone acetonide 0.025 % topical ointment 1 applic topical BID PRN rash #454 grams 10/21/20 [Rx Last Taken Unknown] Disability Placard #1 ea 12/10/20 [Rx Last Taken Unknown] aspirin 81 mg tablet,delayed release 81 mg PO DAILY #90 tabs 04/06/21 [Rx Last Taken Unknown] budesonide-formoterol HFA 160 mcg-4.5 mcg/actuation aerosol inhaler (Symbicort) 2 puff inhalation BID #10.2 grams 04/06/21 [Rx Last Taken Unknown] diltiazem HCl 120 mg capsule,extended release 24 hr 120 mg PO DAILY #90 caps 04/06/21 [Rx Last Taken Unknown] duloxetine 30 mg capsule,delayed release 30 mg PO BID #180 caps 04/06/21 [Rx Last Taken Unknown] furosemide 20 mg tablet 20 mg PO DAILY #90 tabs 04/06/21 [Rx Last Taken Unknown] gabapentin 600 mg tablet 600 mg PO BID #60 tabs 04/06/21 [Rx Last Taken Unknown] levothyroxine 150 mcg tablet 150 mcg PO DAILY #90 tabs 04/06/21 [Rx Last Taken U nknown] benzonatate 200 mg capsule 200 mg PO TID PRN cough #90 caps 06/09/21 [Rx Last Taken Unknown] ipratropium 0.5 mg-albuterol 3 mg (2.5 mg base)/3 mL nebulization soln 3 ml inhalation Q4H PRN PRN SOB &/OR WHEEZING #180 mL 06/09/21 [Rx Last Taken Unknown] apixaban 5 mg (74 tabs) tablets in a dose pack (Eliquis DVT-PE Treat 30D Start) 5 mg PO BID #74 tabs 02/04/22 [Rx Last Taken Unknown] canagliflozin 100 mg tablet 100 mg PO DAILY 02/04/22 [History Last Taken Unknown] guaifenesin 1,200 mg tablet,extended release,12 hr 1,200 mg PO BID 02/04/22 [History Last Taken Unknown] montelukast 10 mg tablet (Singulair) 10 mg PO QPM 02/04/22 [History Last Taken Unknown] oxycodone-acetaminophen 5 mg-325 mg tablet (Percocet) 1 tab PO Q6H PRN pain 3 days #12 tabs 02/04/22 [Rx Last Taken Unknown] sitagliptin 100 mg tablet (Januvia) 100 mg PO DAILY 02/04/22 [History Last Taken Unknown] Allergy/AdvReac Type Severity Reaction Status Date / Time fluconazole [From Diflucan] Allergy Anaphylaxis Verified 02/04/22 16:49 nickel [Nickel] Allergy Rash Verified 02/04/22 16:49 perfume Allergy Rash Verified 02/04/22 16:49 deodorant Allergy Rash Uncoded 02/04/22 16:49 Family History Mother Cancer Father Diabetes Alcoholism Brother Cancer Lung cancer Surgical History History of D&C History of hysterectomy History of right and left heart catheterization (03/07/18) History of right heart catheterization (05/04/20) History of tonsillectomy History of tubal ligation Status post surgical manipulation of ankle joint Social History Smoking Status: Current every day smoker tobacco type: cigarettes Tobacco: How many years used: 55 second hand exposure: Yes alcohol intake: never substance use type: does not use caffeine: Yes (4) what type of physical activity do you participate in: none ROS ROS ED ROS Narrative Constitutional: No fever, no chills. HEENT: No sore throat. No neck pain. No loss of vision. No rhinorrhea. Cardiovascular: No chest pain. No palpitations. No pedal edema. Respiratory: No cough, no shortness of breath that is new for her.. Abdominal: No abdominal pain. No nausea. No vomiting. Genitourinary: No dysuria. No hematuria. Musculoskeletal: No myalgias. Left lower extremity pain and swelling. Positive right low back pain radiating towards left. Neurologic: No headaches. No dizziness. No lightheadedness. Skin: No rash. No change in color. Psychiatric: No depression. No anxiety. EXAM Physical Exam Narrative Exam Narrative: Afebrile. Vital signs noted. HEENT: Normocephalic. Atraumatic. PERRL, EOMI. Neck soft and supple. No point tenderness or step off. Cardiovascular: Regular rate and rhythm. No murmurs, rubs, or gallops appreciated. Respiratory: No tachypnea. Lungs clear to auscultation bilaterally. Gastrointestinal: Abdomen soft, obese, nontender, with normoactive bowel sounds. No rebound or guarding. Neurological: Awake. Alert. Nonfocal, nonlateralizing. Skin: No rash. Normal color. No pallor. Musculoskeletal: Mild swelling left lower extremity. Mild firmness of calf. Difficult to assess secondary to body habitus. Full range of motion extremities. Const Vital Signs: 02/04/22 16:49 02/04/22 19:55 Temperature 98.8 F Temperature Source Temporal Pulse Rate 94 Respiratory Rate 18 18 Blood Pressure 161/81 H Blood Pressure Mean 107 Pulse Ox 96 97 Oxygen Delivery Method Room Air Room Air MDM MDM MDM Narrative Medical decision making narrative: Patient was given an oxycodone tablet for analgesia. DVT study will be obtained along with CT of the lumbar spine. CT of the lumbar spine shows no acute fracture. I received a call from the radiologist regarding her ultrasound of the left lower extremity. There is a DVT of the common femoral vein and deep femoral vein. At this point in time, she was given her first dose of Eliquis here as a loading dose and a prescription written for the starter pack for 30 days. I also wrote her prescription for Percocet for 3 days, dispense #12 for analgesia. She will follow-up with her primary care physician. I feel she can be discharged safely home with follow-up. She was told of the risk of intracranial hemorrhage and GI bleeding and other bleeding diathesis, and acknowledges an understanding. I do feel that the risk benefit ratio does favor starting her on a blood thinner. Disposition is discharged home in stable condition. Return instructions were reviewed. Radiography Diagnostic Testing: Clinical Impression(s) from Imaging Studies Lumbar Spine CT 02/04/22 18:50 IMPRESSION: No acute findings in the lumbar spine. Electronically Signed: Con Hernandez MD at 20:00 EDT , Venous Duplex 02/04/22 19:10 IMPRESSION: DVT of the common femoral vein and deep femoral vein. Electronically Signed: Con Hernandez MD at 20:19 EDT , ADDENDUM: 02/04/222039 IMPRESSION: DVT of the common femoral vein and deep femoral vein. N.B. : The above Results were Read Back by Con Hernandez MD to Dr. Leoncio Lincoln MD, and understanding confirmed on 02/04/2022 20:33:56 (ET). Electronically Signed: Con Hernandez MD at 20:19 EDT , Discharge Plan Triage Chief Complaint: Back Other Complaint: Lower Extremity Injury ED Provider: Leoncio Lincoln Dx/Rx/DC Orders Clinical Impression: Chronic back pain, DVT (deep venous thrombosis) Instructions: ED Back Pain (Acute or Chronic), ED Deep Vein Thrombosis (DVT) Prescriptions: [place] DVT-PE Treat 30D Start 5 mg (74 tabs) tablets,dose pack 5 mg PO BID Qty: 74 0RF Rx Instructions: Start 10 mg by mouth twice a day for the first 7 days then 5 mg twice a day by mouth for the remaining time. oxycodone-acetaminophen [Percocet] 5-325 mg tablet 1 tab PO Q6H PRN (Reason: pain) 3 Days Qty: 12 0RF No Action fluticasone propionate 50 mcg/actuation spray,suspension 2 spray INTRANASAL DAILY Qty: 54.6 3RF azelastine 0.15 % (205.5 mcg) spray,non-aerosol 1 spray INTRANASAL BID Qty: 3 3RF Rx Instructions: administer into each nostril albuterol sulfate [Ventolin HFA] 90 mcg/actuation HFA aerosol inhaler 2 puff INHALATION Q4H PRN (Reason: shortness of breath or wheezing) Qty: 18 6RF metformin [Glucophage XR] 500 mg tablet extended release 24 hr 1,500 mg PO QPM 90 Days Qty: 270 3RF (DME) Disability Placard See Rx Instructions .ROUTE .MEDSUPPLY Qty: 1 0RF Rx Instructions: Expires in 5 years pantoprazole [Protonix] 40 mg tablet,delayed release (DR/EC) 40 mg PO DAILY Qty: 90 3RF triamcinolone acetonide 0.025 % ointment 1 applic TOPICAL BID PRN (Reason: rash) Qty: 454 2RF omega-3 fatty acids [Fish Oil Concentrate] 1,000 mg capsule 1,000 mg PO DAILY elderberry fruit 200 mg capsule 200 mg capsule 200 mg PO DAILY ascorbate calcium (vitamin C) 500 mg tablet 500 mg PO DAILY benzonatate 200 mg capsule 200 mg PO TID PRN (Reason: cough) Qty: 90 0RF ipratropium-albuterol 0.5 mg-3 mg(2.5 mg base)/3 mL solution for nebulization 3 ml inhalation Q4H PRN PRN (Reason: SOB &/OR WHEEZING) Qty: 180 6RF vit C,B-Ny-ktrit-lutein-zeaxan 1 EACH capsule 1 cap PO BID albuterol sulfate 2.5 MG/3 ML solution for nebulization 2.5 mg INHALATION Q4H PRN PRN (Reason: Sob &/Or Wheezing) Rx Instructions: Use q4 hours and PRN for wheezing guaifenesin 1,200 mg Tablet Extended Release 12 Hr 1,200 mg PO BID canagliflozin 100 mg Tablet 100 mg PO DAILY montelukast [Singulair] 10 mg tablet 10 mg PO QPM Januvia 100 mg tablet 100 mg PO DAILY Rx Instructions: Start half tablet daily x 1 week then take 1 tablet daily. cetirizine 10 mg tablet 10 mg PO QHS Qty: 90 3RF Spiriva Respimat 2.5 mcg/actuation mist 2 puff INHALATION DAILY Qty: 3 3RF lisinopril 2.5 mg tablet See Rx Instructions .ROUTE .COMPLEX Qty: 90 5RF Dose Instruction: TAKE 1 TABLET BY MOUTH EVERY DAY Rx Instructions: TAKE 1 TABLET BY MOUTH EVERY DAY duloxetine 30 mg capsule,delayed release(DR/EC) 30 mg PO BID Qty: 180 1RF levothyroxine 150 mcg tablet 150 mcg PO DAILY Qty: 90 1RF gabapentin 600 mg tablet 600 mg PO BID Qty: 60 2RF Rx Instructions: TAKE 1 CAPSULE BY MOUTH TWICE DAILY aspirin 81 mg tablet,delayed release (DR/EC) 81 mg PO DAILY Qty: 90 3RF diltiazem HCl 120 mg capsule,extended release 24hr 120 mg PO DAILY Qty: 90 3RF furosemide 20 mg tablet 20 mg PO DAILY Qty: 90 3RF budesonide-formoterol [Symbicort] 160-4.5 mcg/actuation HFA aerosol inhaler 2 puff INHALATION BID Qty: 10.2 6RF Primary Care Provider: Refugio Dowd Referrals: Refugio Dowd MD [Primary Care Provider] - 3-5 Days Disposition Disposition: Home, Self Care
--- NOTE | 2022-02-04 19:10 | US_ITS ---
We are attempting to reach an attending provider to discuss findings. An addendum with communication details will be sent when the communication is complete. STUDY: VENOUS DOPPLER ULTRASOUND - LEFT LOWER EXTREMITY REASON FOR EXAM: Female, 66 years old. LEG PAIN AND SWELLING LLE PAIN AND SWELLING TECHNIQUE: Ultrasound evaluation of the deep vein system to include hernandes-scale imaging and compression was performed. Hernandes-scale imaging and Doppler sonographic evaluation, including duplex spectral analysis and qualitative color flow sonography, was performed. COMPARISON: 7.8 FINDINGS: Common Femoral Vein: Thrombus Common Femoral Vein/Greater Saphenous Junction: Thrombus Deep femoral vein:Thrombus Superficial Femoral Proximal: Normal compression, spontaneity and augmentation. Normal color Doppler. Superficial Femoral Middle: Normal compression, spontaneity and augmentation. Normal color Doppler. Superficial Femoral Distal: Normal compression, spontaneity and augmentation. Normal color Doppler. Popliteal Vein: Suboptimal visualization Posterior Tibial Vein: Normal compression, spontaneity and augmentation. Normal color Doppler. Peroneal Vein: Suboptimal visualization There is demonstrated deep venous thrombosis. US/Venous Duplex Imag/Limited/Uni IMPRESSION: DVT of the common femoral vein and deep femoral vein. Electronically Signed: Con Hernandez MD at 20:19 EDT ,
[2022-02-04] MEDS: oxyCODONE 5 MG Tablet PO (19:44)
[2022-02-04 19:55] VITALS: RESP 18; O2SAT 97
[2022-02-04] MEDS: APIXABAN 5 MG TABLET 10 MG PO (21:03)
[2022-02-04 21:04] VITALS: BP 159/69; PULSE 94; RESP 18; O2SAT 97
== END 2022-02-04 21:10 | disposition home or self-care (01) ==
PROVIDERS: Emergency Provider Emergency Medicine; PCP Internal Medicine; Visit Provider Emergency Medicine
DX: M54.50 Low back pain, unspecified (principal); J43.9 Emphysema, unspecified; I82.412 Acute embolism and thrombosis of left femoral vein; E66.01 Morbid (severe) obesity due to excess calories; Z68.43 Body mass index [BMI] 50.0-59.9, adult; E11.9 Type 2 diabetes mellitus without complications; G89.29 Other chronic pain; I10 Essential (primary) hypertension; E03.9 Hypothyroidism, unspecified; M79.7 Fibromyalgia; K21.9 Gastro-esophageal reflux disease without esophagitis; F17.210 Nicotine dependence, cigarettes, uncomplicated; Z79.82 Long term (current) use of aspirin; Z79.84 Long term (current) use of oral hypoglycemic drugs; Z79.899 Other long term (current) drug therapy; Z86.73 Personal history of transient ischemic attack (TIA), and cerebral infarction without residual deficits
CPT/HCPCS: 72131; 93971; 99284

== ENCOUNTER → 2022-04-13 | Outpatient (CLI) | payer MEDICARE, MEDICAID, SELFPAY ==
[2022-04-13 16:57] LABS: Absolute Lymphocyte Count 2.65 X10^3/uL (0.83-4.51); Absolute Neutrophil Count 6.1 X10^3/uL (2.0-7.7); Basophil# 0.05 X10^3/uL; Basophil% 0.5 % (0-1); Eosinophil# 0.17 X10^3/uL; Eosinophils% 1.8 % (0-5); Hematocrit 41.8 % (37-47); Hemoglobin 13.6 g/dL (12.0-15.0); Lymphocyte # 2.65 X10^3/ul (0.83-4.51); Lymphocyte % 27.5 % (19-41); Mean Corp Hgb Conc 32.5 g/dL (32-36); Mean Corpuscular Volume 101.5 fL (81-99); Mean Platelet Vol. 9.8 fl (6.2-12.0); Monocyte# 0.61 X10^3/uL; Monocyte% 6.3 % (0-10); NRBC Flagged by Analyzer 0 % (0-5); Neutrophil # 6.11 X10^3/uL (2.7-7.7); Neutrophil % 63.6 % (47-70); Platelet Count 296 K/mm3 (150-450); RBC Distribution Width CV 13.5 % (11.6-14.6); Red Blood Count 4.12 M/mm3 (4.2-5.4); White Blood Count 9.6 K/mm3 (4.4-11.0)
[2022-04-13 17:17] LABS: AST(SGOT) 12 U/L (15-37); Alanine Aminotransfer ALT/SGPT 22 U/L (13-56); Albumin, Serum 3.6 g/dL (3.2-5.0); Alkaline Phosphatase 103 U/L (45-117); Anion Gap 8 (5-15); BUN 17 mg/dL (7-18); Calcium,Total 9.4 mg/dL (8.5-10.1); Chloride 104 mmol/L (98-107); Creatinine, Serum 0.85 mg/dL (0.55-1.02); EST Glomerular Filtration Rate 71 mL/min (>60); Est Glom Filt Rate - Afr Amer 86 mL/min (>60); Globulin 3.7 g/dL (2.2-4.2); Glucose 117 mg/dL (74-106); Potassium 4.1 mmol/L (3.5-5.1); Protein, Total 7.3 g/dL (6.4-8.2); Sodium Level 140 mmol/L (136-145); Troponin-I HS 9 pg/mL (3.0-54.0)
== END | disposition home or self-care (01) ==
LOC: BIMLAB 15:15
PROVIDERS: PCP Internal Medicine; Referring Provider Internal Medicine; Visit Provider Internal Medicine
DX: E11.9 Type 2 diabetes mellitus without complications (principal); R07.9 Chest pain, unspecified
CPT/HCPCS: 36415; 80053; 84484; 85025

== ENCOUNTER → 2022-04-26 | Outpatient (CLI) | payer MEDICARE, SELFPAY ==
--- NOTE | 2022-04-26 13:41 | CT_ITS ---
STUDY: CT CHEST, ABDOMEN T PELVIS WITH CONTRAST REASON FOR EXAM: Female, 66 years old. R/O MALIGNANCY DUE TO UNPROVOKED DVT-IV ONLY RADIATION DOSAGE (If Supplied By Facility): CTDIvol = ( 22.66 ) mGy, DLP = ( 2030.35 ) mGycm TECHNIQUE: Transaxial imaging was performed following intravenous administration of Oral and amp; IV Readi-CAT and amp; 100mL Isovue-370. Multiplanar coronal and sagittal images were reformatted. Individualized dose optimization techniques were used for this CT. COMPARISON: Comparison is made with prior CT scan of the chest dated 04/30/2020. FINDINGS: CHEST Stable small benign-appearing bilateral axillary lymph nodes. The lungs are normal. There is no demonstrated pleural abnormality. There are calcifications of the coronary arteries. Normal mediastinum. Normal hilar regions. Normal unenhanced pulmonary arteries. Normal aorta arch and descending thoracic aorta. There are multi-level degenerative changes of the thoracic spine. Small hiatal hernia. Fatty infiltration of the liver. ABDOMEN There is decreased attenuation of the liver consistent with steatosis. Normal gallbladder and extrahepatic biliary system. Normal spleen. Normal pancreas. There is a small, circumscribed, smooth, low attenuation left adrenal mass, consistent with an adrenal adenoma. This measures 1.2 cm. This is unchanged. Normal right adrenal gland. Normal right kidney. Normal left kidney. Normal visualized stomach. Normal small intestine. There are multiple colonic diverticula consistent with diverticulosis. The appendix is visualized and appears normal. There is scattered atherosclerotic calcification of the abdominal aorta, without a demonstrated aneurysm. Normal inferior vena cava. There is borderline retroperitoneal lymphadenopathy with enlarged nodes no greater than 10mm in the short axis diameter. Findings suggestive of a prior nephrogram. Normal abdominal wall. There are mild degenerative changes of the visualized lumbar spine. PELVIS Normal urinary bladder. The patient is status post hysterectomy. Normal visualized small intestine. Normal visualized colon. There is no pelvic fluid. There is no pelvic lymphadenopathy or mass lesion. There is diffuse atherosclerotic calcification of the pelvic arteries. CT/CT Chest, Abd, Pel w/Contrast IMPRESSION: Stable small left adrenal adenoma. Scattered sigmoid diverticula. Electronically Signed: Fish Woods MD at 14:47 EDT ,
== END | disposition home or self-care (01) ==
LOC: CT 13:40
PROVIDERS: PCP Internal Medicine; Referring Provider Internal Medicine Medical Oncology; Visit Provider Internal Medicine Medical Oncology
DX: I82.409 Acute embolism and thrombosis of unspecified deep veins of unspecified lower extremity (principal); D35.02 Benign neoplasm of left adrenal gland; K57.30 Diverticulosis of large intestine without perforation or abscess without bleeding
CPT/HCPCS: 71260; 74177; Q9967

== ENCOUNTER → 2022-04-27 | Outpatient (CLI) | payer MEDICARE, SELFPAY ==
--- NOTE | 2022-04-27 13:53 | ECHOD_ITS ---
Reason For Study: ACUTE EMBOLISM Left Ventricle Normal LV size. Left ventricular systolic function is normal. The estimated ejection fraction is 60 %. No regional wall motion abnormalities noted. Right Ventricle Normal RV size. Normal systolic function. Atria The left atrium is moderately enlarged. The right atrium is mildly enlarged. Mitral Valve Normal mitral valve. Tricuspid Valve Normal tricuspid valve. Moderate (2+) tricuspid valve insufficiency. Pulmonary artery systolic pressure is 60 mmHg. Aortic Valve Normal aortic valve. Pulmonic Valve Normal pulmonic valve. Great Vessels Normal aortic root. The pulmonary artery is normal size. Normal inferior vena cava. Pericardium/Pleural No pericardial effusion. MMode/2D Measurements & Calculations LVIDd: 5.0 cm IVSd: 0.98 cm Ao root diam: 3.1 cm LVIDs: 3.0 cm LVPWd: 0.86 cm FS: 41.0 % LAV(MOD-bp): 77.5 ml LVAd ap4: 22.5 cm2 SV(MOD-sp4): 36.4 ml LAV(MOD-bp) Indexed: 35.5 ml/m2 LVLd ap4: 8.2 cm LAV(MOD-sp2): 53.6 ml EDV(MOD-sp4): 52.9 ml LAV(MOD-sp4): 87.0 ml EDV(sp4-el): 52.0 ml LVAs ap4: 10.3 cm2 LVLs ap4: 6.0 cm ESV(MOD-sp4): 16.5 ml ESV(sp4-el): 15.0 ml EF(MOD-sp4): 68.8 % EF(sp4-el): 71.2 % SV(sp4-el): 37.0 ml LA dimension(2D): 3.8 cm LA A4 area: 28.2 cm2 RA A4 area: 23.1 cm2 Time Measurements MV dec time: 0.20 sec Doppler Measurements & Calculations MV E max stephen: 76.6 cm/sec Lat Peak E' Stephen: 9.1 cm/sec Med Peak E' Stephen: 7.0 cm/sec MV A max stephen: 79.2 cm/sec E/E' lat: 8.4 E/E' med: 10.9 MV E/A: 0.97 MV V2 max: 86.5 cm/sec Ao V2 max: 162.2 cm/sec MV max P.0 mmHg MV dec slope: 389.3 cm/sec2 Ao max P.5 mmHg MV V2 mean: 46.5 cm/sec Ao V2 mean: 110.5 cm/sec MV mean P.1 mmHg Ao mean P.6 mmHg MV V2 VTI: 28.8 cm Ao V2 VTI: 40.1 cm LV V1 max: 114.4 cm/sec PA V2 max: 118.7 cm/sec TR max stephen: 377.0 cm/sec LV V1 max P.2 mmHg PA V2 mean: 81.6 cm/sec TR max P.9 mmHg LV V1 mean P.8 mmHg LV V1 mean: 79.7 cm/sec LV V1 VTI: 27.9 cm ECHO/Echo Complete Interpretation Summary Normal LV size. Left ventricular systolic function is normal. The estimated ejection fraction is 60 %. Pulmonary artery systolic pressure is 60 mmHg. The left atrium is moderately enlarged. The right atrium is mildly enlarged. Ordering Physician: Thomas Thacker Referring Physician: Thomas Thacker Performed By: Kia Andujar RCS
== END | disposition home or self-care (01) ==
LOC: CVS 13:52
PROVIDERS: PCP Internal Medicine; Referring Provider Internal Medicine Medical Oncology; Visit Provider Internal Medicine Medical Oncology
DX: G47.33 Obstructive sleep apnea (adult) (pediatric) (principal)
CPT/HCPCS: 93306

== ENCOUNTER 2022-07-12 14:05 | Outpatient (CLI) | payer MEDICARE, MEDICAID, SELFPAY ==
--- NOTE | 2022-07-12 14:10 | VDLE_ITS ---
Reason For Study: swelling, redness RIGHT LEFT GSV is normal. GSV is normal. CFV is compressible, spontaneous, phasic, FV is compressible, spontaneous, phasic, competent and demonstrates normal competent and demonstrates normal augmentation. augmentation. FV is compressible, spontaneous, phasic, POP V is compressible, spontaneous, phasic, competent and demonstrates normal competent and demonstrates normal augmentation. augmentation. POP V is compressible, spontaneous, phasic, T/P Trunk is compressible. competent and demonstrates normal PTV is compressible. augmentation. LT PerV is compressible. T/P Trunk is compressible. CFV deonstrates normal venous flow patterns PTV is compressible. with minimal vein wall thickening. RT PerV is compressible. Profunda V is now compressible. Improvement Procedure from previous study done 02/04/22 by radiology. This is a venous duplex using B-mode, color flow and spectral Doppler. Exam performed in department. The exam was diagnostic. A preliminary report was called and/or faxed to Kirstie's office. VL/Venous Duplex US - John Extrem Interpretation Summary Right popliteal fossa 1.77 x 4.63 cm nonvascular structure consistent with a Ba ker's cyst. Clinical correlation would be appropriate. No evidence for acute deep venous thrombosis right lower extremity Minimal vein wall thickening of the left common femoral vein. By report resumpt ion of compressibility of the left profundofemoral vein. This suggests improvement per a previous examination done February 04, 2022 per radiology not directly available to me for co mparison Patent and compressible bilateral great saphenous veins Ordering Physician: Thomas Thacker Performed By: Don Duncan RVT
== END 2022-07-12 23:59 | disposition home or self-care (01) ==
LOC: CVS 14:09
PROVIDERS: PCP Internal Medicine; Visit Provider Internal Medicine Medical Oncology
DX: M79.89 Other specified soft tissue disorders (principal); I82.412 Acute embolism and thrombosis of left femoral vein; Z79.01 Long term (current) use of anticoagulants
CPT/HCPCS: 36415; 85379; 85610; 85730; 93970

== ENCOUNTER 2022-08-02 12:41 | Emergency (ER) | payer MEDICARE, MEDICAID, SELFPAY ==
[2022-08-02 12:42] VITALS: BP 142/81; PULSE 64; RESP 18; TEMP 36.6; O2SAT 97; BMI 49.1
[2022-08-02 13:50] LABS: Bacteria 0 SEEN /hpf (None Seen); Mucous, Urine 0 SEEN /hpf (<or=2+); Red Blood Cells-Urine 0 SEEN /hpf (0-5)
[2022-08-02 13:51] LABS: Absolute Lymphocyte Count 2.84 X10^3/uL (0.83-4.51); Absolute Neutrophil Count 6.3 X10^3/uL (2.0-7.7); Basophil# 0.09 X10^3/uL; Basophil% 0.9 % (0-1); Eosinophil# 0.21 X10^3/uL; Eosinophils% 2.1 % (0-5); Hematocrit 45.3 % (37-47); Hemoglobin 14.8 g/dL (12.0-15.0); Lymphocyte # 2.84 X10^3/ul (0.83-4.51); Lymphocyte % 28.1 % (19-41); Mean Corp Hgb Conc 32.7 g/dL (32-36); Mean Corpuscular Volume 100.9 fL (81-99); Mean Platelet Vol. 8.9 fl (6.2-12.0); Monocyte# 0.61 X10^3/uL; NRBC Flagged by Analyzer 0 % (0-5); Neutrophil # 6.33 X10^3/uL (2.7-7.7); Neutrophil % 62.5 % (47-70); Platelet Count 291 K/mm3 (150-450); RBC Distribution Width CV 15.1 % (11.6-14.6); RBC Distribution Width SD 56.8 fl (35.1-43.9); Red Blood Count 4.49 M/mm3 (4.2-5.4); White Blood Count 10.1 K/mm3 (4.4-11.0)
[2022-08-02 13:54] LABS: Color, Urine Yellow (Yellow); Glucose, Dipstick Normal (Normal); Ketone-Dipstick Negative (Negative); Leukocyte Esterase-Dipstick Negative /ul (Negative); Nitrite-Dipstick Negative (Negative); Occult Blood-Urine Negative /ul (Negative); Protein-Dipstick Negative (Negative); Urine Bilirubin Dipstick Negative (Negative); Urine Clarity Clear (Clear); Urine Urobilinogen Normal (Normal); Urine pH 6.5 (5.0 - 8.0)
[2022-08-02 14:01] LABS: Squamous Epithelial Cells - UA 5-10 SEEN /hpf (5-10); White Blood Cells 0-5 SEEN /hpf (0-5)
[2022-08-02 14:04] LABS: Anion Gap 7 (5-15); BUN 15 mg/dL (7-18); Calcium,Total 9.5 mg/dL (8.5-10.1); Chloride 103 mmol/L (98-107); EST Glomerular Filtration Rate 59 mL/min (>60); Est Glom Filt Rate - Afr Amer 71 mL/min (>60); Estimated Creatinine Clearance 43.18 ml/min; Glucose 187 mg/dL (74-106); Sodium Level 138 mmol/L (136-145)
--- NOTE | 2022-08-02 15:06 | CT_ITS ---
STUDY: CT ABDOMEN AND PELVIS WITHOUT CONTRAST REASON FOR EXAM: Female, 67 years old. kidney stone RADIATION DOSAGE (If Supplied By Facility): CTDIvol = ( 23.76 ) mGy, DLP = ( 1092.10 ) mGycm TECHNIQUE: Transaxial images were obtained from the dome of the diaphragm to the symphysis pubis without oral contrast, and without intravenous contrast. Sagittal and coronal images were reconstructed. Individualized dose optimization techniques were used for this CT. COMPARISON: 04/26/2022 FINDINGS: The visualized lung bases are unremarkable. The visualized portions of the heart are within normal limits. Normal liver. Normal gallbladder and extrahepatic biliary system. Normal spleen. Normal pancreas. Normal bilateral adrenal glands. Normal right kidney. Normal left kidney. Normal visualized stomach. Normal small intestine. There are multiple colonic diverticula consistent with diverticulosis. The appendix is visualized and appears normal. There is diffuse atherosclerotic calcification of the abdominal aorta, without a demonstrated aneurysm. Normal inferior vena cava. Normal retroperitoneum. Normal urinary bladder. Normal abdominal wall. Normal osseous structures. CT/Abdomen/Pelvis without Cont IMPRESSION: 1. No renal or ureteral stone. 2. Sigmoid diverticulosis without diverticulitis. Electronically Signed: Odin Baker MD at 16:33 EST ,
--- NOTE | 2022-08-02 15:08 | EDS_ITS ---
HPI History of Present Illness Chief Complaint: Flank Pain Informant: patient Onset/Context/Timing Onset: Weeks (1 week) Context: Gradual Onset Timing: Waxes and wanes Current Severity: Moderate Maximum Severity: Moderate Narrative Narrative: Patient presents secondary to right flank pain. She points to the right par alumbar region describing her area of pain. She states symptoms started about a week ago and have continued to progress. Pain is worse when she is sitting. She denies urinary symptoms but was concerned that she. She does have a history of 1 prior left-sided kidney stone. No fever or chills. [facility] Medical History Abnormal results of pulmonary function studies Anxiety and depression Chest pain Chronic low back pain COPD (chronic obstructive pulmonary disease) Degeneration of lumbar or lumbosacral intervertebral disc Dermatitis Diverticulosis Essential (primary) hypertension Fibromyalgia GERD (gastroesophageal reflux disease) Health care maintenance Hearing loss Hiatal hernia Hypothyroidism Morbid obesity MRSA (methicillin resistant staph aureus) culture positive Nummular eczematous dermatitis Oral candidiasis HENRRY (obstructive sleep apnea) Polyp of vocal cord and larynx Secondary pulmonary arterial hypertension Sinusitis 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 myelopathy or radiculopathy Thrombophlebitis leg superficial TIA (transient ischemic attack) Tobacco abuse Type 2 diabetes mellitus Ureteral calculus, left Home Medications vit C 250 mg-vit E 90 mg-zinc 40 mg-copper 1 [id number] capsule 1 cap PO BID supplement 03/16/17 [History Last Taken 07/04/19] cetirizine 10 mg tablet 10 mg PO QHS ALLERGIES #90 tabs 01/06/20 [Rx Last Taken Unknown] azelastine 205.5 mcg (0.15 %) nasal spray 1 spray intranasal BID #3 ea 03/16/20 [Rx Last Taken Unknown] fluticasone propionate 50 mcg/actuation nasal spray,suspension 2 spray intranasal DAILY #54.6 mL 03/16/20 [Rx Last Taken Unknown] albuterol sulfate 90 mcg/actuation aerosol inhaler (Ventolin HFA) 2 puff inhalation Q4H PRN shortness of breath or wheezing #18 grams 04/22/20 [Rx Last Taken 05/04/20] albuterol sulfate 2.5 mg/3 mL (0.083 %) solution for nebulization 2.5 mg inhalation Q4H PRN PRN Sob &/Or Wheezing 06/05/20 [History Last Taken Unknown] tiotropium bromide 2.5 mcg/actuation mist for inhalation (Spiriva Respimat) 2 puff inhalation DAILY #3 device 07/22/20 [Rx Last Taken Unknown] ascorbate calcium (vitamin C) 500 mg tablet 500 mg PO DAILY 08/13/20 [History Last Taken Unknown] elderberry fruit 200 mg capsule 200 mg PO DAILY 08/13/20 [History Last Taken Unknown] omega-3 fatty acids 1,000 mg capsule (Fish Oil Concentrate) 1,000 mg PO DAILY 08/13/20 [History Last Taken Unknown] lisinopril 2.5 mg tablet See Rx Instructions .Route .COMPLEX #90 tabs 09/15/20 [Rx Last Taken Unknown] triamcinolone acetonide 0.025 % topical ointment 1 applic topical BID PRN rash #454 grams 10/21/20 [Rx Last Taken Unknown] Disability Placard #1 ea 12/10/20 [Rx Last Taken Unknown] aspirin 81 mg tablet,delayed release 81 mg PO DAILY #90 tabs 04/06/21 [Rx Last Taken Unknown] budesonide-formoterol HFA 160 mcg-4.5 mcg/actuation aerosol inhaler (Symbicort) 2 puff inhalation BID #10.2 grams 04/06/21 [Rx Last Taken Unknown] diltiazem HCl 120 mg capsule,extended release 24 hr 120 mg PO DAILY #90 caps 04/06/21 [Rx Last Taken Unknown] duloxetine 30 mg capsule,delayed release 30 mg PO BID #180 caps 04/06/21 [Rx Last Taken Unknown] furosemide 20 mg tablet 20 mg PO DAILY #90 tabs 04/06/21 [Rx Last Taken Unknown] ipratropium 0.5 mg-albuterol 3 mg (2.5 mg base)/3 mL nebulization soln 3 ml inhalation Q4H PRN PRN SOB &/OR WHEEZING #180 mL 06/09/21 [Rx Last Taken Unknown] canagliflozin 100 mg tablet 100 mg PO DAILY 02/04/22 [History Last Taken Unknown] montelukast 10 mg tablet (Singulair) 10 mg PO QPM 02/04/22 [History Last Taken Unknown] compression socks, x-large #6 ea 02/11/22 [Rx Last Taken Unknown] sitagliptin phosphate 100 mg tablet (Januvia) 100 mg PO DAILY #90 tabs 02/11/22 [Rx Last Taken Unknown] tizanidine 2 mg capsule 2 mg PO Q8H PRN muscle spasticity #30 caps 02/11/22 [Rx Last Taken Unknown] pantoprazole 40 mg tablet,delayed release (Protonix) 40 mg PO BID 3 months #180 tabs 04/13/22 [Rx Last Taken Unknown] sucralfate 1 gram tablet (Carafate) 1 g PO QACHS 2 weeks #56 tabs 04/13/22 [Rx Last Taken Unknown] gabapentin 600 mg tablet 600 mg PO BID #60 tabs 04/19/22 [Rx Last Taken Unknown] metformin 500 mg tablet,extended release 24 hr 1,500 mg PO QPM 3 months #270 tabs 04/19/22 [Rx Last Taken Unknown] levothyroxine 150 mcg tablet 150 mcg PO DAILY #90 tabs 04/26/22 [Rx Last Taken Unknown] guaifenesin 1,200 mg tablet, extended release 12 hr 1,200 mg PO Q12H #60 tabs 05/06/22 [Rx Last Taken Unknown] nystatin 100,000 unit/mL oral suspension 5 ml mucous membrane TID #250 mL 05/25/22 [Rx Last Taken Unknown] apixaban 5 mg tablet 5 mg PO BID #60 tabs 07/07/22 [Rx Last Taken Unknown] oxycodone-acetaminophen 5 mg-325 mg tablet (Percocet) 1 tab PO Q6H PRN pain 3 days #10 tabs 08/02/22 [Rx Last Taken Unknown] Allergy/AdvReac Type Severity Reaction Status Date / Time fluconazole [From Diflucan] Allergy Anaphylaxis Verified 08/02/22 12:41 nickel [Nickel] Allergy Rash Verified 08/02/22 12:41 perfume Allergy Rash Verified 08/02/22 12:41 deodorant Allergy Rash Uncoded 08/02/22 12:41 Family History Mother Cancer Father Diabetes Alcoholism Brother Cancer Lung cancer Surgical History History of D&C History of hysterectomy History of right and left heart catheterization (03/07/18) History of right heart catheterization (05/04/20) History of tonsillectomy History of tubal ligation Status post surgical manipulation of ankle joint Social History Smoking Status: Current every day smoker tobacco type: cigarettes Tobacco: How many years used: 55 second hand exposure: Yes alcohol intake: never substance use type: does not use caffeine: Yes (4) what type of physical activity do you participate in: none ROS ROS ED Constitutional Constitutional ED: Denies chills or fever(s) Eyes Eyes: Denies change in vision or discharge from eye(s) ENT ENT ED: Denies discharge from eye(s), rhinorrhea or sore throat Cardiovascular Cardiovascular: Denies chest pain or palpitations Respiratory/Chest Respiratory/Chest: Denies cough or dyspnea Gastrointestinal Gastrointestinal: Denies abdominal pain, diarrhea, nausea or vomiting Genitourinary Genitourinary ED: Denies difficulty urinating or dysuria Musculoskeletal Musculoskeletal: Reports back pain; Denies extremity pain Integumentary Denies Abrasions or rash Neurologic Neurologic: Denies headache(s) or weakness Allergic/Immunologic Allergic/Immunologic ED: Denies lip swelling or urticaria EXAM Physical Exam Const Vital Signs: 08/02/22 12:42 Temperature 97.8 F Temperature Source Temporal Pulse Rate 64 Respiratory Rate 18 Blood Pressure 142/81 H Blood Pressure Mean 101 Pulse Ox 97 Oxygen Delivery Method Room Air Positive well nourished and well developed General Appearance ED: well developed HEENT Reports normocephalic and head/scalp atraumatic Eyes PERRL and EOMs intact bilaterally Neck supple Chest Wall inspection of chest normal and palpation of chest normal Resp normal respiratory effort and clear to auscultation bilaterally Cardio regular rate and regular rhythm GI non-tender Palpation: soft Back/Spine Back/Spine Narrative: Mild tenderness in the right lumbar paraspinal muscles. Extremity normal to inspection Neuro oriented x3 and no sensory deficits noted Sensorium / Orientation: alert Motor Exam: strength 5/5 throughout Psych mental status grossly normal Skin no rashes or lesions noted MDM MDM MDM Narrative Medical decision making narrative: Lab work and urinalysis was obtained per nursing protocol. Patient given morphine, Toradol, Zofran at the time of my exam. CT flank obtained. Lab Data Attestation: I reviewed the patient's lab results. Labs: Laboratory Results - last 24 hr 08/02/22 08/02/22 08/02/22 13:40 13:40 13:43 WBC 10.1 RBC 4.49 Hgb 14.8 Hct 45.3 MCV 100.9 H MCH 33.0 H MCHC 32.7 RDW Std Deviation 56.8 H RDW Coeff of Rafi 15.1 H Plt Count 291 MPV 8.9 Immature Gran % (Auto) 0.400 Neut % (Auto) 62.5 Lymph % (Auto) 28.1 [place] % (Auto) 6.0 Eos % (Auto) 2.1 Baso % (Auto) 0.9 Absolute Neuts (auto) 6.3 Absolute Lymphs (auto) 2.84 Nucleated RBC % 0 Sodium 138 Potassium 4.0 Chloride 103 Carbon Dioxide 28.0 Anion Gap 7 BUN 15 Creatinine 1.00 Estim Creat Clear Calc 43.18 Est GFR (MDRD) Af Amer 71 Est GFR (MDRD) Non-Af 59 L BUN/Creatinine Ratio 15.0 Glucose 187 H Calcium 9.5 Urine Color Yellow Urine Clarity Clear Urine pH 6.5 Ur Specific [place] 1.010 Urine Protein Negative Urine Glucose (UA) Normal Urine Ketones Negative Urine Occult Blood Negative Urine Nitrite Negative Urine Bilirubin Negative Urine Urobilinogen Normal Ur Leukocyte Esterase Negative Urine RBC 0 SEEN Urine WBC 0-5 SEEN Ur Squamous Epith Cells 5-10 SEEN Urine Bacteria 0 SEEN Urine Mucus 0 SEEN Radiography Diagnostic Testing: Clinical Impression(s) from Imaging Studies Abdomen/Pelvis CT 08/02/22 15:06 IMPRESSION: 1. No renal or ureteral stone. 2. Sigmoid diverticulosis without diverticulitis. Electronically Signed: Odin Baker MD at 16:33 EST , Treatment and Re-Evaluation Narrative: CBC and chemistry studies are unremarkable. Glucose is elevated at 187. Urinalysis reveals no sign of infection. No hematuria noted. CT flank reveals no evidence of renal or ureteral stone. She has diverticulosis without evidence of acute diverticulitis. On repeat evaluation she does have some improvement after being treated with pain medication. It appears that she has tolerated Percocet in the past well. She will be given a short course of this. I did advise her to continue to get up and move around to keep these muscles loose. With the patient having reproducible tenderness I do feel this is musculoskeletal in nature. Return instructions given. Discharge Plan Triage Chief Complaint: Flank Pain ED Provider: Hiwot López Dx/Rx/DC Orders Clinical Impression: Back pain Instructions: ED Back Pain (Acute or Chronic) Prescriptions: New oxycodone-acetaminophen [Percocet] 5-325 mg tablet 1 tab PO Q6H PRN (Reason: pain) 3 Days Qty: 10 0RF No Action fluticasone propionate 50 mcg/actuation spray,suspension 2 spray INTRANASAL DAILY Qty: 54.6 3RF azelastine 0.15 % (205.5 mcg) spray,non-aerosol 1 spray INTRANASAL BID Qty: 3 3RF Rx Instructions: administer into each nostril albuterol sulfate [Ventolin HFA] 90 mcg/actuation HFA aerosol inhaler 2 puff INHALATION Q4H PRN (Reason: shortness of breath or wheezing) Qty: 18 6RF (DME) Disability Placard See Rx Instructions .ROUTE .MEDSUPPLY Qty: 1 0RF Rx Instructions: Expires in 5 years triamcinolone acetonide 0.025 % ointment 1 applic TOPICAL BID PRN (Reason: rash) Qty: 454 2RF omega-3 fatty acids [Fish Oil Concentrate] 1,000 mg capsule 1,000 mg PO DAILY elderberry fruit 200 mg capsule 200 mg capsule 200 mg PO DAILY ascorbate calcium (vitamin C) 500 mg tablet 500 mg PO DAILY ipratropium-albuterol 0.5 mg-3 mg(2.5 mg base)/3 mL solution for nebulization 3 ml inhalation Q4H PRN PRN (Reason: SOB &/OR WHEEZING) Qty: 180 6RF (DME) compression socks, x-large Misc See Rx Instructions .Route Qty: 6 0RF Rx Instructions: 20-30mmHg tizanidine 2 mg capsule 2 mg PO Q8H PRN (Reason: muscle spasticity) Qty: 30 1RF Januvia 100 mg tablet 100 mg PO DAILY Qty: 90 3RF Rx Instructions: Start half tablet daily x 1 week then take 1 tablet daily. sucralfate [Carafate] 1 gram tablet 1 g PO QACHS 14 Days Qty: 56 2RF pantoprazole [Protonix] 40 mg tablet,delayed release (DR/EC) 40 mg PO BID 90 Days Qty: 180 3RF vit C,B-Db-lwpzs-lutein-zeaxan 1 EACH capsule 1 cap PO BID albuterol sulfate 2.5 MG/3 ML solution for nebulization 2.5 mg INHALATION Q4H PRN PRN (Reason: Sob &/Or Wheezing) Rx Instructions: Use q4 hours and PRN for wheezing canagliflozin 100 mg Tablet 100 mg PO DAILY montelukast [Singulair] 10 mg tablet 10 mg PO QPM cetirizine 10 mg tablet 10 mg PO QHS Qty: 90 3RF Spiriva Respimat 2.5 mcg/actuation mist 2 puff INHALATION DAILY Qty: 3 3RF lisinopril 2.5 mg tablet See Rx Instructions .ROUTE .COMPLEX Qty: 90 5RF Dose Instruction: TAKE 1 TABLET BY MOUTH EVERY DAY Rx Instructions: TAKE 1 TABLET BY MOUTH EVERY DAY duloxetine 30 mg capsule,delayed release(DR/EC) 30 mg PO BID Qty: 180 1RF aspirin 81 mg tablet,delayed release (DR/EC) 81 mg PO DAILY Qty: 90 3RF diltiazem HCl 120 mg capsule,extended release 24hr 120 mg PO DAILY Qty: 90 3RF furosemide 20 mg tablet 20 mg PO DAILY Qty: 90 3RF budesonide-formoterol [Symbicort] 160-4.5 mcg/actuation HFA aerosol inhaler 2 puff INHALATION BID Qty: 10.2 6RF gabapentin 600 mg tablet 600 mg PO BID Qty: 60 2RF Rx Instructions: TAKE 1 CAPSULE BY MOUTH TWICE DAILY metformin 500 mg tablet extended release 24 hr 1,500 mg PO QPM 90 Days Qty: 270 3RF levothyroxine 150 mcg tablet 150 mcg PO DAILY Qty: 90 1RF guaifenesin 1,200 mg tablet extended release 12hr 1,200 mg PO Q12H Qty: 60 6RF nystatin 100,000 unit/mL suspension 5 ml mucous membrane TID Qty: 250 1RF Rx Instructions: swish and swallow 5 cc three times per day for 10 days apixaban 5 mg tablet 5 mg PO BID Qty: 60 2RF Primary Care Provider: Refugio Dowd Referrals: Refugio Dowd MD [Primary Care Provider] - 1 Week if not improving Disposition Disposition: Home, Self Care
[2022-08-02] MEDS: Ondansetron 4 MG/2 ML Vial IV (15:11)
[2022-08-02] MEDS: Ketorolac 15 MG/ML Vial IV (15:11)
[2022-08-02] MEDS: Morphine 4 MG/ML Syringe IV (15:11)
[2022-08-02 16:58] VITALS: BP 138/92; PULSE 71; RESP 16; O2SAT 95
== END 2022-08-02 16:59 | disposition home or self-care (01) ==
PROVIDERS: Emergency Provider Emergency Medicine; PCP Internal Medicine; Visit Provider Emergency Medicine
DX: M54.9 Dorsalgia, unspecified (principal); J44.9 Chronic obstructive pulmonary disease, unspecified; E11.9 Type 2 diabetes mellitus without complications; I10 Essential (primary) hypertension; F17.210 Nicotine dependence, cigarettes, uncomplicated; R10.9 Unspecified abdominal pain
CPT/HCPCS: 74176; 80048; 81001; 85025; 96374; 96375; 99283; A4216; J2405

== ENCOUNTER 2022-08-09 11:17 | Outpatient (RCR) | payer MEDICARE, MEDICAID, SELFPAY ==
--- NOTE | 2022-08-09 12:20 | HP.PTEVAL_ITS ---
Patient's Visit Information ETIENNE BERMUDEZ is a 67 year old F referred to Physical Therapy by Dr. Refugio Dowd MD with a diagnosis of Musculoskeletal back pain, dorsalgia. Date of Evaluation: 08/09/22 Physical Therapist: Pedro Hutson, DPT, OCS, CSCS - Visit Plan Frequency: 3x /Week Duration: 4-6 Weeks Plan: 3x/week for 3-6 weeks, start with aquatic therapy for NS education and strength, stretch psoas and quad B, hip and core and postural strengvth and progress to I pool or home ex. consider gym ex if doing better after initial water and if patient willing to be compliant. - Subjective I have pain in the back since [facility]. No idea what started it. Was doing a lot of cooking and that might have contributed. Went to ER at [facility] and did not catscan and think its a muscle. Gave her 10 percosets and sent home. Followed up with [facility] and sent for PT. Used to get shots in back from pain doctor but has not seen one in a couple years. Has OA in back since 37 yo. Has DDD in neck. Was told she will need WC by 50yo. Needs knee replacements. No regular exercise, bought ab chair and uses it when pain gets bad and helps with pain but not this pain. Lives with grandkids, is able to do the basics at home but needs frequent rests, vacuming kills her, laundry in basement is very hard. Steps are hard due to heart and lungs, supposed to be on oxygen on steps but does not use it. Sleep is OK, coughing wakes her up. Morning pain is worse than afternoon. Needs halter monitor for heart. No current precautions. Has had massage therapy and stretching on table. Loves water therapy . - Pain LB R Pain Intensity (Out of 10): 0 Pain Intensity Range: 0, 8 - Objective 91% spO2 at rest and 50 HR. Walks slowly but safe adn I back to PT, holding R spencer eo f LB, short steps and avoids hip extension in gait pattern. trasnfers chair and bed I but slow and labored. L/S ext painful r LB and min limited, flexion is good but limited segmentally in lower lumbar region. SB are OK. reflexes 2/3 patella and achilles. Sensation LE WNL to gross light touch. Strength hips 3/5, knees 3+ and ankles 4-, no pain or myotomal abnormalities. quads and psoas mod tight. - Balance/Special Test Scores Oswestry Low Back Score: 19 - Goals Goal 1:: LBP 1/10 at worst and 90% better in LB. Goal Time Frame: 4-6 Weeks Goal 2:: I approp HEP to minimize future problems(pool, vs gym vs HEP) Goal Time Frame: 4-6 Weeks Goal 3:: Oswestry score 7 or better Goal Time Frame: 4-6 Weeks Goal 4:: vaccum without increased pain Goal Time Frame: 4-6 Weeks - Rehabilitation Potential Physical Therapy Diagnosis: LBP form degenration and poor physical condition Rehabilitation Potential: Fair - Anticipated Interventions Patient/Client Instruction: Educate patient on: Condition, Plan of Care For the Purpose of:: To decrease pain, To increase ROM, To improve muscle performance and motor function, To improve ability of physical actions for home/community/work/leisure Therapeutic Exercise to Include: Strength training, Postural training, Flexibilty training, In an aquatic setting, Passive ROM For the Purpose of:: To decrease pain, To increase ROM, To improve nutrient delivery to tissue, To improve muscle performance and motor function, To increase tolerance to activity/condition/position, To improve ability of physical actions for home/community/work/leisure, To improve gait and locomotor functions Thank you for the opportunity to evaluate your patient. For Medicare and Medicare HMO plans, please review the plan of care and approve it. It will need to be FAXED BACK to us at [phone] for Medicare purposes. For Medicare only, by signing this I certify the plan of care. Please let me know if there are questions or concerns regarding this plan of care. Physician Signature: Date:
--- NOTE | 2022-11-08 10:50 | HP.PT.NRP ---
ETIENNE BERMUDEZ was seen in my office for initial evaluation on 08/09/22. The following Plan of Care was established for this patient: Initial Frequency: 3x /Week Initial Duration: 4-6 Weeks Patient/Client Instruction: Educate patient on: Condition, Plan of Care For the Purpose of:: To decrease pain, To increase ROM, To improve muscle performance and motor function, To improve ability of physical actions for home/community/work/leisure Therapeutic Exercise to Include: Strength training, Postural training, Flexibilty training, In an aquatic setting, Passive ROM For the Purpose of:: To decrease pain, To increase ROM, To improve nutrient delivery to tissue, To improve muscle performance and motor function, To increase tolerance to activity/condition/position, To improve ability of physical actions for home/community/work/leisure, To improve gait and locomotor functions This patient was last seen in our office 08/09/22. Pertinent comments regarding their Physical therapy will appear below: Pt seen for IE and POC established, approval received. We have contacted her a few times to schedule but have been unable to make that happen. At this point, it has been over 3 months and I will discontinue. At this point I will be discontinuing this patient from physical therapy. I would be happy to see this patient again in the future if found appropriate by the physician. Thank you! Pedro Hutson, DPT, OCS, CSCS Balance/Gait/Functional tests - Balance/Special Test Scores Oswestry Low Back Score: 19
== END 2022-08-09 19:00 | disposition home or self-care (01) ==
LOC: PT 11:17
PROVIDERS: PCP Internal Medicine; Referring Provider Internal Medicine; Visit Provider Internal Medicine
DX: M54.9 Dorsalgia, unspecified (principal)
CPT/HCPCS: 97162

== ENCOUNTER 2022-09-25 16:29 | Emergency (ER) | payer MEDICARE, MEDICAID, SELFPAY ==
[2022-09-25 16:30] VITALS: BP 192/75; PULSE 70; RESP 14; TEMP 36.3; O2SAT 97; BMI 49.4
--- NOTE | 2022-09-25 17:21 | EX.ED.GENINJ ---
HPI <GOLDIE Up - Last Filed: 09/25/22 17:26> History of Present Illness Chief Complaint: Laceration Narrative Narrative: 67-year-old female with history of hypertension, TIA, diabetes, GERD, on anticoagulation medicine such as Eliquis presents the emergency department for superficial laceration to the right fifth finger and could not get it to stop bleeding. Patient states that she was struck by a knife to the dorsal aspect of the finger while doing the dishes. It was not deep however she cannot get it quit bleeding and she is here for evaluation. Tetanus vaccination was within 5 years. She denies any difficulty moving the finger. ON LICENSE OF [facility] <GOLDIE Up - Last Filed: 09/25/22 17:26> ON LICENSE OF [facility] Medical History Abnormal results of pulmonary function studies Anxiety and depression Chest pain Chronic low back pain COPD (chronic obstructive pulmonary disease) Degeneration of lumbar or lumbosacral intervertebral disc Dermatitis Diverticulosis Essential (primary) hypertension Fibromyalgia GERD (gastroesophageal reflux disease) Health care maintenance Hearing loss Hiatal hernia Hypothyroidism Morbid obesity MRSA (methicillin resistant staph aureus) culture positive Musculoskeletal back pain Nummular eczematous dermatitis Oral candidiasis HENRRY (obstructive sleep apnea) Polyp of vocal cord and larynx Secondary pulmonary arterial hypertension Sinusitis 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 myelopathy or radiculopathy Thrombophlebitis leg superficial TIA (transient ischemic attack) Tobacco abuse Type 2 diabetes mellitus Ureteral calculus, left Home Medications vit C 250 mg-vit E 90 mg-zinc 40 mg-copper 1 ij-vztbyk-zqberp capsule 1 cap PO BID supplement 03/16/17 [History Last Taken 07/04/19] azelastine 205.5 mcg (0.15 %) nasal spray 1 spray intranasal BID #3 ea 03/16/20 [Rx Last Taken Unknown] fluticasone propionate 50 mcg/actuation nasal spray,suspension 2 spray intranasal DAILY #54.6 mL 03/16/20 [Rx Last Taken Unknown] albuterol sulfate 90 mcg/actuation aerosol inhaler (Ventolin HFA) 2 puff inhalation Q4H PRN shortness of breath or wheezing #18 grams 04/22/20 [Rx Last Taken 05/04/20] albuterol sulfate 2.5 mg/3 mL (0.083 %) solution for nebulization 2.5 mg inhalation Q4H PRN PRN Sob &/Or Wheezing 06/05/20 [History Last Taken Unknown] tiotropium bromide 2.5 mcg/actuation mist for inhalation (Spiriva Respimat) 2 puff inhalation DAILY #3 device 07/22/20 [Rx Last Taken Unknown] ascorbate calcium (vitamin C) 500 mg tablet 500 mg PO DAILY 08/13/20 [History Last Taken Unknown] elderberry fruit 200 mg capsule 200 mg PO DAILY 08/13/20 [History Last Taken Unknown] omega-3 fatty acids 1,000 mg capsule (Fish Oil Concentrate) 1,000 mg PO DAILY 08/13/20 [History Last Taken Unknown] lisinopril 2.5 mg tablet See Rx Instructions .Route .COMPLEX #90 tabs 09/15/20 [Rx Last Taken Unknown] triamcinolone acetonide 0.025 % topical ointment 1 applic topical BID PRN rash #454 grams 10/21/20 [Rx Last Taken Unknown] Disability Placard #1 ea 12/10/20 [Rx Last Taken Unknown] aspirin 81 mg tablet,delayed release 81 mg PO DAILY #90 tabs 04/06/21 [Rx Last Taken Unknown] budesonide-formoterol HFA 160 mcg-4.5 mcg/actuation aerosol inhaler (Symbicort) 2 puff inhalation BID #10.2 grams 04/06/21 [Rx Last Taken Unknown] diltiazem HCl 120 mg capsule,extended release 24 hr 120 mg PO DAILY #90 caps 04/06/21 [Rx Last Taken Unknown] duloxetine 30 mg capsule,delayed release 30 mg PO BID #180 caps 04/06/21 [Rx Last Taken Unknown] furosemide 20 mg tablet 20 mg PO DAILY #90 tabs 04/06/21 [Rx Last Taken Unknown] ipratropium 0.5 mg-albuterol 3 mg (2.5 mg base)/3 mL nebulization soln 3 ml inhalation Q4H PRN PRN SOB &/OR WHEEZING #180 mL 06/09/21 [Rx Last Taken Unknown] canagliflozin 100 mg tablet 100 mg PO DAILY 02/04/22 [History Last Taken Unknown] sitagliptin phosphate 100 mg tablet (Januvia) 100 mg PO DAILY #90 tabs 02/11/22 [Rx Last Taken Unknown] tizanidine 2 mg capsule 2 mg PO Q8H PRN muscle spasticity #30 caps 02/11/22 [Rx Last Taken Unknown] pantoprazole 40 mg tablet,delayed release (Protonix) 40 mg PO BID 3 months #180 tabs 04/13/22 [Rx Last Taken Unknown] gabapentin 600 mg tablet 600 mg PO BID #60 tabs 04/19/22 [Rx Last Taken Unknown] metformin 500 mg tablet,extended release 24 hr 1,500 mg PO QPM 3 months #270 tabs 04/19/22 [Rx Last Taken Unknown] levothyroxine 150 mcg tablet 150 mcg PO DAILY #90 tabs 04/26/22 [Rx Last Taken Unknown] guaifenesin 1,200 mg tablet, extended release 12 hr 1,200 mg PO Q12H #60 tabs 05/06/22 [Rx Last Taken Unknown] apixaban 5 mg tablet 5 mg PO BID #60 tabs 07/07/22 [Rx Last Taken Unknown] Allergy/AdvReac Type Severity Reaction Status Date / Time fluconazole [From Diflucan] Allergy Anaphylaxis Verified 09/25/22 16:32 nickel [Nickel] Allergy Rash Verified 09/25/22 16:32 perfume Allergy Rash Verified 09/25/22 16:32 deodorant Allergy Rash Uncoded 09/25/22 16:32 Family History Mother Cancer Father Diabetes Alcoholism Brother Cancer Lung cancer Surgical History History of D&C History of hysterectomy History of right and left heart catheterization (03/07/18) History of right heart catheterization (05/04/20) History of tonsillectomy History of tubal ligation Status post surgical manipulation of ankle joint Social History Smoking Status: Current every day smoker tobacco type: cigarettes Tobacco: How many years used: 55 second hand exposure: Yes alcohol intake: never substance use type: does not use caffeine: Yes (4) what type of physical activity do you participate in: none ROS <GOLDIE Up - Last Filed: 09/25/22 17:26> ROS ED ROS Narrative Constitutional: Negative for fever, chills, weight loss, weakness Eyes: Negative for vision loss, vision change, double vision ENT: Negative for any sore throat, ear pain, congestion Cardiovascular: Negative for any chest pain, tightness, palpitations Respiratory: Negative for any cough, sputum production, hemoptysis, dyspnea, dyspnea on exertion, orthopnea Gastrointestinal: Negative for any abdominal pain, nausea, vomiting, diarrhea, constipation, blood in stool, blood in vomit : Negative for any urinary frequency, dysuria, retention, blood in urine Muscle skeletal: Negative for any muscle joint pain, stiffness, myalgias, arthralgias, neck pain, back pain. Neurological: Negative for any headache, syncope, numbness or tingling, dizziness Skin: Negative for any rashes, lumps, itching, abrasions. Positive for superficial laceration to the right fifth finger Psychiatric: Negative for any depression, anxiety, stress, suicidal ideation, homicidal ideation Hematologic: Negative for any easy bruising, excessive bruising, easy bleeding Allergies: Negative for any eczema, hives, rash EXAM <GOLDIE Up - Last Filed: 09/25/22 17:26> Physical Exam Narrative Exam Narrative: Vital signs reviewed. Extremities: No peripheral edema, no signs of gross trauma or deformity. Active full range of motion of all extremities. Patient is no neurological focal deficit. There is a very superficial laceration to the dorsal aspect of the fifth finger along the DIP joint. It does continue to ooze even after dressing applied. No neurological focal deficit Neuro: Cranial nerves II through XII intact, no focal neurological deficits. Skin: Clean dry and intact with no rash, purpura, petechiae, vesicles or pustules. Backs/flank: No CVA tenderness, no midline spinal tenderness, no deformity. Psych: Normal mood and affect. No SI, HI or acute psychosis. Const Vital Signs: 09/25/22 16:30 Temperature 97.3 F L Temperature Source Temporal Pulse Rate 70 Respiratory Rate 14 Blood Pressure 192/75 H Blood Pressure Mean 114 Pulse Ox 97 Oxygen Delivery Method Room Air <Dr. Maynor Villegas DO - Last Filed: 09/25/22 22:05> Physical Exam Const Vital Signs: 09/25/22 16:30 Temperature 97.3 F L Temperature Source Temporal Pulse Rate 70 Respiratory Rate 14 Blood Pressure 192/75 H Blood Pressure Mean 114 Pulse Ox 97 Oxygen Delivery Method Room Air MDM <GOLDIE Up - Last Filed: 09/25/22 17:26> [facility] Treatment and Re-Evaluation Narrative: Patient appears well, patient appears nontoxic, vital signs are stable. Patient presents to the emergency department with complaints of superficial wound on the right fifth finger that continues to bleed. This is very superficial does not require sutures. The area was cleansed. There is some oozing. I did a first attempt to use silver nitrate, this did not work. I then applied 5 minutes of continued pressure. The bleeding did stop, then I was able to use glue. The patient was watched for 30 minutes. There is no more bleeding. Patient was given wound care supplies. Again her tetanus vaccination was up-to-date. She is instructed to keep her finger clean and dry. She will continue take her medications. She was given return precautions. Stable for discharge <Dr. Maynor Villegas, - Last Filed: 09/25/22 22:05> [facility] Narrative Medical decision making narrative: Interventions / MDM: Differential diagnosis: Finger laceration Diagnosis considered but do not suspect: N/A My EKG interpretation: N/A Imaging independently reviewed and interpreted by myself: N/A External documents reviewed: N/A Test considered but not ordered:N/A ED course: Attending note: Patient seen and evaluated with kettleman. I perform my own hvzk-xq-[id number] evaluation. I agree with the plan of work-up. Laceration pinky finger accidentally while washing dishes from a knife. Tetanus unknown however states in my chart for which she will check. She is on Eliquis. Exam superficial laceration right pinky finger. This was controlled with silver nitrate and Dermabond and pressure dressing. Patient will check with her MyChart for tetanus. She will follow-up with her PCP. Re-evaluation: stable Disposition discussed with patient/family/significant other: Patient Case discussed with consulting clinician: N/A Discharge Plan Triage Chief Complaint: Laceration ED Midlevel Provider: Jacinto Ramsay ED Provider: Maynor Villegas Dx/Rx/DC Orders Clinical Impression: Finger laceration, Adequate anticoagulation on anticoagulant therapy Instructions: ED Laceration, Extremity: Skin Glue, ED Laceration Small or ... Prescriptions: No Action fluticasone propionate 50 mcg/actuation spray,suspension 2 spray INTRANASAL DAILY Qty: 54.6 3RF azelastine 0.15 % (205.5 mcg) spray,non-aerosol 1 spray INTRANASAL BID Qty: 3 3RF Rx Instructions: administer into each nostril albuterol sulfate [Ventolin HFA] 90 mcg/actuation HFA aerosol inhaler 2 puff INHALATION Q4H PRN (Reason: shortness of breath or wheezing) Qty: 18 6RF (DME) Disability Placard See Rx Instructions .ROUTE .MEDSUPPLY Qty: 1 0RF Rx Instructions: Expires in 5 years triamcinolone acetonide 0.025 % ointment 1 applic TOPICAL BID PRN (Reason: rash) Qty: 454 2RF omega-3 fatty acids [Fish Oil Concentrate] 1,000 mg capsule 1,000 mg PO DAILY elderberry fruit 200 mg capsule 200 mg capsule 200 mg PO DAILY ascorbate calcium (vitamin C) 500 mg tablet 500 mg PO DAILY ipratropium-albuterol 0.5 mg-3 mg(2.5 mg base)/3 mL solution for nebulization 3 ml inhalation Q4H PRN PRN (Reason: SOB &/OR WHEEZING) Qty: 180 6RF tizanidine 2 mg capsule 2 mg PO Q8H PRN (Reason: muscle spasticity) Qty: 30 1RF Januvia 100 mg tablet 100 mg PO DAILY Qty: 90 3RF Rx Instructions: Start half tablet daily x 1 week then take 1 tablet daily. pantoprazole [Protonix] 40 mg tablet,delayed release (DR/EC) 40 mg PO BID 90 Days Qty: 180 3RF vit C,C-Su-lrwhh-lutein-zeaxan 1 EACH capsule 1 cap PO BID albuterol sulfate 2.5 MG/3 ML solution for nebulization 2.5 mg INHALATION Q4H PRN PRN (Reason: Sob &/Or Wheezing) Rx Instructions: Use q4 hours and PRN for wheezing canagliflozin 100 mg Tablet 100 mg PO DAILY Spiriva Respimat 2.5 mcg/actuation mist 2 puff INHALATION DAILY Qty: 3 3RF lisinopril 2.5 mg tablet See Rx Instructions .ROUTE .COMPLEX Qty: 90 5RF Dose Instruction: TAKE 1 TABLET BY MOUTH EVERY DAY Rx Instructions: TAKE 1 TABLET BY MOUTH EVERY DAY duloxetine 30 mg capsule,delayed release(DR/EC) 30 mg PO BID Qty: 180 1RF aspirin 81 mg tablet,delayed release (DR/EC) 81 mg PO DAILY Qty: 90 3RF diltiazem HCl 120 mg capsule,extended release 24hr 120 mg PO DAILY Qty: 90 3RF furosemide 20 mg tablet 20 mg PO DAILY Qty: 90 3RF budesonide-formoterol [Symbicort] 160-4.5 mcg/actuation HFA aerosol inhaler 2 puff INHALATION BID Qty: 10.2 6RF gabapentin 600 mg tablet 600 mg PO BID Qty: 60 2RF Rx Instructions: TAKE 1 CAPSULE BY MOUTH TWICE DAILY metformin 500 mg tablet extended release 24 hr 1,500 mg PO QPM 90 Days Qty: 270 3RF levothyroxine 150 mcg tablet 150 mcg PO DAILY Qty: 90 1RF guaifenesin 1,200 mg tablet extended release 12hr 1,200 mg PO Q12H Qty: 60 6RF apixaban 5 mg tablet 5 mg PO BID Qty: 60 2RF Primary Care Provider: Refugio Dowd Referrals: Refugio Dowd MD [Primary Care Provider] - Activity Restrictions/Additional Instructions: Keep the area clean and dry. If for any reason starts bleeding, apply 20 minutes of significant pressure. Disposition Disposition: Home, Self Care Discharge Date/Time: 09/25/22 17:30
== END 2022-09-25 17:30 | disposition home or self-care (01) ==
PROVIDERS: Emergency Provider Emergency Medicine; PCP Internal Medicine; Referring Provider Emergency Medicine; Visit Provider Emergency Medicine
DX: S61.216A Laceration without foreign body of right little finger without damage to nail, initial encounter (principal); J44.9 Chronic obstructive pulmonary disease, unspecified; E11.9 Type 2 diabetes mellitus without complications; F17.210 Nicotine dependence, cigarettes, uncomplicated; I10 Essential (primary) hypertension; G47.33 Obstructive sleep apnea (adult) (pediatric); Z86.73 Personal history of transient ischemic attack (TIA), and cerebral infarction without residual deficits; Z79.01 Long term (current) use of anticoagulants; Z79.82 Long term (current) use of aspirin; Z79.84 Long term (current) use of oral hypoglycemic drugs; Z79.899 Other long term (current) drug therapy; W26.0XXA Contact with knife, initial encounter
CPT/HCPCS: 99282

== ENCOUNTER → 2023-01-09 | Outpatient (CLI) | payer MEDICARE, MEDICAID, SELFPAY ==
[2023-01-09 15:38] LABS: Hemoglobin A1c 6.6 % (3.8-5.6)
[2023-01-09 15:48] LABS: ALB/GLOB Ratio 1.1 RATIO (0.9-2.4); AST(SGOT) 9 U/L (15-37); Alanine Aminotransfer ALT/SGPT 21 U/L (13-56); Albumin, Serum 3.8 g/dL (3.2-5.0); Alkaline Phosphatase 93 U/L (45-117); Anion Gap 5 (5-15); BUN 19 mg/dL (7-18); BUN/Creat Ratio 22.9 RATIO (10-20); Calcium,Total 9.2 mg/dL (8.5-10.1); Chloride 106 mmol/L (98-107); Creatinine, Serum 0.83 mg/dL (0.55-1.02); EST Glomerular Filtration Rate 73 mL/min (>60); Est Glom Filt Rate - Afr Amer 88 mL/min (>60); Globulin 3.5 g/dL (2.2-4.2); Glucose 168 mg/dL (74-106); Potassium 4.2 mmol/L (3.5-5.1); Protein, Total 7.3 g/dL (6.4-8.2); Sodium Level 139 mmol/L (136-145); Thyroid Stim Hormone (TSH) 4.47 uIU/mL (0.358-3.74)
== END | disposition home or self-care (01) ==
LOC: BIMLAB 13:13
PROVIDERS: PCP Internal Medicine; Visit Provider Internal Medicine
DX: I10 Essential (primary) hypertension (principal); E11.9 Type 2 diabetes mellitus without complications
CPT/HCPCS: 36415; 80053; 83036; 84443

== ENCOUNTER → 2023-02-01 | Outpatient (CLI) | payer MEDICARE, MEDICAID, SELFPAY ==
[2023-02-01 13:21] LABS: Thyroid Stim Hormone (TSH) 3.64 uIU/mL (0.358-3.74)
== END | disposition home or self-care (01) ==
LOC: BIMLAB 09:45
PROVIDERS: PCP Internal Medicine; Referring Provider Internal Medicine; Visit Provider Internal Medicine
DX: E03.9 Hypothyroidism, unspecified (principal)
CPT/HCPCS: 36415; 84443

== ENCOUNTER → 2023-02-02 | Outpatient (CLI) | payer MEDICARE, MEDICAID, SELFPAY ==
--- NOTE | 2023-02-02 08:44 | CT_ITS ---
STUDY: LOW DOSE CT LUNG CANCER SCREENING REASON FOR EXAM: Female, 67 years old. Smoker RADIATION DOSAGE (If Supplied By Facility): CTDIvol = ( 3.18 ) mGy, DLP = ( 98.87 ) mGycm TECHNIQUE: No contrast was administered. Low dose technique was utilized (average mAS-38 and kVp 120). 1.25 mm axial source images with a slice interval of 1.25-mm were reconstructed in lung windows. 2.5 mm axial source images with a slice interval of 2.5-mm were reconstructed in lung windows. 5.0 mm axial source images with a slice interval of 5.0-mm were reconstructed in soft tissue windows. COMPARISON: Comparison is made with prior study April 26, 2022. NODULES: No suspicious nodules are seen. Emphysema: Hyperinflation. Mild degree of emphysematous changes. Mild increased markings at the lung bases posteriorly suggestive of atelectasis and/or mild scarring. Endobronchial lesion: None Aorta: Mild degree of atherosclerotic plaque formation. CORONARY ARTERIES: Coronary artery calcification is seen. Heart: Unremarkable Pulmonary artery: Unremarkable Mediastinal nodes: Small benign-appearing mediastinal lymph nodes. Other chest and abdominal findings: 1.2 cm hypodensity in the left adrenal gland suggestive of adenoma. CT/Low Dose CT Lung Screening IMPRESSION: Lung-RADS category 2 - Continue annual screening with LDCT in 12 months. IMPORTANT NOTES FOR USE: ACR Lung-RADS Version 1.1 Assessment Categories Release Date: 2018 Category: Coded 0-4 bases on nodule(s) with highest degree of suspicion. Negative screen is defined as categories 1 and 2; a positive screen is defined as categories 3 and 4. Category 3 and 4A nodules that are unchanged on interval CT should be coded as category 2, and individuals returned to screening in 12 months. Category 4X: Category 3 or 4 nodules with additional imaging findings that increase the suspicion of lung cancer, such as spiculation, GGN that doubles in size in 1 year, enlarged lymph notes, etc. Category Modifiers: S (significant finding unrelated to lung cancer) Electronically Signed: Fish Woods MD at 12:31 EDT ,
--- NOTE | 2023-02-02 08:55 | RAD_ITS ---
INDICATION: Chronic Back Pain EXAMINATION/TECHNIQUE: X-RAY - XR Spine Lumbar Min 4 Views COMPARISON: CT lumbar spine 02/04/2022 FINDINGS: The vertebral bodies are normal height. No definite fracture demonstrated. There is minimal anterior subluxation of L4 on L5. Disc space narrowing with osteophytes most pronounced lower thoracic through upper lumbar levels. Facet hypertrophy and sclerosis at L4-5 and L5-S1. No paravertebral soft tissue mass identified. Aortic calcifications RAD/L/S Spine Min 4 Views IMPRESSION: Degenerative changes with minimal anterolisthesis at L4-5. No evidence of fracture. Electronically Signed: Lindsey Lim MD at 19:53 EDT ,
--- NOTE | 2023-02-02 14:54 | BI_ITS ---
MAMMOGRAPHY - BILATERAL SCREENING REASON FOR EXAM: Female, 67 years old. Routine annual screening examination. PERTINENT HISTORY: Non-contributory. TECHNIQUE: Digital bilateral breast annie (3D mammographic acquisition) in the CC and MLO projections. 2-D mediolateral oblique (MLO) and craniocaudad (CC) views of both breasts were obtained. CAD: Full Field Digital Mammography with Computer Added Detection was performed. COMPARISON: Comparison is made with prior study of October 12, 2021 and August 20, 2020. FINDINGS: Breast Composition: There are scattered areas of fibroglandular density. There are no dominant masses or suspicious calcifications. Stable small benign appearing bilateral axillary lymph nodes. No other significant abnormalities are identified. There has been no significant change since the prior study. BI/SCRN MAMM (CAD)W/ANNIE BILAT IMPRESSION: Stable bilateral screening mammogram. Yearly follow-up mammogram recommended. (A) ASSESSMENT CATEGORY: BIRADS Category 2: Benign. A letter regarding these results will be sent to the patient by the facility within 30 days. Approximately 10% of breast cancers are not detected by mammography. A normal mammogram should not delay biopsy of a clinically suspicious abnormality. [id number] Electronically Signed: Fish Woods MD at 8:29 EDT ,
--- NOTE | 2023-02-03 14:38 | PFTCOMP_ITS ---
Complete pulmonary function testing report Date of study February 02, 2023 Date of 1955 Referring provider: Carlita Veliz NP Indication: COPD, former [id number] smoker. Spirometry pre and postbronchodilator show: 1. Moderate airway obstruction possibly consistent with Gold grade 2 COPD. 2. No Response to bronchodilator 3. No evidence of restriction 4. The patient met technical standards of acceptability and reproducibility. Line Clearance Foreman comments indicated a good patient effort Lung volume studies by plethysmography could not be done due to patient claustrophobia. 1. Therefore spirometric lung volumes of vital capacity and inspiratory capacity were done, and were normal at 92% and 86% respectively. Diffusing capacity by single breath carbon monoxide technique showed: 1. Severe gas exchange abnormality, with a DLCO of 32% predicted. 2. This improved but did not normalize when adjusted for lung volumes. The DL/VA was 76%. 3. Recommend clinical and radiographic correlation for a possible second gas exchange abnormality, such as fibrosis in addition to COPD. John Steinberg MD [facility] Pulmonary Medicine [facility] February 03, 2023 2:51 PM
== END | disposition home or self-care (01) ==
LOC: PSN 08:04
PROVIDERS: PCP Internal Medicine; Referring Provider Nurse Practitioner Acute Care; Visit Provider Nurse Practitioner Acute Care
DX: Z12.2 Encounter for screening for malignant neoplasm of respiratory organs (principal); J44.9 Chronic obstructive pulmonary disease, unspecified; F17.210 Nicotine dependence, cigarettes, uncomplicated; Z12.31 Encounter for screening mammogram for malignant neoplasm of breast
CPT/HCPCS: 71271; 72110; 77063; 77067; 94060; 94729

== ENCOUNTER → 2023-05-05 | Outpatient (CLI) | payer MEDICARE, MEDICAID, SELFPAY ==
[2023-05-05 12:17] LABS: Absolute Lymphocyte Count 2.46 X10^3/uL (0.83-4.51); Absolute Neutrophil Count 5.6 X10^3/uL (2.0-7.7); Basophil# 0.09 X10^3/uL; Eosinophil# 0.33 X10^3/uL; Eosinophils% 3.6 % (0-5); Hematocrit 46.4 % (37-47); Hemoglobin 15.3 g/dL (12.0-15.0); Lymphocyte # 2.46 X10^3/ul (0.83-4.51); Lymphocyte % 26.5 % (19-41); Mean Corpuscular Hgb 33.9 pg (27.0-32.0); Mean Corpuscular Volume 102.9 fL (81-99); Mean Platelet Vol. 9.8 fl (6.2-12.0); Monocyte# 0.79 X10^3/uL; Monocyte% 8.5 % (0-10); NRBC Flagged by Analyzer 0 % (0-5); Neutrophil # 5.56 X10^3/uL (2.7-7.7); Platelet Count 244 K/mm3 (150-450); RBC Distribution Width CV 13.6 % (11.6-14.6); RBC Distribution Width SD 52.3 fl (35.1-43.9); Red Blood Count 4.51 M/mm3 (4.2-5.4); White Blood Count 9.3 K/mm3 (4.4-11.0)
[2023-05-05 13:15] LABS: Anion Gap 6 (5-15); BUN 14 mg/dL (7-18); BUN/Creat Ratio 15.9 RATIO (10-20); Calcium,Total 8.9 mg/dL (8.5-10.1); Chloride 104 mmol/L (98-107); Creatinine, Serum 0.88 mg/dL (0.55-1.02); EST Glomerular Filtration Rate 68 mL/min (>60); Est Glom Filt Rate - Afr Amer 82 mL/min (>60); Glucose 249 mg/dL (74-106); Potassium 4.7 mmol/L (3.5-5.1); Sodium Level 137 mmol/L (136-145)
== END | disposition home or self-care (01) ==
LOC: BIMLAB 09:38
PROVIDERS: PCP Internal Medicine; Referring Provider Internal Medicine; Visit Provider Internal Medicine
DX: G47.33 Obstructive sleep apnea (adult) (pediatric) (principal); I10 Essential (primary) hypertension
CPT/HCPCS: 36415; 80048; 85025

== ENCOUNTER 2023-06-16 14:10 | Inpatient (IN) | payer MEDICARE, MEDICAID, SELFPAY ==
[2023-06-16] VITALS (11 sets, daily range): BP systolic 161–199; BP diastolic 77–86; PULSE 64–92; RESP 16–25; TEMP 36.6–37.4; O2SAT 92–98; BMI 51.0
--- NOTE | 2023-06-16 14:38 | EKG12_ITS ---
Test Reason : SOB Blood Pressure : / mmHG Vent. Rate : 065 BPM Atrial Rate : 065 BPM P-R Int : 148 ms QRS Dur : 088 ms QT Int : 434 ms P-R-T Axes : 072 -18 014 degrees QTc Int : 451 ms Normal sinus rhythm with sinus arrhythmia Normal ECG Confirmed by MYRNA MIRANDA, JAMIE ([id number]), social media editor ZHANNA DICKERSON ([id number]) on 06/21/2023 12:24:55 PM Referred By: ANGELLA Confirmed By:JAMIE NORRIS MD
--- NOTE | 2023-06-16 14:38 | RAD_ITS ---
EXAM: XR CHEST, 2 VIEWS CLINICAL INDICATION: Cough, productive TECHNIQUE: Frontal and lateral views of the chest. COMPARISON: XR Chest dated 10/12/2021 FINDINGS: LUNGS AND PLEURAL SPACES: Minor linear atelectasis right lung base. Lungs are otherwise clear. HEART: Normal heart size. MEDIASTINUM: No mediastinal or hilar mass. BONES/JOINTS: No acute abnormality. RAD/Chest PA and Lateral IMPRESSION: Linear atelectasis right lung base. Electronically Signed: New Gonzalez MD at 15:52 EST ,
[2023-06-16] MEDS: predniSONE 20 MG Tablet 60 MG PO (14:50)
[2023-06-16] MEDS: Albuterol 2.5 MG/3 ML VIAL.NEB. INHALATION ×2 (14:58)
[2023-06-16] MEDS: Ipratropium/Albuterol Sulfate 3 ML AMPUL.NEB INHALATION ×2 (14:58→20:47)
[2023-06-16 15:02] LABS: Absolute Lymphocyte Count 2.35 X10^3/uL (0.83-4.51); Absolute Neutrophil Count 6.1 X10^3/uL (2.0-7.7); Basophil# 0.07 X10^3/uL; Basophil% 0.8 % (0-1); Eosinophil# 0.09 X10^3/uL; Hematocrit 45.4 % (37-47); Hemoglobin 14.7 g/dL (12.0-15.0); Lymphocyte # 2.35 X10^3/ul (0.83-4.51); Lymphocyte % 25.4 % (19-41); Mean Corp Hgb Conc 32.4 g/dL (32-36); Mean Platelet Vol. 9.3 fl (6.2-12.0); Monocyte# 0.64 X10^3/uL; Monocyte% 6.9 % (0-10); NRBC Flagged by Analyzer 0 % (0-5); Neutrophil # 6.07 X10^3/uL (2.7-7.7); Neutrophil % 65.5 % (47-70); Platelet Count 258 K/mm3 (150-450); RBC Distribution Width CV 13.7 % (11.6-14.6); RBC Distribution Width SD 52.2 fl (35.1-43.9); Red Blood Count 4.45 M/mm3 (4.2-5.4); White Blood Count 9.3 K/mm3 (4.4-11.0)
--- NOTE | 2023-06-16 15:14 | EDS_ITS ---
HPI History of Present Illness Chief Complaint: Shortness of Breath Detail of Chief Complaint: Shortness of breath that started Monday. Informant: patient Onset/Context/Timing Onset: Days Context: gradual Timing: Continuous and Waxes and wanes Quality: Positive for Dyspnea on exertion and Wheezing; Negative for Orthopnea or PND Current Severity: Mild Maximum Severity: Severe Worsened by: Exertion and Coughing Relieved by: Nothing Associated Symptoms cough, rhinorrhea, post nasal drip and white sputum; Negative for ear pain, fever, sore throat, subjective, chills, sweats or clear sputum Chest Pain: Positive for Continuous and Stabbing (1 hour prior to presentation.) Narrative Narrative: Is a 67-year-old woman with history of COPD, obstructive sleep apnea, tobacco a buse, hypothyroidism, type 2 diabetes, DVT, TIA on anticoagulant who presents with shortness of breath that started on Monday. She states her shortness of breath has gotten worse. She does have a cough productive of whitish colored sputum. She has not been on prednisone for the past 3 weeks. 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 Jagdish Alonso. She has been on continuous oxygen. She states when she was home and walk to the restroom and she desaturated to 83% which is abnormal for her. She reports compliance with her CPAP/BiPAP machine. She continues to smoke. She states she is not smoking as much because she is short of breath since Monday. She does report leg swelling without pain. She states the discoloration has not resolved in months. She denies nausea, vomiting or diarrhea. She denies dysuria, frequency, urgency or hematuria. She has not checked her blood sugar recently. PE Risk Factors: Positive for Prior DVT or PE; Negative for Cancer, OCP + Smoking + > 35, Recent immobilization, Recent surgery or Recent travel Prior similar symptoms: Yes (COPD exacerbation) Recent Illness/Hospitalization: No PFSH [facility] Medical History Abnormal results of pulmonary function studies Anxiety and depression Chest pain Chronic low back pain COPD (chronic obstructive pulmonary disease) Degeneration of lumbar or lumbosacral intervertebral disc Dermatitis Diverticulosis Essential (primary) hypertension Fibromyalgia Flu vaccine need GERD (gastroesophageal reflux disease) Health care maintenance Hearing loss Hiatal hernia Hypothyroidism Lumbar radiculopathy Lumbar stenosis Morbid obesity MRSA (methicillin resistant staph aureus) culture positive Musculoskeletal back pain Nummular eczematous dermatitis Oral candidiasis HENRRY (obstructive sleep apnea) Polyp of vocal cord and larynx Secondary pulmonary arterial hypertension Sinusitis 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 myelopathy or radiculopathy Swallowing difficulty Thrombophlebitis leg superficial TIA (transient ischemic attack) Tobacco abuse Type 2 diabetes mellitus Ureteral calculus, left Home Medications vit C 250 mg-vit E 90 mg-zinc 40 mg-copper 1 [id number] capsule 1 cap PO BID supplement 03/16/17 [History Last Taken 07/04/19] albuterol sulfate 2.5 mg/3 mL (0.083 %) solution for nebulization 2.5 mg inhalation Q4H PRN PRN Sob &/Or Wheezing 06/05/20 [History Last Taken Unknown] ascorbate calcium (vitamin C) 500 mg tablet 500 mg PO DAILY 08/13/20 [History Last Taken Unknown] elderberry fruit 200 mg capsule 200 mg PO DAILY 08/13/20 [History Last Taken Unknown] omega-3 fatty acids 1,000 mg capsule (Fish Oil Concentrate) 1,000 mg PO DAILY 08/13/20 [History Last Taken Unknown] triamcinolone acetonide 0.025 % topical ointment 1 applic topical BID PRN rash #454 grams 10/21/20 [Rx Last Taken Unknown] Disability Placard #1 ea 12/10/20 [Rx Last Taken Unknown] aspirin 81 mg tablet,delayed release 81 mg PO DAILY #90 tabs 04/06/21 [Rx Last Taken Unknown] ipratropium 0.5 mg-albuterol 3 mg (2.5 mg base)/3 mL nebulization soln 3 ml inhalation Q4H PRN PRN SOB &/OR WHEEZING #180 mL 06/09/21 [Rx Last Taken Unknown] guaifenesin 1,200 mg tablet, extended release 12 hr 1,200 mg PO Q12H #60 tabs 05/06/22 [Rx Last Taken Unknown] levothyroxine 150 mcg tablet 150 mcg PO DAILY #90 tabs 02/01/23 [Rx Last Taken Unknown] lorazepam 0.5 mg tablet (Ativan) 0.5 mg PO QDAY PRN anxiety #2 tabs 02/01/23 [Rx Last Taken Unknown] albuterol sulfate 90 mcg/actuation aerosol inhaler (Ventolin HFA) 2 puff inhalation Q4H PRN shortness of breath or wheezing #18 grams 02/09/23 [Rx Last Taken Unknown] azelastine 205.5 mcg (0.15 %) nasal spray 1 spray intranasal BID #3 ea 02/09/23 [Rx Last Taken Unknown] budesonide-formoterol HFA 160 mcg-4.5 mcg/actuation aerosol inhaler (Symbicort) 2 puff inhalation BID #3 ea 02/09/23 [Rx Last Taken Unknown] fluticasone propionate 50 mcg/actuation nasal spray,suspension 2 spray intranasal DAILY #3 ea 02/09/23 [Rx Last Taken Unknown] tiotropium bromide 2.5 mcg/actuation mist for inhalation (Spiriva Respimat) 2 puff inhalation DAILY #3 device 02/09/23 [Rx Last Taken Unknown] walker (Ultra-Light Rollator misc) #1 ea 05/05/23 [Rx Last Taken Unknown] Allergy/AdvReac Type Severity Reaction Status Date / Time fluconazole [From Diflucan] Allergy Anaphylaxis Verified 06/16/23 14:13 nickel [Nickel] Allergy Rash Verified 06/16/23 14:13 perfume Allergy Rash Verified 06/16/23 14:13 Family History Mother Cancer Father Diabetes Alcoholism Brother Cancer Lung cancer Surgical History History of D&C History of hysterectomy History of right and left heart catheterization (03/07/18) History of right heart catheterization (05/04/20) History of tonsillectomy History of tubal ligation Status post surgical manipulation of ankle joint Social History Smoking Status: Current every day smoker tobacco type: cigarettes Tobacco: How many years used: 55 second hand exposure: Yes alcohol intake: never substance use type: does not use caffeine: Yes (4) what type of physical activity do you participate in: none ROS ROS ED Constitutional Constitutional ED: Denies chills, fever(s), sweats or weight loss Eyes Eyes: Denies blurry vision, change in vision or diplopia ENT ENT ED: Denies ear pain, rhinorrhea or sore throat Cardiovascular Cardiovascular: Reports chest pain; Denies orthopnea, palpitations, paroxysmal nocturnal dyspnea or racing heartbeat Respiratory/Chest Respiratory/Chest: Reports cough, dyspnea, dyspnea on exertion and sputum; Denies orthopnea or paroxysmal nocturnal dyspnea Gastrointestinal Gastrointestinal: Denies abdominal pain, constipation, diarrhea, melena, nausea or vomiting Genitourinary Genitourinary ED: Denies dysuria, hematuria or urinary frequency Musculoskeletal Musculoskeletal: Denies arthralgias, back pain, myalgias or neck pain Neurologic Neurologic: Denies headache(s), paresthesias or weakness Psychiatric Psychiatric: Reports depression; Denies anxiety or suicidal ideation Hematologic/Lymphatic Hematologic/Lymphatic: Denies easy bleeding or easy bruising EXAM Physical Exam Const Vital Signs: 06/16/23 14:11 06/16/23 14:52 06/16/23 15:27 Temperature 97.9 F Temperature Source Temporal Pulse Rate 90 92 Respiratory Rate 24 H 24 H Respiratory Effort Normal Non-Labored Respiratory Depth Normal Respiratory Pattern Normal Tachypnea Blood Pressure 199/84 H Blood Pressure Mean 122 Pulse Ox 94 Oxygen Delivery Method Nasal Cannula Room Air Oxygen Flow Rate (L/min) 2 2 06/16/23 17:28 Temperature 98.8 F Temperature Source Temporal Pulse Rate 83 Respiratory Rate 25 H Respiratory Effort Respiratory Depth Respiratory Pattern Blood Pressure 170/78 H Blood Pressure Mean 108 Pulse Ox 95 Oxygen Delivery Method Nasal Cannula Oxygen Flow Rate (L/min) 2 Positive well nourished, well developed, obese and unkempt; Negative for cachectic or contractures Constitutional Narrative: Patient is tachypneic. There is no use of accessory muscles. General Appearance ED: unkempt and well developed; Negative for cachectic, contractures or pallor Nutritional Appearance: obese; Negative for cachectic HEENT Reports TM's clear and moist mucous membranes HEENT Narrative: Posterior pharynx is normal. atraumatic; Negative for tenderness Tympanic Membrane ED: Yes TM's clear Eyes PERRL and EOMs intact bilaterally General Eye ED: Negative for pale conjunctiva or scleral icterus Neck no lymphadenopathy, supple, no meningeal signs and no JVD Neck Narrative: Trachea is midline. There is no inspiratory expiratory stridor. Resp normal respiratory effort and No clear to auscultation bilaterally Resp Narrative: There is end inspiratory rales noted at the right and left base. Auscultation: wheezes expiratory wheezes, scattered wheezes and throughout Cardio regular rate, regular rhythm, S1 normal heart sound, S2 normal heart sound and no murmurs GI non-tender, non-distended and no masses Auscultation: normoactive bowel sounds Palpation: soft Back/Spine no CVA tenderness Extremity Negative for normal to inspection Extremity Narrative: Has venous stasis dermatitis with lymphedema. Neuro oriented x3, CN's II-XII intact bilaterally and no sensory deficits noted Adeola Coma Scale: document GCS findings Spontaneous Obeys Commands Oriented 15 Sensorium / Orientation: alert Psych Appearance: unkempt Mood & Affect: depressed Thought Process: normal thought process Skin no wounds and skin turgor normal General Skin Exam: Negative for jaundice or pallor Lesions: no lesions MDM MDM MDM Narrative Medical decision making narrative: Diagnoses include exacerbated COPD, pneumonia, exacerbation chronic bronchitis, need to evaluate for cardiac ischemia since she is complaining of chest pain and diabetic and may have atypical presentation. To evaluate patient's presentation chest x-ray, EKG and appropriate blood work was obtained including 2-hour troponin. Prior records were reviewed. Patient does have stage II COPD by Gold classification. She has multiple medical problems. Her office records from Dr. Alonso were reviewed. Patient been encouraged to stop smoking. When asked when she would stop smoking patient responded when I am in my grave . Lab Data Attestation: I reviewed the patient's lab results. Lab results narrative: White count is normal. Differential is normal. H&H is normal with an MCV of 102. This could represent folate, B12 deficiency or alcohol use. Labs: Laboratory Results - last 24 hr 06/16/23 14:50 WBC 9.3 RBC 4.45 Hgb 14.7 Hct 45.4 MCV 102.0 H MCH 33.0 H MCHC 32.4 RDW Std Deviation 52.2 H RDW Coeff of Rafi 13.7 Plt Count 258 MPV 9.3 Immature Gran % (Auto) 0.400 Neut % (Auto) 65.5 Lymph % (Auto) 25.4 [place] % (Auto) 6.9 Eos % (Auto) 1.0 Baso % (Auto) 0.8 Absolute Neuts (auto) 6.1 Absolute Lymphs (auto) 2.35 Nucleated RBC % 0 Sodium 142 Potassium 4.8 Chloride 109 H Carbon Dioxide 28.0 Anion Gap 5 BUN 15 Creatinine 0.92 Estim Creat Clear Calc 46.93 Est GFR (MDRD) Af Amer 78 Est GFR (MDRD) Non-Af 64 BUN/Creatinine Ratio 16.3 Glucose 148 H Calcium 9.6 Troponin I High Sens 10 Radiography Chest X-Ray - ED: 1 View and Read by ED Physician (Cardiac silhouette and size normal. Lung parenchyma reveals chronic changes no acute process. Perihilar regions normal. Osseous trucks unremarkable. This independent reviewed in terpreted by me at 1547.) Diagnostic Testing: Clinical Impression(s) from Imaging Studies Chest X-Ray 06/16/23 14:38 IMPRESSION: Linear atelectasis right lung base. Electronically Signed: New Gonzalez MD at 15:52 EST , EKG Initial EKG: Attestation: I personally reviewed and interpreted this EKG as follows: Interpretation: Sinus Rhythm (Rate is 65. WA interval is 148 ms. Cures duration 88 ms. QT duration 434 ms. Patterson is normal. Other than the sinus arrhythmia the EKG is normal.) Management Discussion w/another healthcare provider: Hospitalist Treatment and Re-Evaluation :: Patient was reassessed at 1715. Patient is noted to be cyanotic. Pulse ox 83% with good waveform. Patient was placed on oxygen again. Patient is still wheezing with increased x-ray phase. Plan is admission to the hospital for exacerbation of COPD. Discharge Plan Dx/Rx/DC Orders Clinical Impression: COPD exacerbation, Type 2 diabetes mellitus, Essential (primary) hypertension, Chest pain, Acute bronchospasm, Purulent bronchitis, Acute and chronic respiratory failure with hypoxia Disposition Disposition: Acute Care Hospital [facility]
[2023-06-16 15:22] LABS: Anion Gap 5 (5-15); BUN 15 mg/dL (7-18); BUN/Creat Ratio 16.3 RATIO (10-20); Calcium,Total 9.6 mg/dL (8.5-10.1); Chloride 109 mmol/L (98-107); Creatinine, Serum 0.92 mg/dL (0.55-1.02); EST Glomerular Filtration Rate 64 mL/min (>60); Est Glom Filt Rate - Afr Amer 78 mL/min (>60); Estimated Creatinine Clearance 46.93 ml/min; Glucose 148 mg/dL (74-106); Potassium 4.8 mmol/L (3.5-5.1); Sodium Level 142 mmol/L (136-145); Troponin-I HS (w/2H Reflex) 10 pg/mL (3.0-54.0)
[2023-06-16 16:58] LABS: Reflex Troponin-HS? (from REC) Y
[2023-06-16] MEDS: Doxycycline 100 MG CAPSULE PO (17:26)
--- NOTE | 2023-06-16 17:38 | NURSING ---
MED SURG WHITE COPD, BRONCHITIS, ACUTE ON CHRONIC RESP FAILURE WITH HYPOXIA
[2023-06-16 17:39] LABS: Troponin-I HS 7 pg/mL (3.0-54.0)
--- NOTE | 2023-06-16 18:03 | HP.PCM.HOS_ITS ---
HPI - General General Date of Admission: 06/16/23 Date of Service: 06/16/23 Chief Complaint: Dyspnea, wheezing, cough. HPI Narrative The patient is a 67 y/o F w/ PMHx: Morbid Obesity, HENRRY on BIPAP q HS, COPD, Anxiety and Depression, Chronic back pain, Hypothyroidism, Hx TIA, Diabetes mellitus type II, Tobacco use ongoing, Chronic BL LE lymphedema, Chart reported history of prior chronic oxygen supplementation not currently chronically on O2 therapy who presents to the [facility] ED on 06/16/23 with history of dyspnea which started on Monday progressively worsening, more severe with any exertion or effort attempts with persistent wheezing as well as not markedly productive cough, rhinorrhea as well as postnasal drip in addition to pleuritic chest discomfort primarily when she has a coughing fit which she reports is stabbing aching diffusely encompassing the entire chest which abates once the coughing fits stop. Work-up in the ED included T97.6, heart rate 90, BP initially 199/84 with most recent repeat 161/77, respiratory rate 24, initially maintained to low 90s on room air however upon reevaluation patient noted to be hypoxic at 83% therefore placed on 2 L nasal cannula with most recent repeat 95% on 2 L nasal cannula, CBC with WBC 9.3, hemoglobin 14.7, platelets 258 without marked shift, BMP with chloride 109, glucose 148 otherwise not marked appearing, troponin initial 10 with repeat delta 7, chest x-ray with linear atelectasis at the right lung base, EKG with sinus rhythm with no acute evidence of ischemia. In the ED patient administered DuoNeb therapy as well as prednisone 60 mg IV x1 and doxycycline 100 mg p.o. x1. [facility] Medical History Abnormal results of pulmonary function studies Anxiety and depression Chest pain Chronic low back pain COPD (chronic obstructive pulmonary disease) Degeneration of lumbar or lumbosacral intervertebral disc Dermatitis Diverticulosis Essential (primary) hypertension Fibromyalgia Flu vaccine need GERD (gastroesophageal reflux disease) Health care maintenance Hearing loss Hiatal hernia Hypothyroidism Lumbar radiculopathy Lumbar stenosis Morbid obesity MRSA (methicillin resistant staph aureus) culture positive Musculoskeletal back pain Nummular eczematous dermatitis Oral candidiasis HENRRY (obstructive sleep apnea) Polyp of vocal cord and larynx Secondary pulmonary arterial hypertension Sinusitis 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 myelopathy or radiculopathy Swallowing difficulty Thrombophlebitis leg superficial TIA (transient ischemic attack) Tobacco abuse Type 2 diabetes mellitus Ureteral calculus, left Home Medications vit C 250 mg-vit E 90 mg-zinc 40 mg-copper 1 qu-[id number] capsule 1 cap PO BID supplement 03/16/17 [History Last Taken 07/04/19] albuterol sulfate 2.5 mg/3 mL (0.083 %) solution for nebulization 2.5 mg inhalation Q4H PRN PRN Sob &/Or Wheezing 06/05/20 [History Last Taken Unknown] ascorbate calcium (vitamin C) 500 mg tablet 500 mg PO DAILY 08/13/20 [History Last Taken Unknown] omega-3 fatty acids 1,000 mg capsule (Fish Oil Concentrate) 1,000 mg PO DAILY 08/13/20 [History Last Taken Unknown] triamcinolone acetonide 0.025 % topical ointment 1 applic topical BID PRN rash #454 grams 10/21/20 [Rx Last Taken Unknown] Disability Placard #1 ea 12/10/20 [Rx Last Taken Unknown] aspirin 81 mg tablet,delayed release 81 mg PO DAILY #90 tabs 04/06/21 [Rx Last Taken Unknown] ipratropium 0.5 mg-albuterol 3 mg (2.5 mg base)/3 mL nebulization soln 3 ml inhalation Q4H PRN PRN SOB &/OR WHEEZING #180 mL 06/09/21 [Rx Last Taken Unknown] levothyroxine 150 mcg tablet 150 mcg PO DAILY #90 tabs 02/01/23 [Rx Last Taken Unknown] albuterol sulfate 90 mcg/actuation aerosol inhaler (Ventolin HFA) 2 puff inhalation Q4H PRN shortness of breath or wheezing #18 grams 02/09/23 [Rx Last Taken Unknown] azelastine 205.5 mcg (0.15 %) nasal spray 1 spray intranasal BID #3 ea 02/09/23 [Rx Last Taken Unknown] budesonide-formoterol HFA 160 mcg-4.5 mcg/actuation aerosol inhaler (Symbicort) 2 puff inhalation BID #3 ea 02/09/23 [Rx Last Taken Unknown] fluticasone propionate 50 mcg/actuation nasal spray,suspension 2 spray intranasal DAILY #3 ea 02/09/23 [Rx Last Taken Unknown] tiotropium bromide 2.5 mcg/actuation mist for inhalation (Spiriva Respimat) 2 puff inhalation DAILY #3 device 02/09/23 [Rx Last Taken Unknown] walker (Ultra-Light Rollator misc) #1 ea 05/05/23 [Rx Last Taken Unknown] metformin 500 mg tablet,extended release 24 hr mg PO 06/16/23 [History Last Taken Unknown] sitagliptin phosphate 100 mg tablet (Januvia) mg 06/16/23 [History Last Taken Unknown] Allergy/AdvReac Type Severity Reaction Status Date / Time fluconazole [From Diflucan] Allergy Anaphylaxis Verified 06/16/23 14:13 nickel [Nickel] Allergy Rash Verified 06/16/23 14:13 perfume Allergy Rash Verified 06/16/23 14:13 Family History Mother Cancer Father Diabetes Alcoholism Brother Cancer Lung cancer Surgical History History of D&C History of hysterectomy History of right and left heart catheterization (03/07/18) History of right heart catheterization (05/04/20) History of tonsillectomy History of tubal ligation Status post surgical manipulation of ankle joint Social History (Updated 06/16/23 @ 21:[address] Wendy Brown MD) household members: none Smoking Status: Current every day smoker tobacco type: cigarettes Smoking packs per day: 1 Smoking cigarettes per day: 20.0 Tobacco: How many years used: 55 second hand exposure: Yes alcohol intake: never substance use type: does not use caffeine: Yes (4) what type of physical activity do you participate in: none ROS ROS Narrative Admission Review of Systems: CONSTITUTIONAL: No weight loss, fever, chills, + weakness or fatigue. HEENT: Eyes: No visual loss, blurred vision, double vision or yellow sclerae. Ears, Nose, Throat: No hearing loss, sneezing, congestion, runny nose or sore throat. SKIN: No rash or itching, lesions, wounds. CARDIOVASCULAR: + Pleuritic chest discomfort with coughing fit, chronic significant lower extremity swelling/lymphedema. No palpitations, orthopnea, syncopal events. RESPIRATORY: + Shortness of breath, cough without marked sputum, wheezing. No hemoptysis. GASTROINTESTINAL: No anorexia, nausea, vomiting or diarrhea, abdominal pain, melena, BRBPR. GENITOURINARY: No dysuria, frequency, urgency or retention. NEUROLOGICAL: No headache, dizziness, syncope, paralysis, ataxia, numbness or tingling in the extremities, focal weakness, change in bowel or bladder control, seizure. MUSCULOSKELETAL: + muscle, back pain, joint pain or stiffness. HEMATOLOGIC: + anemia, easy bleeding/bruising. LYMPHATICS: No enlarged nodes. No history of splenectomy. PSYCHIATRIC: No history of depression or anxiety. ENDOCRINOLOGIC: No reports of sweating, cold or heat intolerance. No polyuria or polydipsia. ALLERGIES: + History of rhinitis, anaphylaxis. Vital Signs Vital Signs Vital Signs: 06/16/23 14:11 06/16/23 14:52 06/16/23 15:27 Temperature 97.9 F Temperature Source Temporal Pulse Rate 90 92 Respiratory Rate 24 H 24 H Respiratory Effort Normal Non-Labored Respiratory Depth Normal Respiratory Pattern Normal Tachypnea Blood Pressure 199/84 H Blood Pressure Mean 122 Pulse Ox 94 Oxygen Delivery Method Nasal Cannula Room Air Oxygen Flow Rate (L/min) 2 2 06/16/23 17:28 Temperature 98.8 F Temperature Source Temporal Pulse Rate 83 Respiratory Rate 25 H Respiratory Effort Respiratory Depth Respiratory Pattern Blood Pressure 170/78 H Blood Pressure Mean 108 Pulse Ox 95 Oxygen Delivery Method Nasal Cannula Oxygen Flow Rate (L/min) 2 Weight Weight: 278 lb 11.2 oz Body Mass Index (BMI) 51.0 Physical Exam Narrative Physical Examination: General: Awake, alert, oriented x 3 and cooperative, seated upright in the ED bed, fatigued, occasional coughing during evaluation. Skin: Normal color, normal turgor, no icterus, no cyanosis except notable venous stasis skin changes, lymphedema.. HEENT: AT/NC, EOMI, PERRLA, mildly dry MM, no carotid bruits or JVD noted; however, thickened neck makes evaluation difficult Lungs: Severely diffusely diminished, greater bases, no marked evidence of any distress, respiratory rate appropriate, very tight, poor air movement, occasional end expiratory wheeze, no rales or rhonchi. Heart: Regular rate and rhythm; no gallop, rub audible. Abdomen: Soft, morbidly obese, NTTP, distant BS, unable to discern distention or appreciated HSM given habitus. Extremities: No cyanosis, no clubbing, see skin. Neurological: Patient awake, alert, oriented as noted, cognitive function intact; pupils equally reactive to light and accommodation, cranial nerves II- XII grossly normal, moving all 4 extremities, no focal deficits, strength moderately to severely global decrease secondary to acute presentation and underlying comorbidities. Psychiatric: Affect appears fatigued, no acute evidence of depressive or anxiety feelings. Results Lab / Micro Data 06/16/23 14:50 06/16/23 14:50 Labs: Laboratory Results - last 24 hr 06/16/23 14:50: WBC 9.3, RBC 4.45, Hgb 14.7, Hct 45.4, MCV 102.0 H, MCH 33.0 H, MCHC 32.4, RDW Std Deviation 52.2 H, RDW Coeff of Rafi 13.7, Plt Count 258, MPV 9.3, Immature Gran % (Auto) 0.400, Neut % (Auto) 65.5, Lymph % (Auto) 25.4, [place] % (Auto) 6.9, Eos % (Auto) 1.0, Baso % (Auto) 0.8, Absolute Neuts (auto) 6.1, Absolute Lymphs (auto) 2.35, Nucleated RBC % 0, Sodium 142, Potassium 4.8, Chloride 109 H, Carbon Dioxide 28.0, Anion Gap 5, BUN 15, Creatinine 0.92, Estim Creat Clear Calc 46.93, Est GFR (MDRD) Af Amer 78, Est GFR (MDRD) Non-Af 64, BUN/Creatinine Ratio 16.3, Glucose 148 H, Calcium 9.6, Troponin I High Sens 10 06/16/23 17:00: Troponin I High Sens 7 Imagaing Radiology Impression Chest X-Ray 06/16/23 14:38 IMPRESSION: Linear atelectasis right lung base. Electronically Signed: New Gonzalez MD at 15:52 EST , Assessment & Plan Assessment/Plan (1) COPD exacerbation: PLAN: Plan The patient is a 67 y/o F w/ PMHx: Morbid Obesity, HENRRY on BIPAP q HS, COPD, Anxiety and Depression, Chronic back pain, Hypothyroidism, Hx TIA, Diabetes mellitus type II, Tobacco use ongoing, Chronic BL LE lymphedema, Chart reported history of prior chronic oxygen supplementation not currently chronically on O2 therapy who presents to the [facility] ED on 06/16/23 with history of dyspnea which started on Monday progressively worsening, more severe with any exertion or effort attempts with persistent wheezing as well as not markedly productive cough, rhinorrhea as well as postnasal drip in addition to pleuritic chest discomfort primarily when she has a coughing fit which she reports is stabbing aching diffusely encompassing the entire chest which abates once the coughing fi ts stop. #1. Acute on Chronic COPD exacerbation with Acute Hypoxia (not consistent with respiratory failure) although chart reported history of previous chronic oxygen supplementation but is no longer taking currently she reports: Will admit to [facility], maintain on oxygen with wean as tolerated to room air, continue ATC duonebs, PRN albuterol, IV methylprednisolone, HOB, IS parameters, will obtain sputum Cx, COVID and influenza rapid antigen, respiratory viral panel, procalcitonin, will hold on immediately abx therapy but low threshold to add if appropriate. #2. Hypertension: Noted history, review of records with BP fairly often above goal, per current list does not appear to be on regimen, clarifying, in the interim as needed IV hydralazine. #3. Hyperlipidemia: Not statin, defer to outpatient. #4. History of TIA: We will maintain on baby aspirin, not on statin nor any hypertensive regimen, clarifying and will resume regimen once verified. #5. Hypothyroidism: We will continue patient home levothyroxine regimen. #6. Anxiety and depression: We will continue patient home low-dose Ativan regimen, does not appear to be on other regimen, would benefit from consideration of transition to SSRI. #7. Allergic rhinitis: We will continue patient on fluticasone and azelastine home regimen. #8. Morbid Obesity: Weight loss and lifestyle changes encouraged. #9. Chronic lumbar back pain: Maintain on fall precautions, encourage frequent positional changes. #10. Tobacco Abuse: Encouraged cessation, inpatient consultation per RT, NR if desired. #11. Chronic bilateral lower extremity lymphedema: We will place neck Cordell wraps with elevation. #12. HENRRY: BiPAP nightly. #13. DVT prophylaxis: Lovenox. #14. CODE status: Patient LUIS FERNANDO is her son Asad and living will is currently in place. Discussed CODE status at length including difference between FULL code, DNR-CCA and DNR-CC status. Following discussions about the differences in these status, requested DNR-CCA with intubation status. Advanced Care Planning Face to Face Time: 16 minutes. Charges/Coding Visit Charges Inpatient E&M: 09023 Init Hosp L3 Procedures Hospitalists Procedures: 51062 Advncd Care Plan 30 Min
[2023-06-16] MEDS: Nicotine Polacrilex 2 MG GUM PO (22:52)
[2023-06-16] MEDS: Azelastine HCl NASAL.SRY NASAL (22:54)
[2023-06-16] MEDS: 0.9% Saline Lock 10 ML Syringe IV ×2 (22:56→23:48)
[2023-06-16] MEDS: Insulin Lispro 100 UNIT/ML INSULN.PEN SC (22:57)
[2023-06-16 23:30] LABS: Procalcitonin < 0.01 ng/mL (0.00-0.09)
--- NOTE | 2023-06-16 23:37 | NURSING ---
Patient takes Lasix, but does not know how many mg. She will ask her family.
[2023-06-16] MEDS: Acetaminophen 325 MG Tablet 650 MG PO (23:44)
[2023-06-16] MEDS: hydrALAZINE 20 MG/ML Vial 10 MG IV (23:45)
[2023-06-17] VITALS (13 sets, daily range): BP systolic 141–162; BP diastolic 65–91; PULSE 67–100; RESP 12–27; TEMP 36.7–36.8; O2SAT 93–96; BMI 51.2
[2023-06-17 00:18] LABS: Bedside Glucose 207 mg/dL (74-106)
--- NOTE | 2023-06-17 01:27 | CPS ---
Patient refusing bipap at this time d/t discomfort.
[2023-06-17 06:27] LABS: Absolute Lymphocyte Count 0.58 X10^3/uL (0.83-4.51); Absolute Neutrophil Count 6.4 X10^3/uL (2.0-7.7); Basophil# 0.02 X10^3/uL; Basophil% 0.3 % (0-1); Hematocrit 41.9 % (37-47); Hemoglobin 13.8 g/dL (12.0-15.0); Lymphocyte # 0.58 X10^3/ul (0.83-4.51); Lymphocyte % 8.1 % (19-41); Mean Corp Hgb Conc 32.9 g/dL (32-36); Mean Corpuscular Hgb 33.6 pg (27.0-32.0); Mean Corpuscular Volume 101.9 fL (81-99); Mean Platelet Vol. 9.4 fl (6.2-12.0); Monocyte# 0.09 X10^3/uL; Monocyte% 1.3 % (0-10); NRBC Flagged by Analyzer 0 % (0-5); Neutrophil # 6.42 X10^3/uL (2.7-7.7); Neutrophil % 89.9 % (47-70); POSITIVE DIFFERENTIAL YES; Platelet Count 256 K/mm3 (150-450); RBC Distribution Width CV 13.6 % (11.6-14.6); RBC Distribution Width SD 51.5 fl (35.1-43.9); Red Blood Count 4.11 M/mm3 (4.2-5.4); White Blood Count 7.1 K/mm3 (4.4-11.0)
[2023-06-17 06:31] LABS: Differential Indicated SCAN CRITERIA MET
[2023-06-17 06:49] LABS: Anisocytosis 1+; Differential Comment SCANNED; Macrocytosis 1+
[2023-06-17 06:53] LABS: AST(SGOT) 11 U/L (15-37); Alanine Aminotransfer ALT/SGPT 21 U/L (13-56); Albumin, Serum 3.6 g/dL (3.2-5.0); Alkaline Phosphatase 87 U/L (45-117); Anion Gap 6 (5-15); BUN 13 mg/dL (7-18); Calcium,Total 9.4 mg/dL (8.5-10.1); Chloride 109 mmol/L (98-107); Creatinine, Serum 0.69 mg/dL (0.55-1.02); EST Glomerular Filtration Rate 91 mL/min (>60); Est Glom Filt Rate - Afr Amer 110 mL/min (>60); Estimated Creatinine Clearance 43.18 ml/min; Globulin 3.5 g/dL (2.2-4.2); Glucose 223 mg/dL (74-106); Protein, Total 7.1 g/dL (6.4-8.2); Sodium Level 139 mmol/L (136-145)
[2023-06-17] MEDS: Levothyroxine 150 MCG Tablet PO (07:09)
[2023-06-17] MEDS: 0.9% Saline Lock 10 ML Syringe IV ×5 (07:12→22:16)
[2023-06-17] MEDS: Insulin Lispro 100 UNIT/ML INSULN.PEN SC ×4 (07:13→22:03)
[2023-06-17] MEDS: hydrALAZINE 20 MG/ML Vial 10 MG IV (07:22)
--- NOTE | 2023-06-17 07:28 | PN.HOSP_ITS ---
Reason for Visit Reason for Visit: Diagnoses Chronic obstructive pulmonary disease with (acute) exacerbation (06/16/23) Subjective Subjective Patient is a 67-year-old lady with history of COPD with chronic hypoxic respiratory failure on baseline home oxygen 2 L who presented with progressive shortness of breath and assessment of COPD with acute exacerbation was made admitted to regular nursing floor for further management Objective Data Objective Data Vital Signs: Vital Signs Temp Pulse Resp BP Pulse Ox O2 Del Method O2 Flow Rate 98.1 F 69 20 H 162/91 H 93 Nasal Cannula 2 06/17/23 07:16 06/17/23 07:22 06/17/23 07:16 06/17/23 07:22 06/17/23 07:16 06/17/23 07:16 06/17/23 07:16 FiO2 21 06/17/23 00:20 Oxygen Flow Rate (L/min) 2 Oxygen Delivery Method Nasal Cannula Weight: 126.4 kg Body Mass Index (BMI) 51.2 Lab / Micro Data 06/17/23 05:55 06/17/23 05:55 Labs: Laboratory Results - last 24 hr 06/16/23 14:50: WBC 9.3, RBC 4.45, Hgb 14.7, Hct 45.4, MCV 102.0 H, MCH 33.0 H, MCHC 32.4, RDW Std Deviation 52.2 H, RDW Coeff of Rafi 13.7, Plt Count 258, MPV 9.3, Immature Gran % (Auto) 0.400, Neut % (Auto) 65.5, Lymph % (Auto) 25.4, [place] % (Auto) 6.9, Eos % (Auto) 1.0, Baso % (Auto) 0.8, Absolute Neuts (auto) 6.1, Absolute Lymphs (auto) 2.35, Nucleated RBC % 0, Sodium 142, Potassium 4.8, Chloride 109 H, Carbon Dioxide 28.0, Anion Gap 5, BUN 15, Creatinine 0.92, Estim Creat Clear Calc 46.93, Est GFR (MDRD) Af Amer 78, Est GFR (MDRD) Non-Af 64, BUN/Creatinine Ratio 16.3, Glucose 148 H, Calcium 9.6, Troponin I High Sens 10 06/16/23 17:00: Troponin I High Sens 7 06/16/23 22:21: Procalcitonin < 0.01 06/16/23 22:40: POC Glucose 207 H 06/17/23 05:55: WBC 7.1, RBC 4.11 L, Hgb 13.8, Hct 41.9, MCV 101.9 H, MCH 33.6 H , MCHC 32.9, RDW Std Deviation 51.5 H, RDW Coeff of Rafi 13.6, Plt Count 256, MPV 9.4, Immature Gran % (Auto) 0.400, Neut % (Auto) 89.9 H, Lymph % (Auto) 8.1 L, [place] % (Auto) 1.3, Eos % (Auto) 0.0, Baso % (Auto) 0.3, Absolute Neuts (auto) 6.4, Absolute Lymphs (auto) 0.58 L, Nucleated RBC % 0, Differential Comment SCANNED, Anisocytosis 1+, Macrocytosis 1+, Sodium 139, Potassium 4.0, Chloride 109 H, Carbon Dioxide 24.0, Anion Gap 6, BUN 13, Creatinine 0.69, Estim Creat Clear Calc 43.18, Est GFR (MDRD) Af Amer 110, Est GFR (MDRD) Non-Af 91, BUN/Creatinine Ratio 19.0, Glucose 223 H, Calcium 9.4, Total Bilirubin 0.70, AST 11 L, ALT 21, Alkaline Phosphatase 87, Total Protein 7.1, Albumin 3.6, Globulin 3.5, Albumin/Globulin Ratio 1.0 Micro: Microbiology 06/16/23 19:10 Mucosa - Nasopharyngeal Respiratory Panel (PCR) - Final 06/16/23 18:50 Nasal Secretion SARS-CoV-2 & FLU Antigen (Rapid) - Final Radiography Diagnostic Testing: Radiology Impression Chest X-Ray 06/16/23 14:38 IMPRESSION: Linear atelectasis right lung base. Electronically Signed: New Gonzalez MD at 15:52 EST , Physical Exam Narrative GENERAL: cooperative HEENT: Atraumatic; normocephalic EYES; Anicteric, Normal Conjunctiva NECK; supple, normal thyroid, RESPIRATORY: Diminished to auscultation CARDIOVASCULAR: Regular S1 S2, GI: soft, normoactive bowel sounds, : No Renal angle tenderness; EXTREMITIES: No edema, no clubbing, MUSCULOSKELETAL: no muscle wasting NEURO: Awake; no lateralizing signs. SKIN: No Rash PSYCH; Flat affect Assessment & Plan Assessment/Plan (1) COPD exacerbation: PLAN: Plan Patient is a 67-year-old lady with history of COPD with chronic hypoxic respiratory failure on baseline home oxygen 2 L who presented with progressive shortness of breath and assessment of COPD with acute exacerbation was made admitted to regular nursing floor for further management 1. COPD with acute exacerbation admitted to regular nursing floor managed with steroid antibiotics bronchodilator treatment as well as continuation of her baseline oxygen 2. Chronic hypoxic respiratory failure ? Secondary to COPD patient is on baseline 2 L at rest 3. Hypothyroidism - Patient is on levothyroxine home dose continued 5. GERD ? On PPI 6. Diabetes mellitus type II -patient's oral hypoglycemics held. Placed on long acting insulin, Accu-Cheks a.c. and at bedtime and covered with sliding scale insulin 7. Class III obesity with BMI of 51 ? Weight loss advised 8. Obstructive sleep apnea ? Patient is on PAP therapy at night consistent use encouraged 9. Tobacco dependence - Counseled on cessation, offered nicotine patch for tobacco cravings 10. DVT prophylaxis - On enoxaparin Time spent in the patient's overall evaluation,decision-making process, review of diagnostic data, adjustment of management, discussion with other providers, nursing nursing and ancillary staff involved in patient's care documentation, 52 Minutes Charges/Coding Visit Charges Inpatient E&M: 02000 Subs Hosp L3
[2023-06-17 08:07] LABS: Bedside Glucose 206 mg/dL (74-106)
[2023-06-17] MEDS: Fluticasone 0.05% 1 SPRAY NASAL.SRY 2 SPRAY NASAL (08:48)
[2023-06-17] MEDS: Nicotine Polacrilex 2 MG GUM PO (08:49)
[2023-06-17] MEDS: Ascorbic Acid 500 MG Tablet PO (08:54)
[2023-06-17] MEDS: Aspirin E.C. 81 MG Tablet PO (08:54)
[2023-06-17] MEDS: Enoxaparin 40 MG/0.4 ML Syringe SC (08:54)
[2023-06-17 11:37] LABS: Bedside Glucose 214 mg/dL (74-106)
--- NOTE | 2023-06-17 12:30 | CASEMGMT ---
RN MARK Face to Face with patient for initial transition planning/care coordination assessment. RN CM introduced self and role at [facility]. Patient sitting in chair, alert and oriented. Patient willing to participate in assessment and is able to answer all questions appropriately. Care providers, pharmacy, and demographics verified. Patient wishes to discharge home, denies need for home health at this time. Patient states she has no further needs or concerns at this time. CM to follow for discharge planning needs that may arise. PCP: [facility] Specialists: Gavin chamber magistrate; Lulu mine inspector federal Preferred Pharmacy: [facility] Insurance: [employer] Prescription Benefit: yes Living Will/HPOA: yes, son Asad Carter LNOK: son Living Arrangements: Patient lives with grandsons(18yo and 15yo) in a 2 story home. Patient is independent and able to ambulate stairs. Transportation: self, grandson DME/HHC: Patient has cane, grab bars, rollator, wheelchair, bipap, nebulizer, pulse ox, glucometer, and oxygen with portability through [facility] [place] at 2lpm continuously. No previous SNF or HHC. Disposition Plan: Patient to discharge home with family support and follow-up plans in place. Karen GIL, RN, CM
[2023-06-17] MEDS: Pantoprazole Sodium 40 MG Tablet PO (12:34)
[2023-06-17] MEDS: dilTIAZem CD 120 MG Capsule PO (12:35)
[2023-06-17 16:45] LABS: Bedside Glucose 226 mg/dL (74-106)
[2023-06-17] MEDS: Ipratropium/Albuterol Sulfate 3 ML AMPUL.NEB INHALATION (19:09)
[2023-06-17] MEDS: Azelastine HCl NASAL.SRY NASAL (22:02)
[2023-06-18] VITALS (7 sets, daily range): BP systolic 135–171; BP diastolic 65–73; PULSE 52–83; RESP 18–22; TEMP 36.5–36.6; O2SAT 92–96; BMI 51.3
[2023-06-18 00:04] LABS: Bedside Glucose 231 mg/dL (74-106)
[2023-06-18 06:14] LABS: Absolute Lymphocyte Count 0.86 X10^3/uL (0.83-4.51); Absolute Neutrophil Count 9.1 X10^3/uL (2.0-7.7); Basophil# 0.01 X10^3/uL; Basophil% 0.1 % (0-1); Hematocrit 41.9 % (37-47); Hemoglobin 13.8 g/dL (12.0-15.0); Lymphocyte # 0.86 X10^3/ul (0.83-4.51); Lymphocyte % 8.3 % (19-41); Mean Corp Hgb Conc 32.9 g/dL (32-36); Mean Corpuscular Hgb 33.7 pg (27.0-32.0); Mean Corpuscular Volume 102.4 fL (81-99); Mean Platelet Vol. 9.8 fl (6.2-12.0); Monocyte# 0.35 X10^3/uL; Monocyte% 3.4 % (0-10); NRBC Flagged by Analyzer 0 % (0-5); Neutrophil % 87.4 % (47-70); Platelet Count 241 K/mm3 (150-450); RBC Distribution Width CV 13.8 % (11.6-14.6); RBC Distribution Width SD 52.3 fl (35.1-43.9); Red Blood Count 4.09 M/mm3 (4.2-5.4); White Blood Count 10.4 K/mm3 (4.4-11.0)
[2023-06-18 06:44] LABS: Anion Gap 6 (5-15); BUN 19 mg/dL (7-18); BUN/Creat Ratio 24.4 RATIO (10-20); Chloride 109 mmol/L (98-107); Creatinine, Serum 0.78 mg/dL (0.55-1.02); EST Glomerular Filtration Rate 78 mL/min (>60); Est Glom Filt Rate - Afr Amer 95 mL/min (>60); Estimated Creatinine Clearance 43.18 ml/min; Glucose 241 mg/dL (74-106); Magnesium 2.3 mg/dL (1.6-2.6); Phosphorus 3.7 mg/dL (2.5-4.9); Potassium 4.4 mmol/L (3.5-5.1); Sodium Level 139 mmol/L (136-145)
[2023-06-18] MEDS: Insulin Lispro 100 UNIT/ML INSULN.PEN SC (06:55)
[2023-06-18] MEDS: Levothyroxine 150 MCG Tablet PO (06:57)
[2023-06-18] MEDS: 0.9% Saline Lock 10 ML Syringe IV (06:59)
[2023-06-18 07:19] LABS: Bedside Glucose 229 mg/dL (74-106)
[2023-06-18] MEDS: Ipratropium/Albuterol Sulfate 3 ML AMPUL.NEB INHALATION (07:20)
--- NOTE | 2023-06-18 07:36 | PCM.PN.HOSP ---
Reason for Visit Reason for Visit: Diagnoses Chronic obstructive pulmonary disease with (acute) exacerbation (06/16/23) Subjective Subjective Patient seen breathing improved patient be assessed for possible discharge Objective Data Objective Data Vital Signs: Vital Signs Temp Pulse Resp BP Pulse Ox O2 Del Method O2 Flow Rate 97.7 F L 65 22 H 135/65 H 94 Nasal Cannula 2 06/18/23 06:35 06/18/23 06:35 06/18/23 06:35 06/18/23 06:35 06/18/23 06:35 06/18/23 06:35 06/18/23 06:30 FiO2 2 06/18/23 06:35 Oxygen Flow Rate (L/min) 2 Oxygen Delivery Method Nasal Cannula Weight: 126.6 kg Body Mass Index (BMI) 51.3 Lab / Micro Data 06/18/23 05:38 06/18/23 05:38 Labs: Laboratory Results - last 24 hr 06/17/23 07:08: POC Glucose 206 H 06/17/23 11:01: POC Glucose 214 H 06/17/23 16:24: POC Glucose 226 H 06/17/23 22:00: POC Glucose 231 H 06/18/23 05:38: WBC 10.4, RBC 4.09 L, Hgb 13.8, Hct 41.9, MCV 102.4 H, MCH 33.7 H, MCHC 32.9, RDW Std Deviation 52.3 H, RDW Coeff of Rafi 13.8, Plt Count 241, MPV 9.8, Immature Gran % (Auto) 0.800, Neut % (Auto) 87.4 H, Lymph % (Auto) 8.3 L, [place] % (Auto) 3.4, Eos % (Auto) 0.0, Baso % (Auto) 0.1, Absolute Neuts (auto) 9.1 H, Absolute Lymphs (auto) 0.86, Nucleated RBC % 0, Sodium 139, Potassium 4.4, Chloride 109 H, Carbon Dioxide 24.0, Anion Gap 6, BUN 19 H, Creatinine 0.78, Estim Creat Clear Calc 43.18, Est GFR (MDRD) Af Amer 95, Est GFR (MDRD) Non-Af 78, BUN/Creatinine Ratio 24.4 H, Glucose 241 H, Calcium 9.0, Phosphorus 3.7, Magnesium 2.3 06/18/23 06:53: POC Glucose 229 H Micro: Microbiology 06/16/23 19:10 Mucosa - Nasopharyngeal Respiratory Panel (PCR) - Final 06/16/23 18:50 Nasal Secretion SARS-CoV-2 & FLU Antigen (Rapid) - Final Physical Exam Narrative GENERAL: cooperative HEENT: Atraumatic; normocephalic EYES; Anicteric, Normal Conjunctiva NECK; supple, normal thyroid, RESPIRATORY: Diminished to auscultation CARDIOVASCULAR: Regular S1 S2, GI: soft, normoactive bowel sounds, : No Renal angle tenderness; EXTREMITIES: No edema, no clubbing, MUSCULOSKELETAL: no muscle wasting NEURO: Awake; no lateralizing signs. SKIN: No Rash PSYCH; Flat affect Assessment & Plan Assessment/Plan (1) COPD exacerbation: PLAN: Plan Patient is a 67-year-old lady with history of COPD with chronic hypoxic respiratory failure on baseline home oxygen 2 L who presented with progressive shortness of breath and assessment of COPD with acute exacerbation was made admitted to regular nursing floor for further management 1. COPD with acute exacerbation admitted to regular nursing floor managed with steroid antibiotics bronchodilator treatment as well as continuation of her baseline oxygen 2. Chronic hypoxic respiratory failure ? Secondary to COPD patient is on baseline 2 L at rest 3. Hypothyroidism - Patient is on levothyroxine home dose continued 5. GERD ? On PPI 6. Diabetes mellitus type II -patient's oral hypoglycemics held. Placed on long acting insulin, Accu-Cheks a.c. and at bedtime and covered with sliding scale insulin 7. Class III obesity with BMI of 51 ? Weight loss advised 8. Obstructive sleep apnea ? Patient is on PAP therapy at night consistent use encouraged 9. Tobacco dependence - Counseled on cessation, offered nicotine patch for tobacco cravings 10. DVT prophylaxis - On enoxaparin Time spent in the patient's overall evaluation,decision-making process, review of diagnostic data, adjustment of management, discussion with other providers, nursing nursing and ancillary staff involved in patient's care documentation, 35 minutes Charges/Coding Visit Charges Inpatient E&M: 93444 Subs Hosp L2
[2023-06-18] MEDS: Azelastine HCl NASAL.SRY NASAL (08:51)
[2023-06-18] MEDS: Aspirin E.C. 81 MG Tablet PO (08:51)
[2023-06-18] MEDS: dilTIAZem CD 120 MG Capsule PO (08:52)
[2023-06-18] MEDS: Fluticasone 0.05% 1 SPRAY NASAL.SRY 2 SPRAY NASAL (08:52)
[2023-06-18] MEDS: Enoxaparin 40 MG/0.4 ML Syringe SC (08:53)
[2023-06-18] MEDS: Pantoprazole Sodium 40 MG Tablet PO (08:53)
[2023-06-18] MEDS: Ascorbic Acid 500 MG Tablet PO (08:53)
--- NOTE | 2023-06-18 09:24 | DS.PCM_ITS ---
Providers Date of Admission: 06/16/23 Date of Discharge: 06/18/23 Primary Care Physician: Dr. Refugio Dowd MD Reason For Visit: HYOXIA, COPD EXAC Diagnosis Discharge Diagnosis (1) COPD exacerbation: Status: Chronic Code(s): J44.1 - Chronic obstructive pulmonary disease with (acute) exacerbation Plan Patient is a 67-year-old lady with history of COPD with chronic hypoxic respiratory failure on baseline home oxygen 2 L who presented with progressive shortness of breath and assessment of COPD with acute exacerbation was made admitted to regular nursing floor for further management 1. COPD with acute exacerbation admitted to regular nursing floor managed with steroid antibiotics bronchodilator treatment as well as continuation of her baseline oxygen 2. Chronic hypoxic respiratory failure ? Secondary to COPD patient is on baseline 2 L at rest 3. Hypothyroidism - Patient is on levothyroxine home dose continued 5. GERD ? On PPI 6. Diabetes mellitus type II -patient's oral hypoglycemics held. Placed on long acting insulin, Accu-Cheks a.c. and at bedtime and covered with sliding scale insulin 7. Class III obesity with BMI of 51 ? Weight loss advised 8. Obstructive sleep apnea ? Patient is on PAP therapy at night consistent use encouraged 9. Tobacco dependence - Counseled on cessation, offered nicotine patch for tobacco cravings 10. DVT prophylaxis - On enoxaparin Time spent in the patient's overall evaluation,decision-making process, review of diagnostic data, adjustment of management, discussion with other providers, nursing nursing and ancillary staff involved in patient's care documentation, 35 minutes Medications at Discharge Home Medications vit C 250 mg-vit E 90 mg-zinc 40 mg-copper 1 fb-[id number] capsule 1 cap PO BID supplement 03/16/17 albuterol sulfate 2.5 mg/3 mL (0.083 %) solution for nebulization 2.5 mg inhalation Q4H PRN PRN Sob &/Or Wheezing 06/05/20 ascorbate calcium (vitamin C) 500 mg tablet 500 mg PO DAILY vitamin 08/13/20 omega-3 fatty acids 1,000 mg capsule (Fish Oil Concentrate) 1,000 mg PO DAILY vitamin 08/13/20 triamcinolone acetonide 0.025 % topical ointment 1 applic topical BID PRN rash #454 grams 10/21/20 Disability Placard #1 ea 12/10/20 aspirin 81 mg tablet,delayed release 81 mg PO DAILY #90 tabs 04/06/21 ipratropium 0.5 mg-albuterol 3 mg (2.5 mg base)/3 mL nebulization soln 3 ml inhalation Q4H PRN PRN SOB &/OR WHEEZING #180 mL 06/09/21 levothyroxine 150 mcg tablet 150 mcg PO DAILY #90 tabs 02/01/23 albuterol sulfate 90 mcg/actuation aerosol inhaler (Ventolin HFA) 2 puff inhalation Q4H PRN shortness of breath or wheezing #18 grams 02/09/23 azelastine 205.5 mcg (0.15 %) nasal spray 1 spray intranasal BID #3 ea 02/09/23 budesonide-formoterol HFA 160 mcg-4.5 mcg/actuation aerosol inhaler (Symbicort) 2 puff inhalation BID #3 ea 02/09/23 fluticasone propionate 50 mcg/actuation nasal spray,suspension 2 spray intranasal DAILY #3 ea 02/09/23 tiotropium bromide 2.5 mcg/actuation mist for inhalation (Spiriva Respimat) 2 puff inhalation DAILY #3 device 02/09/23 walker (Ultra-Light Rollator misc) #1 ea 05/05/23 diltiazem HCl 120 mg capsule,extended release 24 hr (Cardizem CD) 120 mg PO DAILY irregular heart rate 06/16/23 erythromycin 5 mg/gram (0.5 %) eye ointment 1 applic ophthalmic (eye) .HS air in eyes 06/16/23 fluorometholone 0.1 % eye drops,suspension 1 drp ophthalmic (eye) BID PRN steroid 06/16/23 metformin 500 mg tablet,extended release 24 hr 500 mg PO .HS Diabetes 06/16/23 pantoprazole 40 mg tablet,delayed release 40 mg PO DAILY GERD 06/16/23 sitagliptin phosphate 100 mg tablet (Januvia) 100 mg PO DAILY Diabetes 06/16/23 azithromycin 500 mg tablet (Zithromax) 500 mg PO DAILY 3 days #3 tabs 06/18/23 guaifenesin 1,200 mg tablet, extended release 12 hr (Mucinex) 1,200 mg PO Q12H #60 tabs 06/18/23 prednisone 20 mg tablet 40 mg (2 x 20 mg) PO DAILY #10 tabs 06/18/23 Hospital Course Summary of Care Provided Minutes Spent on Discharge: 35 Physical Exam Narrative GENERAL: cooperative HEENT: Atraumatic; normocephalic EYES; Anicteric, Normal Conjunctiva NECK; supple, normal thyroid, RESPIRATORY: Diminished to auscultation CARDIOVASCULAR: Regular S1 S2, GI: soft, normoactive bowel sounds, : No Renal angle tenderness; EXTREMITIES: No edema, no clubbing, MUSCULOSKELETAL: no muscle wasting NEURO: Awake; no lateralizing signs. SKIN: No Rash PSYCH; Flat affect Weight / BMI Weight Weight: 126.6 kg Body Mass Index (BMI) 51.3 ABG / Lab / Microbiology Data 06/18/23 05:38 06/18/23 05:38 Laboratory: Laboratory Results - last 24 hr 06/17/23 11:01: POC Glucose 214 H 06/17/23 16:24: POC Glucose 226 H 06/17/23 22:00: POC Glucose 231 H 06/18/23 05:38: WBC 10.4, RBC 4.09 L, Hgb 13.8, Hct 41.9, MCV 102.4 H, MCH 33.7 H, MCHC 32.9, RDW Std Deviation 52.3 H, RDW Coeff of Rafi 13.8, Plt Count 241, MPV 9.8, Immature Gran % (Auto) 0.800, Neut % (Auto) 87.4 H, Lymph % (Auto) 8.3 L, [place] % (Auto) 3.4, Eos % (Auto) 0.0, Baso % (Auto) 0.1, Absolute Neuts (auto) 9.1 H, Absolute Lymphs (auto) 0.86, Nucleated RBC % 0, Sodium 139, Potassium 4.4, Chloride 109 H, Carbon Dioxide 24.0, Anion Gap 6, BUN 19 H, Creatinine 0.78, Estim Creat Clear Calc 43.18, Est GFR (MDRD) Af Amer 95, Est GFR (MDRD) Non-Af 78, BUN/Creatinine Ratio 24.4 H, Glucose 241 H, Calcium 9.0, Phosphorus 3.7, Magnesium 2.3 06/18/23 06:53: POC Glucose 229 H Microbiology: Microbiology 06/16/23 19:10 Mucosa - Nasopharyngeal Respiratory Panel (PCR) - Final 06/16/23 18:50 Nasal Secretion SARS-CoV-2 & FLU Antigen (Rapid) - Final D/C Instructions Discharge Diet: 1800 Calorie Control Diet Discharge Activity: Return to Normal Activity Call your doctor if you observe: Fever of 101 or Higher, Shortness of breath, Fainting spells and Chest pain Meaningful Use Info Meaningful Use Diagnoses (Choose all that apply): None applicable Discharge Plan Admission Admit Date/Time: 06/16/23 18:03 Attending Provider: Jeyson Lyon Primary Care Provider: Refugio Dowd Consulting Providers: Wendy Brown Discharge Orders/Prescriptions Prescriptions: New azithromycin [Zithromax] 500 mg tablet 500 mg PO DAILY 3 Days Qty: 3 0RF prednisone 20 mg tablet 40 mg PO DAILY Qty: 10 0RF guaifenesin [Mucinex] 1,200 mg tablet extended release 12hr 1,200 mg PO Q12H Qty: 60 0RF Continued (DME) Disability Placard See Rx Instructions .ROUTE .MEDSUPPLY Qty: 1 0RF Rx Instructions: Expires in 5 years triamcinolone acetonide 0.025 % ointment 1 applic TOPICAL BID PRN (Reason: rash) Qty: 454 2RF omega-3 fatty acids [Fish Oil Concentrate] 1,000 mg capsule 1,000 mg PO DAILY ascorbate calcium (vitamin C) 500 mg tablet 500 mg PO DAILY ipratropium-albuterol 0.5 mg-3 mg(2.5 mg base)/3 mL solution for nebulization 3 ml inhalation Q4H PRN PRN (Reason: SOB &/OR WHEEZING) Qty: 180 6RF albuterol sulfate [Ventolin HFA] 90 mcg/actuation HFA aerosol inhaler 2 puff INHALATION Q4H PRN (Reason: shortness of breath or wheezing) Qty: 18 6RF azelastine 205.5 mcg (0.15 %) spray,non-aerosol 1 spray INTRANASAL BID Qty: 3 3RF Rx Instructions: administer into each nostril budesonide-formoterol [Symbicort] 160-4.5 mcg/actuation HFA aerosol inhaler 2 puff INHALATION BID Qty: 3 3RF fluticasone propionate 50 mcg/actuation spray,suspension 2 spray INTRANASAL DAILY Qty: 3 3RF Spiriva Respimat 2.5 mcg/actuation mist 2 puff INHALATION DAILY Qty: 3 3RF levothyroxine 150 mcg tablet 150 mcg PO DAILY Qty: 90 1RF (DME) Ultra-Light Rollator Misc See Rx Instructions .Route Qty: 1 0RF Rx Instructions: As directed vit C,Q-Qd-eaiuy-lutein-zeaxan 1 EACH capsule 1 cap PO BID albuterol sulfate 2.5 MG/3 ML solution for nebulization 2.5 mg INHALATION Q4H PRN PRN (Reason: Sob &/Or Wheezing) Rx Instructions: Use q4 hours and PRN for wheezing metformin 500 mg tablet extended release 24 hr 500 mg PO .HS Patient Comments: TAKE 3 TABLETS BY MOUTH DAILY IN THE EVENING Januvia 100 mg tablet 100 mg PO DAILY Patient Comments: TAKE 1/2 (ONE-HALF) OF A TABLET DAILY FOR 1 WEEK THEN INCREASE TO 1 TABLET DAILY erythromycin 5 mg/gram (0.5 %) ointment 1 applic ophthalmic (eye) .HS Patient Comments: Apply 1 application in both eyes nightly fluorometholone 0.1 % drops,suspension 1 drp ophthalmic (eye) BID PRN Patient Comments: Instill 1 drop in both eyes twice a day pantoprazole 40 mg tablet,delayed release (DR/EC) 40 mg PO DAILY Patient Comments: TAKE 1 TABLET BY MOUTH TWICE DAILY diltiazem HCl [Cardizem CD] 120 mg capsule,extended release 24hr 120 mg PO DAILY aspirin 81 mg tablet,delayed release (DR/EC) 81 mg PO DAILY Qty: 90 3RF Referrals / Follow Up: Refugio Dowd MD [Primary Care Provider] - Disposition Disposition (needs filled in before D/C Order can be placed): Home, Self Care Charges/Coding Visit Charges Inpatient E&M: 27659 Disch Hosp >30min
== END 2023-06-18 10:41 | disposition home or self-care (01) | DRG 191 ==
LOC: ED 17:44 → MS3 18:13
PROVIDERS: Admitting Provider Family Medicine; Emergency Provider Emergency Medicine; PCP Internal Medicine; Visit Provider Internal Medicine
DX: J44.1 Chronic obstructive pulmonary disease with (acute) exacerbation (principal); J96.11 Chronic respiratory failure with hypoxia; Z68.43 Body mass index [BMI] 50.0-59.9, adult; Z99.81 Dependence on supplemental oxygen; E11.9 Type 2 diabetes mellitus without complications; E66.01 Morbid (severe) obesity due to excess calories; I10 Essential (primary) hypertension; E03.9 Hypothyroidism, unspecified; F32.A Depression, unspecified; K21.9 Gastro-esophageal reflux disease without esophagitis; F17.210 Nicotine dependence, cigarettes, uncomplicated; G47.33 Obstructive sleep apnea (adult) (pediatric); F41.9 Anxiety disorder, unspecified; J30.9 Allergic rhinitis, unspecified; M51.16 Intervertebral disc disorders with radiculopathy, lumbar region; I89.0 Lymphedema, not elsewhere classified; M48.061 Spinal stenosis, lumbar region without neurogenic claudication; M47.27 Other spondylosis with radiculopathy, lumbosacral region; G89.29 Other chronic pain; Z66 Do not resuscitate; Z79.01 Long term (current) use of anticoagulants; Z79.51 Long term (current) use of inhaled steroids; Z79.82 Long term (current) use of aspirin; Z79.84 Long term (current) use of oral hypoglycemic drugs; Z79.899 Other long term (current) drug therapy; Z86.73 Personal history of transient ischemic attack (TIA), and cerebral infarction without residual deficits
CPT/HCPCS: 36415; 71046; 80048; 80053; 82962; 83735; 84100; 84145; 84484; 85025; 87428; 87633; 93005; 94002; 94640; 94668; 99252; 99285; A4216; G0463

== ENCOUNTER 2023-07-08 14:44 | Emergency (ER) | payer MEDICARE, MEDICAID, SELFPAY ==
[2023-07-08 14:45] VITALS: BP 181/86; PULSE 89; RESP 14; TEMP 36.8; O2SAT 96; BMI 49.4
--- NOTE | 2023-07-08 15:08 | EDS_ITS ---
HPI History of Present Illness Chief Complaint: Lower Extremity Injury Detail of Chief Complaint: Pain, swelling discoloration left leg Informant: patient Occured/Mechanism Comment: No history of trauma Onset/Context/Timing Onset: Yesterday Context: Sudden Onset Timing: Continuous Quality of Pain: Dull Location: Left leg Current Severity: Mild Maximum Severity: Moderate Worsened by: Palpation Relieved by: Nothing Associated Symptoms Associated Symptoms: Negative for Parasthesia, Weakness or Loss of Funtion Narrative Narrative: Patient is a 68-year-old woman with prior history of DVT presently on no anticoagulant who presents with left leg pain, discoloration and swelling. She also has viral-like symptoms and present for 1 to 2 weeks. She is on chronic oxygen by nasal cannula. She denies fever, chills night sweats. She denies rhinorrhea [place] but does report congestion. Denies sore throat. Cough is nonproductive. She denies increased dyspnea with exertion. She denies pleuritic chest pain or any type of chest pain. Tetanus Immunization: 5-10 years Prior similar symptoms: Yes Recent Illness/Hospitalization: No PFSH PFS Medical History Abnormal results of pulmonary function studies Anxiety and depression Chest pain Chronic low back pain COPD (chronic obstructive pulmonary disease) Degeneration of lumbar or lumbosacral intervertebral disc Dermatitis Diverticulosis Essential (primary) hypertension Fibromyalgia Flu vaccine need GERD (gastroesophageal reflux disease) Health care maintenance Hearing loss Hiatal hernia Hypothyroidism Lumbar radiculopathy Lumbar stenosis Morbid obesity MRSA (methicillin resistant staph aureus) culture positive Musculoskeletal back pain Nummular eczematous dermatitis Oral candidiasis HENRRY (obstructive sleep apnea) Polyp of vocal cord and larynx Secondary pulmonary arterial hypertension Sinusitis 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 myelopathy or radiculopathy Swallowing difficulty Thrombophlebitis leg superficial TIA (transient ischemic attack) Tobacco abuse Type 2 diabetes mellitus Ureteral calculus, left Home Medications vit C 250 mg-vit E 90 mg-zinc 40 mg-copper 1 fz-mpztxh-puhise capsule 1 cap PO BID supplement 03/16/17 [History Last Taken 07/04/19] albuterol sulfate 2.5 mg/3 mL (0.083 %) solution for nebulization 2.5 mg inhalation Q4H PRN PRN Sob &/Or Wheezing 06/05/20 [History Last Taken Unknown] ascorbate calcium (vitamin C) 500 mg tablet 500 mg PO DAILY vitamin 08/13/20 [History Last Taken 06/15/23] omega-3 fatty acids 1,000 mg capsule (Fish Oil Concentrate) 1,000 mg PO DAILY vitamin 08/13/20 [History Last Taken 06/16/23] triamcinolone acetonide 0.025 % topical ointment 1 applic topical BID PRN rash #454 grams 10/21/20 [Rx Last Taken 06/09/23] Disability Placard #1 ea 12/10/20 [Rx Last Taken Unknown] aspirin 81 mg tablet,delayed release 81 mg PO DAILY #90 tabs 04/06/21 [Rx Last Taken 06/15/23] ipratropium 0.5 mg-albuterol 3 mg (2.5 mg base)/3 mL nebulization soln 3 ml inhalation Q4H PRN PRN SOB &/OR WHEEZING #180 mL 06/09/21 [Rx Last Taken 06/16/23] levothyroxine 150 mcg tablet 150 mcg PO DAILY #90 tabs 02/01/23 [Rx Last Taken 06/16/23] albuterol sulfate 90 mcg/actuation aerosol inhaler (Ventolin HFA) 2 puff inhalation Q4H PRN shortness of breath or wheezing #18 grams 02/09/23 [Rx Last Taken Unknown] azelastine 205.5 mcg (0.15 %) nasal spray 1 spray intranasal BID #3 ea 02/09/23 [Rx Last Taken 06/15/23] budesonide-formoterol HFA 160 mcg-4.5 mcg/actuation aerosol inhaler (Symbicort) 2 puff inhalation BID #3 ea 02/09/23 [Rx Last Taken 06/16/23] fluticasone propionate 50 mcg/actuation nasal spray,suspension 2 spray intranasal DAILY #3 ea 02/09/23 [Rx Last Taken 06/15/23] tiotropium bromide 2.5 mcg/actuation mist for inhalation (Spiriva Respimat) 2 puff inhalation DAILY #3 device 02/09/23 [Rx Last Taken 06/16/23] migue (Ultra-Light Rollator misc) #1 ea 05/05/23 [Rx Last Taken Unknown] diltiazem HCl 120 mg capsule,extended release 24 hr (Cardizem CD) 120 mg PO DAILY irregular heart rate 06/16/23 [History Last Taken 06/16/23] erythromycin 5 mg/gram (0.5 %) eye ointment 1 applic ophthalmic (eye) .HS air in eyes 06/16/23 [History Last Taken 06/15/23] fluorometholone 0.1 % eye drops,suspension 1 drp ophthalmic (eye) BID PRN steroid 06/16/23 [History Last Taken 06/15/23] metformin 500 mg tablet,extended release 24 hr 500 mg PO .HS Diabetes 06/16/23 [History Last Taken Unknown] pantoprazole 40 mg tablet,delayed release 40 mg PO DAILY GERD 06/16/23 [History Last Taken 06/16/23] sitagliptin phosphate 100 mg tablet (Januvia) 100 mg PO DAILY Diabetes 06/16/23 [History Last Taken 06/16/23] azithromycin 500 mg tablet (Zithromax) 500 mg PO DAILY 3 days #3 tabs 06/18/23 [Rx Last Taken Unknown] guaifenesin 1,200 mg tablet, extended release 12 hr (Mucinex) 1,200 mg PO Q12H #60 tabs 06/18/23 [Rx Last Taken Unknown] prednisone 20 mg tablet 40 mg (2 x 20 mg) PO DAILY #10 tabs 06/18/23 [Rx Last Taken Unknown] Allergy/AdvReac Type Severity Reaction Status Date / Time fluconazole [From Diflucan] Allergy Anaphylaxis Verified 07/08/23 14:44 nickel [Nickel] Allergy Rash Verified 07/08/23 14:44 perfume Allergy Rash Verified 07/08/23 14:44 Family History Mother Cancer Father Diabetes Alcoholism Brother Cancer Lung cancer Surgical History History of D&C History of hysterectomy History of right and left heart catheterization (03/07/18) History of right heart catheterization (05/04/20) History of tonsillectomy History of tubal ligation Status post surgical manipulation of ankle joint Social History household members: none Smoking Status: Current every day smoker tobacco type: cigarettes Tobacco: How many years used: 55 second hand exposure: Yes alcohol intake: never substance use type: does not use caffeine: Yes (4) what type of physical activity do you participate in: none ROS ROS ED Constitutional Constitutional ED: Denies chills, fever(s), subjective, sweats or weight loss Eyes Eyes: Denies blurry vision or change in vision ENT ENT ED: Reports rhinorrhea; Denies ear pain or sore throat Cardiovascular Cardiovascular: Denies chest pain, orthopnea, palpitations, paroxysmal nocturnal dyspnea or racing heartbeat Respiratory/Chest Respiratory/Chest: Reports cough, dyspnea and dyspnea on exertion; Denies orthopnea, paroxysmal nocturnal dyspnea or sputum Gastrointestinal Gastrointestinal: Denies abdominal pain, nausea or vomiting Musculoskeletal Musculoskeletal: Denies back pain or neck pain Integumentary Reports rash Neurologic Neurologic: Denies headache(s) or paresthesias Endocrine Endocrinology: Denies polydipsia or polyphagia Hematologic/Lymphatic Hematologic/Lymphatic: Denies easy bleeding or easy bruising EXAM Physical Exam Const Vital Signs: 07/08/23 14:45 Temperature 98.2 F Temperature Source Temporal Pulse Rate 89 Respiratory Rate 14 Blood Pressure 181/86 H Blood Pressure Mean 117 Pulse Ox 96 Oxygen Delivery Method Nasal Cannula Oxygen Flow Rate (L/min) 2 Positive well nourished, well developed and obese General Appearance ED: well developed and NAD Nutritional Appearance: obese HEENT Reports moist mucous membranes normocephalic and atraumatic Eyes PERRL Eyes Narrative: Extraocular muscles are intact. Sclera is anicteric. Conjunctive is pink. 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 The leg is swollen, discolored and there is tenderness in the distribution deep venous system. There also may be a superficial clot. There is no palpable cords. Neuro oriented x3, CN's II-XII intact bilaterally, moves all extremities and no sensory deficits noted Sensorium / Orientation: alert Skin no wounds Skin Narrative: Discoloration of the left leg consistent with clot. MDM MDM MDM Narrative Medical decision making narrative: Patient was treated with 150 mg of Lovenox. Venous duplex study was ordered for tomorrow morning as an outpatient. If positive she will need a course of Eliquis which she is taken in the past. Discharge Plan Triage Chief Complaint: Lower Extremity Injury ED Provider: Erick Rivera Dx/Rx/DC Orders Clinical Impression: DVT (deep venous thrombosis), HENRRY (obstructive sleep apnea), Hypothyroidism, Type 2 diabetes mellitus, Chronic hypoxemic respiratory failure Instructions: DVT Dc Prescriptions: No Action (DME) Disability Placard See Rx Instructions .ROUTE .MEDSUPPLY Qty: 1 0RF Rx Instructions: Expires in 5 years triamcinolone acetonide 0.025 % ointment 1 applic TOPICAL BID PRN (Reason: rash) Qty: 454 2RF omega-3 fatty acids [Fish Oil Concentrate] 1,000 mg capsule 1,000 mg PO DAILY ascorbate calcium (vitamin C) 500 mg tablet 500 mg PO DAILY ipratropium-albuterol 0.5 mg-3 mg(2.5 mg base)/3 mL solution for nebulization 3 ml inhalation Q4H PRN PRN (Reason: SOB &/OR WHEEZING) Qty: 180 6RF albuterol sulfate [Ventolin HFA] 90 mcg/actuation HFA aerosol inhaler 2 puff INHALATION Q4H PRN (Reason: shortness of breath or wheezing) Qty: 18 6RF azelastine 205.5 mcg (0.15 %) spray,non-aerosol 1 spray INTRANASAL BID Qty: 3 3RF Rx Instructions: administer into each nostril budesonide-formoterol [Symbicort] 160-4.5 mcg/actuation HFA aerosol inhaler 2 puff INHALATION BID Qty: 3 3RF fluticasone propionate 50 mcg/actuation spray,suspension 2 spray INTRANASAL DAILY Qty: 3 3RF Spiriva Respimat 2.5 mcg/actuation mist 2 puff INHALATION DAILY Qty: 3 3RF levothyroxine 150 mcg tablet 150 mcg PO DAILY Qty: 90 1RF (DME) Ultra-Light Rollator Misc See Rx Instructions .Route Qty: 1 0RF Rx Instructions: As directed vit C,X-Vr-jnjmu-lutein-zeaxan 1 EACH capsule 1 cap PO BID albuterol sulfate 2.5 MG/3 ML solution for nebulization 2.5 mg INHALATION Q4H PRN PRN (Reason: Sob &/Or Wheezing) Rx Instructions: Use q4 hours and PRN for wheezing metformin 500 mg tablet extended release 24 hr 500 mg PO .HS Patient Comments: TAKE 3 TABLETS BY MOUTH DAILY IN THE EVENING Januvia 100 mg tablet 100 mg PO DAILY Patient Comments: TAKE 1/2 (ONE-HALF) OF A TABLET DAILY FOR 1 WEEK THEN INCREASE TO 1 TABLET DAILY erythromycin 5 mg/gram (0.5 %) ointment 1 applic ophthalmic (eye) .HS Patient Comments: Apply 1 application in both eyes nightly fluorometholone 0.1 % drops,suspension 1 drp ophthalmic (eye) BID PRN Patient Comments: Instill 1 drop in both eyes twice a day pantoprazole 40 mg tablet,delayed release (DR/EC) 40 mg PO DAILY Patient Comments: TAKE 1 TABLET BY MOUTH TWICE DAILY diltiazem HCl [Cardizem CD] 120 mg capsule,extended release 24hr 120 mg PO DAILY azithromycin [Zithromax] 500 mg tablet 500 mg PO DAILY 3 Days Qty: 3 0RF prednisone 20 mg tablet 40 mg PO DAILY Qty: 10 0RF guaifenesin [Mucinex] 1,200 mg tablet extended release 12hr 1,200 mg PO Q12H Qty: 60 0RF aspirin 81 mg tablet,delayed release (DR/EC) 81 mg PO DAILY Qty: 90 3RF Other Ambulatory Orders: Venous Duplex US, Unilateral (Stat) Facility: [facility] - Location: [facility] Ordered By: Dr. Erick Rivera Primary Care Provider: Refugio Dowd Referrals: Refugio Dowd MD [Primary Care Provider] - 1-2 Weeks Disposition Disposition: Home, Self Care
[2023-07-08] MEDS: Enoxaparin 150 MG/ML Syringe SC (15:24)
== END 2023-07-08 15:50 | disposition home or self-care (01) ==
PROVIDERS: Emergency Provider Emergency Medicine; PCP Internal Medicine; Visit Provider Emergency Medicine
DX: I82.402 Acute embolism and thrombosis of unspecified deep veins of left lower extremity (principal); J44.9 Chronic obstructive pulmonary disease, unspecified; J96.11 Chronic respiratory failure with hypoxia; E11.9 Type 2 diabetes mellitus without complications; G47.33 Obstructive sleep apnea (adult) (pediatric); F17.210 Nicotine dependence, cigarettes, uncomplicated; E03.9 Hypothyroidism, unspecified; E66.9 Obesity, unspecified; Z99.81 Dependence on supplemental oxygen; Z86.73 Personal history of transient ischemic attack (TIA), and cerebral infarction without residual deficits
CPT/HCPCS: 99282

== ENCOUNTER 2023-07-09 11:51 | Emergency (ER) | payer MEDICARE, MEDICAID, SELFPAY ==
[2023-07-09 11:52] VITALS: BP 147/140; PULSE 75; RESP 16; TEMP 36; O2SAT 94
--- NOTE | 2023-07-09 11:59 | EDS_ITS ---
HPI <JESSICA Castorena - Last Filed: 07/09/23 12:11> History of Present Illness Chief Complaint: Lower Extremity Injury Narrative Narrative: Patient had an outpatient ultrasound this morning for left leg pain and was positive for DVT and sent here for evaluation. PFSH <JESSICA Castorena - Last Filed: 07/09/23 12:11> [facility] Medical History Abnormal results of pulmonary function studies Anxiety and depression Chest pain Chronic low back pain COPD (chronic obstructive pulmonary disease) Degeneration of lumbar or lumbosacral intervertebral disc Dermatitis Diverticulosis Essential (primary) hypertension Fibromyalgia Flu vaccine need GERD (gastroesophageal reflux disease) Health care maintenance Hearing loss Hiatal hernia Hypothyroidism Lumbar radiculopathy Lumbar stenosis Morbid obesity MRSA (methicillin resistant staph aureus) culture positive Musculoskeletal back pain Nummular eczematous dermatitis Oral candidiasis HENRRY (obstructive sleep apnea) Polyp of vocal cord and larynx Secondary pulmonary arterial hypertension Sinusitis 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 myelopathy or radiculopathy Swallowing difficulty Thrombophlebitis leg superficial TIA (transient ischemic attack) Tobacco abuse Type 2 diabetes mellitus Ureteral calculus, left Home Medications vit C 250 mg-vit E 90 mg-zinc 40 mg-copper 1 za-iktsra-gcyxyx capsule 1 cap PO BID supplement 03/16/17 [History Last Taken 07/04/19] albuterol sulfate 2.5 mg/3 mL (0.083 %) solution for nebulization 2.5 mg inhalation Q4H PRN PRN Sob &/Or Wheezing 06/05/20 [History Last Taken Unknown] ascorbate calcium (vitamin C) 500 mg tablet 500 mg PO DAILY vitamin 08/13/20 [History Last Taken 06/15/23] omega-3 fatty acids 1,000 mg capsule (Fish Oil Concentrate) 1,000 mg PO DAILY vitamin 08/13/20 [History Last Taken 06/16/23] triamcinolone acetonide 0.025 % topical ointment 1 applic topical BID PRN rash #454 grams 10/21/20 [Rx Last Taken 06/09/23] Disability Placard #1 ea 12/10/20 [Rx Last Taken Unknown] aspirin 81 mg tablet,delayed release 81 mg PO DAILY #90 tabs 04/06/21 [Rx Last Taken 06/15/23] ipratropium 0.5 mg-albuterol 3 mg (2.5 mg base)/3 mL nebulization soln 3 ml inhalation Q4H PRN PRN SOB &/OR WHEEZING #180 mL 06/09/21 [Rx Last Taken 06/16/23] levothyroxine 150 mcg tablet 150 mcg PO DAILY #90 tabs 02/01/23 [Rx Last Taken 06/16/23] albuterol sulfate 90 mcg/actuation aerosol inhaler (Ventolin HFA) 2 puff inhalation Q4H PRN shortness of breath or wheezing #18 grams 02/09/23 [Rx Last Taken Unknown] azelastine 205.5 mcg (0.15 %) nasal spray 1 spray intranasal BID #3 ea 02/09/23 [Rx Last Taken 06/15/23] budesonide-formoterol HFA 160 mcg-4.5 mcg/actuation aerosol inhaler (Symbicort) 2 puff inhalation BID #3 ea 02/09/23 [Rx Last Taken 06/16/23] fluticasone propionate 50 mcg/actuation nasal spray,suspension 2 spray intranasal DAILY #3 ea 02/09/23 [Rx Last Taken 06/15/23] tiotropium bromide 2.5 mcg/actuation mist for inhalation (Spiriva Respimat) 2 puff inhalation DAILY #3 device 02/09/23 [Rx Last Taken 06/16/23] migue (Ultra-Light Rollator misc) #1 ea 05/05/23 [Rx Last Taken Unknown] diltiazem HCl 120 mg capsule,extended release 24 hr (Cardizem CD) 120 mg PO DAILY irregular heart rate 06/16/23 [History Last Taken 06/16/23] erythromycin 5 mg/gram (0.5 %) eye ointment 1 applic ophthalmic (eye) .HS air in eyes 06/16/23 [History Last Taken 06/15/23] fluorometholone 0.1 % eye drops,suspension 1 drp ophthalmic (eye) BID PRN steroid 06/16/23 [History Last Taken 06/15/23] metformin 500 mg tablet,extended release 24 hr 500 mg PO .HS Diabetes 06/16/23 [History Last Taken Unknown] pantoprazole 40 mg tablet,delayed release 40 mg PO DAILY GERD 06/16/23 [History Last Taken 06/16/23] sitagliptin phosphate 100 mg tablet (Januvia) 100 mg PO DAILY Diabetes 06/16/23 [History Last Taken 06/16/23] azithromycin 500 mg tablet (Zithromax) 500 mg PO DAILY 3 days #3 tabs 06/18/23 [Rx Last Taken Unknown] guaifenesin 1,200 mg tablet, extended release 12 hr (Mucinex) 1,200 mg PO Q12H #60 tabs 06/18/23 [Rx Last Taken Unknown] prednisone 20 mg tablet 40 mg (2 x 20 mg) PO DAILY #10 tabs 06/18/23 [Rx Last Taken Unknown] apixaban 5 mg (74 tabs) tablets in a dose pack (Eliquis DVT-PE Treat 30D Start) 5 mg PO BID #74 tabs 07/09/23 [Rx Last Taken Unknown] Allergy/AdvReac Type Severity Reaction Status Date / Time fluconazole [From Diflucan] Allergy Anaphylaxis Verified 07/08/23 14:44 nickel [Nickel] Allergy Rash Verified 07/08/23 14:44 perfume Allergy Rash Verified 07/08/23 14:44 Family History Mother Cancer Father Diabetes Alcoholism Brother Cancer Lung cancer Surgical History History of D&C History of hysterectomy History of right and left heart catheterization (03/07/18) History of right heart catheterization (05/04/20) History of tonsillectomy History of tubal ligation Status post surgical manipulation of ankle joint Social History household members: none Smoking Status: Current every day smoker tobacco type: cigarettes Tobacco: How many years used: 55 second hand exposure: Yes alcohol intake: never substance use type: does not use caffeine: Yes (4) what type of physical activity do you participate in: none ROS <JESSICA Castorena - Last Filed: 07/09/23 12:11> ROS ED ROS Narrative Constitutional: Negative for fever, chills, malaise. CVS: Negative for chest pain. Respiratory: Negative for shortness of breath. EXAM <JESSICA Castorena - Last Filed: 07/09/23 12:11> Physical Exam Narrative Exam Narrative: CONST: Patient sitting in no acute distress. EYES: Normal inspection. NECK: Normal inspection. RESP: No respiratory distress, CTAB. On chronic nasal cannula. CVS: Regular rate and rhythm, no murmur, no gallop. SKIN: Color normal, no rash, warm, dry, intact. EXTREMITIES: Normal appearance, soft compartments, 2+ PT pulses. NEURO: Oriented x4. PSYCH: Normal affect. Const Vital Signs: 07/09/23 11:52 Temperature 96.8 F L Temperature Source Temporal Pulse Rate 75 Respiratory Rate 16 Blood Pressure 147/140 H Blood Pressure Mean 142 Pulse Ox 94 Oxygen Delivery Method Room Air <Dr. Pedro Cueto DO - Last Filed: 07/09/23 12:16> Physical Exam Const Vital Signs: 07/09/23 11:52 Temperature 96.8 F L Temperature Source Temporal Pulse Rate 75 Respiratory Rate 16 Blood Pressure 147/140 H Blood Pressure Mean 142 Pulse Ox 94 Oxygen Delivery Method Room Air MDM <JESSICA Castorena - Last Filed: 07/09/23 12:11> [facility] MDM Narrative Medical decision making narrative: Patient has history of DVT and was on Eliquis in the past but is not currently on anticoagulation. Outpatient ultrasound showed left DVT above the knee (see report). She denies chest pain or shortness of breath. She is on her baseline oxygen for COPD. She was given a dose of Eliquis and prescription sent to the pharmacy. She tolerated this medication well in the past. I thoroughly discussed risks of blood thinners and signs that would warrant immediate evaluation. She was discharged in stable condition. Venous Doppler report: Left external iliac vein/common femoral vein have acute DVT. Left greater saphenous vein and varicose veins and thigh are consistent with acute SVT. <Dr. Pedro Cueto, - Last Filed: 07/09/23 12:16> [facility] Treatment and Re-Evaluation Narrative: I have personally performed a face to face assessment of the patient and have reviewed the CORNELIO Note. I performed a substantive portion of the visit including all aspects of the following. My mata findings include: History: Patient presents with pain and swelling to her left leg. Patient was seen here last night and had an outpatient venous duplex performed this morning. This was positive for DVT in the left iliac vein and common femoral vein. There was also superficial phlebitis in the greater saphenous vein. Patient admits to some swelling and pain in her left leg. Patient denies any worsening shortness of breath. Patient states she was recently admitted to the hospital for COPD exacerbation but states her breathing has not gotten any worse. Patient denies any chest pain. Exam: Vital signs are stable. Patient is afebrile. Patient is in no acute distress. Musculoskeletal exam reveals mild tenderness over the left thigh and calf. There is mild edema noted. There is no bony crepitance or step-off. There is no deformity noted. There is good range of motion of the lower extremity. Pedal pulses are equal bilaterally. Sensation was intact to light touch in all digits. Strength is 5/5 bilaterally in the lower extremities. Medical Decision Making: Patient has been on Eliquis before. Patient was start ed on Eliquis here. Patient was given prescription for Eliquis. Patient was instructed to follow-up with her primary care physician in 5 to 7 days. Patient understood and was agreeable with the plan. All questions were answered. Discharge Plan Triage Chief Complaint: Lower Extremity Injury ED Midlevel Provider: Diya Gao ED Provider: Pedro Cueto Dx/Rx/DC Orders Clinical Impression: Acute deep vein thrombosis (DVT) of left lower extremity, Essential (primary) hypertension Instructions: DVT Dc Prescriptions: New Eliquis DVT-PE Treat 30D Start 5 mg (74 tabs) tablets,dose pack 5 mg PO BID Qty: 74 0RF No Action (DME) Disability Placard See Rx Instructions .ROUTE .MEDSUPPLY Qty: 1 0RF Rx Instructions: Expires in 5 years triamcinolone acetonide 0.025 % ointment 1 applic TOPICAL BID PRN (Reason: rash) Qty: 454 2RF omega-3 fatty acids [Fish Oil Concentrate] 1,000 mg capsule 1,000 mg PO DAILY ascorbate calcium (vitamin C) 500 mg tablet 500 mg PO DAILY ipratropium-albuterol 0.5 mg-3 mg(2.5 mg base)/3 mL solution for nebulization 3 ml inhalation Q4H PRN PRN (Reason: SOB &/OR WHEEZING) Qty: 180 6RF albuterol sulfate [Ventolin HFA] 90 mcg/actuation HFA aerosol inhaler 2 puff INHALATION Q4H PRN (Reason: shortness of breath or wheezing) Qty: 18 6RF azelastine 205.5 mcg (0.15 %) spray,non-aerosol 1 spray INTRANASAL BID Qty: 3 3RF Rx Instructions: administer into each nostril budesonide-formoterol [Symbicort] 160-4.5 mcg/actuation HFA aerosol inhaler 2 puff INHALATION BID Qty: 3 3RF fluticasone propionate 50 mcg/actuation spray,suspension 2 spray INTRANASAL DAILY Qty: 3 3RF Spiriva Respimat 2.5 mcg/actuation mist 2 puff INHALATION DAILY Qty: 3 3RF levothyroxine 150 mcg tablet 150 mcg PO DAILY Qty: 90 1RF (DME) Ultra-Light Rollator Misc See Rx Instructions .Route Qty: 1 0RF Rx Instructions: As directed vit C,O-Ee-njwxh-lutein-zeaxan 1 EACH capsule 1 cap PO BID albuterol sulfate 2.5 MG/3 ML solution for nebulization 2.5 mg INHALATION Q4H PRN PRN (Reason: Sob &/Or Wheezing) Rx Instructions: Use q4 hours and PRN for wheezing metformin 500 mg tablet extended release 24 hr 500 mg PO .HS Patient Comments: TAKE 3 TABLETS BY MOUTH DAILY IN THE EVENING Januvia 100 mg tablet 100 mg PO DAILY Patient Comments: TAKE 1/2 (ONE-HALF) OF A TABLET DAILY FOR 1 WEEK THEN INCREASE TO 1 TABLET DAILY erythromycin 5 mg/gram (0.5 %) ointment 1 applic ophthalmic (eye) .HS Patient Comments: Apply 1 application in both eyes nightly fluorometholone 0.1 % drops,suspension 1 drp ophthalmic (eye) BID PRN Patient Comments: Instill 1 drop in both eyes twice a day pantoprazole 40 mg tablet,delayed release (DR/EC) 40 mg PO DAILY Patient Comments: TAKE 1 TABLET BY MOUTH TWICE DAILY diltiazem HCl [Cardizem CD] 120 mg capsule,extended release 24hr 120 mg PO DAILY azithromycin [Zithromax] 500 mg tablet 500 mg PO DAILY 3 Days Qty: 3 0RF prednisone 20 mg tablet 40 mg PO DAILY Qty: 10 0RF guaifenesin [Mucinex] 1,200 mg tablet extended release 12hr 1,200 mg PO Q12H Qty: 60 0RF aspirin 81 mg tablet,delayed release (DR/EC) 81 mg PO DAILY Qty: 90 3RF Primary Care Provider: Refugio Dowd Referrals: Refugio Dowd MD [Primary Care Provider] - Activity Restrictions/Additional Instructions: Start Eliquis. Please follow-up with your primary care doctor within the next 1 to 2 weeks. Disposition Disposition: Home, Self Care
[2023-07-09] MEDS: APIXABAN 5 MG TABLET 10 MG PO (12:15)
== END 2023-07-09 12:30 | disposition home or self-care (01) ==
PROVIDERS: Emergency Provider Emergency Medicine; PCP Internal Medicine; Visit Provider Emergency Medicine
DX: I82.402 Acute embolism and thrombosis of unspecified deep veins of left lower extremity (principal); J44.9 Chronic obstructive pulmonary disease, unspecified; E11.9 Type 2 diabetes mellitus without complications; F17.210 Nicotine dependence, cigarettes, uncomplicated; I10 Essential (primary) hypertension; G47.33 Obstructive sleep apnea (adult) (pediatric); Z86.73 Personal history of transient ischemic attack (TIA), and cerebral infarction without residual deficits
CPT/HCPCS: 99282

== ENCOUNTER → 2023-07-09 | Outpatient (CLI) | payer MEDICARE, MEDICAID, SELFPAY ==
--- NOTE | 2023-07-09 11:09 | VDLE_ITS ---
Reason For Study: Pain, Swelling LLE, Phlegmasia Cerulea Dolens RIGHT LEFT CFV is compressible, spontaneous, phasic, FV is compressible, spontaneous, phasic, competent and demonstrates normal competent and demonstrates normal augmentation. augmentation. Procedure POP V is compressible, spontaneous, phasic, This is a venous duplex using B-mode, color competent and demonstrates normal flow and spectral Doppler. augmentation. Exam performed in department. T/P Trunk is compressible. A preliminary report was called and/or faxed PTV is compressible. to ED. LT PerV is compressible. Lt EIV/CFV and Lt GastrocV are dilated and NON COMPRESSIBLE consistent with acute DVT Lt GSV and Varicose veins in the thigh and calf are dilated and NON COMPRESSIBLE consistent with acute SVT Lt GSV is compressible starting at mid thigh. VL/Venous Duplex US, Unilateral Interpretation Summary Acute deep vein thrombosis is noted in the left external iliac vein, common fem oral vein, gastrocnemius vein. Acute superficial vein thrombosis is noted in the left great saphenous vein and adjacent varicosities Ordering Physician: Erick Rivera Referring Physician: Refugio Dowd Performed By: Carmen Foster, RDCS, RVT
== END | disposition home or self-care (01) ==
LOC: RAD 10:59
PROVIDERS: PCP Internal Medicine; Visit Provider Emergency Medicine
DX: I82.422 Acute embolism and thrombosis of left iliac vein (principal); I82.412 Acute embolism and thrombosis of left femoral vein; I82.462 Acute embolism and thrombosis of left calf muscular vein; I82.812 Embolism and thrombosis of superficial veins of left lower extremity
CPT/HCPCS: 93971

== ENCOUNTER → 2023-08-04 | Outpatient (CLI) | payer MEDICARE, MEDICAID, SELFPAY ==
[2023-08-04 12:25] LABS: Mucous, Urine 0 SEEN /hpf (<or=2+); Red Blood Cells-Urine 0 SEEN /hpf (0-5); White Blood Cells 0 SEEN /hpf (0-5)
--- OUTSIDE RECORDS SUMMARY | 2023-08-04 12:49 | XMS RPT_ITS | CCD ---
Author Name Unknown Address [address] [place] [address] Organization [facility] Care Team Providers Care Senior Facilities Manager Name Role Phone DALILA MIRANDA, JOYCELYN Spence Primary Care Physician NADEGE HO Attending Unavailable JOYCELYN CONNER MD Primary Care Unavailab le Medications Current Medications Medication Drug Class(es) Dates Sig (Normalized) Sig (Original) benzonatate 100 mg oral capsule (1 source) Non-narcotic Antitussive Start: 05-17-2022 End: 05-24-2022 Tessalon Perles 100 mg oral capsule Dose : 100 mg = 1 cap(s), Oral, TID, X 7 day(s), # 18 cap(s), 0 Refill(s), 05/24/22 19:37:00 EDT, COPD - Chronic obstructive pulmonary disease Start Date: 05/17/22 Stop Date: 05/24/22 Status: Ordered cyclobenzaprine hydrochloride 10 mg oral tablet (1 source) Muscle Relaxant Start: 11-05-2017 take 1 tablet by mouth three times daily as needed for muscle spasms Flexeril see cyclobenzaprine Dose : 10 mg =, Oral, TID, PRN as needed for muscle spasm, # 20 tab(s), 0 Refill(s) Start Date: 11/05/17 Status: Ordered doxycycline monohydrate 100 mg oral capsule (1 source) Tetracycline-clas s Drug Start: 05-17-2022 End: 05-27-2022 doxycycline monohydrate 100 mg oral capsule Dose : 100 mg = 1 cap(s), PO, BID, X 10 day(s), # 20 cap(s), 0 Refill(s), 05/27/22 19:38:00 EDT, COPD - Chronic obstructive pulmonary disease, 125 Start Date: 05/17/22 Stop Date: 05/27/22 Status: Ordered predniSONE 20 mg oral tablet (1 source) Start: 05-18-2022 End: 05-18-2022 predniSONE 20 mg oral tablet See Instructions, 3 p.o. day 1 and 2, 2 p.o. day 3 and 4, 1 p.o. day 5 and 6, # 12 tab(s), 0 Refill(s), 05/18/22 19:38:00 EDT, COPD - Chronic obstructive pulmonary disease Start Date: 05/18/22 Stop Date: 05/18/22 Status: Ordered Completed/Discontinued Medications Medication Drug Class(es) Dates Sig (Normalized) Sig (Original) acetaminophen 325 mg / HYDROcodone bitartrate 5 mg oral tablet (1 source) Opioid Agonist Start: 11-05-2017 End: 11-08-2017 take 1 tablet by mouth every four hours as needed for pain Lonsdale 325- 5 mg oral tablet Dose = 1 tab(s), Oral, q4h, PRN as needed for pain, # 15 tab(s), 0 Refill(s), Back pain Start Date: 11/05/17 Stop Date: 11/08/17 Status: Ordered ibuprofen 600 mg oral tablet (1 source) Nonsteroidal Anti-inflammatory Drug Start: 11-05-2017 End: 11-15-2017 ibuprofen 600 mg oral tablet Dose : 600 mg = 1 tab(s), Oral, QID, PRN as needed for pain, # 40 tab(s), 0 Refill(s) Start Date: 11/05/17 Stop Date: 11/15/17 Status: Ordered Problems Problem Classification Problem Date Documented Date Episodic/Chronic Chronic obstructive pulmonary disease and bronchiectasis (2 sources) Chronic obstructive lung disease; Translations: [Chronic obstructive pulmonary disease, unspecified] Onset: 05-17-2022 Chronic Osteoporosis (1 source) Osteoporosis 10-30-2015 Chronic Other connective tissue disease (1 source) 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; unclassified (1 source) Sleep apnea 10-30-2015 Chronic Spondylosis; intervertebral disc disorders; other back problems (1 source) Degeneration of lumbar intervertebral disc 10-30-2015 Chronic Thyroid disorders (1 source) Hypothyroidism 10-30-2015 Chronic Results Test Name Value Interpretation Reference Range Facil ity Vital Signs Date Time Vital Sign Value Performing Clinician Maik wallis 05-17-2022 20:03-0400 Body temperature 99.68 [degF] NADEGE HO MD [facility] 05-17-2022 20:03-0400 Diastolic blood pressure 72 mm[Hg] NADEGE HO MD [facility] 05-17-2022 20:03-0400 Heart rate 78 /min NADEGE HO MD [facility] 05-17-2022 20:03-0400 Respiratory rate 18 /min NADEGE HO MD [facility] 05-17-2022 20:03-0400 Systolic blood pressure 136 mm[Hg] NADEGE HO MD [facility] 05-17-2022 17:40-0400 Diastolic blood pressure 63 mm[Hg] NADEGE HO MD [facility] 05-17-2022 17:40-0400 Heart rate 74 /min NADEGE HO MD [facility] 05-17-2022 17:40-0400 Respiratory rate 18 /min NADEGE HO MD [facility] 05-17-2022 17:40-0400 Systolic blood pressure 128 mm[Hg] NADEGE HO MD [facility] 05-17-2022 15:49-0400 Body height 157.5 cm NADEGE HO MD [facility] 05-17-2022 15:49-0400 Body temperature 100.4 [degF] NADEGE HO MD [facility] 05-17-2022 15:49-0400 Body weight 125 kg NADEGE HO MD [facility] 05-17-2022 15:49-0400 Diastolic blood pressure 79 mm[Hg] NADEGE HO MD [facility] 05-17-2022 15:49-0400 Heart rate 92 /min NADEGE HO MD [facility] 05-17-2022 15:49-0400 Respiratory rate 18 /min NADEGE HO MD [facility] 05-17-2022 15:49-0400 Systolic blood pressure 152 mm[Hg] NADEGE HO MD [facility] Encounters Encounter Date Encounter Type Care Provider Facility Start: 05-17-2022 End: 05-17-2022 Emergency department patient visit NADEGE HO Facility:B Start: 05-17-2022 End: 05-17-2022 Emergency department patient visit NADEGE HO MD [facility] Payers Date Payer Category Payer Unknown [id number] 1955 Unknown [id number] Social History Date Type Detail Facility Tobacco smoking status Smokes to bacco daily (finding) [facility] Sex Assigned At Sex [facility] Functional Status Date Assessment Result Facility 05-17-2022 Functional Status Independent [facility] 05-17-2022 Functional Status Standard Safet y ID band on, Call device within reach, Bed in low position, Wheels locked, Upper/Half-Length side-rails up, Bedside Cart Locked, Safety level maintained [facility] Mental Status Date Assessment Result Facility 05-17-2022 Mental Status Orientation Oriented x 4 [facility] 05-17-2022 Mental Status [facility] Discharge instructions 05-17-2022 Note Date & Type Note Facility 05-17-2022 Hospital Discharg e instructions Patient Education 05/17/2022 19:39:15 Bronchitis, Antibiotic Treatment (Adult) Bronchitis, Antibiotic Treatment (Adult) Bronchitis is an infection of the air passages (bronchial tubes) in your lungs. It often occurs when you have a cold. This illness is contagious during the first few days and is spread through the air by coughing and sneezing, or by direct contact (touching the sick person and then touching your own eyes, nose, or mouth). Symptoms of bronchitis include cough with mucus (phlegm) and low-grade fever. Bronchitis usually lasts 7 to 14 days. Mild cases can be treated with simple home remedies. More severe infection is treated with an antibiotic. Home care Follow these guidelines when caring for yourself at home: If your symptoms are severe, rest at home for the first 2 to 3 days. When you go back to your usual activities, don't let yourself get too tired. Don't smoke. Also stay away from secondhand smoke. You may use djhn-uyu-qyttnve medicines to control fever or pain, unless another medicine was prescribed. If you have chronic liver or kidney disease or have ever had a stomach ulcer or gastrointestinal bleeding, talk with your healthcare provider before using these medicines. Also talk to your provider if you are taking medicine to prevent blood clots. Aspirin should never be given to anyone younger than 18 who is ill with a viral infection or fever. It may cause severe liver or brain damage. Your appetite may be low, so a light diet is fine. Stay well hydrated by drinking 6 to 8 glasses of fluids per day. This includes water, soft drinks, sports drinks, juices, tea, or soup. Extra fluids will help loosen mucus in your nose and lungs. Bspu-jyo-ymhahpd cough, cold, and sore-throat medicines will not shorten the length of the illness, but they may be helpful to reduce your symptoms. Don't use decongestants if you have high blood pressure. Finish all antibiotic medicine. Do this even if you are feeling better after only a few days. Follow-up care Follow up with your healthcare provider, or as advised. If you had an X-ray or ECG (electrocardiogram), a specialist will review it. You will be told of any new test results that may affect your care. If you are age 65 or older, if you smoke, or if you have a chronic lung disease or condition that affects your immune system, ask your healthcare provider about getting a pneumococcal vaccine and a yearly flu shot (influenza vaccine). When to seek medical advice Call your healthcare provider right away if any of these occur: Fever of 100.4 F (38 C) or higher, or as directed by your healthcare provider Coughing up more sputum Weakness, drowsiness, headache, facial pain, ear pain, or a stiff neck Call 911 Call 911 if any of these occur. Coughing up blood Weakness, drowsiness, headache, or stiff neck that get worse Trouble breathing, wheezing, or pain with breathing [id number] [employer] [place] [address]. All rights reserved. This information is not intended as a substitute for professional medical care. Always follow your healthcare professional's instructions. 05/17/2022 19:39:11 Bronchitis With Wheezing (Adult) Viral or Bacterial Bronchitis with Wheezing (Adult) Bronchitis is an infection of the air passages. It often occurs during a cold and is usually caused by a virus. Symptoms include cough with mucus (phlegm) and low-grade fever. This illness is contagious during the first few days and is spread through the air by coughing and sneezing, or by direct contact (touching the sick person and then touching your own eyes, nose, or mouth). If there is a lot of inflammation, air flow is restricted. The air passages may also go into spasm, especially if you have asthma. This causes wheezing and difficulty breathing even in people who do not have asthma. Bronchitis usually lasts 7 to 14 days. The wheezing should improve with treatment during the first week. An inhaler is often prescribed to relax the air passages and stop wheezing. Antibiotics will be prescribed if your doctor thinks there is also a secondary bacterial infection. Home care If symptoms are severe, rest at home for the first 2 to 3 days. When you go back to your usual activities, don't let yourself get too tired. Dont s'moke. Also avoid being exposed to secondhand smoke. You may use wbpd-gvf-xjaskdi medicine to control fever or pain, unless another medicine was prescribed. Note: If you have chronic liver or kidney disease or have ever had a stomach ulcer or gastrointestinal bleeding, talk with your healthcare provider before using these medicines. Also talk to your provider if you are taking medicine to prevent blood clots.) Aspirin should never be given to anyone younger than 18 years of age who is ill with a viral infection or fever. It may cause severe liver or brain damage. Your appetite may be poor, so a light diet is fine. Stay well hydrated by drinking 6 to 8 glasses of fluids per day (such as water, soft drinks, sports drinks, juices, tea, or soup). Extra fluids will help loosen secretions in the nose and lungs. Vbif-bfk-dgbomfy cough, cold, and sore-throat medicines will not shorten the length of the illness, but they may be helpful to reduce symptoms. (Note: Don't use decongestants if you have high blood pressure.) If you were given an inhaler, use it exactly as directed. If you need to use it more often than prescribed, your condition may be worsening. If this happens, contact your healthcare provider. If prescribed, finish all antibiotic medicine, even if you are feeling better after only a few days. Follow-up care Follow up with your healthcare provider, or as advised. If you had an X-ray or ECG (electrocardiogram), a specialist will review it. You will be notified of any new findings that may affect your care. If you are age 65 or older, or if you have a chronic lung disease or condition that affects your immune system, or you smoke, ask your healthcare provider about getting a pneumococcal vaccine and a yearly flu shot (influenza vaccine). When to seek medical advice Call your healthcare provider right away if any of these occur: Fever of 100.4 F (38 C) or higher, or as directed by your healthcare provider Coughing up increasing amounts of colored sputum Weakness, drowsiness, headache, facial pain, ear pain, or a stiff neck Call 911 Call 911 if any of these occur. Coughing up blood Worsening weakness, drowsiness, headache, or stiff neck Increased wheezing not helped with medication, shortness of breath, or pain with breathing [id number] [employer]. [address] [place] [address], [place] [address]. All rights reserved. This information is not intended as a substitute for professional medical care. Always follow your healthcare professional's instructions. 05/17/2022 19:39:00 COPD Flare COPD Flare You have had a flare-up of your COPD. COPD (chronic obstructive pulmonary disease) is a common lung disease. It causes your airways to get irritated and narrower. This makes it harder for you to breathe. Emphysema and chronic bronchitis are both types of COPD. This is a long-term (chronic) condition. This means you always have it. Sometimes it gets worse. When this happens, it is called a flare-up. Symptoms of COPD People with COPD may have symptoms most of the time. In a flare-up, your symptoms get worse. These symptoms may mean you are having a flare-up: Shortness of breath, shallow or rapid breathing, or wheezing that gets worse Lung infection Cough that gets worse More mucus, thicker mucus or mucus of a different color Tiredness, less energy, or trouble doing your normal activities Fever Chest tightness Your symptoms don t get better even when you use your normal medicines, inhalers, and nebulizer Trouble talking You feel confused Causes of flare-ups Unfortunately, a flare-up can happen even if you did everything right. And even if you followed your healthcare provider s instructions. Some causes of flare-ups are: Smoking or secondhand smoke Colds, the flu, or respiratory infections Air pollution Sudden change in the weather Dust, irritating chemicals, or strong fumes Not taking your medicines as prescribed Home care Here are some things you can do at home to treat a flare-up: Try not to panic. This makes it harder to breathe, and keeps you from doing the right things. Don t smoke or be around others who are smoking. Try to drink more fluids than normal during a flare-up, unless your healthcare provider has told you not to because of heart and kidney problems. More fluids can help loosen the mucus. Use your inhalers and nebulizer, if you have one, as you have been told to. If you were given antibiotics, take them until they are used up or your provider tells you to stop. It s important to finish the antibiotics, even though you feel better. This will make sure the infection has cleared. If you were given prednisone or another steroid, finish it even if you feel better. Preventing a flare-up Flare-ups happen. But the best way to treat one is to prevent it before it starts. Here are some pointers: Don t smoke or be around others who are smoking. Take your medicines as discussed with your healthcare provider. Talk with your provider about getting a flu shot every year. Also find out if you need a pneumonia shot. If there is a weather advisory warning to stay indoors, try to stay inside when possible. Try to eat healthy, exercise, and get plenty of sleep. Try to stay away from things that normally set you off. These include dust, chemical fumes, hairsprays, or strong perfumes. Follow-up care Follow up with your healthcare provider, or as advised. If a culture was done, you will be told if your treatment needs to be changed. You can call as directed for the results. If X-rays were done, you will be told of any new findings that may affect your care. Call 911 Call 911 if any of these occur: You have trouble breathing You feel confused or it s hard to wake you up You faint or lose consciousness You have a rapid heart rate You have new pain in your chest, arm, shoulder, neck, or upper back When to seek medical advice Call your healthcare provider right away if any of these occur: Wheezing or shortness of breath gets worse You need to use your inhalers more often than normal without relief Fever of 100.4 F (38 C) or higher, or as directed by your healthcare provider Coughing up lots of dark-colored or bloody mucus (sputum) Chest pain with each breath You don't start to get better within 24 hours Swelling of your ankles gets worse Dizziness or weakness [id number] [employer]. [address] [place] [id number]. All rights reserved. This information is not intended as a substitute for professional medical care. Always follow your healthcare professional's instructions. Follow Up Care 05/17/2022 15:43:17 With:JOYCELYN CONNER MD Address: [address] [place] [phone] When:2-4 days With:Go to emergency room if symptoms worsen Address:Unknown When:2-4 days [facility] Clinical Note 05-17-2022 Note Date & Type Note Facility 05-17-2022 Note Discharge Instructions Thank you for allowing [facility] to assist you with your healthcare needs. The following is important discharge information regarding your hospital visit. Diagnosis from Today's Visit COPD - Chronic obstructive pulmonary disease Cough SOB - Shortness of breath What to Do Next Instructions from Your Care Team Start oral prednisone tomorrow (Monday). Follow-up with your doctor soon as possible. Return to ED if worse. Continue home aerosol treatments. Start doxycycline tomorrow as well. No qualifying data available. Post Acute Orders No qualifying data available. You Need to Schedule the Following Appointments Follow Up with JOYCELYN CONNER MD When Within 2-4 days Where: [address] [place] [phone] Follow Up with Go to emergency room if symptoms worsen When Within 2-4 days Allergies [facility] Medications Please ask your primary doctor or pharmacist before taking any other medication not listed, including over the counter drugs, herbal medications, vitamins and or supplements as they may interact with your home medications. What How Much When Why Instructions Last Dose New benzonatate (Tessalon Perles 100 mg oral capsule) 1 cap by mouth Three (3) times a day COPD - Chronic obstructive pulmonary disease Duration: 7 Days Printed Prescription New doxycycline (doxycycline monohydrate 100 mg oral capsule) 1 cap by mouth Two (2) times a day COPD - Chronic obstructive pulmonary disease Duration: 10 Days Printed Prescription New predniSONE (predniSONE 20 mg oral tablet) See instructions COPD - Chronic obstructive pulmonary disease 3 p.o. day 1 and 2, 2 p.o. day 3 and 4, 1 p.o. day 5 and 6 Printed Prescription Unchanged acetaminophen-hydrocodone (Lonsdale 325- 5 mg oral tablet) 1 tab(s) by mouth Every 4 hours as needed for as needed for pain Back pain Duration: 3 Days Unchanged cyclobenzaprine (Flexeril see cyclobenzaprine ) 10 Milligram by mouth Three (3) times a day as needed for as needed for muscle spasm Unchanged ibuprofen (ibuprofen 600 mg oral tablet) 1 tab(s) by mouth Four (4) times a day as needed for as needed for pain Duration: 10 Days Please take this list to your next doctor s visit. Bring all medications you take, including over the counter medications, herbals and other supplements with you to your doctor s visit. Patients and families are reminded to discard old lists and to update any records with all medication providers or retail pharmacies. Education Materials Bronchitis, Antibiotic Treatment (Adult) Bronchitis is an infection of the air passages (bronchial tubes) in your lungs. It often occurs when you have a cold. This illness is contagious during the first few days and is spread through the air by coughing and sneezing, or by direct contact (touching the sick person and then touching your own eyes, nose, or mouth). Symptoms of bronchitis include cough with mucus (phlegm) and low-grade fever. Bronchitis usually lasts 7 to 14 days. Mild cases can be treated with simple home remedies. More severe infection is treated with an antibiotic. Home care Follow these guidelines when caring for yourself at home: If your symptoms are severe, rest at home for the first 2 to 3 days. When you go back to your usual activities, don't let yourself get too tired. Don't smoke. Also stay away from secondhand smoke. You may use ktpc-cqe-ctgaieg medicines to control fever or pain, unless another medicine was prescribed. If you have chronic liver or kidney disease or have ever had a stomach ulcer or gastrointestinal bleeding, talk with your healthcare provider before using these medicines. Also talk to your provider if you are taking medicine to prevent blood clots. Aspirin should never be given to anyone younger than 18 who is ill with a viral infection or fever. It may cause severe liver or brain damage. Your appetite may be low, so a light diet is fine. Stay well hydrated by drinking 6 to 8 glasses of fluids per day. This includes water, soft drinks, sports drinks, juices, tea, or soup. Extra fluids will help loosen mucus in your nose and lungs. Ukmj-abh-pptbtdy cough, cold, and sore-throat medicines will not shorten the length of the illness, but they may be helpful to reduce your symptoms. Don't use decongestants if you have high blood pressure. Finish all antibiotic medicine. Do this even if you are feeling better after only a few days. Follow-up care Follow up with your healthcare provider, or as advised. If you had an X-ray or ECG (electrocardiogram), a specialist will review it. You will be told of any new test results that may affect your care. If you are age 65 or older, if you smoke, or if you have a chronic lung disease or condition that affects your immune system, ask your healthcare provider about getting a pneumococcal vaccine and a yearly flu shot (influenza vaccine). When to seek medical advice Call your healthcare provider right away if any of these occur: Fever of 100.4 F (38 C) or higher, or as directed by your healthcare provider Coughing up more sputum Weakness, drowsiness, headache, facial pain, ear pain, or a stiff neck Call 911 Call 911 if any of these occur. Coughing up blood Weakness, drowsiness, headache, or stiff neck that get worse Trouble breathing, wheezing, or pain with breathing [phone] [employer]. [address] [place] [address], [place] [address]. All rights reserved. This information is not intended as a substitute for professional medical care. Always follow your healthcare professional's instructions. Viral or Bacterial Bronchitis with Wheezing (Adult) Bronchitis is an infection of the air passages. It often occurs during a cold and is usually caused by a virus. Symptoms include cough with mucus (phlegm) and low-grade fever. This illness is contagious during the first few days and is spread through the air by coughing and sneezing, or by direct contact (touching the sick person and then touching your own eyes, nose, or mouth). If there is a lot of inflammation, air flow is restricted. The air passages may also go into spasm, especially if you have asthma. This causes wheezing and difficulty breathing even in people who do not have asthma. Bronchitis usually lasts 7 to 14 days. The wheezing should improve with treatment during the first week. An inhaler is often prescribed to relax the air passages and stop wheezing. Antibiotics will be prescribed if your doctor thinks there is also a secondary bacterial infection. Home care If symptoms are severe, rest at home for the first 2 to 3 days. When you go back to your usual activities, don't let yourself get too tired. Dont s'moke. Also avoid being exposed to secondhand smoke. You may use xcdx-opp-frfejdc medicine to control fever or pain, unless another medicine was prescribed. Note: If you have chronic liver or kidney disease or have ever had a stomach ulcer or gastrointestinal bleeding, talk with your healthcare provider before using these medicines. Also talk to your provider if you are taking medicine to prevent blood clots.) Aspirin should never be given to anyone younger than 18 years of age who is ill with a viral infection or fever. It may cause severe liver or brain damage. Your appetite may be poor, so a light diet is fine. Stay well hydrated by drinking 6 to 8 glasses of fluids per day (such as water, soft drinks, sports drinks, juices, tea, or soup). Extra fluids will help loosen secretions in the nose and lungs. Hiyv-ajm-tuzhkak cough, cold, and sore-throat medicines will not shorten the length of the illness, but they may be helpful to reduce symptoms. (Note: Don't use decongestants if you have high blood pressure.) If you were given an inhaler, use it exactly as directed. If you need to use it more often than prescribed, your condition may be worsening. If this happens, contact your healthcare provider. If prescribed, finish all antibiotic medicine, even if you are feeling better after only a few days. Follow-up care Follow up with your healthcare provider, or as advised. If you had an X-ray or ECG (electrocardiogram), a specialist will review it. You will be notified of any new findings that may affect your care. If you are age 65 or older, or if you have a chronic lung disease or condition that affects your immune system, or you smoke, ask your healthcare provider about getting a pneumococcal vaccine and a yearly flu shot (influenza vaccine). When to seek medical advice Call your healthcare provider right away if any of these occur: Fever of 100.4 F (38 C) or higher, or as directed by your healthcare provider Coughing up increasing amounts of colored sputum Weakness, drowsiness, headache, facial pain, ear pain, or a stiff neck Call 911 Call 911 if any of these occur. Coughing up blood Worsening weakness, drowsiness, headache, or stiff neck Increased wheezing not helped with medication, shortness of breath, or pain with breathing [phone] [employer]. [address] [place] [address], [place] [address]. All rights reserved. This information is not intended as a substitute for professional medical care. Always follow your healthcare professional's instructions. COPD Flare You have had a flare-up of your COPD. COPD (chronic obstructive pulmonary disease) is a common lung disease. It causes your airways to get irritated and narrower. This makes it harder for you to breathe. Emphysema and chronic bronchitis are both types of COPD. This is a long-term (chronic) condition. This means you always have it. Sometimes it gets worse. When this happens, it is called a flare-up. Symptoms of COPD People with COPD may have symptoms most of the time. In a flare-up, your symptoms get worse. These symptoms may mean you are having a flare-up: Shortness of breath, shallow or rapid breathing, or wheezing that gets worse Lung infection Cough that gets worse More mucus, thicker mucus or mucus of a different color Tiredness, less energy, or trouble doing your normal activities Fever Chest tightness Your symptoms don t get better even when you use your normal medicines, inhalers, and nebulizer Trouble talking You feel confused Causes of flare-ups Unfortunately, a flare-up can happen even if you did everything right. And even if you followed your healthcare provider s instructions. Some causes of flare-ups are: Smoking or secondhand smoke Colds, the flu, or respiratory infections Air pollution Sudden change in the weather Dust, irritating chemicals, or strong fumes Not taking your medicines as prescribed Home care Here are some things you can do at home to treat a flare-up: Try not to panic. This makes it harder to breathe, and keeps you from doing the right things. Don t smoke or be around others who are smoking. Try to drink more fluids than normal during a flare-up, unless your healthcare provider has told you not to because of heart and kidney problems. More fluids can help loosen the mucus. Use your inhalers and nebulizer, if you have one, as you have been told to. If you were given antibiotics, take them until they are used up or your provider tells you to stop. It s important to finish the antibiotics, even though you feel better. This will make sure the infection has cleared. If you were given prednisone or another steroid, finish it even if you feel better. Preventing a flare-up Flare-ups happen. But the best way to treat one is to prevent it before it starts. Here are some pointers: Don t smoke or be around others who are smoking. Take your medicines as discussed with your healthcare provider. Talk with your provider about getting a flu shot every year. Also find out if you need a pneumonia shot. If there is a weather advisory warning to stay indoors, try to stay inside when possible. Try to eat healthy, exercise, and get plenty of sleep. Try to stay away from things that normally set you off. These include dust, chemical fumes, hairsprays, or strong perfumes. Follow-up care Follow up with your healthcare provider, or as advised. If a culture was done, you will be told if your treatment needs to be changed. You can call as directed for the results. If X-rays were done, you will be told of any new findings that may affect your care. Call 911 Call 911 if any of these occur: You have trouble breathing You feel confused or it s hard to wake you up You faint or lose consciousness You have a rapid heart rate You have new pain in your chest, arm, shoulder, neck, or upper back When to seek medical advice Call your healthcare provider right away if any of these occur: Wheezing or shortness of breath gets worse You need to use your inhalers more often than normal without relief Fever of 100.4 F (38 C) or higher, or as directed by your healthcare provider Coughing up lots of dark-colored or bloody mucus (sputum) Chest pain with each breath You don't start to get better within 24 hours Swelling of your ankles gets worse Dizziness or weakness [phone] [employer]. [address] [place] [address]. All rights reserved. This information is not intended as a substitute for professional medical care. Always follow your healthcare professional's instructions. Additional Information VACCINATE! IT SAVES LIVES! Members of the community who have not yet received the COVID-19 vaccine and would like to receive it can visit one of [facility] vaccine clinics. There are many vaccine clinic locations within the [facility]. For locations and available times, please visit [email or web address]. It is important to note that some COVID mobile vaccine clinics are held outdoors and may be canceled in rainy or stormy conditions. To learn more about pediatric vaccinations (ages 5-11), we invite you to visit the [facility] webpage. [email or web address] -[email or web address] To learn more about the COVID-19 vaccine, we invite you to visit the [facility] website for a list of frequently asked questions. [email or web address] [facility] Patient Portal Access Instructions: Stay connected with your healthcare team and access your personal medical information anytime with the [facility] Patient Portal. If you would like a full copy of your medical records please contact the [facility] Medical Records Department Monday through Monday between 8a.m. and 4:30p.m. Please follow the directions below to access the portal: 1.Access the email account you provided upon registration to the [facility].2.Look for an invitation email from [facility].3.Open the email and access the invitation link: Accept Invitation to [facility]4.Fill in the required chaves to create your account. Sign into [email or web address] with your username and password that you created in the above steps to stay up to date. You can then view a summary of results, a summary of your visits, and the ability to download your summaries to your computer or send the information securely to a physician. Remember that your healthcare information is confidential, so carefully consider who you will allow to register on the [facility] Patient Portal for access to your information. You can also access the [facility] Patient Portal on the [employer]. Simply click on Health Records under Health Data and then click on the [employer] logo. HOW TO SAFELY DISPOSE OF PRESCRIPTION MEDICATIONS Please use one of the following methods to safely dispose of your unused medications. 1.Use a drug disposal kit: the drug disposal pouch allows you to safely discard your old and unused drugs. Ask your nurse to give you one when you are discharged.2.Visit a local take-back location: Many local pharmacies and police departments have programs that collect old and unwanted prescription drugs. Call your local pharmacy or go to http://bit.ly/1C9Wr8o to find one close to you.3.Make use of household items: Use cat litter or old coffee grounds to dispose medications if other options are not available. Mix your drugs with these household products, seal them in an airtight container and throw it into the garbage. Call [facility]: [phone] to be sure your drugs can be disposed of in this way. Some medicines may require a different approach.4.Never flush your medications down the toilet. IF YOU HAVE BEEN PRESCRIBED AN OPIOIDS FOR PAIN If you have been prescribed an opioid (such as hydrocodone, oxycodone or morphine), it is critical to understand the possible side effects and risks of opioid pain medications. Even when taken as directed, opioids can have several side effects including: Tolerance, meaning you might need to take more of a medication for the same pain relief. Nausea, vomiting and/or constipation. Sleepiness, dizziness, dry mouth, confusion, depression or itching. Physical dependence, meaning you have withdrawal symptoms when a medication is stopped ? this can develop within a few days. KNOW YOUR RESPONSIBILITIES It is important to know exactly how much and how often to take the opioid pain medications you are prescribed. Never take opioids in higher amounts or more often than prescribed. Do not combine opioids with alcohol or other drugs that cause drowsiness, such as benzodiazepines, also known as benzos, including diazepam and alprazolam, muscle relaxants or sleep aids. Never sell or share prescription opioids. This is illegal. Store opioids in a secure place and out of reach of others (including children, family, friends and visitors). The last page(s) of this document has been signed and retained as a CHART COPY Signatures Patient Education Materials Bronchitis, Antibiotic Treatment (Adult) Bronchitis With Wheezing (Adult) COPD Flare Medication Leaflets My discharge plan and instructions have been reviewed and explained to me and AIDAN Christian JOYCE M understand my current condition and have read and understand these discharge instructions. I have received a written copy of the plan/instructions. If I have questions, I am aware that I should contact my doctor. 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 HISTORY: ORDERING SYSTEM PROVIDED HISTORY: Reason for Exam: SOB/cough/fever FINDINGS: The lungs are without acute focal process. There is no effusion or pneumothorax. The cardiomediastinal silhouette is without acute process. The osseous structures are without acute process. IMPRESSION: No acute process. Interpreted by: Rohit Serna DO Preliminary Report By: Rohit Serna DO Electronically signed By Rohit Serna DO Dictated Date: 05/17/2022 7:26:01 PM Prelim Date: 05/17/2022 7:26:46 PM Sign Date: 05/17/2022 7:26:46 PM Ordering Provider: [facility] Clinical Note 05-17-2022 Note Date & Type Note Facility 05-17-2022 Note ORIGINAL EXAMINATION: ONE XRAY VIEW OF THE CHEST 05/17/2022 6:13 pm COMPARISON: None. HISTORY: ORDERING SYSTEM PROVIDED HISTORY: Reason for Exam: SOB/cough/fever FINDINGS: The lungs are without acute focal process. There is no effusion or pneumothorax. The cardiomediastinal silhouette is without acute process. The osseous structures are without acute process. IMPRESSION: No acute process. Interpreted by: Rohit Serna DO Preliminary Report By: Rohit Serna DO Electronically signed By Rohit Serna DO Dictated Date: 05/17/2022 7:26:01 PM Prelim Date: 05/17/2022 7:26:46 PM Sign Date: 05/17/2022 7:26:46 PM Ordering Provider: [facility] SARS-CoV-2 (COVID-19) RNA IZABELA+probe Ql (Nph) 05-17-2022 Note Date & Type Note Facility 05-17-2022 SARS-CoV-2 (COVID -19) RNA IZABELA+probe Ql (Nph) Positive *ABN* (05/17/22 5:49 PM) AO Auto Urine SS Evaluation + Plan note Note Date & Type Note Facility Evaluation + Plan note No data available for this section [facility] Summary Purpose Family History No Family History Records Found Advance Directives No Advanced Directives Records Found Additional Source Comments Care Team (unrecognized sect ion and content) Care Team Personnel Name: JOYCELYN CONNER MD Member Role: Primary Care Physician Address: Address: [address] [place] [address]- Care Team Related Persons Name: ANGELICA STARK Address: [address] [place] [address] Name: SAIRA BERMUDEZ Name: ASIRA BERMUDEZ Name: SAIRA BERMUDEZ Name: AIDANSAIRA INFORMATION SOURCE (unrecogn ized section and content) FOR RECORDS PERTAINING TO PATIENTS WHO ARE OR HAVE BEEN ENROLLED IN A CHEMICAL DEPENDENCY/SUBSTANCEABUSE PROGRAM, SOME INFORMATION MAY BE OMITTED. This clinical summary was aggregated from multiple sources. Caution should be exercised in using it in the provision of clinical care. This summary normalizes information from multiple sources, and as a consequence, information in this document may materially change the coding, format and clinical context of patient data. In addition, data may be omitted in some cases. CLINICAL DECISIONS SHOULD BE BASED ON THE PRIMARY CLINICAL RECORDS. [facility]. provides no warranty or guarantee of the accuracy or completeness of information in this document.
[2023-08-04 15:21] LABS: Absolute Lymphocyte Count 2.35 X10^3/uL (0.83-4.51); Absolute Neutrophil Count 6.5 X10^3/uL (2.0-7.7); Basophil# 0.09 X10^3/uL; Basophil% 0.9 % (0-1); Eosinophil# 0.47 X10^3/uL; Eosinophils% 4.6 % (0-5); Hematocrit 41.9 % (37-47); Hemoglobin 13.4 g/dL (12.0-15.0); Lymphocyte # 2.35 X10^3/ul (0.83-4.51); Lymphocyte % 23.2 % (19-41); Mean Corpuscular Hgb 32.9 pg (27.0-32.0); Mean Corpuscular Volume 102.9 fL (81-99); Mean Platelet Vol. 9.9 fl (6.2-12.0); Monocyte# 0.71 X10^3/uL; NRBC Flagged by Analyzer 0 % (0-5); Platelet Count 262 K/mm3 (150-450); RBC Distribution Width SD 49.6 fl (35.1-43.9); Red Blood Count 4.07 M/mm3 (4.2-5.4); White Blood Count 10.2 K/mm3 (4.4-11.0)
[2023-08-04 15:34] LABS: Color, Urine Yellow (Yellow); Glucose, Dipstick Normal (Normal); Ketone-Dipstick Negative (Negative); Leukocyte Esterase-Dipstick Negative /ul (Negative); Nitrite-Dipstick Negative (Negative); Occult Blood-Urine Negative /ul (Negative); Protein-Dipstick Negative (Negative); Urine Bilirubin Dipstick Negative (Negative); Urine Clarity Clear (Clear); Urine Urobilinogen Normal (Normal); Urine pH 6.5 (5.0 - 8.0)
[2023-08-04 15:45] LABS: Bacteria RARE /hpf (None Seen); Squamous Epithelial Cells - UA 0-5 SEEN /hpf (5-10)
[2023-08-04 15:57] LABS: AST(SGOT) 12 U/L (15-37); Alanine Aminotransfer ALT/SGPT 24 U/L (13-56); Albumin, Serum 3.7 g/dL (3.2-5.0); Alkaline Phosphatase 83 U/L (45-117); Anion Gap 4 (5-15); BUN 13 mg/dL (7-18); BUN/Creat Ratio 16.8 RATIO (10-20); Calcium,Total 9.4 mg/dL (8.5-10.1); Chloride 106 mmol/L (98-107); Creatinine, Serum 0.78 mg/dL (0.55-1.02); EST Glomerular Filtration Rate 79 mL/min (>60); Est Glom Filt Rate - Afr Amer 95 mL/min (>60); Globulin 3.6 g/dL (2.2-4.2); Glucose 166 mg/dL (74-106); Potassium 4.2 mmol/L (3.5-5.1); Protein, Total 7.3 g/dL (6.4-8.2); Sodium Level 139 mmol/L (136-145); Thyroid Stim Hormone (TSH) 0.66 uIU/mL (0.358-3.74)
== END | disposition home or self-care (01) ==
LOC: BIMLAB 12:24
PROVIDERS: PCP Internal Medicine; Referring Provider Internal Medicine; Visit Provider Internal Medicine
DX: R82.90 Unspecified abnormal findings in urine (principal); I10 Essential (primary) hypertension; E03.9 Hypothyroidism, unspecified
CPT/HCPCS: 36415; 80053; 81001; 84443; 85025; 87086; 87088

== ENCOUNTER 2023-10-25 04:25 | Emergency (ER) | payer MEDICARE, MEDICAID, SELFPAY ==
[2023-10-25 04:26] VITALS: BP 153/84; PULSE 77; RESP 19; TEMP 36.7; O2SAT 94; BMI 49.5
--- NOTE | 2023-10-25 04:36 | CT_ITS ---
EXAM: CT Abdomen And Pelvis W/ Contrast Injection HISTORY: suprapubic and right sided abd pain, nausea TECHNIQUE: Routine protocol CT abdomen pelvis. IV Contrast: IV 100mL Isovue-370 . Oral Contrast: without. Sagittal and coronal images were reconstructed. RADIATION DOSAGE (If Supplied By Facility): CTDIvol = ( 17.05 ) mGy, DLP = ( 1150.13 ) mGycm Individualized dose optimization techniques were used for this CT. COMPARISON: CT abdomen and pelvis 04/26/2022. LIMITATIONS: None. FINDINGS: LOWER CHEST: Lung bases are clear. Coronary artery calcifications. LIVER: Unremarkable. GALLBLADDER/BILE DUCTS: Unremarkable. PANCREAS: Unremarkable. SPLEEN: Unremarkable. ADRENAL GLANDS: 1.4 cm left adrenal nodule not significantly changed. KIDNEYS / URETERS: Unremarkable. BOWEL / MESENTERY: Wall thickening of the sigmoid colon with extensive adjacent inflammatory stranding. Diverticula in this region and throughout the colon.. No bowel obstruction. APPENDIX: Identified and normal. No evidence of acute appendicitis. PERITONEUM: No free air. No free fluid. VESSELS: Abdominal aorta is normal caliber. RETROPERITONEUM: Unremarkable. REPRODUCTIVE ORGANS: Uterus not identified. BLADDER: Minimally distended. ABDOMINAL WALL: Unremarkable. BONES: No acute abnormality. OTHER: None. CT/Abdomen/Pelvis W IV Cont ONLY IMPRESSION: Acute sigmoid diverticulitis. No evidence of perforation or abscess. Stable left adrenal nodule. Electronically Signed: Lindsey Lim MD at 7:06 EDT ,
--- NOTE | 2023-10-25 04:38 | EDS_ITS ---
HPI HPI - GI History of Present Illness Chief Complaint: Abd Pain Informant: patient Narrative Narrative: Patient presents around 4:30 AM for abdominal pain and has been present for the past 4 days or so, nausea no vomiting. Possibly some subjective fevers. Urinary urgency and hesitancy, feels like she needs to go but is just dribbling, and some nonbloody diarrhea. She states the pain started suprapubic, but it has also now become throughout the right side of her abdomen, radiating occasionally up into her right lower chest. No other chest symptoms such as dyspnea or productive cough. She states she had a history of diverticulitis in the past and states she thought this felt similar until it started going up into her right upper quadrant. Prior abdominal surgery includes hysterectomy and a tubal. [facility] Medical History Abnormal results of pulmonary function studies Anxiety and depression Chest pain Chronic low back pain COPD (chronic obstructive pulmonary disease) Degeneration of lumbar or lumbosacral intervertebral disc Dermatitis Diverticulosis Essential (primary) hypertension Fibromyalgia Flu vaccine need Foul smelling urine GERD (gastroesophageal reflux disease) Health care maintenance Hearing loss Hiatal hernia Hypothyroidism Lumbar radiculopathy Lumbar stenosis Morbid obesity MRSA (methicillin resistant staph aureus) culture positive Musculoskeletal back pain Nummular eczematous dermatitis Oral candidiasis HENRRY (obstructive sleep apnea) Polyp of vocal cord and larynx Recurrent deep vein thrombosis (DVT) Secondary pulmonary arterial hypertension Sinusitis 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 myelopathy or radiculopathy Swallowing difficulty Thrombophlebitis leg superficial TIA (transient ischemic attack) Tobacco abuse Type 2 diabetes mellitus Ureteral calculus, left Home Medications ascorbate calcium (vitamin C) 500 mg tablet 500 mg PO DAILY vitamin 08/13/20 [History Last Taken 06/15/23] omega-3 fatty acids 1,000 mg capsule (Fish Oil Concentrate) 1,000 mg PO DAILY vitamin 08/13/20 [History Last Taken 06/16/23] triamcinolone acetonide 0.025 % topical ointment 1 applic topical BID PRN rash #454 grams 10/21/20 [Rx Last Taken 06/09/23] Disability Placard #1 ea 12/10/20 [Rx Last Taken Unknown] walker (Ultra-Light Rollator misc) #1 ea 05/05/23 [Rx Last Taken Unknown] erythromycin 5 mg/gram (0.5 %) eye ointment 1 applic ophthalmic (eye) .HS air in eyes 06/16/23 [History Last Taken 06/15/23] fluorometholone 0.1 % eye drops,suspension 1 drp ophthalmic (eye) BID PRN steroid 06/16/23 [History Last Taken 06/15/23] pantoprazole 40 mg tablet,delayed release 40 mg PO DAILY GERD 06/16/23 [History Last Taken 06/16/23] sitagliptin phosphate 100 mg tablet (Januvia) 100 mg PO DAILY Diabetes 06/16/23 [History Last Taken 06/16/23] apixaban 5 mg tablet 5 mg PO BID #180 tabs 08/04/23 [Rx Last Taken Unknown] diltiazem HCl 120 mg capsule,extended release 24 hr (Cardizem CD) 120 mg PO DAILY irregular heart rate #90 caps 09/01/23 [Rx Last Taken Unknown] levothyroxine 150 mcg tablet 150 mcg PO DAILY #90 tabs 09/01/23 [Rx Last Taken Unknown] metformin 500 mg tablet,extended release 24 hr 1,500 mg PO .HS Diabetes 09/01/23 [History Last Taken Unknown] varenicline 1 mg tablet (Chantix Continuing Month Box) 1 mg PO BID #180 tabs 09/01/23 [Rx Last Taken Unknown] albuterol sulfate 90 mcg/actuation aerosol inhaler (Ventolin HFA) 2 puff inhalation Q4H PRN shortness of breath or wheezing #18 grams 10/18/23 [Rx Last Taken Unknown] azelastine 205.5 mcg (0.15 %) nasal spray 1 spray intranasal BID #30 mL 10/18/23 [Rx Last Taken Unknown] budesonide-formoterol HFA 160 mcg-4.5 mcg/actuation aerosol inhaler (Symbicort) 2 puff inhalation BID #3 ea 10/18/23 [Rx Last Taken Unknown] fluticasone propionate 50 mcg/actuation nasal spray,suspension 2 spray intranasal DAILY #3 ea 10/18/23 [Rx Last Taken Unknown] guaifenesin 1,200 mg tablet, extended release 12 hr 1,200 mg PO Q12H #60 tabs 10/18/23 [Rx Last Taken Unknown] ipratropium 0.5 mg-albuterol 3 mg (2.5 mg base)/3 mL nebulization soln 3 ml inhalation Q4H PRN PRN SOB &/OR WHEEZING #180 mL 10/18/23 [Rx Last Taken Unknown] nystatin 100,000 unit/mL oral suspension 5 ml mucous membrane TID #250 mL 10/18/23 [Rx Last Taken Unknown] roflumilast 500 mcg tablet (Daliresp) 500 mcg PO DAILY #30 tabs 10/18/23 [Rx Last Taken Unknown] tiotropium bromide 2.5 mcg/actuation mist for inhalation (Spiriva Respimat) 2 puff inhalation DAILY #3 device 10/18/23 [Rx Last Taken Unknown] amoxicillin 875 mg-potassium clavulanate 125 mg tablet 875 mg (0.875 x 875-125 mg) PO Q12H #20 TABLETS 10/25/23 [Rx Last Taken Unknown] Allergy/AdvReac Type Severity Reaction Status Date / Time fluconazole [From Diflucan] Allergy Anaphylaxis Verified 10/25/23 04:27 nickel [Nickel] Allergy Rash Verified 10/25/23 04:27 perfume Allergy Rash Verified 10/25/23 04:27 Family History (Reviewed 10/18/23 @ 09:55 by Carlita Cortes 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, 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) Mother Cancer Father Diabetes Alcoholism Brother Cancer Lung cancer Surgical History History of D&C History of hysterectomy History of right and left heart catheterization (03/07/18) History of right heart catheterization (05/04/20) History of tonsillectomy History of tubal ligation Status post surgical manipulation of ankle joint Social History household members: none Smoking Status: Current every day smoker tobacco type: cigarettes Tobacco: How many years used: 55 second hand exposure: Yes alcohol intake: never substance use type: does not use caffeine: Yes (4) what type of physical activity do you participate in: none ROS ROS ED Constitutional Constitutional ED: Denies chills or fever(s) Eyes Eyes: Denies change in vision or diplopia ENT ENT ED: Denies rhinorrhea or sore throat Cardiovascular Cardiovascular: Reports as per HPI and chest pain; Denies palpitations Respiratory/Chest Respiratory/Chest: Denies dyspnea or sputum Gastrointestinal Gastrointestinal: Reports abdominal pain, diarrhea and nausea; Denies melena or vomiting Genitourinary Genitourinary ED: Reports as per HPI, dribbling, urinary hesitancy and urinary urgency; Denies dysuria or hematuria Musculoskeletal Musculoskeletal: Denies back pain or neck pain Integumentary Denies abscess or rash Neurologic Neurologic: Denies headache(s), paresthesias or weakness Psychiatric Psychiatric: Denies anxiety or suicidal thoughts EXAM Physical Exam Const Vital Signs: 10/25/23 04:26 10/25/23 06:26 Temperature 98.1 F Temperature Source Temporal Pulse Rate 77 64 Respiratory Rate 19 H 18 Blood Pressure 153/84 H 146/79 H Blood Pressure Mean 107 101 Pulse Ox 94 93 Oxygen Delivery Method Nasal Cannula Nasal Cannula Oxygen Flow Rate (L/min) 3 3 Positive well nourished, well developed and obese General Appearance ED: well developed and NAD Nutritional Appearance: obese HEENT Reports moist mucous membranes normocephalic and atraumatic Eyes PERRL and EOMs intact bilaterally Neck full ROM and supple Resp normal respiratory effort and clear to auscultation bilaterally Cardio regular rate, regular rhythm and no murmurs GI non-distended GI Narrative: Mild tenderness suprapubic, and throughout the right side but not at McBurney's point. No Thompson. No guarding or rebound anywhere. Obesity limits exam. Auscultation: normoactive bowel sounds Palpation: soft Back/Spine no CVA tenderness General Back: other FROM Extremity normal to inspection General Extremety ED: Negative for edema, pulses abnormal or tenderness General Extremity: Negative for edema or pulses abnormal Neuro oriented x3, CN's II-XII intact bilaterally, no sensory deficits noted and gait normal Sensorium / Orientation: awake and alert Motor Exam: strength 5/5 throughout Psych mental status grossly normal and thought process normal Skin no rashes or lesions noted and no wounds MDM MDM MDM Narrative Medical decision making narrative: Differential certainly includes diverticulitis as well as a bladder infection, but given the extension of the pain into the right side and up toward her chest which I think is referred pain, also other small and large bowel etiologies enter into the differential as well as biliary ones. I reviewed the CT images and the report which I agree with, it is consistent with acute diverticulitis of the sigmoid colon. She does not have elevated liver enzymes or lipase and her urinalysis is negative for infection. Therefore I think it is reasonable to treat her with oral antibiotics as an outpatient with close outpatient follow-up advised for the sigmoid diverticulitis. She is comfortable with that plan. Of note she was offered morphine here but she declined and was given Tylenol she said that helped some with her pain. She is driving home so I'm not going to push narcotics on her. I did offer her a prescription for analgesics, she declined and would like to stick with Tylenol. Lab Data Attestation: I reviewed the patient's lab results. Labs: Laboratory Results - last 24 hr 10/25/23 10/25/23 04:50 04:57 WBC 10.9 RBC 4.03 L Hgb 13.3 Hct 40.5 MCV 100.5 H MCH 33.0 H MCHC 32.8 RDW Std Deviation 46.1 H RDW Coeff of Rafi 12.2 Plt Count 232 MPV 9.4 Immature Gran % (Auto) 0.300 Neut % (Auto) 66.6 Lymph % (Auto) 22.9 [place] % (Auto) 7.9 Eos % (Auto) 1.7 Baso % (Auto) 0.6 Absolute Neuts (auto) 7.3 Absolute Lymphs (auto) 2.49 Nucleated RBC % 0 Sodium 138 Potassium 3.7 Chloride 104 Carbon Dioxide 28.0 Anion Gap 6 BUN 14 Creatinine 0.85 Estim Creat Clear Calc 79.18 Est GFR (MDRD) Af Amer 85 Est GFR (MDRD) Non-Af 70 BUN/Creatinine Ratio 16.4 Glucose 157 H Calcium 9.9 Total Bilirubin 0.90 AST 11 L ALT 17 Alkaline Phosphatase 84 Total Protein 7.1 Albumin 3.4 Globulin 3.7 Albumin/Globulin Ratio 0.9 Lipase 24 Urine Color Yellow Urine Clarity Clear Urine pH 6.5 Ur Specific [place] 1.015 Urine Protein 15 H Urine Glucose (UA) Normal Urine Ketones Negative Urine Occult Blood 10 H Urine Nitrite Negative Urine Bilirubin Negative Urine Urobilinogen Normal Ur Leukocyte Esterase Negative Urine RBC 0 SEEN Urine WBC 0 SEEN Ur Squamous Epith Cells 0-5 SEEN Urine Bacteria 0 SEEN Urine Mucus 0 SEEN Radiography Diagnostic Testing: Clinical Impression(s) from Imaging Studies Abdomen/Pelvis CT 10/25/23 04:36 IMPRESSION: Acute sigmoid diverticulitis. No evidence of perforation or abscess. Stable left adrenal nodule. Electronically Signed: Lindsey Lim MD at 7:06 EDT , Discharge Plan Triage Chief Complaint: Abd Pain ED Provider: Carlos Saenz Dx/Rx/DC Orders Clinical Impression: Diverticulitis of sigmoid colon, Right sided abdominal pain Instructions: ED Diverticulitis Prescriptions: New amoxicillin-pot clavulanate [amoxicillin-pot clavulanate] 875-125 mg tablet 875 mg PO Q12H Qty: 20 0RF No Action (DME) Disability Placard See Rx Instructions .ROUTE .MEDSUPPLY Qty: 1 0RF Rx Instructions: Expires in 5 years triamcinolone acetonide 0.025 % ointment 1 applic TOPICAL BID PRN (Reason: rash) Qty: 454 2RF omega-3 fatty acids [Fish Oil Concentrate] 1,000 mg capsule 1,000 mg PO DAILY ascorbate calcium (vitamin C) 500 mg tablet 500 mg PO DAILY (DME) Ultra-Light Rollator Misc See Rx Instructions .Route Qty: 1 0RF Rx Instructions: As directed apixaban 5 mg tablet 5 mg PO BID Qty: 180 1RF albuterol sulfate [Ventolin HFA] 90 mcg/actuation HFA aerosol inhaler 2 puff INHALATION Q4H PRN (Reason: shortness of breath or wheezing) Qty: 18 6RF budesonide-formoterol [Symbicort] 160-4.5 mcg/actuation HFA aerosol inhaler 2 puff INHALATION BID Qty: 3 3RF fluticasone propionate 50 mcg/actuation spray,suspension 2 spray INTRANASAL DAILY Qty: 3 3RF ipratropium-albuterol 0.5 mg-3 mg(2.5 mg base)/3 mL solution for nebulization 3 ml inhalation Q4H PRN PRN (Reason: SOB &/OR WHEEZING) Qty: 180 6RF guaifenesin 1,200 mg tablet extended release 12hr 1,200 mg PO Q12H Qty: 60 6RF Spiriva Respimat 2.5 mcg/actuation mist 2 puff INHALATION DAILY Qty: 3 3RF roflumilast [Daliresp] 500 mcg tablet 500 mcg PO DAILY Qty: 30 11RF nystatin 100,000 unit/mL suspension 5 ml mucous membrane TID Qty: 250 1RF Rx Instructions: swish and swallow 5 cc three times per day for 10 days azelastine 205.5 mcg (0.15 %) spray,non-aerosol 1 spray intranasal BID Qty: 30 11RF Rx Instructions: administer into each nostril varenicline [Chantix Continuing Month Box] 1 mg tablet 1 mg PO BID Qty: 180 1RF levothyroxine 150 mcg tablet 150 mcg PO DAILY Qty: 90 1RF diltiazem HCl [Cardizem CD] 120 mg capsule,extended release 24hr 120 mg PO DAILY Qty: 90 1RF Januvia 100 mg tablet 100 mg PO DAILY Patient Comments: TAKE 1/2 (ONE-HALF) OF A TABLET DAILY FOR 1 WEEK THEN INCREASE TO 1 TABLET DAILY erythromycin 5 mg/gram (0.5 %) ointment 1 applic ophthalmic (eye) .HS Patient Comments: Apply 1 application in both eyes nightly fluorometholone 0.1 % drops,suspension 1 drp ophthalmic (eye) BID PRN Patient Comments: Instill 1 drop in both eyes twice a day pantoprazole 40 mg tablet,delayed release (DR/EC) 40 mg PO DAILY Patient Comments: TAKE 1 TABLET BY MOUTH TWICE DAILY metformin 500 mg tablet extended release 24 hr 1,500 mg PO .HS Patient Comments: TAKE 3 TABLETS BY MOUTH DAILY IN THE EVENING Primary Care Provider: Refugio Dowd Referrals: Refugio Dowd MD [Primary Care Provider] - As soon as possible Disposition Disposition: Home, Self Care
[2023-10-25 05:03] LABS: Absolute Lymphocyte Count 2.49 X10^3/uL (0.83-4.51); Absolute Neutrophil Count 7.3 X10^3/uL (2.0-7.7); Basophil# 0.07 X10^3/uL; Basophil% 0.6 % (0-1); Eosinophil# 0.19 X10^3/uL; Eosinophils% 1.7 % (0-5); Hematocrit 40.5 % (37-47); Hemoglobin 13.3 g/dL (12.0-15.0); Lymphocyte # 2.49 X10^3/ul (0.83-4.51); Lymphocyte % 22.9 % (19-41); Mean Corp Hgb Conc 32.8 g/dL (32-36); Mean Corpuscular Volume 100.5 fL (81-99); Mean Platelet Vol. 9.4 fl (6.2-12.0); Monocyte# 0.86 X10^3/uL; Monocyte% 7.9 % (0-10); NRBC Flagged by Analyzer 0 % (0-5); Neutrophil # 7.25 X10^3/uL (2.7-7.7); Neutrophil % 66.6 % (47-70); Platelet Count 232 K/mm3 (150-450); RBC Distribution Width CV 12.2 % (11.6-14.6); RBC Distribution Width SD 46.1 fl (35.1-43.9); Red Blood Count 4.03 M/mm3 (4.2-5.4); White Blood Count 10.9 K/mm3 (4.4-11.0)
[2023-10-25 05:07] LABS: Bacteria 0 SEEN /hpf (None Seen); Mucous, Urine 0 SEEN /hpf (<or=2+); Red Blood Cells-Urine 0 SEEN /hpf (0-5); White Blood Cells 0 SEEN /hpf (0-5)
[2023-10-25] MEDS: 0.9% Normal Saline (1000mL) 1,000 ML 125 ML IV (05:07)
[2023-10-25 05:17] LABS: Color, Urine Yellow (Yellow); Glucose, Dipstick Normal (Normal); Ketone-Dipstick Negative (Negative); Leukocyte Esterase-Dipstick Negative /ul (Negative); Nitrite-Dipstick Negative (Negative); Occult Blood-Urine 10 /ul (Negative); Protein-Dipstick 15 mg/dl (Negative); Specific Gravity, Urine 1.015 (1.002-1.030); Urine Bilirubin Dipstick Negative (Negative); Urine Clarity Clear (Clear); Urine Urobilinogen Normal (Normal); Urine pH 6.5 (5.0 - 8.0)
[2023-10-25] MEDS: Acetaminophen 500 MG Tablet 1000 MG PO (05:49)
[2023-10-25] MEDS: Ondansetron 4 MG/2 ML Vial IV (05:49)
[2023-10-25 06:07] LABS: ALB/GLOB Ratio 0.9 RATIO (0.9-2.4); AST(SGOT) 11 U/L (15-37); Alanine Aminotransfer ALT/SGPT 17 U/L (13-56); Albumin, Serum 3.4 g/dL (3.2-5.0); Alkaline Phosphatase 84 U/L (45-117); Anion Gap 6 (5-15); BUN 14 mg/dL (7-18); BUN/Creat Ratio 16.4 RATIO (10-20); Calcium,Total 9.9 mg/dL (8.5-10.1); Chloride 104 mmol/L (98-107); Creatinine, Serum 0.85 mg/dL (0.55-1.02); EST Glomerular Filtration Rate 70 mL/min (>60); Est Glom Filt Rate - Afr Amer 85 mL/min (>60); Estimated Creatinine Clearance 79.18 ml/min; Globulin 3.7 g/dL (2.2-4.2); Glucose 157 mg/dL (74-106); Lipase 24 U/L (13-75); Potassium 3.7 mmol/L (3.5-5.1); Protein, Total 7.1 g/dL (6.4-8.2); Sodium Level 138 mmol/L (136-145)
[2023-10-25 06:11] LABS: Squamous Epithelial Cells - UA 0-5 SEEN /hpf (5-10)
[2023-10-25 06:26] VITALS: BP 146/79; PULSE 64; RESP 18; O2SAT 93
[2023-10-25 07:33] VITALS: BP 146/79; PULSE 64; RESP 18; TEMP 36.6; O2SAT 96
[2023-10-25] MEDS: Amox/Clavulanate 875 MG Tablet PO (07:38)
== END 2023-10-25 07:40 | disposition home or self-care (01) ==
PROVIDERS: Emergency Provider Emergency Medicine; PCP Internal Medicine; Visit Provider Emergency Medicine
DX: K57.32 Diverticulitis of large intestine without perforation or abscess without bleeding (principal); J44.9 Chronic obstructive pulmonary disease, unspecified; E66.01 Morbid (severe) obesity due to excess calories; Z68.42 Body mass index [BMI] 45.0-49.9, adult; E11.9 Type 2 diabetes mellitus without complications; I10 Essential (primary) hypertension; F17.210 Nicotine dependence, cigarettes, uncomplicated; Z79.84 Long term (current) use of oral hypoglycemic drugs; Z79.899 Other long term (current) drug therapy; Z86.73 Personal history of transient ischemic attack (TIA), and cerebral infarction without residual deficits
CPT/HCPCS: 74177; 80053; 81001; 83690; 85025; 96361; 96374; 99283; J7030; Q9967; A4216; J2405

== ENCOUNTER → 2023-11-16 | Outpatient (CLI) | payer MEDICARE, MEDICAID, SELFPAY ==
[2023-11-16 16:53] LABS: Hemoglobin A1c 7.1 % (3.8-5.6)
[2023-11-16 16:55] LABS: AST(SGOT) 9 U/L (15-37); Alanine Aminotransfer ALT/SGPT 18 U/L (13-56); Albumin, Serum 3.8 g/dL (3.2-5.0); Alkaline Phosphatase 102 U/L (45-117); Anion Gap 6 (5-15); BUN 10 mg/dL (7-18); BUN/Creat Ratio 12.5 RATIO (10-20); Calcium,Total 9.5 mg/dL (8.5-10.1); Chloride 110 mmol/L (98-107); Cholesterol 199 mg/dL (200); EST Glomerular Filtration Rate 76 mL/min (>60); Est Glom Filt Rate - Afr Amer 91 mL/min (>60); Globulin 3.7 g/dL (2.2-4.2); Glucose 182 mg/dL (74-106); High Density Lipoprotein 60 mg/dL; Protein, Total 7.5 g/dL (6.4-8.2); Sodium Level 139 mmol/L (136-145); Thyroid Stim Hormone (TSH) 0.57 uIU/mL (0.358-3.74); Triglycerides 119 mg/dL; Very Low Density Lipoprotein 24 mg/dL (5-40)
[2023-11-16 17:21] LABS: Microalbumin,Random Urine 5.8 mg/L (NO RANGE EST.); Microalbumin:Creatinine Ratio 14.1 mg/g CRE (<30 mg/g CRE)
== END | disposition home or self-care (01) ==
LOC: BIMLAB 15:44
PROVIDERS: PCP Internal Medicine; Referring Provider Internal Medicine; Visit Provider Internal Medicine
DX: I10 Essential (primary) hypertension (principal); E11.69 Type 2 diabetes mellitus with other specified complication; E03.9 Hypothyroidism, unspecified; G45.9 Transient cerebral ischemic attack, unspecified; F32.A Depression, unspecified; F41.9 Anxiety disorder, unspecified
CPT/HCPCS: 36415; 80053; 80061; 82043; 82570; 83036; 84443

== ENCOUNTER → 2023-12-01 | Outpatient (CLI) | payer MEDICARE, MEDICAID, SELFPAY | END | disposition home or self-care (01) | LOC: PSN 09:51 | PROVIDERS: PCP Internal Medicine; Referring Provider Nurse Practitioner Family; Visit Provider Nurse Practitioner Family | DX: R00.2 Palpitations (principal) | CPT/HCPCS: 93225; 93226 ==

== ENCOUNTER 2024-01-17 13:58 | Emergency (ER) | payer MEDICARE, MEDICAID, SELFPAY ==
[2024-01-17 13:59] VITALS: BP 157/69; PULSE 74; RESP 20; TEMP 36.9; BMI 48.8
[2024-01-17 14:11] VITALS: O2SAT 99
--- NOTE | 2024-01-17 14:57 | EKG12_ITS ---
Test Reason : CP Blood Pressure : / mmHG Vent. Rate : 072 BPM Atrial Rate : 072 BPM P-R Int : 152 ms QRS Dur : 090 ms QT Int : 420 ms P-R-T Axes : 021 -16 034 degrees QTc Int : 459 ms Normal sinus rhythm Normal ECG Confirmed by MYRNA MIRANDA, JAMIE ([id number]), news copy editor ERMELINDA CESAR ([id number]) on 01/18/2024 10:02:59 AM Referred By: Confirmed By:JAMIE NORRIS MD
--- NOTE | 2024-01-17 14:58 | ED.VIS.CHEST ---
HPI History of Present Illness Chief Complaint: Chest Pain Narrative Narrative: 68-year-old female past medical history of emphysema, pulmonary hypertension/COPD and smoker presents with chest pain that began within the last hour. She states initially it was on the left side and very sharp and stabbing, almost through to her back. Now she is having midsternal chest pain. She denies any nausea or vomiting. No recent fevers or chills. No exacerbating or alleviating symptoms. No leg swelling. She denies any coronary artery disease history. She did develop a headache. She had just dropped off her son at work. [facility] Medical History Abdominal pain Abnormal results of pulmonary function studies Anxiety and depression Chest pain Chronic low back pain COPD (chronic obstructive pulmonary disease) Degeneration of lumbar or lumbosacral intervertebral disc Dermatitis Diverticulitis Diverticulosis Essential (primary) hypertension Fibromyalgia Flu vaccine need Foul smelling urine GERD (gastroesophageal reflux disease) Health care maintenance Hearing loss Hiatal hernia Hypothyroidism Lumbar radiculopathy Lumbar stenosis Morbid obesity MRSA (methicillin resistant staph aureus) culture positive Musculoskeletal back pain Nummular eczematous dermatitis Oral candidiasis HENRRY (obstructive sleep apnea) Polyp of vocal cord and larynx Recurrent deep vein thrombosis (DVT) Secondary pulmonary arterial hypertension Sinusitis 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 myelopathy or radiculopathy Swallowing difficulty Thrombophlebitis leg superficial TIA (transient ischemic attack) Tobacco abuse Type 2 diabetes mellitus Ureteral calculus, left Home Medications ?Medication ?Instructions ?Recorded ?Last Taken ?Type ascorbate calcium (vitamin C) 500 500 mg PO DAILY vitamin 08/13/20 06/15/23 History mg tablet omega-3 fatty acids 1,000 mg 1,000 mg PO DAILY vitamin 08/13/20 06/16/23 History capsule (Fish Oil Concentrate) triamcinolone acetonide 0.025 % 1 applic topical BID PRN rash #[id number] 10/21/20 06/09/23 Rx topical ointment grams Disability Placard #1 ea 12/10/20 Unknown Rx walker (Ultra-Light Rollator misc) #1 ea 05/05/23 Unknown Rx erythromycin 5 mg/gram (0.5 %) eye 1 applic ophthalmic (eye) .HS air 06/16/23 06/15/23 History ointment in eyes fluorometholone 0.1 % eye 1 drp ophthalmic (eye) BID PRN 06/16/23 06/15/23 History drops,suspension steroid apixaban 5 mg tablet 5 mg PO BID #180 tabs 08/04/23 Unknown Rx levothyroxine 150 mcg tablet 150 mcg PO DAILY #90 tabs 09/01/23 Unknown Rx albuterol sulfate 90 mcg/actuation 2 puff inhalation Q4H PRN 10/18/23 Unknown Rx aerosol inhaler (Ventolin HFA) shortness of breath or wheezing #18 grams azelastine 205.5 mcg (0.15 %) 1 spray intranasal BID #30 mL 10/18/23 Unknown Rx nasal spray budesonide-formoterol HFA 160 2 puff inhalation BID #3 ea 10/18/23 Unknown Rx mcg-4.5 mcg/actuation aerosol inhaler (Symbicort) fluticasone propionate 50 2 spray intranasal DAILY #3 ea 10/18/23 Unknown Rx mcg/actuation nasal spray,suspension ipratropium 0.5 mg-albuterol 3 mg 3 ml inhalation Q4H PRN PRN SOB 10/18/23 Unknown Rx (2.5 mg base)/3 mL nebulization &/OR WHEEZING #180 mL soln roflumilast 500 mcg tablet 500 mcg PO DAILY #30 tabs 10/18/23 Unknown Rx (Daliresp) tiotropium bromide 2.5 2 puff inhalation DAILY #3 device 10/18/23 Unknown Rx mcg/actuation mist for inhalation (Spiriva Respimat) metformin 500 mg tablet,extended 1,500 mg (3 x 500 mg) PO QPM 11/16/23 Unknown Rx release 24 hr Diabetes 3 months #270 tabs montelukast 10 mg tablet 10 mg PO QPM #90 tabs 11/16/23 Unknown Rx (Singulair) omeprazole 40 mg capsule,delayed 40 mg PO BID #180 caps 11/16/23 Unknown Rx release sitagliptin phosphate 100 mg 100 mg PO DAILY Diabetes #90 tabs 11/16/23 Unknown Rx tablet (Januvia) lisinopril 5 mg tablet 5 mg PO QDAY #90 tabs 12/01/23 Unknown Rx diltiazem HCl 120 mg 120 mg PO BID irregular heart rate 12/11/23 Unknown Rx capsule,extended release 24 hr #180 caps (Cardizem CD) Allergy/AdvReac Type Severity Reaction Status Date / Time fluconazole (From Diflucan) Allergy Anaphylaxis Verified 01/17/24 14:05 nickel (Nickel) Allergy Rash Verified 01/17/24 14:05 perfume Allergy Rash Verified 01/17/24 14:05 Family History Mother Cancer Father Diabetes Alcoholism Brother Cancer Lung cancer Surgical History History of D&C History of hysterectomy History of right and left heart catheterization (03/07/18) History of right heart catheterization (05/04/20) History of tonsillectomy History of tubal ligation Status post surgical manipulation of ankle joint Social History (Updated 12/01/23 @ 08:47 by Belinda Isaacs) household members: none Smoking Status: Current every day smoker tobacco type: cigarettes Tobacco: How many years used: 55 second hand exposure: Yes alcohol intake: never substance use type: does not use caffeine: Yes Type: coffee Number of servings: 2 what type of physical activity do you participate in: none ROS ROS ED ROS Narrative Constitutional: No fever, no chills. HEENT: No sore throat. No neck pain. No loss of vision. No rhinorrhea. Cardiovascular: Positive sharp, stabbing chest pain. No palpitations. No pedal edema. Respiratory: No cough, no shortness of breath. Abdominal: No abdominal pain. No nausea. No vomiting. Genitourinary: No dysuria. No hematuria. Musculoskeletal: No myalgias. No arthralgias. Neurologic: Positive headaches. No dizziness. No lightheadedness. Skin: No rash. No change in color. Psychiatric: No depression. No anxiety. EXAM Physical Exam Narrative Exam Narrative: Afebrile. Vital signs noted. HEENT: Normocephalic. Atraumatic. PERRL, EOMI. Neck soft and supple. No point tenderness or step off. Cardiovascular: Regular rate and rhythm. No murmurs, rubs, or gallops appreciated. Respiratory: Mild tachypnea. Coarse breath sounds bilaterally. Gastrointestinal: Abdomen soft, nontender, with normoactive bowel sounds. No rebound or guarding. Neurological: Awake. Alert. Nonfocal, nonlateralizing. Skin: No rash. Normal color. No pallor. Musculoskeletal: No pedal edema. Full range of motion extremities. Const Vital Signs: 01/17/24 13:59 01/17/24 14:06 01/17/24 14:11 Temperature 98.4 F Temperature Source Temporal Pulse Rate 74 Respiratory Rate 20 H Respiratory Effort Normal Non-Labored Blood Pressure 157/69 H Blood Pressure Mean 98 Pulse Ox 99 Oxygen Delivery Method Nasal Cannula Nasal Cannula Oxygen Flow Rate (L/min) 3 2 01/17/24 14:57 01/17/24 15:00 01/17/24 16:00 Temperature Temperature Source Pulse Rate 63 60 Respiratory Rate 19 H 20 H Respiratory Effort Blood Pressure 137/76 H 137/73 H Blood Pressure Mean 96 94 Pulse Ox 100 100 Oxygen Delivery Method Nasal Cannula Oxygen Flow Rate (L/min) 3 01/17/24 17:00 Temperature Temperature Source Pulse Rate 59 L Respiratory Rate 15 Respiratory Effort Blood Pressure 155/60 H Blood Pressure Mean 91 Pulse Ox 99 Oxygen Delivery Method Nasal Cannula Oxygen Flow Rate (L/min) 3 Heart Score History: Slightly/Non-Suspicious ECG: Normal Age: >/= 65 years Risk Factors: 1 or 2 Risk Factors Troponin: </= Normal Limit Score: 3 MDM MDM MDM Narrative Medical decision making narrative: In the differential diagnosis is acute coronary syndrome versus pneumonia versus COPD exacerbation versus pulmonary embolism. I have low suspicion for dissection. Comprehensive workup was pursued. EKG was obtained and interpreted by myself independently as normal sinus rhythm at 72 bpm without ectopy or acute ST changes. No STEMI. I reviewed her laboratory work and she has normal white count of 9.9, hemoglobin normal at 14.4, hematocrit 44.2, platelet count normal 300. Review of her BMP shows sodium slightly low at 135 which think is nonspecific, chloride of 103, BUN of 12 and creatinine 0.83. Glucose is elevated at 214 but she has a normal anion gap of 8 so I doubt diabetic ketoacidosis. Initial high-sensitivity troponin is 8. I reviewed the radiology report of the CTA of the chest and there is no evidence of pulmonary embolism or aortic dissection. Additionally, she does have a hiatal hernia which she is aware. This may be the cause of her pain as well. I do feel that as long as her repeat troponin is not a positive delta troponin, that she can be discharged to follow-up with her primary care provider. Repeat examination at approximately 1800 shows her standing and stating that her chest pain has resolved, but she is having right arm pain secondary to the blood pressure cuff going off. I reviewed her second troponin and it is 7 for negative delta troponin. At this point in time, I feel she can be discharged to follow-up with her primary care provider and/or manager database. Return instructions to the emergency department were reviewed. Disposition is discharged home in stable condition. History & Record Review Discussion w/independent historian: Patient Lab Data Attestation: I reviewed the patient's lab results. Labs: Laboratory Results - last 24 hr 01/17/24 01/17/24 14:02 17:45 WBC 9.9 RBC 4.41 Hgb 14.4 Hct 44.2 MCV 100.2 H MCH 32.7 H MCHC 32.6 RDW Std Deviation 49.5 H RDW Coeff of Rafi 13.3 Plt Count 300 MPV 9.9 Immature Gran % (Auto) 0.500 Neut % (Auto) 69.0 Lymph % (Auto) 21.2 [place] % (Auto) 6.6 Eos % (Auto) 1.9 Baso % (Auto) 0.8 Absolute Neuts (auto) 6.8 Absolute Lymphs (auto) 2.09 Nucleated RBC % 0 Sodium 135 L Potassium 4.0 Chloride 103 Carbon Dioxide 24.0 Anion Gap 8 BUN 12 Creatinine 0.83 Estim Creat Clear Calc 80.36 Est GFR (MDRD) Af Amer 88 Est GFR (MDRD) Non-Af 72 BUN/Creatinine Ratio 14.4 Glucose 214 H Calcium 10.1 Troponin I High Sens 8 7 Radiography Diagnostic Testing: Clinical Impression(s) from Imaging Studies Chest CTA 01/17/24 16:55 IMPRESSION: No demonstrated pulmonary embolism or arterial dissection. Focal nodular density or mucous at the left main bronchus bifurcation. Small hiatal hernia. Electronically Signed: Zacarias Burt DO at 17:44 EDT Reading Location ID and State: [facility] / [place] Tel [phone], Service support , Discharge Plan Triage Chief Complaint: Chest Pain ED Provider: Leoncio Lincoln Dx/Rx/DC Orders Clinical Impression: Chest pain, Smoking greater than 30 pack years, COPD (chronic obstructive pulmonary disease) Instructions: ED Chest Pain, Uncertain Cause Prescriptions: No Action (DME) Disability Placard See Rx Instructions .ROUTE .MEDSUPPLY Qty: 1 0RF Rx Instructions: Expires in 5 years triamcinolone acetonide 0.025 % ointment 1 applic TOPICAL BID PRN (Reason: rash) Qty: 454 2RF omega-3 fatty acids [Fish Oil Concentrate] 1,000 mg capsule 1,000 mg PO DAILY ascorbate calcium (vitamin C) 500 mg tablet 500 mg PO DAILY (DME) Ultra-Light Rollator Misc See Rx Instructions .Route Qty: 1 0RF Rx Instructions: As directed apixaban 5 mg tablet 5 mg PO BID Qty: 180 1RF albuterol sulfate [Ventolin HFA] 90 mcg/actuation HFA aerosol inhaler 2 puff INHALATION Q4H PRN (Reason: shortness of breath or wheezing) Qty: 18 6RF budesonide-formoterol [Symbicort] 160-4.5 mcg/actuation HFA aerosol inhaler 2 puff INHALATION BID Qty: 3 3RF fluticasone propionate 50 mcg/actuation spray,suspension 2 spray INTRANASAL DAILY Qty: 3 3RF ipratropium-albuterol 0.5 mg-3 mg(2.5 mg base)/3 mL solution for nebulization 3 ml inhalation Q4H PRN PRN (Reason: SOB &/OR WHEEZING) Qty: 180 6RF Spiriva Respimat 2.5 mcg/actuation mist 2 puff INHALATION DAILY Qty: 3 3RF roflumilast [Daliresp] 500 mcg tablet 500 mcg PO DAILY Qty: 30 11RF azelastine 205.5 mcg (0.15 %) spray,non-aerosol 1 spray intranasal BID Qty: 30 11RF Rx Instructions: administer into each nostril levothyroxine 150 mcg tablet 150 mcg PO DAILY Qty: 90 1RF metformin 500 mg tablet extended release 24 hr 1,500 mg PO QPM 90 Days Qty: 270 1RF Januvia 100 mg tablet 100 mg PO DAILY Qty: 90 1RF montelukast [Singulair] 10 mg tablet 10 mg PO QPM Qty: 90 1RF omeprazole 40 mg capsule,delayed release(DR/EC) 40 mg PO BID Qty: 180 1RF lisinopril 5 mg tablet 5 mg PO QDAY Qty: 90 3RF diltiazem HCl [Cardizem CD] 120 mg capsule,extended release 24hr 120 mg PO BID Qty: 180 3RF erythromycin 5 mg/gram (0.5 %) ointment 1 applic ophthalmic (eye) .HS Patient Comments: Apply 1 application in both eyes nightly fluorometholone 0.1 % drops,suspension 1 drp ophthalmic (eye) BID PRN Patient Comments: Instill 1 drop in both eyes twice a day Primary Care Provider: Refugoi Dowd Referrals: Refugio oDwd MD [Primary Care Provider] - 3-5 Days if not improving Activity Restrictions/Additional Instructions: Return with increased chest pain, difficulty breathing, new or worsening symptoms. Print Language: Thai Disposition Disposition: Home, Self Care
[2024-01-17 15:00] VITALS: BP 137/76; PULSE 63; RESP 19; O2SAT 100
[2024-01-17] MEDS: Aspirin 81 MG TAB.CHEW 324 MG PO (15:04)
[2024-01-17] MEDS: Acetaminophen 325 MG Tablet 650 MG PO (15:06)
[2024-01-17 15:43] LABS: Absolute Lymphocyte Count 2.09 X10^3/uL (0.83-4.51); Absolute Neutrophil Count 6.8 X10^3/uL (2.0-7.7); Basophil# 0.08 X10^3/uL; Basophil% 0.8 % (0-1); Eosinophil# 0.19 X10^3/uL; Eosinophils% 1.9 % (0-5); Hematocrit 44.2 % (37-47); Hemoglobin 14.4 g/dL (12.0-15.0); Lymphocyte # 2.09 X10^3/ul (0.83-4.51); Lymphocyte % 21.2 % (19-41); Mean Corp Hgb Conc 32.6 g/dL (32-36); Mean Corpuscular Hgb 32.7 pg (27.0-32.0); Mean Corpuscular Volume 100.2 fL (81-99); Mean Platelet Vol. 9.9 fl (6.2-12.0); Monocyte# 0.65 X10^3/uL; Monocyte% 6.6 % (0-10); NRBC Flagged by Analyzer 0 % (0-5); Neutrophil # 6.81 X10^3/uL (2.7-7.7); Platelet Count 300 K/mm3 (150-450); RBC Distribution Width CV 13.3 % (11.6-14.6); RBC Distribution Width SD 49.5 fl (35.1-43.9); Red Blood Count 4.41 M/mm3 (4.2-5.4); White Blood Count 9.9 K/mm3 (4.4-11.0)
[2024-01-17 16:00] VITALS: BP 137/73; PULSE 60; RESP 20; O2SAT 100
[2024-01-17 16:20] LABS: Anion Gap 8 (5-15); BUN 12 mg/dL (7-18); BUN/Creat Ratio 14.4 RATIO (10-20); Calcium,Total 10.1 mg/dL (8.5-10.1); Chloride 103 mmol/L (98-107); Creatinine, Serum 0.83 mg/dL (0.55-1.02); EST Glomerular Filtration Rate 72 mL/min (>60); Est Glom Filt Rate - Afr Amer 88 mL/min (>60); Estimated Creatinine Clearance 80.36 ml/min; Glucose 214 mg/dL (74-106); Sodium Level 135 mmol/L (136-145); Troponin-I HS (w/2H Reflex) 8 pg/mL (3.0-54.0)
--- NOTE | 2024-01-17 16:55 | CT_ITS ---
STUDY: CTA CHEST REASON FOR EXAM: Female, 68 years old. CHest Pain, SOB RADIATION DOSAGE (If Supplied By Facility): CTDIvol = ( 15.04 ) mGy, DLP = ( 514.13 ) mGycm TECHNIQUE: The examination was performed with the intravenous administration of IV 100mL Isovue-370. Post-processing of the angiographic images was performed, with multiplanar reformation and 3D reconstruction. The protocol utilizes one or more of the following dose reduction techniques: automated exposure control, adjustment of mA and/or kV according to patient size,and/or use of iterative reconstruction technique. COMPARISON: FINDINGS: Normal enhancement of the main pulmonary artery and right and left pulmonary arteries. Normal enhancement of the bilateral peripheral pulmonary arteries. There is no demonstrated pulmonary embolism. Normal thoracic aorta and visualized great vessels. There is no demonstrated aortic dissection. Normal heart and pericardium. Normal mediastinum. Normal hilar regions. Normal visualized trachea. Focal nodular density or mucous at the left main bronchus bifurcation. The lungs are well expanded. Normal pulmonary parenchyma. Normal pleura. Normal chest wall structures. Degenerative vertebral changes. Small hiatal hernia. CT/CTA Chest W/WO Contrast IMPRESSION: No demonstrated pulmonary embolism or arterial dissection. Focal nodular density or mucous at the left main bronchus bifurcation. Small hiatal hernia. Electronically Signed: Zacarias Burt DO at 17:44 EDT Reading Location ID and State: [facility] / [place] Tel [phone], Service support ,
[2024-01-17 17:00] VITALS: BP 155/60; PULSE 59; RESP 15; O2SAT 99
[2024-01-17 17:33] LABS: Reflex Troponin-HS? (from REC) Y
[2024-01-17 18:25] LABS: Troponin-I HS 7 pg/mL (3.0-54.0)
[2024-01-17 18:51] VITALS: BP 154/80; PULSE 82; RESP 16; TEMP 36.9; O2SAT 98
== END 2024-01-17 18:52 | disposition home or self-care (01) ==
PROVIDERS: Emergency Provider Emergency Medicine; PCP Internal Medicine; Visit Provider Emergency Medicine
DX: R07.9 Chest pain, unspecified (principal); J44.9 Chronic obstructive pulmonary disease, unspecified; E11.9 Type 2 diabetes mellitus without complications; F17.210 Nicotine dependence, cigarettes, uncomplicated; Z86.73 Personal history of transient ischemic attack (TIA), and cerebral infarction without residual deficits; Z86.718 Personal history of other venous thrombosis and embolism; G47.33 Obstructive sleep apnea (adult) (pediatric)
CPT/HCPCS: 71275; 80048; 84484; 85025; 93005; 99284; Q9967; A4216

== ENCOUNTER → 2024-05-29 | Outpatient (CLI) | payer MEDICARE, MEDICAID, SELFPAY ==
--- NOTE | 2024-05-29 08:47 | BI_ITS ---
MAMMOGRAPHY - BILATERAL SCREENING REASON FOR EXAM: Female, 68 years old. Routine annual screening examination. PERTINENT HISTORY: Non-contributory. TECHNIQUE: Digital bilateral breast annie (3D mammographic acquisition) in the CC and MLO projections. 2-D mediolateral oblique (MLO) and craniocaudad (CC) views of both breasts were obtained. CAD: Full Field Digital Mammography with Computer Added Detection was performed. COMPARISON: Comparison is made with prior study dated February 02, 2023 and October 12, 2021. FINDINGS: Breast Composition: There are scattered areas of fibroglandular density. There are no dominant masses or suspicious calcifications. Stable small benign-appearing bilateral axillary lymph nodes. No other significant abnormalities are identified. There has been no significant change since the prior study. BI/SCRN MAMM (CAD)W/ANNIE BILAT IMPRESSION: Stable bilateral screening mammogram. Yearly follow-up mammogram recommended. (A) ASSESSMENT CATEGORY: BIRADS Category 2: Benign. A letter regarding these results will be sent to the patient by the facility within 30 days. Approximately 10% of breast cancers are not detected by mammography. A normal mammogram should not delay biopsy of a clinically suspicious abnormality. [id number] Electronically Signed: Fish Woods MD at 10:20 EDT ,
== END | disposition home or self-care (01) ==
LOC: OPBI 08:47
PROVIDERS: PCP Internal Medicine; Referring Provider Internal Medicine; Visit Provider Internal Medicine
DX: Z12.31 Encounter for screening mammogram for malignant neoplasm of breast (principal)
CPT/HCPCS: 77063; 77067

== ENCOUNTER 2024-07-25 13:44 | Emergency (ER) | payer MEDICARE, MEDICAID, SELFPAY ==
[2024-07-25] VITALS (7 sets, daily range): BP systolic 137–179; BP diastolic 54–85; PULSE 70–81; RESP 14–22; TEMP 36.9–37.1; O2SAT 77–99; BMI 48.4
--- NOTE | 2024-07-25 13:46 | ED.RN ---
SATS 77% GOOD WAVE FORM IN TRAIGE WITH HOME O2 TANK AT 4 LITERS USUALLY WEARS 3
--- NOTE | 2024-07-25 14:21 | EKG12_ITS ---
Test Reason : Blood Pressure : */* mmHG Vent. Rate : 64 BPM Atrial Rate : 64 BPM P-R Int : 144 ms QRS Dur : 88 ms QT Int : 434 ms P-R-T Axes : 17 13 62 degrees QTcB Int : 447 ms Normal sinus rhythm Normal ECG Confirmed by MYRNA MIRANDA, JAMIE ([id number]), food editor ZHANNA DICKERSON () on 07/26/2024 9:43:44 AM Referred By: ALEJANDRA Confirmed By: JAMIE NORRIS MD
[2024-07-25] MEDS: MethylPREDNISolone 125 MG/2 ML Vial IV (14:32)
[2024-07-25 14:39] LABS: Absolute Lymphocyte Count 2.28 X10^3/uL (0.83-4.51); Absolute Neutrophil Count 3.6 X10^3/uL (2.0-7.7); Basophil# 0.06 X10^3/uL; Basophil% 0.9 % (0-1); Eosinophil# 0.25 X10^3/uL; Eosinophils% 3.5 % (0-5); Hematocrit 43.4 % (37-47); Hemoglobin 13.8 g/dL (12.0-15.0); Lymphocyte # 2.28 X10^3/ul (0.83-4.51); Lymphocyte % 32.3 % (19-41); Mean Corp Hgb Conc 31.8 g/dL (32-36); Mean Corpuscular Hgb 32.2 pg (27.0-32.0); Mean Corpuscular Volume 101.4 fL (81-99); Mean Platelet Vol. 9.8 fl (6.2-12.0); Monocyte# 0.86 X10^3/uL; Monocyte% 12.2 % (0-10); NRBC Flagged by Analyzer 0 % (0-5); Neutrophil # 3.59 X10^3/uL (2.7-7.7); Platelet Count 220 K/mm3 (150-450); RBC Distribution Width CV 13.5 % (11.6-14.6); RBC Distribution Width SD 51.2 fl (35.1-43.9); Red Blood Count 4.28 M/mm3 (4.2-5.4); White Blood Count 7.1 K/mm3 (4.4-11.0)
[2024-07-25] MEDS: Albuterol 2.5 MG/3 ML VIAL.NEB. INHALATION (14:39)
[2024-07-25] MEDS: Ipratropium/Albuterol Sulfate 3 ML AMPUL.NEB INHALATION (14:39)
--- NOTE | 2024-07-25 14:45 | RAD_ITS ---
STUDY: X-RAY CHEST REASON FOR EXAM: Female, 69 years old. cough TECHNIQUE: Single AP portable view of the chest. COMPARISON: 06/16/2023 FINDINGS: The lungs are clear and expanded. There is no demonstrated pleural abnormality. There is moderate cardiac enlargement. Normal mediastinum and juve. Normal visualized pulmonary arteries. Normal visualized aortic arch and descending thoracic aorta. Normal visualized thoracic spine. Normal visualized ribs, clavicles, and shoulders. There is no demonstrated abnormality of the visualized soft tissue structures of the upper abdomen. RAD/Chest 1 View (Portable) IMPRESSION: No active disease. Electronically Signed: Odin Baker MD at 15:28 EST ,
[2024-07-25 14:55] LABS: Anion Gap 5 (5-15); BUN 12 mg/dL (7-18); BUN/Creat Ratio 15.1 RATIO (10-20); Calcium,Total 9.5 mg/dL (8.5-10.1); Chloride 104 mmol/L (98-107); Creatinine, Serum 0.79 mg/dL (0.55-1.02); EST Glomerular Filtration Rate 76 mL/min (>60); Est Glom Filt Rate - Afr Amer 92 mL/min (>60); Estimated Creatinine Clearance 81.83 ml/min; Glucose 152 mg/dL (74-106); Potassium 3.9 mmol/L (3.5-5.1); Sodium Level 139 mmol/L (136-145)
--- NOTE | 2024-07-25 14:55 | ED.VIS.DYS ---
HPI History of Present Illness Chief Complaint: Shortness of Breath Informant: patient Narrative Narrative: 69-year-old female history of COPD on chronic home oxygen presenting to the emergency room with cough and dyspnea. Patient states over the past several days she has had a productive cough with wheezing. She is increased her oxygen up to 4 L at home. She states with ambulation while on 4 L she still becomes hypoxic. She denies any chest pain. She denies any fever. She states that she really does not want to stay in the hospital but believes that she needs some prednisone. The patient does have DuoNeb aerosols at home. She is reported to be on apixaban 5 mg twice daily. [facility] Medical History Fungal dermatitis Atypical chest pain Abdominal pain Diverticulitis Recurrent deep vein thrombosis (DVT) Foul smelling urine Flu vaccine need Swallowing difficulty Lumbar stenosis Lumbar radiculopathy Musculoskeletal back pain Chest pain Sinusitis COPD (chronic obstructive pulmonary disease) Health care maintenance Secondary pulmonary arterial hypertension Essential (primary) hypertension 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 myelopathy or radiculopathy Degeneration of lumbar or lumbosacral intervertebral disc Type 2 diabetes mellitus Ureteral calculus, left Nummular eczematous dermatitis Hypothyroidism Dermatitis Tobacco abuse TIA (transient ischemic attack) Thrombophlebitis leg superficial MRSA (methicillin resistant staph aureus) culture positive Hearing loss Morbid obesity Diverticulosis HENRRY (obstructive sleep apnea) Hiatal hernia Fibromyalgia GERD (gastroesophageal reflux disease) Chronic low back pain Oral candidiasis Abnormal results of pulmonary function studies Polyp of vocal cord and larynx Anxiety and depression Home Medications ?Medication ?Instructions ?Recorded ?Last Taken ?Type ascorbate calcium (vitamin C) 500 500 mg PO DAILY vitamin 08/13/20 06/15/23 History mg tablet omega-3 fatty acids 1,000 mg 1,000 mg PO DAILY vitamin 08/13/20 06/16/23 History capsule (Fish Oil Concentrate) Disability Placard #1 ea 12/10/20 Unknown Rx walker (Ultra-Light Rollator misc) #1 ea 05/05/23 Unknown Rx erythromycin 5 mg/gram (0.5 %) eye 1 applic ophthalmic (eye) .HS air 06/16/23 06/15/23 History ointment in eyes fluorometholone 0.1 % eye 1 drp ophthalmic (eye) BID PRN 06/16/23 06/15/23 History drops,suspension steroid albuterol sulfate 90 mcg/actuation 2 puff inhalation Q4H PRN 10/18/23 Unknown Rx aerosol inhaler (Ventolin HFA) shortness of breath or wheezing #18 grams azelastine 205.5 mcg (0.15 %) 1 spray intranasal BID #30 mL 10/18/23 Unknown Rx nasal spray budesonide-formoterol HFA 160 2 puff inhalation BID #3 ea 10/18/23 Unknown Rx mcg-4.5 mcg/actuation aerosol inhaler (Symbicort) fluticasone propionate 50 2 spray intranasal DAILY #3 ea 10/18/23 Unknown Rx mcg/actuation nasal spray,suspension ipratropium 0.5 mg-albuterol 3 mg 3 ml inhalation Q4H PRN PRN SOB 10/18/23 Unknown Rx (2.5 mg base)/3 mL nebulization &/OR WHEEZING #180 mL soln roflumilast 500 mcg tablet 500 mcg PO DAILY #30 tabs 10/18/23 Unknown Rx (Daliresp) tiotropium bromide 2.5 2 puff inhalation DAILY #3 device 10/18/23 Unknown Rx mcg/actuation mist for inhalation (Spiriva Respimat) metformin 500 mg tablet,extended 1,500 mg (3 x 500 mg) PO QPM 11/16/23 Unknown Rx release 24 hr Diabetes 3 months #270 tabs montelukast 10 mg tablet 10 mg PO QPM #90 tabs 11/16/23 Unknown Rx (Singulair) sitagliptin phosphate 100 mg 100 mg PO DAILY Diabetes #90 tabs 11/16/23 Unknown Rx tablet (Januvia) lisinopril 5 mg tablet 5 mg PO QDAY #90 tabs 12/01/23 Unknown Rx amoxicillin 875 mg-potassium 1 tab PO BID #20 tabs 05/31/24 Unknown Rx clavulanate 125 mg tablet diltiazem HCl 120 mg 120 mg PO BID irregular heart rate 05/31/24 Unknown Rx capsule,extended release 24 hr #180 caps (Cardizem CD) levothyroxine 150 mcg tablet 150 mcg PO DAILY #90 tabs 05/31/24 Unknown Rx nystatin 100,000 unit/gram topical 1 applic topical TID #60 grams 05/31/24 Unknown Rx powder omeprazole 40 mg capsule,delayed 40 mg PO BID #180 caps 05/31/24 Unknown Rx release prednisone 10 mg tablet See Rx Instructions PO QDAY #30 05/31/24 Unknown Rx tabs triamcinolone acetonide 0.025 % 1 applic topical BID PRN rash #454 05/31/24 Unknown Rx topical ointment grams apixaban 5 mg tablet 5 mg PO BID #180 tabs 06/21/24 Unknown Rx azithromycin 250 mg tablet See Rx Instructions PO .COMPLEX #6 07/25/24 Unknown Rx (Zithromax Z-Valentino) tabs prednisone 20 mg tablet 60 mg (3 x 20 mg) PO DAILY #15 07/25/24 Unknown Rx TABLETS Allergy/AdvReac Type Severity Reaction Status Date / Time fluconazole (From Diflucan) Allergy Anaphylaxis Verified 07/25/24 13:54 nickel (Nickel) Allergy Rash Verified 07/25/24 13:54 perfume Allergy Rash Verified 07/25/24 13:54 Family History Mother Cancer Father Diabetes Alcoholism Brother Cancer Lung cancer Surgical History History of right heart catheterization (05/04/20) History of right and left heart catheterization (03/07/18) History of tonsillectomy Status post surgical manipulation of ankle joint History of D&C History of tubal ligation History of hysterectomy Social History household members: none Smoking Status: Current every day smoker tobacco type: cigarettes Tobacco: How many years used: 55 second hand exposure: Yes alcohol intake: never substance use type: does not use caffeine: Yes Type: coffee Number of servings: 2 what type of physical activity do you participate in: none ROS ROS ED Constitutional Constitutional ED: Denies chills, fever(s) or weight loss Eyes Eyes: Denies change in vision or diplopia ENT ENT ED: Reports rhinorrhea; Denies ear pain or sore throat Cardiovascular Cardiovascular: Denies chest pain, orthopnea, palpitations or racing heartbeat Respiratory/Chest Respiratory/Chest: Reports cough, dyspnea, dyspnea on exertion and sputum; Denies orthopnea Gastrointestinal Gastrointestinal: Denies abdominal pain, diarrhea, nausea or vomiting Genitourinary Genitourinary ED: Denies dysuria, hematuria or urinary frequency Musculoskeletal Musculoskeletal: Denies arthralgias or myalgias Integumentary Denies abscess or rash Neurologic Neurologic: Denies headache(s) or weakness Psychiatric Psychiatric: Denies anxiety, depression, suicidal ideation or suicidal thoughts Endocrine Endocrinology: Denies polydipsia, polyphagia or polyuria Allergic/Immunologic Allergic/Immunologic ED: Denies mouth swelling, tongue swelling or urticaria EXAM Physical Exam Const Vital Signs: 07/25/24 13:49 07/25/24 13:53 07/25/24 13:54 Temperature 98.8 F Temperature Source Oral Pulse Rate 81 Respiratory Rate 22 H Respiratory Effort Short of Breath Respiratory Depth Shallow Respiratory Pattern Tachypnea Blood Pressure 179/66 H Blood Pressure Mean 103 Pulse Ox 77 97 Oxygen Delivery Method Nasal Cannula Nasal Cannula Oxygen Flow Rate (L/min) 4 6 07/25/24 13:56 07/25/24 14:23 07/25/24 14:41 Temperature 98.8 F Temperature Source Oral Pulse Rate 70 74 Respiratory Rate 20 H 20 H Respiratory Effort Respiratory Depth Respiratory Pattern Normal Blood Pressure 179/66 H Blood Pressure Mean 103 Pulse Ox 99 Oxygen Delivery Method Nasal Cannula Nasal Cannula Oxygen Flow Rate (L/min) 4 4 07/25/24 14:52 07/25/24 15:00 Temperature 98.7 F 98.7 F Temperature Source Oral Oral Pulse Rate 72 71 Respiratory Rate 14 19 H Respiratory Effort Respiratory Depth Respiratory Pattern Blood Pressure 137/54 H 148/70 H Blood Pressure Mean 81 96 Pulse Ox 97 99 Oxygen Delivery Method Room Air Room Air Oxygen Flow Rate (L/min) Positive well nourished, well developed and obese General Appearance ED: well developed and NAD Nutritional Appearance: obese HEENT Reports normocephalic, head/scalp atraumatic and moist mucous membranes Eyes PERRL and EOMs intact bilaterally Neck no lymphadenopathy, supple and no JVD Resp normal respiratory effort Auscultation: rhonchi throughout and wheezes expiratory wheezes Cardio regular rate, regular rhythm and no murmurs GI normal to inspection, nondistended, normoactive bowel sounds and non-tender Palpation: soft Back/Spine no CVA tenderness and normal ROM Extremity normal to inspection General Extremety ED: Negative for edema General Extremity: Negative for edema Neuro oriented x3 and CN's II-XII intact bilaterally Sensorium / Orientation: alert Motor Exam: strength 5/5 throughout Psych mental status grossly normal Mood & Affect: Negative for depressed or tearful Skin no rashes or lesions noted and no wounds MDM MDM MDM Narrative Medical decision making narrative: Differential diagnosis includes but not limited to COPD exacerbation pneumonia bronchospasm pulmonary embolism Patient is anticoagulated not experiencing chest pain and I doubt pulmonary embolism. Her symptoms are more consistent with a COPD exacerbation. White count 7.1 glucose 152 CO2 30. My independent interpretation the chest x-ray is no acute infiltrate. At this point patient received some Solu-Medrol and breathing treatments. She is 98% on 4 L when she is at rest. She desats into the low 9 has high 80s with exertion. Using shared decision making: I discussed with her admission and would recommend staying but she is not amendable to this. She states she would feel better at home and states that she also did not pack a bag does not have her BiPAP with her. She firmly believes that as long as she is at rest and gets on some steroids and antibiotics she will do better. She has the ability to do every 4 hour aerosols which I encouraged. Patient understands return instructions. Family will be able to help her out. History & Record Review Discussion w/independent historian: Patient and Family Lab Data Attestation: I reviewed the patient's lab results. Labs: Laboratory Results - last 24 hr 07/25/24 13:53 WBC 7.1 RBC 4.28 Hgb 13.8 Hct 43.4 MCV 101.4 H MCH 32.2 H MCHC 31.8 L RDW Std Deviation 51.2 H RDW Coeff of Rafi 13.5 Plt Count 220 MPV 9.8 Immature Gran % (Auto) 0.100 Neut % (Auto) 51.0 Lymph % (Auto) 32.3 [place] % (Auto) 12.2 H Eos % (Auto) 3.5 Baso % (Auto) 0.9 Absolute Neuts (auto) 3.6 Absolute Lymphs (auto) 2.28 Nucleated RBC % 0 Sodium 139 Potassium 3.9 Chloride 104 Carbon Dioxide 30.0 Anion Gap 5 BUN 12 Creatinine 0.79 Estim Creat Clear Calc 81.83 Est GFR (MDRD) Af Amer 92 Est GFR (MDRD) Non-Af 76 BUN/Creatinine Ratio 15.1 Glucose 152 H Calcium 9.5 Radiography Diagnostic Testing: Clinical Impression(s) from Imaging Studies Chest X-Ray 07/25/24 14:45 IMPRESSION: No active disease. Electronically Signed: Odin Baker MD at 15:28 EST , EKG Initial EKG: Attestation: I personally reviewed and interpreted this EKG as follows: Comments: Normal sinus rhythm ventricular rate 64 bpm Discharge Plan Triage Chief Complaint: Shortness of Breath ED Provider: Dieter Amaro Dx/Rx/DC Orders Clinical Impression: Acute exacerbation of chronic obstructive pulmonary disease, Acute on chronic hypoxic respiratory failure Instructions: ED COPD Flare Prescriptions: New azithromycin [Zithromax Z-Valentino] 250 mg tablet See Rx Instructions .ROUTE .COMPLEX Qty: 6 0RF Rx Instructions: For 250 mg dose pack: take 500 mg today (day 1), then 250 mg for 4 days (days 2-5) prednisone 20 mg tablet 60 mg PO DAILY Qty: 15 0RF No Action (DME) Disability Placard See Rx Instructions .ROUTE .MEDSUPPLY Qty: 1 0RF Rx Instructions: Expires in 5 years omega-3 fatty acids [Fish Oil Concentrate] 1,000 mg capsule 1,000 mg PO DAILY ascorbate calcium (vitamin C) 500 mg tablet 500 mg PO DAILY (DME) Ultra-Light Rollator Misc See Rx Instructions .Route Qty: 1 0RF Rx Instructions: As directed albuterol sulfate [Ventolin HFA] 90 mcg/actuation HFA aerosol inhaler 2 puff INHALATION Q4H PRN (Reason: shortness of breath or wheezing) Qty: 18 6RF budesonide-formoterol [Symbicort] 160-4.5 mcg/actuation HFA aerosol inhaler 2 puff INHALATION BID Qty: 3 3RF fluticasone propionate 50 mcg/actuation spray,suspension 2 spray INTRANASAL DAILY Qty: 3 3RF ipratropium-albuterol 0.5 mg-3 mg(2.5 mg base)/3 mL solution for nebulization 3 ml inhalation Q4H PRN PRN (Reason: SOB &/OR WHEEZING) Qty: 180 6RF Spiriva Respimat 2.5 mcg/actuation mist 2 puff INHALATION DAILY Qty: 3 3RF roflumilast [Daliresp] 500 mcg tablet 500 mcg PO DAILY Qty: 30 11RF azelastine 205.5 mcg (0.15 %) spray,non-aerosol 1 spray intranasal BID Qty: 30 11RF Rx Instructions: administer into each nostril metformin 500 mg tablet extended release 24 hr 1,500 mg PO QPM 90 Days Qty: 270 1RF Januvia 100 mg tablet 100 mg PO DAILY Qty: 90 1RF montelukast [Singulair] 10 mg tablet 10 mg PO QPM Qty: 90 1RF lisinopril 5 mg tablet 5 mg PO QDAY Qty: 90 3RF prednisone 10 mg tablet See Rx Instructions PO QDAY Qty: 30 0RF Dose Instruction: 4 tabs for 3 days, then 3 tabs for 3 days, then 2 tabs for 3 days, then 1 tab for 3 days PO QDAY; administer with food or milk Rx Instructions: 4 tabs for 3 days, then 3 tabs for 3 days, then 2 tabs for 3 days, then 1 tab for 3 days PO QDAY; administer with food or milk amoxicillin-pot clavulanate 875-125 mg tablet 1 tab PO BID Qty: 20 0RF triamcinolone acetonide 0.025 % ointment 1 applic TOPICAL BID PRN (Reason: rash) Qty: 454 2RF levothyroxine 150 mcg tablet 150 mcg PO DAILY Qty: 90 1RF omeprazole 40 mg capsule,delayed release(DR/EC) 40 mg PO BID Qty: 180 1RF diltiazem HCl [Cardizem CD] 120 mg capsule,extended release 24hr 120 mg PO BID Qty: 180 3RF nystatin 100,000 unit/gram powder 1 applic topical TID Qty: 60 3RF apixaban 5 mg tablet 5 mg PO BID Qty: 180 3RF erythromycin 5 mg/gram (0.5 %) ointment 1 applic ophthalmic (eye) .HS Patient Comments: Apply 1 application in both eyes nightly fluorometholone 0.1 % drops,suspension 1 drp ophthalmic (eye) BID PRN Patient Comments: Instill 1 drop in both eyes twice a day Primary Care Provider: Refugio Dowd Referrals: Refugio Dowd MD [Primary Care Provider] - As Needed Print Language: Kiswahili Disposition Disposition: Home, Self Care
== END 2024-07-25 15:51 | disposition home or self-care (01) ==
PROVIDERS: Emergency Provider Emergency Medicine; PCP Internal Medicine; Visit Provider Emergency Medicine
DX: J44.1 Chronic obstructive pulmonary disease with (acute) exacerbation (principal); J96.21 Acute and chronic respiratory failure with hypoxia; E11.9 Type 2 diabetes mellitus without complications; F17.210 Nicotine dependence, cigarettes, uncomplicated; G47.33 Obstructive sleep apnea (adult) (pediatric); Z86.718 Personal history of other venous thrombosis and embolism; Z86.73 Personal history of transient ischemic attack (TIA), and cerebral infarction without residual deficits
CPT/HCPCS: 71045; 80048; 85025; 87631; 93005; 94640; 96374; 99284; A4216

== ENCOUNTER → 2024-11-28 | Outpatient (CLI) | payer MEDICARE, MEDICAID, SELFPAY ==
[2024-11-28 15:53] LABS: Bacteria 0 SEEN /hpf (None Seen); Mucous, Urine 0 SEEN /hpf (<or=2+); Red Blood Cells-Urine 0 SEEN /hpf (0-5); White Blood Cells 0 SEEN /hpf (0-5)
[2024-11-28 16:53] LABS: Absolute Lymphocyte Count 2.09 X10^3/uL (0.83-4.51); Absolute Neutrophil Count 3.5 X10^3/uL (2.0-7.7); Basophil# 0.04 X10^3/uL; Basophil% 0.6 % (0-1); Eosinophil# 0.09 X10^3/uL; Eosinophils% 1.4 % (0-5); Hematocrit 39.9 % (37-47); Lymphocyte # 2.09 X10^3/ul (0.83-4.51); Mean Corp Hgb Conc 32.6 g/dL (32-36); Mean Corpuscular Hgb 32.4 pg (27.0-32.0); Mean Corpuscular Volume 99.5 fL (81-99); Mean Platelet Vol. 9.4 fl (6.2-12.0); Monocyte# 0.57 X10^3/uL; NRBC Flagged by Analyzer 0 % (0-5); Neutrophil # 3.54 X10^3/uL (2.7-7.7); Neutrophil % 55.8 % (47-70); Platelet Count 235 K/mm3 (150-450); RBC Distribution Width CV 13.2 % (11.6-14.6); RBC Distribution Width SD 48.9 fl (35.1-43.9); Red Blood Count 4.01 M/mm3 (4.2-5.4); White Blood Count 6.3 K/mm3 (4.4-11.0)
[2024-11-28 17:20] LABS: Color, Urine Yellow (Yellow); Glucose, Dipstick Normal (Normal); Ketone-Dipstick Negative (Negative); Leukocyte Esterase-Dipstick Negative /ul (Negative); Nitrite-Dipstick Negative (Negative); Occult Blood-Urine 10 /ul (Negative); Protein-Dipstick Negative (Negative); Urine Bilirubin Dipstick Negative (Negative); Urine Clarity Clear (Clear); Urine Urobilinogen Normal (Normal)
[2024-11-28 17:33] LABS: Squamous Epithelial Cells - UA 0-5 SEEN /hpf (5-10)
[2024-11-28 20:00] LABS: ALB/GLOB Ratio 1.5 RATIO (0.9-2.4); AST(SGOT) 14 U/L (<=31); Alanine Aminotransfer ALT/SGPT 15 U/L (<=34); Albumin, Serum 4.4 g/dL (3.4-4.8); Alkaline Phosphatase 95 U/L (35-104); Anion Gap 14 (5-15); BUN 16 mg/dL (4-19); BUN/Creat Ratio 21.2 RATIO (10-20); Calcium,Total 9.8 mg/dL (7.6-11.0); Carbon Dioxide 21.5 mmol/L (21.0-32.0); Chloride 102 mmol/L (98-108); Creatinine, Serum 0.76 mg/dL (0.70-1.20); EST Glomerular Filtration Rate 85 (>60); Globulin 2.9 g/dL (2.2-4.2); Glucose 145 mg/dL (70-99); Potassium 4.3 mmol/L (3.3-5.1); Protein, Total 7.3 g/dL (5.9-8.4); Sodium Level 137 mmol/L (133-145); Thyroid Stim Hormone (TSH) 0.741 uIU/mL (0.300-4.200); Total Bilirubin 0.48 mg/dL (0.00-1.30)
== END | disposition home or self-care (01) ==
LOC: BIMLAB 15:52
PROVIDERS: PCP Internal Medicine; Referring Provider Internal Medicine; Visit Provider Internal Medicine
DX: R35.0 Frequency of micturition (principal); E11.69 Type 2 diabetes mellitus with other specified complication; E03.9 Hypothyroidism, unspecified
CPT/HCPCS: 36415; 80053; 81001; 84443; 85025